=== PATIENT | male | born 1945 | race Caucasian/White ===

== ENCOUNTER 2017-08-06 13:17 | Inpatient (IN) | payer MEDICARE, OTHER ==
[~2017-08-06 13:17] MED LIST: DIFL100T PO; HYDR-3516 PO; LACT PO; LISI2.5T3 PO; METR-1 PO; REDPOW2
[2017-08-06 13:35] VITALS: BP 147/88; PULSE 102; RESP 18; TEMP 100.3; O2SAT 99
[2017-08-06] MEDS ORDERED: ACETAMINOPHEN 325 MG TAB PO ONE (13:45)
[2017-08-06 14:15] LABS: AUTOMATED NEUTROPHIL # 11.1 TH/MM3 (1.8-7.7); BASOPHIL # 0.1 TH/MM3 (0-0.2); BASOPHIL % 0.6 % (0.0-2.0); EOSINOPHIL # 0.1 TH/MM3 (0-0.4); EOSINOPHIL % 0.5 % (0.0-4.0); HEMATOCRIT 34.1 % (39.0-51.0); HEMOGLOBIN 12.2 GM/DL (13.0-17.0); LYMPH % 5.9 % (9.0-44.0); LYMPHOCYTE # 0.8 TH/MM3 (1.0-4.8); MEAN CELL VOLUME 87.2 FL (80.0-100.0); MEAN CORPUSCULAR HEMOGLOBIN 31.3 PG (27.0-34.0); MEAN CORPUSCULAR HGB CONC 35.9 % (32.0-36.0); MEAN PLATELET VOLUME 7.5 FL (7.0-11.0); MONO % 13.3 % (0.0-8.0); MONOCYTE # 1.9 TH/MM3 (0-0.9); NEUT % 79.7 % (16.0-70.0); PLATELET COUNT 327 TH/MM3 (150-450); RED BLOOD COUNT 3.92 MIL/MM3 (4.50-5.90); RED CELL DISTRIBUTION WIDTH 12.9 % (11.6-17.2); WHITE BLOOD COUNT 13.9 TH/MM3 (4.0-11.0)
[2017-08-06 14:24] LABS: INTERNATIONAL NORMALIZED RATIO 1.1 RATIO; PROTHROMBIN TIME - PATIENT 11.1 SEC (9.8-11.6)
[2017-08-06 14:30] LABS: ALBUMIN 2.8 GM/DL (3.4-5.0); AST (GOT) 12 U/L (15-37); BICARBONATE 20.3 MEQ/L (21.0-32.0); BLOOD UREA NITROGEN 50 MG/DL (7-18); CALCIUM 9.3 MG/DL (8.5-10.1); CHLORIDE 104 MEQ/L (98-107); GLOMERULAR FILTRATION RATE 26 ML/MIN (>89); GLUCOSE,RANDOM 104 MG/DL (74-106); SODIUM (NA) 136 MEQ/L (136-145)
--- NOTE | 2017-08-06 14:30 | RADRPT ---
EXAM DATE/TIME: 08/06/2017 13:50 [facility] COMPARISON: No previous studies available for comparison. INDICATIONS : Chest discomfort; fall. MEDICAL HISTORY : None. SURGICAL HISTORY : None. ENCOUNTER: Initial ACUITY: 1 day PAIN SCORE: 2/10 LOCATION: Bilateral chest FINDINGS: A single view of the chest demonstrates minimal bibasilar linear densities without evidence of mass, infiltrate or effusion. Calcified granuloma right mid to lower lung. The cardiomediastinal contours are unremarkable. Osseous structures are intact. CONCLUSION: Minimal bibasilar subsegmental atelectasis. Manuel David MD on August 06, 2017 at 14:29 Board Certified Radiologist. This report was verified electronically.
--- NOTE | 2017-08-06 14:30 | RADRPT ---
EXAM DATE/TIME: 08/06/2017 14:06 [facility] COMPARISON: No previous studies available for comparison. INDICATIONS : Left knee contraction. MEDICAL HISTORY : None. SURGICAL HISTORY : None. ENCOUNTER: Initial ACUITY: 1 week PAIN SCORE: 9/10 LOCATION: Left knee. FINDINGS: Two view examination of the left knee is obtained. Patient unable to extend knee, limiting evaluation . No obvious fracture. Prominent degenerative changes. Bony mineralization is normal. The suprapate llar soft tissues have a normal configuration. CONCLUSION: Limited study with prominent degenerative changes. No gross fracture. Manuel David MD on August 06, 2017 at 14:25 Board Certified Radiologist. This report was verified electronically.
[2017-08-06 14:34] LABS: ALKALINE PHOSPHATASE 94 U/L (45-117); ALT (GPT) 9 U/L (12-78); TOTAL BILIRUBIN ADULT 0.3 MG/DL (0.2-1.0); TOTAL PROTEIN 8.5 GM/DL (6.4-8.2)
[2017-08-06] MEDS ORDERED: MORPHINE SULFATE 2 MG/ML INJ IV PUSH ONE (14:45)
[2017-08-06] MEDS ORDERED: SODIUM CHLOR 0.9% 1000 ML INJ 1,000 ML IV ONE (14:45)
[2017-08-06 14:50] VITALS: BP 113/55; PULSE 89; RESP 20; TEMP 99.8; O2SAT 100
[2017-08-06] MEDS ORDERED: FERR325T18 PO (14:54)
[2017-08-06 14:57] LABS: BACTERIA, URINE MANY /hpf; BILIRUBIN, URINE NEG (NEG); BLOOD, URINE SMALL (NEG); GLUCOSE,URINE NEG (NEG); KETONE, URINE NEG (NEG); MUCUS URINE FEW /lpf (OCC); NITRITE,URINE NEG (NEG); PH, URINE 7.5 (5.0-8.5); URINE COLOR LIGHT-YELLOW (YELLW/STRAW); URINE LEUKOCYTE ESTERASE LARGE (NEG); WHITE BLOOD CELL CLUMPS OCC
--- NOTE | 2017-08-06 15:39 | PD ---
Data Data Last Documented VS Vital Signs Date Time Temp Pulse Resp B/P (MAP) Pulse Ox O2 Delivery O2 Flow Rate FiO2 08/06/17 14:50 99.8 89 20 113/55 (74) 100 Room Air Orders Orders Sepsis Workup Initiated (08/06/17 ) Complete Blood Count With Diff (08/06/17 13:37) Comprehensive Metabolic Panel (08/06/17 13:37) Prothrombin Time / Inr (Pt) (08/06/17 13:37) Act Partial Throm Time (Ptt) (08/06/17 13:37) Lactic Acid Sepsis Protocol (08/06/17 13:37) Urinalysis - C+S If Indicated (08/06/17 13:37) Blood Culture (08/06/17 13:37) Chest, Single Ap (08/06/17 13:37) Blood Glucose (08/06/17 13:37) Ecg Monitoring (08/06/17 13:37) Iv Access Insert/Monitor (08/06/17 13:37) Oximetry (08/06/17 13:37) Ice/Cold Pack (08/06/17 13:37) Acetaminophen (Tylenol) (08/06/17 13:45) Knee, Ltd (1 Or 2vws) (08/06/17 13:37) Urinary Catheter Insert/Apply (08/06/17 14:25) Sodium Chlor 0.9% 1000 Ml Inj (Ns 1000 M (08/06/17 14:45) Morphine Inj (Morphine Inj) (08/06/17 14:45) Urine Culture (08/06/17 14:29) Admit Order (Ed Use Only) (08/06/17 15:47) Labs Laboratory Tests Test 08/06/17 13:50 08/06/17 14:29 White Blood Count 13.9 TH/MM3 Red Blood Count 3.92 MIL/MM3 Hemoglobin 12.2 GM/DL Hematocrit 34.1 % Mean Corpuscular Volume 87.2 FL Mean Corpuscular Hemoglobin 31.3 PG Mean Corpuscular Hemoglobin Concent 35.9 % Red Cell Distribution Width 12.9 % Platelet Count 327 TH/MM3 Mean Platelet Volume 7.5 FL Neutrophils (%) (Auto) 79.7 % Lymphocytes (%) (Auto) 5.9 % Monocytes (%) (Auto) 13.3 % Eosinophils (%) (Auto) 0.5 % Basophils (%) (Auto) 0.6 % Neutrophils # (Auto) 11.1 TH/MM3 Lymphocytes # (Auto) 0.8 TH/MM3 Monocytes # (Auto) 1.9 TH/MM3 Eosinophils # (Auto) 0.1 TH/MM3 Basophils # (Auto) 0.1 TH/MM3 CBC Comment DIFF FINAL Differential Comment Prothrombin Time 11.1 SEC Prothromb Time International Ratio 1.1 RATIO Activated Partial Thromboplast Time 27.6 SEC Blood Urea Nitrogen 50 MG/DL Creatinine 2.50 MG/DL Random Glucose 104 MG/DL Total Protein 8.5 GM/DL Albumin 2.8 GM/DL Calcium Level 9.3 MG/DL Alkaline Phosphatase 94 U/L Aspartate Amino Transf (AST/SGOT) 12 U/L Alanine Aminotransferase (ALT/SGPT) 9 U/L Total Bilirubin 0.3 MG/DL Sodium Level 136 MEQ/L Potassium Level 4.4 MEQ/L Chloride Level 104 MEQ/L Carbon Dioxide Level 20.3 MEQ/L Anion Gap 12 MEQ/L Estimat Glomerular Filtration Rate 26 ML/MIN Lactic Acid Level 1.2 mmol/L Urine Color LIGHT-YELLOW Urine Turbidity HAZY Urine pH 7.5 Urine Specific [place] 1.013 Urine Protein 30 mg/dL Urine Glucose (UA) NEG mg/dL Urine Ketones NEG mg/dL Urine Occult Blood SMALL Urine Nitrite NEG Urine Bilirubin NEG Urine Urobilinogen LESS THAN 2.0 MG/DL Urine Leukocyte Esterase LARGE Urine RBC 3 /hpf Urine WBC /hpf Urine WBC Clumps OCC Urine Bacteria MANY /hpf Urine Mucus FEW /lpf Microscopic Urinalysis Comment CATH-CULTURE IND MDM Medical Record Reviewed: Yes Supervised Visit with MINE: Yes Narrative Course Please refer to midlevel documentation I evaluated and examined the patient at the bedside and guided care here Possible L knee septic arthritis v occult fracture, exam somewhat limited at bedside because knee is maximally flexed Pt with UTI and will be admitted for IV abx and further investigation into L knee pain Prateek Higgins MD Aug 06, 2017 15:39
[2017-08-06] MEDS ORDERED: GENTAMICIN INJ 400 MG in SODIUM CHLORIDE 0.9% INJ 100 ML IV STA (15:43)
[2017-08-06] MEDS ORDERED: AZTREONAM INJ 1,000 MG in SODIUM CHLORIDE 0.9% INJ 100 ML IV STA (15:43)
--- NOTE | 2017-08-06 15:43 | PD ---
HPI Chief Complaint: Fall Time Seen by Provider: 13:36 Travel History International Travel<30 days: No Contact w/Intl Traveler<30days: No Traveled to known affect area: No History of Present Illness HPI 72-year-old male presents to the ED for evaluation of left knee pain and urinary urgency and incontinence. The pain started today after the patient fell in the bathroom. Denies hitting his head or loss of consciousness. States that he's had urinary urgency and loss of control of the bladder for approximately 3 days. He denies fevers, chills, nausea, vomiting, chest pain, palpitations, abdominal pain. PFSH Past Medical History Arthritis: Yes Autoimmune Disease: No Cardiovascular Problems: No Chest Pain: Yes Cerebrovascular Accident: No Diminished Hearing: No Endocrine: No Immune Disorder: No Neurologic: No Psychiatric: No Reproductive: No Migraines: No Seizures: No ?: Not Past Surgical History Abdominal Surgery: No Cardiac Surgery: No Ear Surgery: No Endocrine Surgery: No Eye Surgery: Yes Genitourinary Surgery: No Gynecologic Surgery: No Oral Surgery: No Thoracic Surgery: No Other Surgery: Yes (BACK SURGERY SCOLIOSIS CORRECTION) Social History Alcohol Use: No Tobacco Use: Yes (SMOKES A PIPE 3-4 X PER DAY) Substance Use: No Allergies-Medications (Allergen,Severity, Reaction): Coded Allergies: cefepime (Unverified Allergy, Severe, RASH TO CEFEPIME, 08/06/17) ceftaroline fosamil (Unverified Allergy, Severe, RASH TO CEFEPIME, 08/06/17) diphenhydramine (Unverified Allergy, Severe, ALTERED MENTAL STATUS, 08/06/17 ) tigecycline (Unverified Allergy, Severe, Rash, 08/06/17) Reported Meds & Prescriptions Reported Meds & Active Scripts Active Reported Ferrous Sulfate 325 Mg (65 Mg Iron) Tablet 325 Mg PO DAILY Red Yeast Rice (Red Yeast Rice Extract (Bulk)) 1 Pow Pow Review of Systems Except as stated in HPI: all other systems reviewed are Neg Physical Exam Narrative GENERAL: Well-nourished, well-developed white male smelling strongly of urine. SKIN: Focused skin assessment warm/dry. Abrasion on the lateral aspect of the left thigh. HEAD: Normocephalic. Atraumatic. EYES: No scleral icterus. No injection or drainage. NECK: Supple, trachea midline. No JVD or lymphadenopathy. CARDIOVASCULAR: Regular rate and rhythm without murmurs, gallops, or rubs. RESPIRATORY: Breath sounds clear and equal bilaterally. No accessory muscle use. GASTROINTESTINAL: Abdomen soft, nondistended. Tender to palpation in the suprapubic region. Active bowel sounds. MUSCULOSKELETAL: No cyanosis. Left knee tender, edematous, held in flexion, resistant to extension. 2+DP pulse BACK: Nontender without obvious deformity. No CVA tenderness. Data Data Last Documented VS Vital Signs Date Time Temp Pulse Resp B/P (MAP) Pulse Ox O2 Delivery O2 Flow Rate FiO2 08/06/17 14:50 99.8 89 20 113/55 (74) 100 Room Air Orders Orders Sepsis Workup Initiated (08/06/17 ) Complete Blood Count With Diff (08/06/17 13:37) Comprehensive Metabolic Panel (08/06/17 13:37) Prothrombin Time / Inr (Pt) (08/06/17 13:37) Act Partial Throm Time (Ptt) (08/06/17 13:37) Lactic Acid Sepsis Protocol (08/06/17 13:37) Urinalysis - C+S If Indicated (08/06/17 13:37) Blood Culture (08/06/17 13:37) Chest, Single Ap (08/06/17 13:37) Blood Glucose (08/06/17 13:37) Ecg Monitoring (08/06/17 13:37) Iv Access Insert/Monitor (08/06/17 13:37) Oximetry (08/06/17 13:37) Ice/Cold Pack (08/06/17 13:37) Acetaminophen (Tylenol) (08/06/17 13:45) Knee, Ltd (1 Or 2vws) (08/06/17 13:37) Urinary Catheter Insert/Apply (08/06/17 14:25) Sodium Chlor 0.9% 1000 Ml Inj (Ns 1000 M (08/06/17 14:45) Morphine Inj (Morphine Inj) (08/06/17 14:45) Urine Culture (08/06/17 14:29) Admit Order (Ed Use Only) (08/06/17 15:47) Labs Laboratory Tests Test 08/06/17 13:50 08/06/17 14:29 White Blood Count 13.9 TH/MM3 Red Blood Count 3.92 MIL/MM3 Hemoglobin 12.2 GM/DL Hematocrit 34.1 % Mean Corpuscular Volume 87.2 FL Mean Corpuscular Hemoglobin 31.3 PG Mean Corpuscular Hemoglobin Concent 35.9 % Red Cell Distribution Width 12.9 % Platelet Count 327 TH/MM3 Mean Platelet Volume 7.5 FL Neutrophils (%) (Auto) 79.7 % Lymphocytes (%) (Auto) 5.9 % Monocytes (%) (Auto) 13.3 % Eosinophils (%) (Auto) 0.5 % Basophils (%) (Auto) 0.6 % Neutrophils # (Auto) 11.1 TH/MM3 Lymphocytes # (Auto) 0.8 TH/MM3 Monocytes # (Auto) 1.9 TH/MM3 Eosinophils # (Auto) 0.1 TH/MM3 Basophils # (Auto) 0.1 TH/MM3 CBC Comment DIFF FINAL Differential Comment Prothrombin Time 11.1 SEC Prothromb Time International Ratio 1.1 RATIO Activated Partial Thromboplast Time 27.6 SEC Blood Urea Nitrogen 50 MG/DL Creatinine 2.50 MG/DL Random Glucose 104 MG/DL Total Protein 8.5 GM/DL Albumin 2.8 GM/DL Calcium Level 9.3 MG/DL Alkaline Phosphatase 94 U/L Aspartate Amino Transf (AST/SGOT) 12 U/L Alanine Aminotransferase (ALT/SGPT) 9 U/L Total Bilirubin 0.3 MG/DL Sodium Level 136 MEQ/L Potassium Level 4.4 MEQ/L Chloride Level 104 MEQ/L Carbon Dioxide Level 20.3 MEQ/L Anion Gap 12 MEQ/L Estimat Glomerular Filtration Rate 26 ML/MIN Lactic Acid Level 1.2 mmol/L Urine Color LIGHT-YELLOW Urine Turbidity HAZY Urine pH 7.5 Urine Specific [place] 1.013 Urine Protein 30 mg/dL Urine Glucose (UA) NEG mg/dL Urine Ketones NEG mg/dL Urine Occult Blood SMALL Urine Nitrite NEG Urine Bilirubin NEG Urine Urobilinogen LESS THAN 2.0 MG/DL Urine Leukocyte Esterase LARGE Urine RBC 3 /hpf Urine WBC /hpf Urine WBC Clumps OCC Urine Bacteria MANY /hpf Urine Mucus FEW /lpf Microscopic Urinalysis Comment CATH-CULTURE IND MDM Medical Decision Making Medical Screen Exam Complete: Yes Emergency Medical Condition: Yes Differential Diagnosis UTI versus LEAH versus sepsis versus contusion versus fracture versus septic arthritis versus other Narrative Course 72-year-old male presents to the ED for evaluation of left knee pain and urinary urgency and incontinence. The pain started today after the patient fell in the bathroom. Denies hitting his head or loss of consciousness. States that he's had urinary urgency and loss of control of the bladder for approximately 3 days. He denies fevers, chills, nausea, vomiting, chest pain, palpitations, abdominal pain. Temp 100.3. Pulse 102, BP 147/88 on presentation. On physical exam this is a white male, smelling strongly of urine in no acute distress. There is some suprapubic tenderness to palpation of the abdomen. The left knee is tender, edematous, held in extreme flexion. Patient is resistant to extension. Patient was administered 650 mg Tylenol by mouth. He was administered 4 mg of morphine IV. Sepsis workup and fluid resuscitation initiated. CBC & BMP Diagram 08/06/17 13:50 Total Protein 8.5 H, Albumin 2.8 L, Calcium Level 9.3, Alkaline Phosphatase 94, Aspartate Amino Transf (AST/SGOT) 12 L, Alanine Aminotransferase (ALT/SGPT) 9 L , Total Bilirubin 0.3 Coags: INR 1.1 UA: Hazy, small occult blood, large leukocyte Estrace, innumerable WBCs, occasional WBC clumps, many bacteria. Culture indicated. CXR: Minimal bibasilar subsegmental atelectasis Left knee x-ray: Limited study with prominent degenerative changes. No gross fracture per radiology read. I discussed the results of the workup with the patient and recommended admission. He is agreeable to this plan. I spoke with Dr. Alexander who came to bedside and attempted an arthrocentesis. He agrees to accept the patient to the medicine service. Patient was administered IV aztreonam and gentamicin. MRI of the knee pending. Please see medicine notes for disposition. Sepsis Criteria SIRS Criteria (2 or more): Temp > 100.9 or < 96.8, WBC > 94537, < 4000 or > 10 % bands Sepsis Criteria (SIRS+source): Infect source susp/known Severe Sepsis (+one): Acute Oliguria/Renal Failure Criteria Outcome: Meets severe sepsis criteria Nemo Sethi Aug 06, 2017 15:43
[2017-08-06] MEDS ORDERED: NALOXONE HCL 0.4 MG/ML AMP IV PUSH PRN ×2 (16:15→17:45)
[2017-08-06] MEDS ORDERED: MAGNESIUM HYDROXIDE SUSP 30 ML CUP PO PRN (16:15)
[2017-08-06] MEDS ORDERED: BISACODYL 10 MG SUPP RECTAL PRN (16:15)
[2017-08-06] MEDS ORDERED: LACTULOSE SYRUP 20 GM/30 ML CUP PO PRN (16:15)
[2017-08-06] MEDS ORDERED: Vancomycin Consult Pharmacy 1 EA OTHER SCH (16:15)
[2017-08-06] MEDS ORDERED: VANCOMYCIN INJ 1,000 MG in SODIUM CHLOR 0.9% 250 ML INJ 250 ML IV SCH (16:15)
[2017-08-06] MEDS ORDERED: SODIUM CHLORIDE 0.9% FLUSH 10 ML FLUSH IV FLUSH PRN (16:15)
[2017-08-06] MEDS ORDERED: SENNOSIDES 8.6 MG TAB PO PRN (16:15)
[2017-08-06] MEDS ORDERED: CIPROFLOXACIN 400 MG PREMIX 200 ML IV ONE (17:00)
[2017-08-06] MEDS ORDERED: AZTREONAM INJ 1,000 MG in SODIUM CHLORIDE 0.9% INJ 100 ML IV ONE ×2 (17:30→17:45)
[2017-08-06] MEDS ORDERED: GENTAMICIN INJ 400 MG in SODIUM CHLORIDE 0.9% INJ 100 ML IV ONE (17:30)
--- NOTE | 2017-08-06 17:44 | HHI.HP ---
[facility] Service [facility] Primary Care Physician Wale Healy MD Admission Diagnosis urosepsis, LEAH Diagnoses: Travel History International Travel<30 Days: No Contact w/Intl Traveler <30 Da: No Traveled to Known Affected Are: No History of Present Illness 72-year-old male with a history of BPH with UTIs in the past, who presents with a 3 day history of urinary urgency and incontinence, as well as a one-week history of severe constant worsening left knee pain worse with movement. He denies any fevers or chills. Denies any nausea or vomiting. Denies chest pain or shortness of breath. He does report a fall in the bathroom about 2 weeks ago , however says that there is no injury to the left knee. Review of Systems Except as stated in HPI: all other systems reviewed are Neg Past Family Social History Past Medical History Reported history of UTIs in the past. Chronic arthritis Scoliosis status post surgery Past Surgical History History of eye surgery Scoliosis surgery Right first toe resection. Reported Medications Reported Meds & Active Scripts Active Reported Ferrous Sulfate 325 Mg (65 Mg Iron) Tablet 325 Mg PO DAILY Red Yeast Rice (Red Yeast Rice Extract (Bulk)) 1 Pow Pow Allergies: Coded Allergies: cefepime (Unverified Allergy, Severe, RASH TO CEFEPIME, 08/06/17) ceftaroline fosamil (Unverified Allergy, Severe, RASH TO CEFEPIME, 08/06/17) diphenhydramine (Unverified Allergy, Severe, ALTERED MENTAL STATUS, 08/06/17 ) tigecycline (Unverified Allergy, Severe, Rash, 08/06/17) Family History Mother at age 80 from suspected [place]. Father at age 65 from suspected [place]. Social History Patient initially denies smoking, however upon reviewing history it appears patient smokes a pipe.. Nondrinker. Denies illicit drugs. Physical Exam Vital Signs Vital Signs Date Time Temp Pulse Resp B/P (MAP) Pulse Ox O2 Delivery O2 Flow Rate FiO2 08/06/17 14:50 99.8 89 20 113/55 (74) 100 Room Air 08/06/17 13:35 100.3 102 18 147/88 (187) 99 Physical Exam GENERAL: This is a well-nourished, well-developed patient, appears in pain. Alert and oriented 3. SKIN: No rashes, ecchymoses or lesions. Cool and dry. HEAD: Atraumatic. Normocephalic. No temporal or scalp tenderness. EYES: Pupils equal round and reactive. Extraocular motions intact. No scleral icterus. No injection or drainage. ENT: Nose without bleeding, purulent drainage or septal hematoma. Throat without erythema, tonsillar hypertrophy or exudate. Uvula midline. Airway patent. NECK: Trachea midline. No JVD or lymphadenopathy. Supple, nontender, no meningeal signs. CARDIOVASCULAR: Regular rate and rhythm without murmurs, gallops, or rubs. RESPIRATORY: Clear to auscultation. Breath sounds equal bilaterally. No wheezes , rales, or rhonchi. GASTROINTESTINAL: Abdomen soft, non-tender, nondistended. No hepato-splenomegaly , or palpable masses. No guarding. MUSCULOSKELETAL: Extremities without clubbing, cyanosis, or edema. No joint tenderness, effusion, or edema noted. No calf tenderness. Negative Homans sign bilaterally. Left knee tenderness to palpation, with faint overlying erythema. No broken skin. NEUROLOGICAL: Awake and alert. Cranial nerves II through XII intact. Motor and sensory grossly within normal limits. Five out of 5 muscle strength in all muscle groups. Normal speech. Laboratory Laboratory Tests Test 08/06/17 13:50 08/06/17 14:29 White Blood Count 13.9 Red Blood Count 3.92 Hemoglobin 12.2 Hematocrit 34.1 Mean Corpuscular Volume 87.2 Mean Corpuscular Hemoglobin 31.3 Mean Corpuscular Hemoglobin Concent 35.9 Red Cell Distribution Width 12.9 Platelet Count 327 Mean Platelet Volume 7.5 Neutrophils (%) (Auto) 79.7 Lymphocytes (%) (Auto) 5.9 Monocytes (%) (Auto) 13.3 Eosinophils (%) (Auto) 0.5 Basophils (%) (Auto) 0.6 Neutrophils # (Auto) 11.1 Lymphocytes # (Auto) 0.8 Monocytes # (Auto) 1.9 Eosinophils # (Auto) 0.1 Basophils # (Auto) 0.1 CBC Comment DIFF FINAL Differential Comment Prothrombin Time 11.1 Prothromb Time International Ratio 1.1 Activated Partial Thromboplast Time 27.6 Blood Urea Nitrogen 50 Creatinine 2.50 Random Glucose 104 Total Protein 8.5 Albumin 2.8 Calcium Level 9.3 Alkaline Phosphatase 94 Aspartate Amino Transf (AST/SGOT) 12 Alanine Aminotransferase (ALT/SGPT) 9 Total Bilirubin 0.3 Sodium Level 136 Potassium Level 4.4 Chloride Level 104 Carbon Dioxide Level 20.3 Anion Gap 12 Estimat Glomerular Filtration Rate 26 Lactic Acid Level 1.2 Urine Color LIGHT-YELLOW Urine Turbidity HAZY Urine pH 7.5 Urine Specific [place] 1.013 Urine Protein 30 Urine Glucose (UA) NEG Urine Ketones NEG Urine Occult Blood SMALL Urine Nitrite NEG Urine Bilirubin NEG Urine Urobilinogen LESS THAN 2.0 Urine Leukocyte Esterase LARGE Urine RBC 3 Urine WBC Urine WBC Clumps OCC Urine Bacteria MANY Urine Mucus FEW Microscopic Urinalysis Comment CATH-CULTURE IND Date/Time Source Procedure Growth Status 08/06/17 13:50 Blood Peripheral Aerobic Blood Culture Pending Received 08/06/17 13:50 Blood Peripheral Anaerobic Blood Culture Pending Received 08/06/17 14:29 Urine Catheterized Urine Urine Culture Pending Received Result Diagram: 08/06/17 1350 08/06/17 1350 Imaging Last Impressions Knee X-Ray [id number] Signed Impressions: Service Date/Time: August 14:06 - CONCLUSION: Limited study with prominent degenerative changes. No gross fracture. Manuel David MD Chest X-Ray [id number] Signed Impressions: Service Date/Time: August 13:50 - CONCLUSION: Minimal bibasilar subsegmental atelectasis. Manuel David MD Caprini VTE Risk Assessment Caprini VTE Risk Assessment: Mod/High Risk (score >= 2) Caprini Risk Assessment Model Point Value = 1 Point Value = 2 Point Value = 3 Point Value = 5 Age 41-60 Minor surgery BMI > 25 kg/m2 Swollen legs Varicose veins or History of unexplained or recurrent spontaneous Oral contraceptives or hormone replacement Sepsis (< 1 month) Serious lung disease, including pneumonia (< 1 month) Abnormal pulmonary function Acute myocardial infarction Congestive heart failure (< 1 month) History of inflammatory bowel disease Medical patient at bed rest Age 61-74 Arthroscopic surgery Major open surgery (> 45 min) Laparoscopic surgery (> 45 min) Malignancy Confined to bed (> 72 hours) Immobilizing plaster cast Central venous access Age >= 75 History of VTE Family history of VTE Factor V Leiden Prothrombin [id number] Lupus anticoagulant Anticardiolipin antibodies Elevated serum homocysteine Heparin-induced thrombocytopenia Other congenital or acquired thrombophilia Stroke (< 1 month) Elective arthroplasty Hip, pelvis, or leg fracture Acute spinal cord injury (< 1 month) Prophylaxis Regimen Total Risk Factor Score Risk Level Prophylaxis Regimen 0-1 Low Early ambulation 2 Moderate Order ONE of the following: *Sequential Compression Device (SCD) *Heparin 5000 units SQ BID 3-4 Higher Order ONE of the following medications: *Heparin 5000 units SQ TID *Enoxaparin/Lovenox 40 mg SQ daily (WT < 150 kg, CrCl > 30 mL/min) *Enoxaparin/Lovenox 30 mg SQ daily (WT < 150 kg, CrCl > 10-29 mL/min) *Enoxaparin/Lovenox 30 mg SQ BID (WT < 150 kg, CrCl > 30 mL/min) AND/OR *Sequential Compression Device (SCD) 5 or more Highest Order ONE of the following medications: *Heparin 5000 units SQ TID (Preferred with Epidurals) *Enoxaparin/Lovenox 40 mg SQ daily (WT < 150 kg, CrCl > 30 mL/min) *Enoxaparin/Lovenox 30 mg SQ daily (WT < 150 kg, CrCl > 10-29 mL/min) *Enoxaparin/Lovenox 30 mg SQ BID (WT < 150 kg, CrCl > 30 mL/min) AND *Sequential Compression Device (SCD) Assessment and Plan Assessment and Plan //Severe sepsis //Left knee septic arthritis. -Tachycardia 102, temperature 100.3. Leukocytosis 13.9. Acute kidney injury 2.5 from normal baseline = Attempted aspiration at bedside. Unsuccessful. Start broad-spectrum antibiotics. MRI pending. Orthopedics and ID consulted. Appreciate assistance. //Acute kidney injury. Creatinine in 2.5 from normal baseline. //History of urinary retention. = Patient does have a history of elevated creatinine in the past, however appears to be secondary to obstruction. -Vargas placed. Will order ultrasound kidneys -Suspect secondary to urinary retention, UTI. //Tobacco abuse. Need to discuss cessation counseling tomorrow. Discussed Condition With Patient, nurse, ED physician. Physician Certification 2 Midnight Certification Type: Admission for Inpatient Services Order for Inpatient Services The services are ordered in accordance with Medicare regulations or non- Medicare payer requirements, as applicable. In the case of services not specified as inpatient-only, they are appropriately provided as inpatient services in accordance with the 2-midnight benchmark. Estimated LOS (days): 3 days is the estimated time the patient will need to remain in the hospital, assuming treatment plan goals are met and no additional complications. Post-Hospital Plan: Not yet determined Donovan Alexander MD Aug 06, 2017 17:44
[2017-08-06] MEDS ORDERED: ACETAMINOPHEN/HYDROcodone 325 MG/5 MG TAB PO PRN (17:45)
[2017-08-06] MEDS: SODIUM CHLOR 0.45% 1000 ML INJ 1,000 ML IV SCH (17:50)
[2017-08-06 17:53] VITALS: BP 145/68; PULSE 96; RESP 20; TEMP 99.2; O2SAT 93
[2017-08-06] MEDS ORDERED: VANCOMYCIN INJ 1,250 MG in SODIUM CHLOR 0.9% 250 ML INJ 250 ML IV ONE (18:00)
--- NOTE | 2017-08-06 19:45 | MB ---
cc: Donovan Maharaj MD DATE OF CONSULT: 08/06/2017 REASON FOR CONSULTATION: Left knee pain. HISTORY OF PRESENT ILLNESS: A 72-year-old male who presents to [facility] with increasing severe pain in regards to his left knee. Patient is somewhat of a poor historian, but he gives a history in that he is a wheelchair ambulator and a very limited ambulator with the assistance of a walker. The patient states he had a fall many years ago and ever since then his ability to ambulate has been very limited and he has been using a wheelchair for the most part. He describes chronic flexion contractures of his lower extremities. The patient states he tried to get up and use the bathroom yesterday and his left knee gave-way and he fell. He is complaining of severe pain in regards to his left knee and further history is somewhat unobtainable. Patient, again, is a very poor historian. He states the pain is moderate to severe, constant, throbbing, aching. It is worse when he tries to move that left knee. He has severe flexion contractures of his bilateral knees. PAST MEDICAL HISTORY: Positive for chronic urinary tract infections, arthritis, history of scoliosis surgery, eye surgery. He has history of a right great toe amputation for infection. He is a very limited ambulator and uses a wheelchair for the most part. ALLERGIES: CEFEPIME, BENADRYL, TYGACIL. MEDICATIONS: Iron. FAMILY HISTORY: Positive for heart disease, mother and father's side. SOCIAL HISTORY: He has a history of smoking a pipe, non-drinker, does not use drugs. REVIEW OF SYSTEMS: He states he has had some feelings of urinary urgency and incontinence. He has had left knee pain. He currently denies fevers or chills. No nausea, vomiting. No shortness of breath. No chest pain. All other review of systems negative for 10 systems other than HPI. PHYSICAL EXAMINATION: VITAL SIGNS: Temperature currently is 99.8, temperature at admission was 100.3; pulse 89, respirations 20, blood pressure 113/55. He is saturating 100% on room air. GENERAL: Patient is awake, lying in bed, in no acute distress. He is alert. He is a poor historian. HEENT: Normocephalic, atraumatic. Pupils round. Extraocular muscles intact. NECK: Supple. LUNGS: Clear. HEART: Regular rate and rhythm. ABDOMEN: Soft, nontender. EXTREMITIES: He has bilateral severe chronic fixed flexion contractures of both of his knees, which are flexed to approximately 150 degrees. These contractures appear somewhat fixed and has pain with trying to straighten both of his knees. He has very slight swelling of the left knee joint, but no erythema, no cellulitis. Sensation appears intact distally. LABORATORY DATA: White blood cell count is 13.9, hemoglobin 12, hematocrit 34. Glucose 104, BUN of 50, creatinine 2.5. X-ray of left knee reveals degenerative arthritic change. No fracture. IMPRESSION: A 72-year-old male who is a very limited ambulator and for the most part uses a wheelchair. He has chronic flexion contractures of his bilateral lower extremities. He reports a recent fall. He reports left knee pain. He has an elevated white blood cell count of 13.9. His urinalysis shows many bacteria and the culture from the urine is pending. He has elevated BUN and creatinine. Blood culture no growth to date. Septic arthritis of the left knee is in the differential diagnosis versus trauma or potentially a fracture not visualized on the x-ray. PLAN: I discussed diagnosis with the patient. I spoke about the option of an arthrocentesis of his left knee joint. Risks and benefits were discussed in detail and patient did give consent. After appropriate written consent was obtained from the patient for the arthrocentesis of the left knee and verbal consent, a timeout was performed and I performed a prep of the skin using Betadine. Subsequently an arthrocentesis of the left knee joint from the superolateral approach was performed with an 18-gauge inch and a half needle. I was only able to express less than 1 mL of blood. There was no evidence of purulence. The patient tolerated the procedure well with no complications. At this point, I think my differential diagnosis of septic arthritis is certainly decreased and I would like to obtain a CT scan of his left knee to see if any other specific pathology is identified to account for patient's symptoms of increasing pain, particularly after this most recent fall. On further consideration, perhaps the urinary tract infection is the reason for the elevated white blood cell count and the knee pain is more likely related to the trauma. MD VANNA Pabon , 06:55 PM , 07:44 PM
[2017-08-06 20:00] VITALS: BP 130/73; PULSE 98; RESP 18; TEMP 100.4; O2SAT 96
[2017-08-06] MEDS: DOCUSATE SODIUM 50 MG/SENNA 8.6 MG TAB PO SCH (21:00)
[2017-08-06] MEDS: SODIUM CHLORIDE 0.9% FLUSH 10 ML FLUSH IV FLUSH SCH (21:26)
[2017-08-06] MEDS: MORPHINE SULFATE 2 MG/ML INJ IV PUSH PRN (21:29)
[2017-08-06] MEDS: AZTREONAM INJ 1,000 MG in SODIUM CHLORIDE 0.9% INJ 100 ML IV SCH (23:47)
[2017-08-07] VITALS (12 sets, daily range): BP systolic 102–140; BP diastolic 53–75; PULSE 88–113; RESP 18–20; TEMP 98–100.8; O2SAT 93–97
[2017-08-07] MEDS: ACETAMINOPHEN/HYDROcodone 325 MG/7.5 MG TAB PO PRN ×2 (03:51→15:11)
[2017-08-07] MEDS: SODIUM CHLOR 0.45% 1000 ML INJ 1,000 ML IV SCH ×2 (06:17→21:07)
[2017-08-07] MEDS: AZTREONAM INJ 1,000 MG in SODIUM CHLORIDE 0.9% INJ 100 ML IV SCH ×3 (08:17→23:39)
[2017-08-07 08:29] LABS: ALBUMIN 2.3 GM/DL (3.4-5.0); AST (GOT) 21 U/L (15-37); BICARBONATE 18.2 MEQ/L (21.0-32.0); BLOOD UREA NITROGEN 52 MG/DL (7-18); CALCIUM 8.9 MG/DL (8.5-10.1); CHLORIDE 106 MEQ/L (98-107); CREATININE 3.27 MG/DL (0.60-1.30); GLOMERULAR FILTRATION RATE 19 ML/MIN (>89); GLUCOSE,RANDOM 77 MG/DL (74-106); SODIUM (NA) 139 MEQ/L (136-145)
[2017-08-07] MEDS: SODIUM CHLORIDE 0.9% FLUSH 10 ML FLUSH IV FLUSH SCH ×2 (08:32→21:07)
[2017-08-07 08:33] LABS: ALKALINE PHOSPHATASE 86 U/L (45-117); ALT (GPT) 9 U/L (12-78); RANDOM VANCOMYCIN LESS THAN 0.8 COMMENT; TOTAL BILIRUBIN ADULT 0.3 MG/DL (0.2-1.0); TOTAL PROTEIN 7.7 GM/DL (6.4-8.2)
[2017-08-07] MEDS: DOCUSATE SODIUM 50 MG/SENNA 8.6 MG TAB PO SCH ×2 (08:33→21:00)
[2017-08-07] MEDS ORDERED: INFLUENZA VIRUS VACCINE (QUADRIVALENT) 0.5 ML SYR IM ONE (09:00)
[2017-08-07] MEDS ORDERED: PNEUMOCOCCAL POLYVALENT INJ 25 MCG/0.5 ML SYR IM ONE (09:00)
--- NOTE | 2017-08-07 09:22 | RADRPT ---
EXAM DATE/TIME: 08/07/2017 08:22 [facility] COMPARISON: US KIDNEY/RENAL/BLADDER, April 23, 2013, 16:36. EXTERNAL COMPARISON : [facility], US BILATERAL RENAL & BLADDER, March 30, 2017 INDICATIONS : Abnormal labs. MEDICAL HISTORY : Arthritis. Measles. Scoliosis. Chronic UTIs. SURGICAL HISTORY : Right toe amputation. Back surgery. Eye surgery. ENCOUNTER: Subsequent ACUITY: 1 day PAIN SCORE: 1/10 LOCATION: Bilateral flank MEASUREMENTS: RIGHT KIDNEY: 11.5 x 5.5 x 7.2 cm LEFT KIDNEY: 13.0 x 6.6 x 7.9 cm FINDINGS: There is moderate right-sided hydronephrosis and left-sided hydronephrosis identified. The bladder is decompressed by Vargas catheter. No concerning masses. CONCLUSION: Moderate bilateral hydronephrosis. Giancarlo Newton MD on August 07, 2017 at 9:20 Board Certified Radiologist. This report was verified electronically.
[2017-08-07] MEDS: MORPHINE SULFATE 2 MG/ML INJ IV PUSH PRN ×3 (09:53→23:39)
--- NOTE | 2017-08-07 09:56 | HHI.PR ---
Subjective Remarks Un bed patient with pain in his knees and says cant straighten his left knee. Left knee swellig no eruthema. no fevers overnight. no n/v/d/c. Cant tolerate CT of knee as cant bend knee. noted with hematuria Objective Vitals Vital Signs Date Time Temp Pulse Resp B/P (MAP) Pulse Ox O2 Delivery O2 Flow Rate FiO2 08/07/17 08:00 100.8 97 18 107/54 (71) 97 08/07/17 07:52 93 08/07/17 05:30 99.0 08/07/17 04:51 16 08/07/17 04:13 100.8 105 18 103/53 (70) 95 08/07/17 04:00 102 08/07/17 00:00 99.9 113 18 140/75 (96) 94 08/07/17 00:00 105 08/06/17 21:34 18 08/06/17 20:00 100.4 98 18 130/73 (92) 96 08/06/17 20:00 98 08/06/17 17:53 99.2 96 20 145/68 (93) 93 08/06/17 17:52 08/06/17 14:50 99.8 89 20 113/55 (74) 100 Room Air 08/06/17 13:35 100.3 102 18 147/88 (107) 99 I/O 08/06/17 08/06/17 08/06/17 08/07/17 08/07/17 08/07/17 07:00 15:00 23:00 07:00 15:00 23:00 Intake Total 1000 ml Output Total 700 ml 1100 ml Balance 300 ml -1100 ml Intake IV Total 1000 ml Output Urine Total 700 ml 1100 ml Result Diagram: 08/06/17 1350 08/07/17 0740 Imaging Last Impressions Renal Ultrasound 08/07/17 0000 Signed Impressions: Service Date/Time: Monday, August 07, 2017 08:22 - CONCLUSION: Moderate bilateral hydronephrosis. Giancarlo Newton MD Knee X-Ray 08/06/17 2563 Signed Impressions: Service Date/Time: August 14:06 - CONCLUSION: Limited study with prominent degenerative changes. No gross fracture. Manuel David MD Chest X-Ray 08/06/17 1133 Signed Impressions: Service Date/Time: August 13:50 - CONCLUSION: Minimal bibasilar subsegmental atelectasis. Manuel David MD Objective Remarks GENERAL: This is a well-nourished, well-developed patient, appears in pain. Alert and oriented 3. CARDIOVASCULAR: Regular rate and rhythm without murmurs, gallops, or rubs. RESPIRATORY: Clear to auscultation. Breath sounds equal bilaterally. No wheezes , rales, or rhonchi. GASTROINTESTINAL: Abdomen soft, non-tender, nondistended. No hepato-splenomegaly , or palpable masses. No guarding. MUSCULOSKELETAL: Extremities without clubbing, cyanosis, or edema. No joint tenderness, effusion, or edema noted. No calf tenderness. Negative Homans sign bilaterally. Left knee tenderness to palpation, with faint overlying erythema. No broken skin. NEUROLOGICAL: Awake and alert. Cranial nerves II through XII intact. Motor and sensory grossly within normal limits. Five out of 5 muscle strength in all muscle groups. Normal speech. A/P Assessment and Plan Severe sepsis Left knee septic arthritis Tachycardia 102, temperature 100.3. Leukocytosis 13.9. Acute kidney injury 2.5 from normal baseline on admission Attempted aspiration at bedside and unsuccessfulm ni fluid . Continue broad- spectrum antibiotics per ID recommendations. GNR UTI likely pyelonephritis. Bilateral moderate hydronephrosis with hematuria. H/o BPH and obstruction placed dennis, noted with hematuria. Consult urology, started flomax. H/o recurrent UTIs Discussed with Dr Call ID specialist. Less likely to be septic arthritis. Appears to be inflammatory arthritis with a component of trauma related pain. Allery to PCN and Cephalosporin: severe rash entire body Continue Azactam IV ( GNR UTI, PCN allergic) DC Vanco IV (no septic arthritis or cellulitis) Follow GNR ID Check RA factor Uric acid, AMAm CRP. CT left knee not tolerated by patient as with severe pain and pt can't straighten his knee Orthopedics and ID consulted. Appreciate assistance. no fluid retreaved on arthocentesis doesnt thinks is septic arthritis Acute kidney injury. Creatinine in 2.5 on admission from normal baseline. History of urinary retention. Patient does have a history of elevated creatinine in the past, however appears to be secondary to obstruction. -Dennis placed. With hematuria. Consult urology. Start flomax -Suspect secondary to urinary retention, UTI. Tobacco abuse. Need to discuss cessation counseling tomorrow. Discussed Condition With Patient, nurse DC plan pending improvement and clearance from ID, ortho, urology Not ready for DC during weekend Kimberly Fletcher MD Aug 07, 2017 09:56
--- NOTE | 2017-08-07 15:32 | PD.ID.CON ---
History of Present Illness Service ID Consult Requested By Reason for Consult Evaluation and Mment of left knee septic arthritis and GNR UTI Primary Care Physician Wale Healy MD Diagnoses: History of Present Illness is a 72 y/o CM with history of BPH with UTIs in the past, who presents with a 3 day history of urinary urgency and incontinence, as well as a one-week history of severe constant worsening left knee pain worse with movement. He denies any fevers or chills. Denies any nausea or vomiting. Denies chest pain or shortness of breath. He does report a fall in the bathroom about 2 weeks ago, however says that there is no injury to the left knee. ID consulted for eval and Mment of septic arthritis left knee and GNR UTI. Review of Systems ROS Limitations: Poor Historian Constitutional: COMPLAINS OF: Fever, DENIES: Diaphoretic episodes, Fatigue, Weight gain, Weight loss, Chills, Dizziness, Change in appetite, Night Sweats Endocrine: DENIES: Heat/cold intolerance, Polydipsia, Polyuria, Polyphagia Eyes: DENIES: Blurred vision, Diplopia, Eye inflammation, Eye pain, Vision loss , Photosensitivity, Double Vision Ears, nose, mouth, throat: DENIES: Tinnitus, Hearing loss, Vertigo, Nasal discharge, Oral lesions, Throat pain, Hoarseness, Ear Pain, Running Nose, Epistaxis, Sinus Pain, Toothache, Odynophagia Respiratory: DENIES: Apneas, Cough, Snoring, Wheezing, Hemoptysis, Sputum production, Shortness of breath Cardiovascular: DENIES: Chest pain, Palpitations, Syncope, Dyspnea on Exertion , PND, Lower Extremity Edema, Orthopnea, Claudication Gastrointestinal: DENIES: Abdominal pain, Black stools, Bloody stools, Constipation, Diarrhea, Nausea, Vomiting, Difficulty Swallowing, Anorexia Genitourinary: DENIES: Sexual dysfunction, Urinary frequency, Urinary incontinence, Urgency, Hematuria, Dysuria, Nocturia, Penile Discharge, Testicular Pain, Testicular Swelling Musculoskeletal: COMPLAINS OF: Joint pain, DENIES: Muscle aches, Stiffness, Joint Swelling, Back pain, Neck pain Integumentary: DENIES: Abnormal pigmentation, Nail changes, Pruritus, Rash Hematologic/lymphatic: DENIES: Bruising, Lymphadenopathy Immunologic/allergic: DENIES: Eczema, Urticaria Neurologic: COMPLAINS OF: Abnormal gait, Poor Balance Psychiatric: DENIES: Anxiety, Confusion, Mood changes, Depression, Hallucinations, Agitation, Suicidal Ideation, Homicidal Ideation, Delusions Except as stated in HPI: all other systems reviewed are Neg Past Family Social History Allergies: Coded Allergies: cefepime (Unverified Allergy, Severe, RASH TO CEFEPIME, 08/06/17) ceftaroline fosamil (Unverified Allergy, Severe, RASH TO CEFEPIME, 08/06/17) diphenhydramine (Unverified Allergy, Severe, ALTERED MENTAL STATUS, 08/06/17 ) tigecycline (Unverified Allergy, Severe, Rash, 08/06/17) Past Medical History Reported history of UTIs in the past. Chronic arthritis Scoliosis status post surgery Past Surgical History History of eye surgery Scoliosis surgery Right first toe resection. Reported Medications Reported Meds & Active Scripts Active Reported Ferrous Sulfate 325 Mg (65 Mg Iron) Tablet 325 Mg PO DAILY Red Yeast Rice (Red Yeast Rice Extract (Bulk)) 1 Pow Pow Active Ordered Medications Current Medications Medications (Trade) Dose Ordered Sig/Flavia Route Start Time Stop Time Status Last Admin Aztreonam 1000 mg/ Sodium Chloride 100 ml @ 200 mls/hr Q8H IV 08/07/17 00:00 08/07/17 08:17 Sodium Chloride 1,000 ml @ 75 mls/hr [id number] IV 08/06/17 17:00 08/07/17 06:17 (NS Flush) 2 ml UNSCH PRN IV FLUSH 08/06/17 16:15 (NS Flush) 2 ml BID IV FLUSH 08/06/17 21:00 08/07/17 08:32 (Zofran Inj) 4 mg Q6H PRN IVP 08/06/17 16:15 (Camelia-Colace) 1 tab BID PO 08/06/17 21:00 08/07/17 08:33 (Milk Of Magnesia Liq) 30 ml Q12H PRN PO 08/06/17 16:15 (Senokot) 17.2 mg Q12H PRN PO 08/06/17 16:15 (Dulcolax Supp) 10 mg DAILY PRN RECTAL 08/06/17 16:15 (Lactulose Liq) 30 ml DAILY PRN PO 08/06/17 16:15 ([place] 5-325 Mg) 1 tab Q4H PRN PO 08/06/17 17:45 ([place] 7.5-325 Mg) 1 tab Q4H PRN PO 08/06/17 17:45 08/07/17 15:11 (Morphine Inj) 4 mg Q3H PRN IV PUSH 08/06/17 17:45 08/07/17 09:53 (Narcan Inj) 0.4 mg UNSCH PRN IV PUSH 08/06/17 17:45 Family History Mother at age 80 from suspected [place]. Father at age 65 from suspected [place]. Social History Patient smokes a pipe. Nondrinker. Denies illicit drugs. Uses a walker and wheel chair. Physical Exam Vital Signs Vital Signs Date Time Temp Pulse Resp B/P (MAP) Pulse Ox O2 Delivery O2 Flow Rate FiO2 08/07/17 11:55 97 08/07/17 11:53 99.5 99 18 119/56 (77) 94 08/07/17 08:00 100.8 97 18 107/54 (71) 97 08/07/17 07:52 93 08/07/17 05:30 99.0 08/07/17 04:51 16 08/07/17 04:13 100.8 105 18 103/53 (70) 95 08/07/17 04:00 102 08/07/17 00:00 99.9 113 18 140/75 (96) 94 08/07/17 00:00 105 08/06/17 21:34 18 08/06/17 20:00 100.4 98 18 130/73 (92) 96 08/06/17 20:00 98 08/06/17 17:53 99.2 96 20 145/68 (93) 93 08/06/17 17:52 Physical Exam GENERAL: This is a well-nourished, well-developed patient, in no apparent distress. SKIN: No rashes, ecchymoses or lesions. Cool and dry. HEAD: Atraumatic. Normocephalic. No temporal or scalp tenderness. EYES: Pupils equal round and reactive. Extraocular motions intact. No scleral icterus. No injection or drainage. ENT: Nose without bleeding, purulent drainage or septal hematoma. Throat without erythema, tonsillar hypertrophy or exudate. Uvula midline. Airway patent. NECK: Trachea midline. Supple, nontender, no meningeal signs. CARDIOVASCULAR: HS audible. RESPIRATORY: Clear to auscultation. Breath sounds equal bilaterally. No wheezes , rales, or rhonchi. GASTROINTESTINAL: Abdomen soft, non-tender, nondistended. MUSCULOSKELETAL: Left knee swollen, but no erythema, mild warmth, locked and decreased ROM. Refused to straighten it due to extreme pain. Right knee with ecchymosis on knee again locked due to pain. Excruciating pain is limiting factor for exam. He did not let me open his socks. He was extremely uncomfortable. I asked him if he needed pain meds initially he said no but when I told him to reconsider given his discomfort he agreed. : Vargas in place with sanguinous color urine. no clots. NEUROLOGICAL: Awake and alert. Non focal exam Psych cooperative IV line sites with no e.o infection. Laboratory Laboratory Tests Test 08/07/17 07:40 Blood Urea Nitrogen 52 Creatinine 3.27 Random Glucose 77 Total Protein 7.7 Albumin 2.3 Calcium Level 8.9 Alkaline Phosphatase 86 Aspartate Amino Transf (AST/SGOT) 21 Alanine Aminotransferase (ALT/SGPT) 9 Total Bilirubin 0.3 Sodium Level 139 Potassium Level 4.5 Chloride Level 106 Carbon Dioxide Level 18.2 Anion Gap 15 Estimat Glomerular Filtration Rate 19 Random Vancomycin Level LESS THAN 0.8 Date/Time Source Procedure Growth Status 08/06/17 13:50 Blood Peripheral Aerobic Blood Culture - Preliminary NO GROWTH IN 1 DAY Resulted 08/06/17 13:50 Blood Peripheral Anaerobic Blood Culture - Preliminary NO GROWTH IN 1 DAY Resulted 08/06/17 14:29 Urine Catheterized Urine Urine Culture - Preliminary Gram Negative Baudilio Resulted Result Diagram: 08/06/17 1350 08/07/17 0740 Imaging Last Impressions Renal Ultrasound 08/07/17 0000 Signed Impressions: Service Date/Time: Monday, August 07, 2017 08:22 - CONCLUSION: Moderate bilateral hydronephrosis. Giancarlo Newton MD Knee X-Ray 08/06/173 Signed Impressions: Service Date/Time: August 14:06 - CONCLUSION: Limited study with prominent degenerative changes. No gross fracture. Manuel David MD Chest X-Ray 08/06/17 [id number] Signed Impressions: Service Date/Time: August 13:50 - CONCLUSION: Minimal bibasilar subsegmental atelectasis. Manuel David MD Assessment and Plan Assessment and Plan GNR UTI likely pyelonephritis. Bilateral moderate hydronephrosis with hematuria. ? obstruction at bladder or prostate level. h/o recurrent UTIs Less likely to be septic arthritis. Appears to be inflammatory arthritis with a component of trauma related pain. PCN and Cephalosporin: severe rash entire body last ID eval notes. Recs: Continue Azactam IV (Re: GNR UTI, PCN allergic) DC Vanco IV (no septic arthritis or cellulitis) Follow GNR ID Consider consult may benefit from Tamsulosin. RA factor given father had RA arthritis. Uric acid check. Check Lupus. Check CRP. Still has temps, need eval for hydronephrosis and hematuria, GNR ID pending, excruciating pain (etiology workup ordered). Needs PT OT and home eval to see safety of home given falls and mobility issues and locked knee. Not ready for discharge this weekend. Bre Call MD Aug 07, 2017 15:32
--- NOTE | 2017-08-07 15:59 | PD.ORT.PN ---
Subjective Subjective Remarks bilateral chronic flexion contractures of knees wheel chair ambulator poor historian recent fall UTI c/o left knee pain / swelling Objective Vitals Vital Signs Date Time Temp Pulse Resp B/P (MAP) Pulse Ox O2 Delivery O2 Flow Rate FiO2 08/07/17 15:49 99.0 98 18 102/56 (71) 97 08/07/17 11:55 97 08/07/17 11:53 99.5 99 18 119/56 (77) 94 08/07/17 08:00 100.8 97 18 107/54 (71) 97 08/07/17 07:52 93 08/07/17 05:30 99.0 08/07/17 04:51 16 08/07/17 04:13 100.8 105 18 103/53 (70) 95 08/07/17 04:00 102 08/07/17 00:00 99.9 113 18 140/75 (96) 94 08/07/17 00:00 105 08/06/17 21:34 18 08/06/17 20:00 100.4 98 18 130/73 (92) 96 08/06/17 20:00 98 08/06/17 17:53 99.2 96 20 145/68 (93) 93 08/06/17 17:52 I/O 08/06/17 08/06/17 08/06/17 08/07/17 08/07/17 08/07/17 07:00 15:00 23:00 07:00 15:00 23:00 Intake Total 1000 ml 100 ml Output Total 700 ml 1100 ml Balance 300 ml -1100 ml 100 ml Intake IV Total 1000 ml 100 ml Output Urine Total 700 ml 1100 ml Result Diagram: 08/06/17 1350 08/07/17 0740 Imaging Last 24 hours Impressions Renal Ultrasound 08/07/17 0000 Signed Impressions: Service Date/Time: Monday, August 07, 2017 08:22 - CONCLUSION: Moderate bilateral hydronephrosis. Giancarlo Newton MD Objective Remarks chronic bilateral flexion contractures of knees slight swelling of left knee no erythema Assessment & Plan Assessment and Plan ortho eval for possible left septic knee wheel chair ambulator chronic bilateral flexion contractures of knees recent fall aspiration at bedside - no fluid from joint xray no fracture, only degenerative oa positive UTI at this time I don not believe this patient has a septic knee recommend conservative care, treatment of UTI, medical mgmt Donovan Maharaj MD Aug 07, 2017 15:59
[2017-08-07] MEDS: TAMSULOSIN HCL 0.4 MG CAP PO SCH (18:09)
--- NOTE | 2017-08-07 21:03 | MB ---
cc: Fabio Quinones DO DATE OF CONSULT: 08/07/2017 HISTORY OF PRESENT ILLNESS: Mr. Joseph is a pleasant 72-year-old male who presented to [facility] with worsening left knee pain. The patient is known to have a history of BPH and urinary tract infections. He states that he has urinary nighttime incontinence, which has been going on for over a year. He denies any history of stones, but does note incomplete bladder emptying. His stream is moderate, but he denies any gross hematuria. On admission, his creatinine was elevated and found to be 2.50 and has gone up to 3.27. Renal bladder ultrasound today showed bilateral hydronephrosis. His urine culture was noted to grow out gram-negative rods. PAST MEDICAL HISTORY: His medical history is noted for BPH with obstruction, scoliosis, knee pain with chronic arthritis, urinary tract infections with nighttime incontinence. SURGICAL HISTORY: Noted for eye surgery, scoliosis surgery, total resection. MEDICATIONS: Refer to the chart. ALLERGIES REFER TO THE CHART. FAMILY HISTORY: Noted for heart disease. SOCIAL HISTORY: He smokes a pipe. He does not drink. He does not use drugs. He uses a walker to ambulate. REVIEW OF SYSTEMS: He denies chest pain. He does note fever. He denies heat or cold intolerance. Denies blurred vision. Denies tinnitus, hearing loss or vertigo. Denies shortness of breath, hemoptysis, wheezing. GI: He denies abdominal pain or black tarry stools. : He notes erectile dysfunction, urinary frequency with urinary nighttime incontinence, urgency. Complains of bilateral joint pain of his lower extremities, both knees. Denies any skin lesions. The remainder of review of systems were reviewed and are negative. PHYSICAL EXAMINATION: VITAL SIGNS: Temperature 99.0, heart rate 98, respiratory rate 18, 102/56, 97% on room air. GENERAL: He is a well-developed, well-nourished 72-year-old man in no acute distress. HEENT: Normocephalic, atraumatic. Pupils equal, round, reactive to light. Extraocular movements intact. NECK: Supple. HEART: Regular rate and rhythm. LUNGS: Clear. ABDOMEN: Soft, nontender, nondistended. GENITOURINARY: Uncircumcised phallus. Vargas catheter in place. Testes descended, nontender. RECTAL: Prostate is approximately 70-80 grams on exam, smooth. There is no nodularity. EXTREMITIES: Show no cyanosis, clubbing or edema. NEUROLOGIC: Cranial nerves 2-12 are intact. SKIN: There is no identified lesions. LABORATORY DATA: White count is noted to be 13.9, hemoglobin 12.2, hematocrit 34.1, platelet count of 327. Sodium 139, potassium 4.5, chloride 106, CO2 18.2, BUN of 52, creatinine 3.27, glucose of 77. Urinalysis shows large leukocyte esterase with 3 red cells and numerous white cells. Urine culture shows gram-negative rods pending and blood culture shows no growth to date. IMAGING: Renal bladder ultrasound shows moderate bilateral hydronephrosis. ASSESSMENT: A 72-year-old male with a history of benign prostatic hyperplasia with bladder outlet obstruction, nighttime incontinence with recurrent urinary tract infections, admitted with acute kidney injury with bilateral hydronephrosis. RECOMMEND: Maintain Vargas catheter. We will start Flomax 0.4 mg p.o. daily at bedtime. Continue IV antibiotics per sepsis and observe for postobstructive diuresis. We will follow with you. Thank you for the consult in allowing me to participate in the care of this patient. DO TAYLER Sepulveda/carmela , 04:55 PM , 09:02 PM
[2017-08-07] MEDS: ONDANSETRON HCL 4 MG/2 ML VIAL IVP PRN (21:06)
[2017-08-08] VITALS (10 sets, daily range): BP systolic 91–139; BP diastolic 53–86; PULSE 62–103; RESP 16–22; TEMP 98–99.5; O2SAT 93–97
[2017-08-08 07:26] LABS: AUTOMATED NEUTROPHIL # 12.5 TH/MM3 (1.8-7.7); BASOPHIL % 0.3 % (0.0-2.0); EOSINOPHIL # 0.1 TH/MM3 (0-0.4); EOSINOPHIL % 0.8 % (0.0-4.0); HEMATOCRIT 33.1 % (39.0-51.0); HEMOGLOBIN 10.9 GM/DL (13.0-17.0); LYMPH % 8.1 % (9.0-44.0); LYMPHOCYTE # 1.3 TH/MM3 (1.0-4.8); MEAN CORPUSCULAR HEMOGLOBIN 29.1 PG (27.0-34.0); MEAN CORPUSCULAR HGB CONC 33.1 % (32.0-36.0); MEAN PLATELET VOLUME 7.3 FL (7.0-11.0); MONO % 12.8 % (0.0-8.0); MONOCYTE # 2.1 TH/MM3 (0-0.9); PLATELET COUNT 217 TH/MM3 (150-450); RED BLOOD COUNT 3.76 MIL/MM3 (4.50-5.90); RED CELL DISTRIBUTION WIDTH 12.8 % (11.6-17.2)
[2017-08-08 07:49] LABS: RHEUMATOID FACTOR SCREEN NEGATIVE (NEGATIVE)
[2017-08-08 08:07] LABS: BICARBONATE 17.9 MEQ/L (21.0-32.0); CALCIUM 8.2 MG/DL (8.5-10.1); CREATININE 3.6 MG/DL (0.60-1.30)
[2017-08-08] MEDS: SODIUM CHLORIDE 0.9% FLUSH 10 ML FLUSH IV FLUSH SCH ×2 (09:00→21:00)
[2017-08-08] MEDS: DOCUSATE SODIUM 50 MG/SENNA 8.6 MG TAB PO SCH ×2 (09:00→21:00)
[2017-08-08] MEDS: SODIUM CHLOR 0.45% 1000 ML INJ 1,000 ML IV SCH (09:46)
[2017-08-08] MEDS: AZTREONAM INJ 1,000 MG in SODIUM CHLORIDE 0.9% INJ 100 ML IV SCH ×3 (09:46→23:27)
[2017-08-08] MEDS: TAMSULOSIN HCL 0.4 MG CAP PO SCH (09:46)
[2017-08-08] MEDS: ACETAMINOPHEN/HYDROcodone 325 MG/7.5 MG TAB PO PRN ×2 (09:47→23:26)
[2017-08-08] MEDS: ONDANSETRON HCL 4 MG/2 ML VIAL IVP PRN (09:48)
[2017-08-08] MEDS: predniSONE 20 MG TAB PO SCH ×2 (11:00→21:34)
--- NOTE | 2017-08-08 11:37 | HHI.PR ---
Subjective Patient symptoms today Pt seen and examined. Some knee pain noted. Creatinine trending upward to 3.6. Dennis catheter is draining. Objective Vital Signs Vital Signs Date Time Temp Pulse Resp B/P (MAP) Pulse Ox O2 Delivery O2 Flow Rate FiO2 08/08/17 08:00 99.5 98 20 125/61 (82) 95 08/08/17 05:34 98.9 103 22 104/53 (70) 97 08/08/17 03:56 74 08/08/17 02:17 98.2 82 18 139/86 (103) 93 08/08/17 00:00 94 08/07/17 23:44 16 08/07/17 22:16 98.0 93 20 110/53 (72) 93 08/07/17 20:00 88 08/07/17 16:05 94 08/07/17 15:49 99.0 98 18 102/56 (71) 97 08/07/17 11:55 97 08/07/17 11:53 99.5 99 18 119/56 (77) 94 Intake & Output 08/08/17 08/08/17 07:00 19:00 Output Total 200 ml Balance -200 ml Output Urine Total 200 ml Result Diagram: 08/08/17 0707 08/08/17 07 Objective Remarks Abd:soft,nt,nd Dennis: cloudy urine with some debris Medications and IVs Current Medications Medications (Trade) Dose Ordered Sig/Flavia Route Start Time Stop Time Status Last Admin Aztreonam 1000 mg/ Sodium Chloride 100 ml @ 200 mls/hr Q8H IV 08/07/17 00:00 08/08/17 09:46 Sodium Chloride 1,000 ml @ 75 mls/hr [id number] IV 08/06/17 17:00 08/08/17 09:46 (NS Flush) 2 ml UNSCH PRN IV FLUSH 08/06/17 16:15 (NS Flush) 2 ml BID IV FLUSH 08/06/17 21:00 08/07/17 21:07 (Zofran Inj) 4 mg Q6H PRN IVP 08/06/17 16:15 08/08/17 09:48 (Camelia-Colace) 1 tab BID PO 08/06/17 21:00 08/07/17 08:33 (Milk Of Magnesia Liq) 30 ml Q12H PRN PO 08/06/17 16:15 (Senokot) 17.2 mg Q12H PRN PO 08/06/17 16:15 (Dulcolax Supp) 10 mg DAILY PRN RECTAL 08/06/17 16:15 (Lactulose Liq) 30 ml DAILY PRN PO 08/06/17 16:15 ([place] 5-325 Mg) 1 tab Q4H PRN PO 08/06/17 17:45 ([place] 7.5-325 Mg) 1 tab Q4H PRN PO 08/06/17 17:45 08/08/17 09:47 (Morphine Inj) 4 mg Q3H PRN IV PUSH 08/06/17 17:45 08/07/17 23:39 (Narcan Inj) 0.4 mg UNSCH PRN IV PUSH 08/06/17 17:45 (Flomax) 0.4 mg DAILY PO 08/07/17 17:00 08/08/17 09:46 (Deltasone) 20 mg BID PO 08/08/17 10:00 08/08/17 11:00 Assessment and Plan Assessment and Plan 72 y.o male with LEAH with moderate bilateral hydronephrosis Maintain dennis catheter for now Follow creatinine Recommend nephrology consult in view of worsening renal function Continue IV hydration Fabio Quinones DO Aug 08, 2017 11:37
--- NOTE | 2017-08-08 15:56 | HHI.PR ---
Subjective Remarks Still with significant pain in his left knee not able to move it much because of pain and swelling. Some nausea no v/d/c. No fever or chills. Decresed appetite. With hematuria per urology do flush dennis Objective Vitals Vital Signs Date Time Temp Pulse Resp B/P (MAP) Pulse Ox O2 Delivery O2 Flow Rate FiO2 08/08/17 13:23 Room Air 08/08/17 12:00 86 08/08/17 12:00 98.8 88 20 91/53 (66) 96 08/08/17 08:00 99.5 98 20 125/61 (82) 95 08/08/17 05:34 98.9 103 22 104/53 (70) 97 08/08/17 03:56 74 08/08/17 02:17 98.2 82 18 139/86 (103) 93 08/08/17 00:00 94 08/07/17 23:44 16 08/07/17 22:16 98.0 93 20 110/53 (72) 93 08/07/17 20:00 88 08/07/17 16:05 94 I/O 08/07/17 08/07/17 08/07/17 08/08/17 08/08/17 08/08/17 07:00 15:00 23:00 07:00 15:00 23:00 Intake Total 100 ml 100 ml 240 ml Output Total 1100 ml 200 ml 450 ml Balance -1100 ml 100 ml -100 ml -210 ml Intake Oral 240 ml IV Total 100 ml 100 ml Output Urine Total 1100 ml 200 ml 450 ml Result Diagram: 08/08/17 0707 08/08/17 0707 Imaging Last Impressions Renal Ultrasound 08/07/17 0000 Signed Impressions: Service Date/Time: Monday, August 07, 2017 08:22 - CONCLUSION: Moderate bilateral hydronephrosis. Giancarlo Newton MD Knee X-Ray 08/06/17 [id number] Signed Impressions: Service Date/Time: August 14:06 - CONCLUSION: Limited study with prominent degenerative changes. No gross fracture. Manuel David MD Chest X-Ray 08/06/17 [id number] Signed Impressions: Service Date/Time: August 13:50 - CONCLUSION: Minimal bibasilar subsegmental atelectasis. Manuel David MD Objective Remarks GENERAL: This is a well-nourished, well-developed patient, appears in pain. Alert and oriented 3. CARDIOVASCULAR: Regular rate and rhythm without murmurs, gallops, or rubs. RESPIRATORY: Clear to auscultation. Breath sounds equal bilaterally. No wheezes , rales, or rhonchi. GASTROINTESTINAL: Abdomen soft, non-tender, nondistended. No hepato-splenomegaly , or palpable masses. No guarding. MUSCULOSKELETAL: Extremities without clubbing, cyanosis, or edema. No joint tenderness, effusion, or edema noted. No calf tenderness. Negative Homans sign bilaterally. Left knee tenderness to palpation, with faint overlying erythema. No broken skin. NEUROLOGICAL: Awake and alert. Cranial nerves II through XII intact. Motor and sensory grossly within normal limits. Five out of 5 muscle strength in all muscle groups. Normal speech. A/P Assessment and Plan Severe sepsis Left knee septic arthritis Tachycardia 102, temperature 100.3. Leukocytosis 13.9. Acute kidney injury 2.5 from normal baseline on admission Attempted aspiration at bedside and unsuccessfulm ni fluid . Continue broad- spectrum antibiotics per ID recommendations. GNR UTI likely pyelonephritis. Bilateral moderate hydronephrosis with hematuria. H/o BPH and obstruction placed dennis, noted with hematuria. Consult urology, started flomax. H/o recurrent UTIs Discussed with Dr Call ID specialist. Less likely to be septic arthritis. Appears to be inflammatory arthritis with a component of trauma related pain. Allery to PCN and Cephalosporin: severe rash entire body Continue Azactam IV ( GNR UTI, PCN allergic) DC Vanco IV (no septic arthritis or cellulitis) Follow GNR ID Check RA factor Uric acid elevated, likely gout. Start prednisone 20 mg po bid. Monitor. AMA, CRP. CT left knee not tolerated by patient as with severe pain and pt can't straighten his knee Orthopedics and ID consulted. Appreciate assistance. no fluid retreaved on arthocentesis doesnt thinks is septic arthritis Acute kidney injury. Creatinine in 2.5 on admission worsening. consult nephrology. Urology ff. History of urinary retention. Hematuria Patient does have a history of elevated creatinine in the past, however appears to be secondary to obstruction. -Dennis placed. With hematuria. Consult urology, ff. Start flomax. Flush dennis per urology . -Suspect secondary to urinary retention, UTI. Tobacco abuse. Need to discuss cessation counseling tomorrow. Discussed Condition With Patient, nurse DC plan pending improvement and clearance from ID, ortho, urology, nephro Not ready for DC during weekend Kimberly Fletcher MD Aug 08, 2017 15:56
[2017-08-08] MEDS ORDERED: SODIUM CHLOR 0.9% 1000 ML INJ 1,000 ML IV ONE (16:00)
--- NOTE | 2017-08-08 17:10 | PD.CONS ---
HPI Service Nephrology Consult Requested By Reason for Consult LEAH Primary Care Physician Wale Healy MD History of Present Illness This is a 72 year old male with history of BPH and recurrent UTI. He was admitted to the hospital with history of fall, UTI. Also has left knee pain. His creatinine on admission was 2.5, it increased to 3.27 on 08/07/17, and today it is 3.6. Renal US revealed bilateral hydronephrosis. He had a Vargas placed and seen by Urology. ID is on the case. Orthopedic service also was consulted to evaluate left knee pain and swelling. Urine culture is positive for Proteus. He is on Aztreonam. BP is low to low normal. IN May of 2016, his creatinine was 1.44. Review of Systems Constitutional: COMPLAINS OF: Fatigue Cardiovascular: DENIES: Chest pain Gastrointestinal: DENIES: Abdominal pain Genitourinary: COMPLAINS OF: Urinary frequency, Urinary incontinence, Dysuria Musculoskeletal: COMPLAINS OF: Joint pain Past Family Social History Allergies: Coded Allergies: cefepime (Unverified Allergy, Severe, RASH TO CEFEPIME, 08/06/17) ceftaroline fosamil (Unverified Allergy, Severe, RASH TO CEFEPIME, 08/06/17) diphenhydramine (Unverified Allergy, Severe, ALTERED MENTAL STATUS, 08/06/17 ) tigecycline (Unverified Allergy, Severe, Rash, 08/06/17) Past Medical History BPH Recurrent UTI Chronic arthritis Scoliosis status post surgery Past Surgical History History of eye surgery Scoliosis surgery Right first toe resection. Reported Medications Ferrous Sulfate 325 Mg (65 Mg Iron) Tablet 325 Mg PO DAILY Red Yeast Rice (Red Yeast Rice Extract (Bulk)) 1 Pow Pow Active Ordered Medications Current Medications Medications (Trade) Dose Ordered Sig/Flavia Route Start Time Stop Time Status Last Admin Aztreonam 1000 mg/ Sodium Chloride 100 ml @ 200 mls/hr Q8H IV 08/07/17 00:00 08/08/17 16:08 Sodium Chloride 1,000 ml @ 75 mls/hr [id number] IV 08/06/17 17:00 08/08/17 09:46 (NS Flush) 2 ml UNSCH PRN IV FLUSH 08/06/17 16:15 (NS Flush) 2 ml BID IV FLUSH 3/1/18 21:00 08/07/17 21:07 (Zofran Inj) 4 mg Q6H PRN IVP 08/06/17 16:15 08/08/17 09:48 (Camelia-Colace) 1 tab BID PO 08/06/17 21:00 08/07/17 08:33 (Milk Of Magnesia Liq) 30 ml Q12H PRN PO 08/06/17 16:15 (Senokot) 17.2 mg Q12H PRN PO 08/06/17 16:15 (Dulcolax Supp) 10 mg DAILY PRN RECTAL 08/06/17 16:15 (Lactulose Liq) 30 ml DAILY PRN PO 08/06/17 16:15 ([place] 5-325 Mg) 1 tab Q4H PRN PO 08/06/17 17:45 ([place] 7.5-325 Mg) 1 tab Q4H PRN PO 08/06/17 17:45 08/08/17 09:47 (Morphine Inj) 4 mg Q3H PRN IV PUSH 08/06/17 17:45 08/07/17 23:39 (Narcan Inj) 0.4 mg UNSCH PRN IV PUSH 08/06/17 17:45 (Flomax) 0.4 mg DAILY PO 08/07/17 17:00 08/08/17 09:46 (Deltasone) 20 mg BID PO 08/08/17 10:00 08/08/17 11:00 Sodium Chloride 1,000 ml @ 999 mls/hr BOLUS ONCE IV 08/08/17 16:00 08/08/17 17:00 08/08/17 16:43 Family History Father had IN at the age of 65 Social History Smokes pipes apparently. No ETOH Physical Exam Vital Signs Vital Signs Date Time Temp Pulse Resp B/P (MAP) Pulse Ox O2 Delivery O2 Flow Rate FiO2 08/08/17 16:45 Room Air 08/08/17 16:04 98.7 73 20 92/55 (67) 93 08/08/17 16:00 76 08/08/17 13:23 Room Air 08/08/17 12:00 86 08/08/17 12:00 98.8 88 20 91/53 (66) 96 08/08/17 08:00 99.5 98 20 125/61 (82) 95 08/08/17 05:34 98.9 103 22 104/53 (70) 97 08/08/17 03:56 74 08/08/17 02:17 98.2 82 18 139/86 (103) 93 08/08/17 00:00 94 08/07/17 23:44 16 08/07/17 22:16 98.0 93 20 110/53 (72) 93 08/07/17 20:00 88 Physical Exam GENERAL: patient is awake, alert, oriented. SKIN: Warm and dry. HEAD: Normocephalic. EYES: No scleral icterus. No injection or drainage. NECK: Supple, trachea midline. No JVD or lymphadenopathy. CARDIOVASCULAR: Regular rate and rhythm without murmurs, gallops, or rubs. RESPIRATORY: Breath sounds equal bilaterally. No accessory muscle use. GASTROINTESTINAL: Abdomen soft, non-tender, nondistended. MUSCULOSKELETAL: swelling of the left knee. BACK: Nontender without obvious deformity. No CVA tenderness. Laboratory Laboratory Tests Test 08/08/17 07:07 White Blood Count 16.0 Red Blood Count 3.76 Hemoglobin 10.9 Hematocrit 33.1 Mean Corpuscular Volume 88.0 Mean Corpuscular Hemoglobin 29.1 Mean Corpuscular Hemoglobin Concent 33.1 Red Cell Distribution Width 12.8 Platelet Count 217 Mean Platelet Volume 7.3 Neutrophils (%) (Auto) 78.0 Lymphocytes (%) (Auto) 8.1 Monocytes (%) (Auto) 12.8 Eosinophils (%) (Auto) 0.8 Basophils (%) (Auto) 0.3 Neutrophils # (Auto) 12.5 Lymphocytes # (Auto) 1.3 Monocytes # (Auto) 2.1 Eosinophils # (Auto) 0.1 Basophils # (Auto) 0.0 CBC Comment DIFF FINAL Differential Comment Blood Urea Nitrogen 64 Creatinine 3.60 Random Glucose 94 Calcium Level 8.2 Sodium Level 137 Potassium Level 4.5 Chloride Level 107 Carbon Dioxide Level 17.9 Anion Gap 12 Estimat Glomerular Filtration Rate 17 Rheumatoid Factor Screen NEGATIVE Rheumatoid Factor Titer Date/Time Source Procedure Growth Status 08/06/17 13:50 Blood Peripheral Aerobic Blood Culture - Preliminary NO GROWTH IN 2 DAYS Resulted 08/06/17 13:50 Blood Peripheral Anaerobic Blood Culture - Preliminary NO GROWTH IN 2 DAYS Resulted 08/06/17 14:29 Urine Catheterized Urine Urine Culture - Final Proteus Mirabilis Complete Result Diagram: 08/08/17 0707 08/08/17 0707 Assessment and Plan Problem List: (1) LEAH (acute kidney injury) ICD Codes: N17.9 - Acute kidney failure, unspecified Status: Resolved Plan: Renal US revealed bilateral hydronephrosis. Continue with Vargas. Continue IVF. Avoid nephrotoxic agents. Renal function has not improved, and so LEAH could be multifactorial. ATN due to sepsis could be contributing. Monitor urine output and renal function. No immediate need for dialysis. (2) UTI (urinary tract infection) ICD Codes: N39.0 - Urinary tract infection, site not specified Plan: ID on the case. Urine culture grew Proteus. He is on Aztreonam. (3) Obstructive uropathy ICD Codes: N13.9 - Obstructive and reflux uropathy, unspecified Plan: Likely due to BPH. Flomax started. Vargas placed. (4) Sepsis ICD Codes: A41.9 - Sepsis, unspecified organism Status: Acute Plan: Source is UTI, but left knee source is also being considered. Assessment and Plan Thanks for the consult. Antonio Mancia MD Aug 08, 2017 17:10
[2017-08-09] VITALS (9 sets, daily range): BP systolic 90–100; BP diastolic 51–58; PULSE 53–73; RESP 16–20; TEMP 96.9–98.1; O2SAT 94–97
[2017-08-09] MEDS: SODIUM CHLOR 0.45% 1000 ML INJ 1,000 ML IV SCH ×3 (02:13→23:46)
[2017-08-09] MEDS: DOCUSATE SODIUM 50 MG/SENNA 8.6 MG TAB PO SCH ×2 (09:43→20:37)
[2017-08-09] MEDS: predniSONE 20 MG TAB PO SCH ×2 (09:43→20:37)
[2017-08-09] MEDS: AZTREONAM INJ 1,000 MG in SODIUM CHLORIDE 0.9% INJ 100 ML IV SCH ×3 (09:43→23:44)
[2017-08-09] MEDS: SODIUM CHLORIDE 0.9% FLUSH 10 ML FLUSH IV FLUSH SCH ×2 (09:43→20:37)
[2017-08-09] MEDS: TAMSULOSIN HCL 0.4 MG CAP PO SCH (09:43)
--- NOTE | 2017-08-09 09:50 | HHI.NPPN ---
Subjective Interval History Non oliguric. Low BP. Labs are pending. Review of Systems General Constitutional: Fatigue Objective Data Data Vital Signs Date Time Temp Pulse Resp B/P (MAP) Pulse Ox O2 Delivery O2 Flow Rate FiO2 08/09/17 04:08 53 08/09/17 04:00 97.9 66 18 95/53 (67) 96 08/09/17 04:00 Room Air 08/09/17 00:45 18 08/09/17 00:16 64 08/09/17 00:00 Room Air 08/09/17 00:00 98.1 63 16 100/58 (72) 97 08/08/17 21:30 Room Air 08/08/17 20:12 67 08/08/17 20:00 98.0 64 16 99/58 (72) 97 08/08/17 16:45 Room Air 08/08/17 16:04 98.7 73 20 92/55 (67) 93 08/08/17 16:00 76 08/08/17 13:23 Room Air 08/08/17 12:00 86 08/08/17 12:00 98.8 88 20 91/53 (66) 96 -: 08/08/17 0707 08/08/17 0707 Physical Exam General Appearance: Well Developed, No Acute Distress Eyes Eye Exam: Pupils Equal Neck Neck Exam: Neck Supple Pulmonary Resp Exam: Crackles, Rhonchi Cardiology CV Exam: Regular Gastrointestinal/Abdomen GI Exam: Soft, Non-Tender Genitourinary Exam: Clear Urine Neurologic Neuro Exam: Moving All Extremities Assessment/Plan Problem List: (1) LEAH (acute kidney injury) ICD Codes: N17.9 - Acute kidney failure, unspecified Status: Resolved Plan: Renal US revealed bilateral hydronephrosis. Continue with Vargas. Taper off fluids. Avoid nephrotoxic agents. LEAH could be multifactorial. ATN due to sepsis could be contributing. Monitor urine output and renal function. (2) UTI (urinary tract infection) ICD Codes: N39.0 - Urinary tract infection, site not specified Plan: ID on the case. Urine culture grew Proteus. He is on Aztreonam. (3) Obstructive uropathy ICD Codes: N13.9 - Obstructive and reflux uropathy, unspecified Plan: Likely due to BPH. Flomax started. Vargas placed. (4) Sepsis ICD Codes: A41.9 - Sepsis, unspecified organism Status: Acute Plan: Source is UTI, but left knee source is also being considered. Antonio Mancia MD Aug 09, 2017 09:50
--- NOTE | 2017-08-09 10:09 | HHI.PR ---
Subjective Patient symptoms today Pt seen and examined. Feels well. Still with knee pain. Urine is clear. Objective Vital Signs Vital Signs Date Time Temp Pulse Resp B/P (MAP) Pulse Ox O2 Delivery O2 Flow Rate FiO2 08/09/17 04:08 53 08/09/17 04:00 97.9 66 18 95/53 (67) 96 08/09/17 04:00 Room Air 08/09/17 00:45 18 08/09/17 00:16 64 08/09/17 00:00 Room Air 08/09/17 00:00 98.1 63 16 100/58 (72) 97 08/08/17 21:30 Room Air 08/08/17 20:12 67 08/08/17 20:00 98.0 64 16 99/58 (72) 97 08/08/17 16:45 Room Air 08/08/17 16:04 98.7 73 20 92/55 (67) 93 08/08/17 16:00 76 08/08/17 13:23 Room Air 08/08/17 12:00 86 08/08/17 12:00 98.8 88 20 91/53 (66) 96 Intake & Output 08/09/17 08/09/17 07:00 19:00 Intake Total 1240 ml Output Total 550 ml Balance 690 ml IV Total 1240 ml Output Urine Total 550 ml Result Diagram: 08/08/17 0707 08/08/17 0707 Objective Remarks Abd:soft,nt,nd Dennis: cloudy urine with some debris 08/09 Abd:soft,nt,nd Dennis: urine now clear. Medications and IVs Current Medications Medications (Trade) Dose Ordered Sig/Flavia Route Start Time Stop Time Status Last Admin Aztreonam 1000 mg/ Sodium Chloride 100 ml @ 200 mls/hr Q8H IV 08/07/17 00:00 08/09/17 09:43 Sodium Chloride 1,000 ml @ 75 mls/hr [id number] IV 08/06/17 17:00 08/09/17 02:13 (NS Flush) 2 ml UNSCH PRN IV FLUSH 08/06/17 16:15 (NS Flush) 2 ml BID IV FLUSH 08/06/17 21:00 08/09/17 09:43 (Zofran Inj) 4 mg Q6H PRN IVP 08/06/17 16:15 08/08/17 09:48 (Camelia-Colace) 1 tab BID PO 08/06/17 21:00 08/09/17 09:43 (Milk Of Magnesia Liq) 30 ml Q12H PRN PO 08/06/17 16:15 (Senokot) 17.2 mg Q12H PRN PO 08/06/17 16:15 (Dulcolax Supp) 10 mg DAILY PRN RECTAL 08/06/17 16:15 (Lactulose Liq) 30 ml DAILY PRN PO 08/06/17 16:15 ([place] 5-325 Mg) 1 tab Q4H PRN PO 08/06/17 17:45 ([place] 7.5-325 Mg) 1 tab Q4H PRN PO 08/06/17 17:45 08/08/17 23:26 (Morphine Inj) 4 mg Q3H PRN IV PUSH 08/06/17 17:45 08/07/17 23:39 (Narcan Inj) 0.4 mg UNSCH PRN IV PUSH 08/06/17 17:45 (Flomax) 0.4 mg DAILY PO 08/07/17 17:00 08/09/17 09:43 (Deltasone) 20 mg BID PO 08/08/17 10:00 08/09/17 09:43 Assessment and Plan Assessment and Plan 72 y.o male with LEAH with moderate bilateral hydronephrosis Maintain dennis catheter for now Follow creatinine Recommend nephrology consult in view of worsening renal function Continue IV hydration 08/09 72 y.o male with LEAH with moderate bilateral hydronephrosis Maintain dennis Check creatinine; BMP pending. Fabio Quinones DO Aug 09, 2017 10:09
[2017-08-09 12:52] LABS: BICARBONATE 19.7 MEQ/L (21.0-32.0); CREATININE 3.03 MG/DL (0.60-1.30)
--- NOTE | 2017-08-09 15:35 | HHI.PR ---
Subjective Remarks Patient in bed, says prednisone helpd a little bit for pain in his left knee and is able to move it a little. no fever or chills. No n/v/d/c. no bloody urine today dennis in continue per uro Objective Vitals Vital Signs Date Time Temp Pulse Resp B/P (MAP) Pulse Ox O2 Delivery O2 Flow Rate FiO2 08/09/17 12:00 97.5 62 16 90/54 (66) 94 08/09/17 08:00 97.7 66 20 95/55 (68) 97 08/09/17 08:00 59 08/09/17 04:08 53 08/09/17 04:00 97.9 66 18 95/53 (67) 96 08/09/17 04:00 Room Air 08/09/17 00:45 18 08/09/17 00:16 64 08/09/17 00:00 Room Air 08/09/17 00:00 98.1 63 16 100/58 (72) 97 08/08/17 21:30 Room Air 08/08/17 20:12 67 08/08/17 20:00 98.0 64 16 99/58 (72) 97 08/08/17 16:45 Room Air 08/08/17 16:04 98.7 73 20 92/55 (67) 93 08/08/17 16:00 76 I/O 08/08/17 08/08/17 08/08/17 08/09/17 08/09/17 08/09/17 07:00 15:00 23:00 07:00 15:00 23:00 Intake Total 240 ml 1240 ml Output Total 450 ml 800 ml 550 ml Balance -210 ml -800 ml 690 ml Intake Oral 240 ml IV Total 1240 ml Output Urine Total 450 ml 800 ml 550 ml Result Diagram: 08/08/17 0707 08/09/17 1215 Imaging Last Impressions Renal Ultrasound 08/07/17 0000 Signed Impressions: Service Date/Time: Monday, August 07, 2017 08:22 - CONCLUSION: Moderate bilateral hydronephrosis. Giancarlo Newton MD Knee X-Ray 08/06/17 1337 Signed Impressions: Service Date/Time: August 14:06 - CONCLUSION: Limited study with prominent degenerative changes. No gross fracture. Manuel David MD Chest X-Ray 08/06/17 [id number] Signed Impressions: Service Date/Time: August 13:50 - CONCLUSION: Minimal bibasilar subsegmental atelectasis. Manuel David MD Objective Remarks GENERAL: This is a well-nourished, well-developed patient, appears in pain. Alert and oriented 3. CARDIOVASCULAR: Regular rate and rhythm without murmurs, gallops, or rubs. RESPIRATORY: Clear to auscultation. Breath sounds equal bilaterally. No wheezes , rales, or rhonchi. GASTROINTESTINAL: Abdomen soft, non-tender, nondistended. No hepato-splenomegaly , or palpable masses. No guarding. MUSCULOSKELETAL: Extremities without clubbing, cyanosis, or edema. No joint tenderness, effusion, or edema noted. No calf tenderness. Negative Homans sign bilaterally. Left knee tenderness to palpation, with faint overlying erythema. No broken skin. NEUROLOGICAL: Awake and alert. Cranial nerves II through XII intact. Motor and sensory grossly within normal limits. Five out of 5 muscle strength in all muscle groups. Normal speech. A/P Assessment and Plan Severe sepsis Left knee septic arthritis Tachycardia 102, temperature 100.3. Leukocytosis 13.9. Acute kidney injury 2.5 from normal baseline on admission Attempted aspiration at bedside and unsuccessfulm ni fluid . Continue broad- spectrum antibiotics per ID recommendations. Proteus mirabilis pansensitive UTI likely pyelonephritis. Bilateral moderate hydronephrosis with hematuria. H/o BPH and obstruction placed dennis, noted with hematuria. Consult urology, started flomax. H/o recurrent UTIs Discussed with Dr Call ID specialist. Less likely to be septic arthritis. Appears to be inflammatory arthritis with a component of trauma related pain. Allery to PCN and Cephalosporin: severe rash entire body Continue Azactam IV ( Prot UTI, PCN allergic) DC Vanco IV (no septic arthritis or cellulitis) Check RA factor Uric acid elevated, likely gout. Start prednisone 20 mg po bid. Monitor. AMA, CRP. CT left knee not tolerated by patient as with severe pain and pt can't straighten his knee Orthopedics and ID consulted. Appreciate assistance. no fluid retreaved on arthrocentesis doesn't thinks is septic arthritis Acute kidney injury. Creatinine in 2.5 on admission worsening. consult nephrology. Urology ff. History of urinary retention. Hematuria Patient does have a history of elevated creatinine in the past, however appears to be secondary to obstruction. -Dennis placed. With hematuria. Consult urology, ff. Start flomax. Flush dennis per urology . -Suspect secondary to urinary retention, UTI. Tobacco abuse. Need to discuss cessation counseling tomorrow. Discussed Condition With Patient, nurse DC plan pending improvement and clearance from ID, ortho, urology, nephro Not ready for DC during weekend Kimberly Fletcher MD Aug 09, 2017 15:35
[2017-08-10] VITALS (8 sets, daily range): BP systolic 105–132; BP diastolic 55–74; PULSE 65–89; RESP 18; TEMP 97–98.5; O2SAT 95–96
[2017-08-10] MEDS: SODIUM CHLOR 0.45% 1000 ML INJ 1,000 ML IV SCH (06:35)
--- NOTE | 2017-08-10 08:00 | HHI.NPPN ---
Subjective Interval History Renal function had improved as of yesterday. He is non oliguric. Review of Systems General Constitutional: Fatigue Objective Data Data Vital Signs Date Time Temp Pulse Resp B/P (MAP) Pulse Ox O2 Delivery O2 Flow Rate FiO2 08/10/17 05:59 68 08/10/17 04:05 97.9 66 18 105/57 (73) 95 08/10/17 04:05 Room Air 08/10/17 00:16 89 08/10/17 00:00 Room Air 08/10/17 00:00 98.1 70 18 106/55 (72) 96 08/09/17 20:50 Room Air 08/09/17 20:00 96.9 66 18 90/51 (64) 97 08/09/17 19:53 73 08/09/17 18:00 Room Air 08/09/17 16:00 97.5 61 17 96/55 (69) 94 08/09/17 13:00 Room Air 08/09/17 12:00 97.5 62 16 90/54 (66) 94 08/09/17 12:00 55 08/09/17 10:00 Room Air 08/09/17 08:00 97.7 66 20 95/55 (68) 97 08/09/17 08:00 59 -: 08/08/17 0707 08/09/17 1215 Physical Exam General Appearance: Well Developed, No Acute Distress Eyes Eye Exam: Pupils Equal Neck Neck Exam: Neck Supple Pulmonary Resp Exam: Crackles, Rhonchi Cardiology CV Exam: Regular Gastrointestinal/Abdomen GI Exam: Soft, Non-Tender Genitourinary Exam: Clear Urine Neurologic Neuro Exam: Moving All Extremities Assessment/Plan Problem List: (1) LEAH (acute kidney injury) ICD Codes: N17.9 - Acute kidney failure, unspecified Status: Resolved Plan: Renal US revealed bilateral hydronephrosis. Renal function had improved as of yesterday. Continue with Vargas. Taper off fluids. Avoid nephrotoxic agents. LEAH could be multifactorial. ATN due to sepsis could be contributing. Monitor urine output and renal function. (2) UTI (urinary tract infection) ICD Codes: N39.0 - Urinary tract infection, site not specified Plan: ID on the case. Urine culture grew Proteus. He is on Aztreonam. (3) Obstructive uropathy ICD Codes: N13.9 - Obstructive and reflux uropathy, unspecified Plan: Likely due to BPH. Flomax started. Vargas placed. (4) Sepsis ICD Codes: A41.9 - Sepsis, unspecified organism Status: Acute Plan: Source is UTI, but left knee source is also being considered. Antonio Mancia MD Aug 10, 2017 08:00
--- NOTE | 2017-08-10 08:46 | HHI.PR ---
Addendum to Inpatient Note Addendum Reason: Additional Documentation Additional Information dw : Levaquin 500 mg po every 48 hrs for 8 more days (total of 4 more doses every 48 hrs) Will sign off please call back if any change in clinical condition or questions. Bre Call MD Aug 10, 2017 08:46
[2017-08-10] MEDS ORDERED: LEVA500T33 PO (08:48)
[2017-08-10] MEDS ORDERED: PERI PO (08:48)
[2017-08-10] MEDS ORDERED: TAMS5CAP PO (08:48)
[2017-08-10] MEDS ORDERED: PRED20 PO (08:48)
[2017-08-10] MEDS ORDERED: NORC5TAB PO (08:48)
--- NOTE | 2017-08-10 08:48 | HHI.DS ---
Discharge Summary Admission Date Aug 06, 2017 at 15:49 Discharge Date: Aug 10, 2017 Admitting Diagnosis urosepsis, LEAH (1) Gout attack ICD Code: M10.9 - Gout, unspecified (2) Right knee pain ICD Code: M25.561 - Pain in right knee (3) LEAH (acute kidney injury) ICD Code: N17.9 - Acute kidney failure, unspecified Status: Resolved (4) Debility ICD Code: R53.81 - Other malaise Status: Acute (5) UTI (urinary tract infection) ICD Code: N39.0 - Urinary tract infection, site not specified (6) Obstructive uropathy ICD Code: N13.9 - Obstructive and reflux uropathy, unspecified (7) Sepsis ICD Code: A41.9 - Sepsis, unspecified organism Status: Acute Procedures attempted arthrocentesis no fluid retrieved Brief History - From Admission 72-year-old male with a history of BPH with UTIs in the past, who presents with a 3 day history of urinary urgency and incontinence, as well as a one-week history of severe constant worsening left knee pain worse with movement. He denies any fevers or chills. Denies any nausea or vomiting. Denies chest pain or shortness of breath. He does report a fall in the bathroom about 2 weeks ago , however says that there is no injury to the left knee. CBC/BMP: 08/08/17 0707 08/09/17 1215 Significant Findings Laboratory Tests Test 08/08/17 07:07 08/09/17 12:15 White Blood Count 16.0 TH/MM3 (4.0-11.0) Red Blood Count 3.76 MIL/MM3 (4.50-5.90) Hemoglobin 10.9 GM/DL (13.0-17.0) Hematocrit 33.1 % (39.0-51.0) Neutrophils (%) (Auto) 78.0 % (16.0-70.0) Lymphocytes (%) (Auto) 8.1 % (9.0-44.0) Monocytes (%) (Auto) 12.8 % (0.0-8.0) Neutrophils # (Auto) 12.5 TH/MM3 (1.8-7.7) Monocytes # (Auto) 2.1 TH/MM3 (0-0.9) Blood Urea Nitrogen 64 MG/DL (7-18) 68 MG/DL (7-18) Creatinine 3.60 MG/DL (0.60-1.30) 3.03 MG/DL (0.60-1.30) Calcium Level 8.2 MG/DL (8.5-10.1) 8.0 MG/DL (8.5-10.1) Carbon Dioxide Level 17.9 MEQ/L (21.0-32.0) 19.7 MEQ/L (21.0-32.0) Estimat Glomerular Filtration Rate 17 ML/MIN (>89) 21 ML/MIN (>89) Random Glucose 175 MG/DL (74-106) Chloride Level 111 MEQ/L (98-107) Imaging Last Impressions Renal Ultrasound 08/07/17 0000 Signed Impressions: Service Date/Time: Monday, August 07, 2017 08:22 - CONCLUSION: Moderate bilateral hydronephrosis. Giancarlo Newton MD Knee X-Ray 08/06/17 832 Signed Impressions: Service Date/Time: August 14:06 - CONCLUSION: Limited study with prominent degenerative changes. No gross fracture. Manuel David MD Chest X-Ray 08/06/17 2647 Signed Impressions: Service Date/Time: August 13:50 - CONCLUSION: Minimal bibasilar subsegmental atelectasis. Manuel David MD PE at Discharge GENERAL: This is a well-nourished, well-developed patient, appears in pain. Alert and oriented 3. CARDIOVASCULAR: Regular rate and rhythm without murmurs, gallops, or rubs. RESPIRATORY: Clear to auscultation. Breath sounds equal bilaterally. No wheezes , rales, or rhonchi. GASTROINTESTINAL: Abdomen soft, non-tender, nondistended. No hepato-splenomegaly , or palpable masses. No guarding. MUSCULOSKELETAL: Extremities without clubbing, cyanosis, or edema. No joint tenderness, effusion, or edema noted. No calf tenderness. Negative Homans sign bilaterally. Left knee tenderness to palpation, some edema improved, no erythema. No broken skin. NEUROLOGICAL: Awake and alert. Cranial nerves II through XII intact. Motor and sensory grossly within normal limits. Five out of 5 muscle strength in all muscle groups. Normal speech. Hospital Course Severe sepsis Left knee septic arthritis Tachycardia 102, temperature 100.3. Leukocytosis 13.9. Acute kidney injury 2.5 from normal baseline on admission Attempted aspiration at bedside and unsuccessfulm ni fluid . Continue broad- spectrum antibiotics per ID recommendations. Proteus mirabilis pansensitive UTI likely pyelonephritis. Bilateral moderate hydronephrosis with hematuria. H/o BPH and obstruction placed dennis, noted with hematuria. Consult urology, started flomax. H/o recurrent UTIs Discussed with Dr Call ID specialist. Less likely to be septic arthritis. Appears to be inflammatory arthritis with a component of trauma related pain. Allery to PCN and Cephalosporin: severe rash entire body Continue Azactam IV ( Prot UTI, PCN allergic) DC Vanco IV (no septic arthritis or cellulitis) Check RA factor Uric acid elevated, likely gout. Start prednisone 20 mg po bid. Monitor. AMA, CRP. CT left knee not tolerated by patient as with severe pain and pt can't straighten his knee Orthopedics and ID consulted. Appreciate assistance. no fluid retreaved on arthrocentesis doesn't thinks is septic arthritis Acute kidney injury. Creatinine in 2.5 on admission worsening. consult nephrology. Urology ff. History of urinary retention. Hematuria Patient does have a history of elevated creatinine in the past, however appears to be secondary to obstruction. -Dennis placed. With hematuria. Consult urology, ff. Start flomax. Flush dennis per urology . -Suspect secondary to urinary retention, UTI. Tobacco abuse. Need to discuss cessation counseling tomorrow. Discussed Condition With Patient, nurse Improving. DC to SNF in stable condition to follow up as OP with PCP and consultants. Kidney function improving. Pt Condition on Discharge: Stable Discharge Disposition: Discharge to SNF Discharge Time: > 30 minutes Discharge Instructions DIET: Follow Instructions for: Heart Healthy Diet, Diabetic Diet, Low Protein Diet Activities you can perform: Regular-No Restrictions Follow up Referrals: Appointment for Follow Up - 3-5 Days with Rheumatology Nephrology - 1 Week Orthopedics - 2 Weeks PCP Follow-up - 2-3 Days SNF/[facility]/ with [facility] New Medications: Hydrocodone-Acetaminophen ([place]) 5 Mg-325 Mg Tab 1 TAB PO Q6H PRN for PAIN, #30 TAB 0 Refills Levofloxacin (Levaquin) 500 Mg Tablet 500 MG PO Q48H for uti, #4 TAB Prednisone (Prednisone) 20 Mg Tab 20 MG PO BID for gout exacarbation, #10 TAB Sennosides-Docusate Sodium (Gnp Senna Plus 8.6-50 mg) 8.6 Mg-50 Mg Tab 1 TAB PO BID for Constipation, #60 TAB Tamsulosin (Flomax) 0.4 Mg Cap 0.4 MG PO DAILY for bph, #30 CAP Continued Medications: Ferrous Sulfate (Ferrous Sulfate) 325 Mg (65 Mg Iron) Tablet 325 MG PO DAILY for Nutritional Supplement, #30 TAB 0 Refills Red Yeast Rice Extract (Bulk) (Red Yeast Rice) 1 Pow Pow Kimberly Fletcher MD Aug 10, 2017 08:48
[2017-08-10] MEDS: TAMSULOSIN HCL 0.4 MG CAP PO SCH (08:49)
[2017-08-10] MEDS: SODIUM CHLORIDE 0.9% FLUSH 10 ML FLUSH IV FLUSH SCH (08:49)
[2017-08-10] MEDS: DOCUSATE SODIUM 50 MG/SENNA 8.6 MG TAB PO SCH (08:50)
[2017-08-10] MEDS: predniSONE 20 MG TAB PO SCH (08:50)
[2017-08-10] MEDS ORDERED: LEVOFLOXACIN 500 MG TAB PO SCH (09:00)
[2017-08-10 14:20] LABS: BASOPHIL % 0.1 % (0.0-2.0); HEMATOCRIT 33.6 % (39.0-51.0); LYMPH % 3.5 % (9.0-44.0); LYMPHOCYTE # 0.5 TH/MM3 (1.0-4.8); MEAN CELL VOLUME 88.3 FL (80.0-100.0); MEAN CORPUSCULAR HEMOGLOBIN 28.8 PG (27.0-34.0); MEAN CORPUSCULAR HGB CONC 32.6 % (32.0-36.0); MEAN PLATELET VOLUME 7.8 FL (7.0-11.0); MONO % 4.7 % (0.0-8.0); MONOCYTE # 0.7 TH/MM3 (0-0.9); NEUT % 91.7 % (16.0-70.0); PLATELET COUNT 277 TH/MM3 (150-450); RED BLOOD COUNT 3.81 MIL/MM3 (4.50-5.90); RED CELL DISTRIBUTION WIDTH 13.6 % (11.6-17.2); WHITE BLOOD COUNT 15.3 TH/MM3 (4.0-11.0)
[2017-08-10 14:44] LABS: BICARBONATE 21.3 MEQ/L (21.0-32.0); CALCIUM 8.2 MG/DL (8.5-10.1); CREATININE 2.6 MG/DL (0.60-1.30)
--- NOTE | 2017-08-10 16:06 | HHI.PR ---
Subjective Remarks in bed appears n nad. Denies any fevers or chils. No n/v/d/c. Pain is better controlled. urine is clear. Objective Vitals Vital Signs Date Time Temp Pulse Resp B/P (MAP) Pulse Ox O2 Delivery O2 Flow Rate FiO2 08/10/17 12:00 98.4 80 18 126/72 (90) 95 08/10/17 12:00 80 08/10/17 08:53 Room Air 08/10/17 08:00 67 08/10/17 08:00 98.5 65 18 127/74 (91) 96 08/10/17 05:59 68 08/10/17 04:05 97.9 66 18 105/57 (73) 95 08/10/17 04:05 Room Air 08/10/17 00:16 89 08/10/17 00:00 Room Air 08/10/17 00:00 98.1 70 18 106/55 (72) 96 08/09/17 20:50 Room Air 08/09/17 20:00 96.9 66 18 90/51 (64) 97 08/09/17 19:53 73 08/09/17 18:00 Room Air I/O 08/09/17 08/09/17 08/09/17 08/10/17 08/10/17 08/10/17 07:00 15:00 23:00 07:00 15:00 23:00 Intake Total 1240 ml 800 ml 1340 ml Output Total 550 ml 750 ml 1500 ml Balance 690 ml 50 ml -160 ml Intake Oral 800 ml 240 ml IV Total 1240 ml 1100 ml Output Urine Total 550 ml 750 ml 1500 ml # Bowel Movements 0 0 Result Diagram: 08/10/17 1349 08/10/17 1349 Imaging Last Impressions Renal Ultrasound 08/07/17 0000 Signed Impressions: Service Date/Time: Monday, August 07, 2017 08:22 - CONCLUSION: Moderate bilateral hydronephrosis. Giancarlo Newton MD Knee X-Ray [id number]/[id number] Signed Impressions: Service Date/Time: August 14:06 - CONCLUSION: Limited study with prominent degenerative changes. No gross fracture. Manuel David MD Chest X-Ray 08/06/17 242 Signed Impressions: Service Date/Time: August 13:50 - CONCLUSION: Minimal bibasilar subsegmental atelectasis. Manuel David MD Objective Remarks GENERAL: This is a well-nourished, well-developed patient, appears in pain. Alert and oriented 3. CARDIOVASCULAR: Regular rate and rhythm without murmurs, gallops, or rubs. RESPIRATORY: Clear to auscultation. Breath sounds equal bilaterally. No wheezes , rales, or rhonchi. GASTROINTESTINAL: Abdomen soft, non-tender, nondistended. No hepato-splenomegaly , or palpable masses. No guarding. MUSCULOSKELETAL: Extremities without clubbing, cyanosis, or edema. No joint tenderness, effusion, or edema noted. No calf tenderness. Negative Homans sign bilaterally. Left knee tenderness to palpation, with faint overlying erythema. No broken skin. NEUROLOGICAL: Awake and alert. Cranial nerves II through XII intact. Motor and sensory grossly within normal limits. Five out of 5 muscle strength in all muscle groups. Normal speech. A/P Assessment and Plan Severe sepsis Left knee septic arthritis Tachycardia 102, temperature 100.3. Leukocytosis 13.9. Acute kidney injury 2.5 from normal baseline on admission Attempted aspiration at bedside and unsuccessfulm ni fluid . Continue broad- spectrum antibiotics per ID recommendations. Proteus mirabilis pansensitive UTI likely pyelonephritis. Bilateral moderate hydronephrosis with hematuria. H/o BPH and obstruction placed dennis, noted with hematuria. Consult urology, started flomax. H/o recurrent UTIs Discussed with Dr Call ID specialist. Less likely to be septic arthritis. Appears to be inflammatory arthritis with a component of trauma related pain. Allery to PCN and Cephalosporin: severe rash entire body Continue Azactam IV ( Prot UTI, PCN allergic) DC Vanco IV (no septic arthritis or cellulitis) Check RA factor Uric acid elevated, likely gout. Start prednisone 20 mg po bid. Monitor. AMA, CRP. CT left knee not tolerated by patient as with severe pain and pt can't straighten his knee Orthopedics and ID consulted. Appreciate assistance. no fluid retreaved on arthrocentesis doesn't thinks is septic arthritis Acute kidney injury. Creatinine in 2.5 on admission worsening. consult nephrology. Urology ff. History of urinary retention. Hematuria Patient does have a history of elevated creatinine in the past, however appears to be secondary to obstruction. -Dennis placed. With hematuria. Consult urology, ff. Start flomax. Flush dennis per urology . -Suspect secondary to urinary retention, UTI. Tobacco abuse. Need to discuss cessation counseling tomorrow. Discussed Condition With Patient, nurse DC plan DC to SNF when arrangements done Kimberly Fletcher MD Aug 10, 2017 16:06
[2017-08-13 07:53] LABS: DRVVT 1:1 MIX ND (CORRECTED); DRVVT CONFIRM NEGATIVE (NEGATIVE); HEXAGONAL PHASE CONFIRM POSITIVE (NEGATIVE)
== END 2017-08-10 18:35 | DRG 871 ==
LOC: NEDAMB 13:17 → NEDA 15:49 → N04B 17:53
PROVIDERS: ADMIT Hospitalist; ATTEND Hospitalist
PROC: 0S9D3ZZ Drainage of Left Knee Joint, Percutaneous Approach (ICD-10-PCS; principal; 2017-08-06)
PROC: 0T9B70Z Drainage of Bladder with Drainage Device, Via Natural or Artificial Opening (ICD-10-PCS; 2017-08-06)
DX: A41.9 Sepsis, unspecified organism (principal); N17.0 Acute kidney failure with tubular necrosis; N39.0 Urinary tract infection, site not specified; N12 Tubulo-interstitial nephritis, not specified as acute or chronic; N13.6 Pyonephrosis; N13.9 Obstructive and reflux uropathy, unspecified; R31.9 Hematuria, unspecified; N40.1 Benign prostatic hyperplasia with lower urinary tract symptoms; R65.20 Severe sepsis without septic shock; M24.562 Contracture, left knee; M24.561 Contracture, right knee; R39.15 Urgency of urination; N39.44 Nocturnal enuresis; M10.9 Gout, unspecified; R00.0 Tachycardia, unspecified; R53.81 Other malaise; M25.562 Pain in left knee; M41.9 Scoliosis, unspecified; M19.90 Unspecified osteoarthritis, unspecified site; W19.XXXA Unspecified fall, initial encounter; F17.290 Nicotine dependence, other tobacco product, uncomplicated; Z87.440 Personal history of urinary (tract) infections; Z89.411 Acquired absence of right great toe; Z23 Encounter for immunization
CPT/HCPCS: 10061; 51702; 71045; 73560; 76775; 80048; 80053; 80202; 81001; 83605; 84550; 85025; 85597; 85598; 85610; 85613; 85670; 85730; 86140; 86430; 87040; 87077; 87086; 87186; 90686; 90732; 96361; 96374; J1580; J2270; J2405; J3370; J7030; J7050; J7512; Q2038

== ENCOUNTER 2017-10-07 16:48 | Inpatient (IN) | payer MEDICARE ==
[2017-10-07] VITALS (8 sets, daily range): BP systolic 64–82; BP diastolic 34–51; PULSE 52–58; RESP 18–28; TEMP 88.5–88.8; O2SAT 97–100
[~2017-10-07] VITALS: Ht 182.9 cm; Wt 115.0 kg
[~2017-10-07 16:48] MED LIST changes: -DIFL100T PO; +FERR325T18 PO; -HYDR-3516 PO; -LACT PO; +LEVA500T33 PO; -LISI2.5T3 PO; -METR-1 PO; +NORC5TAB PO; +PERI PO; +PRED20 PO; +TAMS5CAP PO
[2017-10-07] MEDS ORDERED: SODIUM CHLOR 0.9% 1000 ML INJ 1,000 ML IV ONE ×4 (17:08→19:39)
[2017-10-07] MEDS ORDERED: CLINDAMYCIN INJ 900 MG in SODIUM CHLORIDE 0.9% INJ 100 ML IV STA (17:13)
[2017-10-07] MEDS ORDERED: PIPERACIL-TAZO 4.5 GM PREMIX 100 ML IV STA (17:13)
[2017-10-07] MEDS ORDERED: VANCOMYCIN INJ 1,000 MG in SODIUM CHLOR 0.9% 250 ML INJ 250 ML IV ONE (17:15)
[2017-10-07] MEDS ORDERED: AZTREONAM INJ 1,000 MG in SODIUM CHLORIDE 0.9% INJ 100 ML IV ONE (17:45)
[2017-10-07] MEDS ORDERED: NOREPINEPHRINE 4 MG/4 ML AMP ONE (17:54)
[2017-10-07 18:02] LABS: AUTOMATED NEUTROPHIL # 26.7 TH/MM3 (1.8-7.7); BASOPHIL # 0.1 TH/MM3 (0-0.2); BASOPHIL % 0.2 % (0.0-2.0); HEMATOCRIT 29.4 % (39.0-51.0); HEMOGLOBIN 9.4 GM/DL (13.0-17.0); LYMPH % 2.2 % (9.0-44.0); LYMPHOCYTE # 0.6 TH/MM3 (1.0-4.8); MEAN CELL VOLUME 90.9 FL (80.0-100.0); MEAN CORPUSCULAR HGB CONC 31.9 % (32.0-36.0); MEAN PLATELET VOLUME 7.7 FL (7.0-11.0); MONO % 3.5 % (0.0-8.0); NEUT % 94.1 % (16.0-70.0); PLATELET COUNT 429 TH/MM3 (150-450); RED BLOOD COUNT 3.24 MIL/MM3 (4.50-5.90); RED CELL DISTRIBUTION WIDTH 17.4 % (11.6-17.2); WHITE BLOOD COUNT 28.4 TH/MM3 (4.0-11.0)
[2017-10-07 18:09] LABS: LACTIC ACID SEPSIS PROTOCOL 2.2 mmol/L (0.4-2.0)
[2017-10-07 18:14] LABS: INTERNATIONAL NORMALIZED RATIO 1.2 RATIO; PROTHROMBIN TIME - PATIENT 11.8 SEC (9.8-11.6)
[2017-10-07 18:21] LABS: ALBUMIN 1.6 GM/DL (3.4-5.0); ALT (GPT) 22 U/L (12-78); AST (GOT) 37 U/L (15-37); BICARBONATE 5.9 MEQ/L (21.0-32.0); BLOOD UREA NITROGEN 95 MG/DL (7-18); CALCIUM 7.8 MG/DL (8.5-10.1); CHLORIDE 109 MEQ/L (98-107); CREATININE 5.19 MG/DL (0.60-1.30); GLOMERULAR FILTRATION RATE 11 ML/MIN (>89); GLUCOSE,RANDOM 129 MG/DL (74-106); MAGNESIUM 1.7 MG/DL (1.5-2.5); SODIUM (NA) 132 MEQ/L (136-145)
[2017-10-07 18:30] LABS: ALKALINE PHOSPHATASE 138 U/L (45-117); TOTAL BILIRUBIN ADULT 0.2 MG/DL (0.2-1.0); TOTAL PROTEIN 7.2 GM/DL (6.4-8.2)
--- NOTE | 2017-10-07 18:45 | RADRPT ---
EXAM DATE/TIME: 10/07/2017 18:21 [place] COMPARISON: CHEST SINGLE AP, August 06, 2017, 13:50. INDICATIONS : Fever. MEDICAL HISTORY : Arthritis. Measles. Scoliosis. Chronic UTIs. SURGICAL HISTORY : Right toe amputation. Back surgery. Eye surgery. ENCOUNTER: Initial ACUITY: 1 day PAIN SCORE: Non-responsive. LOCATION: Bilateral chest FINDINGS: A single view of the chest demonstrates the lungs to be symmetrically aerated without evidence of mas s, infiltrate or effusion. The cardiomediastinal contours are unremarkable. Osseous structures are intact. CONCLUSION: No acute disease. Manuel David MD on October 07, 2017 at 18:42 Board Certified Radiologist. This report was verified electronically.
--- NOTE | 2017-10-07 19:07 | PD ---
Data Data Last Documented VS Vital Signs Date Time Temp Pulse Resp B/P (MAP) Pulse Ox O2 Delivery O2 Flow Rate FiO2 10/07/17 19:00 88.5 57 24 82/44 (57) 99 Room Air Orders Orders Sepsis Workup Initiated (10/07/17 ) Electrocardiogram (10/07/17 17:01) Complete Blood Count With Diff (10/07/17 17:01) Comprehensive Metabolic Panel (10/07/17 17:) Prothrombin Time / Inr (Pt) (10/07/17 17:) Act Partial Throm Time (Ptt) (10/07/17 17:01) Lactic Acid Sepsis Protocol (10/07/17 17:01) Magnesium (Mg) (10/07/17 17:01) Ckmb (Isoenzyme) Profile (10/07/17 17:) Urinalysis - C+S If Indicated (10/07/17 17:01) Blood Culture (10/07/17 17:01) Wound Culture And Gram Stain (10/07/17 17:01) Chest, Single Ap (10/07/17 17:01) Blood Glucose (10/07/17 17:01) Ecg Monitoring (10/07/17 17:01) Iv Access Insert/Monitor (10/07/17 17:) Oximetry (10/07/17 17:01) Oxygen Administration (10/07/17 17:01) Sodium Chlor 0.9% 1000 Ml Inj (Ns 1000 M (10/07/17 17:15) Us Leg Venous Doppler Bilat (10/07/17 ) B-Type Natriuretic Peptide (10/07/17 17:04) Vancomycin Inj (Vancomycin Inj) (10/07/17 17:15) Sodium Chlor 0.9% 1000 Ml Inj (Ns 1000 M (10/07/17 17:08) Sodium Chlor 0.9% 1000 Ml Inj (Ns 1000 M (10/07/17 17:08) Urinary Catheter Management OMAR.Q8H (10/07/17 17:11) Ct Abd/Pel W/O Iv Contrast (10/07/17 ) Piperacil-Tazo 4.5 Gm Premix (Zosyn 4.5 (10/07/17 17:13) Clindamycin Inj (Cleocin Inj) (10/07/17 17:13) Warming [place] / Warming Syst PRN (10/07/17 17:14) Aztreonam Inj (Azactam Inj) (10/07/17 17:45) Norepinephrine Inj (Levophed Inj) (10/07/17 17:54) CKMB (10/07/17 17:23) CKMB% (10/07/17 17:23) Westergren Sedimentation Rate (10/07/17 18:43) C-Reactive Protein (Crp) (10/07/17 18:43) Type And Screen (10/07/17 18:43) Admit Order (Ed Use Only) (10/07/17 18:58) Troponin I (10/07/17 18:59) Labs Laboratory Tests Test 10/07/17 17:23 10/07/17 18:54 White Blood Count 28.4 TH/MM3 Red Blood Count 3.24 MIL/MM3 Hemoglobin 9.4 GM/DL Hematocrit 29.4 % Mean Corpuscular Volume 90.9 FL Mean Corpuscular Hemoglobin 29.0 PG Mean Corpuscular Hemoglobin Concent 31.9 % Red Cell Distribution Width 17.4 % Platelet Count 429 TH/MM3 Mean Platelet Volume 7.7 FL Neutrophils (%) (Auto) 94.1 % Lymphocytes (%) (Auto) 2.2 % Monocytes (%) (Auto) 3.5 % Eosinophils (%) (Auto) 0.0 % Basophils (%) (Auto) 0.2 % Neutrophils # (Auto) 26.7 TH/MM3 Lymphocytes # (Auto) 0.6 TH/MM3 Monocytes # (Auto) 1.0 TH/MM3 Eosinophils # (Auto) 0.0 TH/MM3 Basophils # (Auto) 0.1 TH/MM3 CBC Comment AUTO DIFF Differential Total Cells Counted 100 Neutrophils % (Manual) 81 % Band Neutrophils % 13 % Lymphocytes % 2 % Monocytes % 4 % Neutrophils # (Manual) 26.7 TH/MM3 Differential Comment FINAL DIFF MANUAL Toxic Granulation 1+ Toxic Vacuolation PRESENT Platelet Estimate NORMAL Platelet Morphology Comment NORMAL Prothrombin Time 11.8 SEC Prothromb Time International Ratio 1.2 RATIO Activated Partial Thromboplast Time 41.5 SEC Blood Urea Nitrogen 95 MG/DL Creatinine 5.19 MG/DL Random Glucose 129 MG/DL Total Protein 7.2 GM/DL Albumin 1.6 GM/DL Calcium Level 7.8 MG/DL Magnesium Level 1.7 MG/DL Alkaline Phosphatase 138 U/L Aspartate Amino Transf (AST/SGOT) 37 U/L Alanine Aminotransferase (ALT/SGPT) 22 U/L Total Bilirubin 0.2 MG/DL Sodium Level 132 MEQ/L Potassium Level 4.2 MEQ/L Chloride Level 109 MEQ/L Carbon Dioxide Level 5.9 MEQ/L Anion Gap 17 MEQ/L Estimat Glomerular Filtration Rate 11 ML/MIN Lactic Acid Level 2.2 mmol/L Total Creatine Kinase 425 U/L Creatine Kinase MB 24.9 NG/ML Creatine Kinase MB % 5.9 % Troponin I LESS THAN 0.02 NG/ML B-Type Natriuretic Peptide 89 PG/ML C-Reactive Protein 24.00 MG/DL [facility] Supervised Visit with [facility]INE: Yes Narrative Course I, Dr. Tracey, have reviewed the advance practice practitioner's documentation and am in agreement, met with the patient face to face, made the diagnosis, and the medical decision making was done by me. *My assessment and Findings: This is a 72-year-old male presented from home for inability to ambulate and get out of his wheelchair. On arrival was found that he had a Vargas catheter in place apparently since September 11. Patient is able to answer orientation questions but is very slow to answer and appears to be somewhat confused. He was incredibly hypo-thermic with a 88.5 temperature rectally. Hypotensive with maps of 50s and the lowest was 44 by noninvasive measurement. After 3 L warm normal saline bolus the patient remains hypotensive. His lactic acid is only 2.2, however white count significantly elevated. The patient meets criteria for septic shock. He has significant rash on the buttocks which appears to be significant pressure ulcers as well as cellulitis as well as a pressure ulcer at the base of the right side of the penis associated with what appears to be either purulent material or granulation tissue at the urethral meatus and the glans and the urethra are split open. 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 He has been examined by both Dr. Diaz and Dr. Dale of the general surgery and urology services respectively and are index of suspicion after CAT scan reviewing his labs is low. He appears to be in acute kidney failure with a BUN of 95 and a creatinine in excess of 5. CK-MB is also elevated indicating endorgan failure. Appears to be that he has having encephalopathy as well. Brandon crouch was applied, started on vancomycin and clindamycin and Azactam given his cephalosporin allergies. Patient has significant IV access including 3x 18-gauge IVs, Levophed being started for a goal map greater than 65, attempts were made at radial art lines with out success initially. Discussed with Dr. Milligan for admission is the patient is critically ill peer. After the patient was disposition to Dr. Milligan he got called away for another emergency, he is asked me to place central line access and start on vasopressin the patient is maxed out on Levophed. At approximately 2100 I placed a right IJ central line under emergent consent as the patient is becoming more confused. He continues to protect his airway. Additional blood was drawn for repeat blood cultures as well as a repeat lactic acid. He is also starting on a bicarb drip per Dr. Milligan Patient is critically ill and prognosis is guarded. Critical Care Narrative Aggregate critical care time was 65 minutes. Time to perform other separately billable procedures was not included in the critical care time. My time did not include minutes spent treating any other patients simultaneously or on activities that did not directly contribute to the patient's treatment. The services I provided to this patient were to treat and/or prevent clinically significant deterioration that could result in: , disability, organ failure I provided critical care services requiring my management, as noted below: Chart data review, documentation time, medication orders and management, vital sign assessments/reviewing monitor data, ordering and reviewing lab tests, ordering and interpreting/reviewing x-rays and diagnostic studies, care of the patient and discussion of the patient with the admitting physicians. I did discuss the patient with 3 other providers, time spent at the bedside managing fluids, reassessing after antibiotics, reassessing after starting pressors. Procedures Procedure Narrative CENTRAL VENOUS LINE: The site was prepped with chlorhexidine and sterilely draped. It was infiltrated with 1% lidocaine plain. The deep vein was cannulated using normal Seldinger technique. A 7 Maori triple lumen central line was placed in the right IJ site and secured with simple interrupted suture. The site was sterilely dressed. The patient tolerated the procedure well. This was an ultrasound-guided procedure. Maximum sterile technique was used. Confirm a chest x-ray and no pneumothorax. Diagnosis Primary Impression: Septic shock Additional Impressions: Hypothermia Sacral decubitus ulcer, stage III Acute kidney failure Metabolic acidosis Admitting Information Admitting Physician Requests: Admit Condition: Critical Pancho Tracey MD October 07, 2017 19:07
--- NOTE | 2017-10-07 19:09 | PD.CONS ---
HPI Service General surgery Consult Requested By Nicko LEE Reason for Consult Sepsis, possible gangrene, decubitus ulcer Primary Care Physician Wale Healy MD History of Present Illness The patient is a 72-year-old male with severe sepsis and decubitus ulcers. He is a poor historian and history is obtained from him, from ED physicians, and from EMR. The patient reports that he lives at home with his . He has recently been discharged from a rehab facility after a hospitalization in early August. I was called regarding extensive soft tissue infection of the buttocks and upper thighs and perineum and concern for possible necrotizing fasciitis. The patient has been hypotensive since admission even after fluid boluses. White blood count is 28,000. CT scan of the abdomen and pelvis has been performed which did not show any air within the soft tissues. The patient's primary complaint initially was actually bilateral lower extremity swelling and pain. He is wheelchair-bound and has bilateral chronic contractures of his knees. Vargas catheter which was initially in place was reportedly draining pus and some dark fluid, and there is some erosion of the urethral meatus. Review of Systems Constitutional: DENIES: Fever Eyes: DENIES: Eye inflammation, Eye pain Respiratory: DENIES: Cough, Shortness of breath Cardiovascular: DENIES: Chest pain, Palpitations Gastrointestinal: DENIES: Abdominal pain, Nausea Genitourinary: COMPLAINS OF: Penile Discharge Musculoskeletal: COMPLAINS OF: Joint pain Neurologic: COMPLAINS OF: Localized weakness, DENIES: Paresthesias, Seizures Past Family Social History Past Medical History BPH Chronic flexion contractures of the knees He denies any heart or lung disease Past Surgical History Back surgery Reported Medications Reported Meds & Active Scripts Active [place] (Hydrocodone-Acetaminophen) 5 Mg-325 Mg Tab 1 Tab PO Q6H PRN Prednisone 20 Mg Tab 20 Mg PO BID Gnp Senna Plus 8.6-50 mg (Sennosides-Docusate Sodium) 8.6 Mg-50 Mg Tab 1 Tab PO BID Flomax (Tamsulosin HCl) 0.4 Mg Cap 0.4 Mg PO DAILY Levaquin (Levofloxacin) 500 Mg Tablet 500 Mg PO Q48H Reported Ferrous Sulfate 325 Mg (65 Mg Iron) Tablet 325 Mg PO DAILY Red Yeast Rice (Red Yeast Rice Extract (Bulk)) 1 Pow Pow Allergies: Coded Allergies: cefepime (Unverified Allergy, Severe, RASH TO CEFEPIME, 10/07/17) ceftaroline fosamil (Unverified Allergy, Severe, RASH TO CEFEPIME, 10/07/17) diphenhydramine (Unverified Allergy, Severe, ALTERED MENTAL STATUS, 10/07/17 ) tigecycline (Unverified Allergy, Severe, Rash, 10/07/17) Family History Noncontributory Social History He lives at home with his . He has been wheelchair-bound. Recently discharged from [facility]. He smokes a pipe. No alcohol or drug use. Physical Exam Vital Signs Vital Signs Date Time Temp Pulse Resp B/P (MAP) Pulse Ox O2 Delivery O2 Flow Rate FiO2 10/07/17 19:00 88.5 57 24 82/44 (57) 99 Room Air 10/07/17 18:30 57 22 81/51 (61) 98 Room Air 10/07/17 18:22 56 22 64/34 (44) 98 Room Air 10/07/17 17:52 56 22 82/45 (57) 100 Room Air 10/07/17 17:47 100 Room Air 10/07/17 17:47 100 Room Air 10/07/17 17:20 88.8 10/07/17 17:06 88.8 52 18 82/39 (53) 97 Room Air 10/07/17 17:03 18 Physical Exam GENERAL: Awake and alert. Appears in pain. Cooperative. HEAD: Normocephalic. Atraumatic. Glasses. EYES: Pupils equal round and reactive to light bilaterally. No scleral icterus. CHEST: No accessory muscle use. No respiratory distress. CARDIOVASCULAR: Regular rate and rhythm. ABDOMEN: Soft, nontender. EXTREMITIES: Severe pitting edema bilateral lower extremities with some weeping. Right heel with fairly large chronic eschar. SKIN: Overall cool and pale. Bilateral buttocks and upper posterior thighs with erythema, extensive stage 1 and stage 2 pressures ulcers. Small areas approximately 3 x 4 cm at the inferior gluteal fold bilaterally with superficial necrotic tissue. No crepitus. No purulent drainage. Laboratory Laboratory Tests Test 10/07/17 17:23 5/2/18 18:54 White Blood Count 28.4 Red Blood Count 3.24 Hemoglobin 9.4 Hematocrit 29.4 Mean Corpuscular Volume 90.9 Mean Corpuscular Hemoglobin 29.0 Mean Corpuscular Hemoglobin Concent 31.9 Red Cell Distribution Width 17.4 Platelet Count 429 Mean Platelet Volume 7.7 Neutrophils (%) (Auto) 94.1 Lymphocytes (%) (Auto) 2.2 Monocytes (%) (Auto) 3.5 Eosinophils (%) (Auto) 0.0 Basophils (%) (Auto) 0.2 Neutrophils # (Auto) 26.7 Lymphocytes # (Auto) 0.6 Monocytes # (Auto) 1.0 Eosinophils # (Auto) 0.0 Basophils # (Auto) 0.1 CBC Comment AUTO DIFF Prothrombin Time 11.8 Prothromb Time International Ratio 1.2 Activated Partial Thromboplast Time 41.5 Blood Urea Nitrogen 95 Creatinine 5.19 Random Glucose 129 Total Protein 7.2 Albumin 1.6 Calcium Level 7.8 Magnesium Level 1.7 Alkaline Phosphatase 138 Aspartate Amino Transf (AST/SGOT) 37 Alanine Aminotransferase (ALT/SGPT) 22 Total Bilirubin 0.2 Sodium Level 132 Potassium Level 4.2 Chloride Level 109 Carbon Dioxide Level 5.9 Anion Gap 17 Estimat Glomerular Filtration Rate 11 Lactic Acid Level 2.2 Total Creatine Kinase 425 Creatine Kinase MB 24.9 Creatine Kinase MB % 5.9 B-Type Natriuretic Peptide 89 Date/Time Source Procedure Growth Status 10/07/17 17:25 Blood Peripheral Aerobic Blood Culture Pending Received 10/07/17 17:25 Blood Peripheral Anaerobic Blood Culture Pending Received 10/07/17 17:25 Wound Buttock Gram Stain Pending Received 10/07/17 17:25 Wound Buttock Wound Culture Pending Received Result Diagram: 10/07/17 1723 10/07/17 1723 Imaging Last Impressions Chest X-Ray 10/07/17 1701 Signed Impressions: Service Date/Time: Saturday, October 07, 2017 18:21 - CONCLUSION: No acute disease. Manuel David MD Abdomen/Pelvis CT 10/07/17 0000 Signed Impressions: Service Date/Time: Saturday, October 07, 2017 18:37 - CONCLUSION: 1. 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 2. Right renal low density likely cyst. 3. Several nonobstructing punctate left sided renal calculi. 4. Constipation. 5. Left-sided abdominal wall hernia containing large bowel loops without signs of obstruction. Manuel David MD Assessment and Plan Assessment and Plan 72-year-old male presents with acute severe sepsis and what appear to be new pressure ulcers bilateral buttocks and upper thighs as well as partial erosion of Vargas catheter through the penile urethra and possible urinary tract infection. There is not any evidence of necrotizing fasciitis. There is not extensive necrotic tissue requiring operative debridement. Recommend resuscitation, IV antibiotics, wound care, appropriate positioning for relief of pressure on the affected areas. The case was discussed in detail with Dr. Kyung Daugherty Dr. Voda. Jovani Diaz MD October 07, 2017 19:09
--- NOTE | 2017-10-07 19:11 | RADRPT ---
EXAM DATE/TIME: 10/07/2017 18:37 [facility] COMPARISON: No previous studies available for comparison. INDICATIONS : Abdomen pain; evaluate for paris gangrene. ORAL CONTRAST: No oral contrast ingested. RADIATION DOSE: 11.36 CTDIvol (mGy) MEDICAL HISTORY : Scoliosis SURGICAL HISTORY : None. ENCOUNTER: Initial ACUITY: 1 day PAIN SCALE: 3/10 LOCATION: Abdomen TECHNIQUE: Volumetric scanning of the abdomen and pelvis was performed. Using automated exposure control and ad justment of the mA and/or kV according to patient size, radiation dose was kept as low as reasonably achievable to obtain optimal diagnostic quality images. DICOM format image data is available electro nically for review and comparison. FINDINGS: LOWER LUNGS: The visualized lower lungs are clear. LIVER: Homogeneous density without lesion. There is no dilation of the biliary tree. No calcified gallston es. SPLEEN: Normal size without lesion. PANCREAS: Within normal limits. KIDNEYS: Normal in size and shape. There is no mass, stone, or hydronephrosis on the right. Several punctate nonobstructing left-sided renal calculi measuring 2-3 mm. Right renal low density likely cyst. ADRENAL GLANDS: Within normal limits. VASCULAR: There is no aortic aneurysm. BOWEL/MESENTERY: The stomach, small bowel, and colon demonstrate no acute abnormality. There is no free intraperitone al air or fluid. Copious amount of stool throughout the large bowel ABDOMINAL WALL: Left-sided ventral wall hernia containing large bowel loop. No signs of strangulation or obstruction. There is also bulging laterally on the right of the abdominal wall without hernia. RETROPERITONEUM: There is no lymphadenopathy. BLADDER: No wall thickening or mass. REPRODUCTIVE: Within normal limits. No air within the soft tissues of the genitals. INGUINAL: There is no lymphadenopathy or hernia. MUSCULOSKELETAL: There is some edema within the proximal upper legs. 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 No air within the soft tissues the genitals to suggest Paris's gangrene. 2. Right renal low density likely cyst. 3. Several nonobstructing punctate left sided renal calculi. 4. Constipation. 5. Left-sided abdominal wall hernia containing large bowel loops without signs of obstruction. Manuel David MD on October 07, 2017 at 19:01 Board Certified Radiologist. This report was verified electronically.
[2017-10-07] MEDS ORDERED: TERBUTALINE INJ 1 MG/ML AMP SQ PRN (19:15)
[2017-10-07] MEDS ORDERED: NOREPINEPHRINE-DEXTROSE DRIP 250 ML IV PRN (19:15)
--- NOTE | 2017-10-07 19:17 | PD ---
HPI Chief Complaint: Pain: Acute or Chronic Time Seen by Provider: 16:52 Travel History International Travel<30 days: No Contact w/Intl Traveler<30days: No Traveled to known affect area: No History of Present Illness HPI 72-year-old male that presents to the ED for evaluation of leg swelling by ambulance. Per ambulance report of the recall secondary to leg swelling. When they were in the house of the patient and noticed that he had a infection to his buttocks when the put him on the stretcher. Per ambulance and per patient he has been for the most part sleeping and sitting on a wheelchair since been discharged from a alf. Per patient his have been on September 11. It is unclear as to why they discharged him. Per patient he is has been taking care of him. Per patient he has not moved from the wheelchair since. He has a Dennis catheter in place. Patient is not really good historian although he answers some questions appropriately. He cannot really tell me if he has had an infection of his buttocks in the past. 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 Patient denies any urinary or bowel movement issues but he also has a Dennis that per patient has not been changed since been discharged from the alf. Dennis appears to be not draining any fluid alert and what appears to be pus and black liquid. Patient states that the pain is on his legs and is the main reason he called the ambulance. Pain on his legs is 10 out of 10. Apparently he took one Lortab before coming. He denies any fevers chills or sweats. No chest pain or shortness of breath. He has multiple allergies to different medications. He denies any other medical issues at this time. Again he is somewhat of a poor historian but does appear to be oriented and alert. PFSH Past Medical History Medical History: Unable to Obtain Arthritis: Yes Asthma: No Autoimmune Disease: No Heart Rhythm Problems: No Cancer: No Cardiovascular Problems: No High Cholesterol: No Chest Pain: No Congestive Heart Failure: No COPD: No Cerebrovascular Accident: No Diminished Hearing: No Endocrine: No Genitourinary: No Immune Disorder: No Neurologic: No Psychiatric: No Reproductive: No Respiratory: No Migraines: No Seizures: No Sleep Apnea: No Past Surgical History Surgical History: Unable to Obtain Abdominal Surgery: No AICD: No Arteriovenous Shunt: No Cardiac Surgery: No Ear Surgery: No Endocrine Surgery: No Eye Surgery: Yes Genitourinary Surgery: No Gynecologic Surgery: No Insulin Pump: No Joint Replacement: No Oral Surgery: No Pacemaker: No Thoracic Surgery: No Other Surgery: Yes (BACK SURGERY SCOLIOSIS CORRECTION) Social History Alcohol Use: No Tobacco Use: Yes (SMOKES A PIPE 3-4 X PER DAY) Substance Use: No Allergies-Medications (Allergen,Severity, Reaction): Coded Allergies: cefepime (Unverified Allergy, Severe, RASH TO CEFEPIME, 10/07/17) ceftaroline fosamil (Unverified Allergy, Severe, RASH TO CEFEPIME, 10/07/17) diphenhydramine (Unverified Allergy, Severe, ALTERED MENTAL STATUS, 10/07/17 ) tigecycline (Unverified Allergy, Severe, Rash, 10/07/17) Reported Meds & Prescriptions Reported Meds & Active Scripts Active [place] (Hydrocodone-Acetaminophen) 5 Mg-325 Mg Tab 1 Tab PO Q6H PRN Prednisone 20 Mg Tab 20 Mg PO BID Gnp Senna Plus 8.6-50 mg (Sennosides-Docusate Sodium) 8.6 Mg-50 Mg Tab 1 Tab PO BID Flomax (Tamsulosin HCl) 0.4 Mg Cap 0.4 Mg PO DAILY Levaquin (Levofloxacin) 500 Mg Tablet 500 Mg PO Q48H Reported Ferrous Sulfate 325 Mg (65 Mg Iron) Tablet 325 Mg PO DAILY Red Yeast Rice (Red Yeast Rice Extract (Bulk)) 1 Pow Pow Review of Systems ROS Limitations: Poor Historian Except as stated in HPI: all other systems reviewed are Neg Physical Exam Exam Limitations: Poor Historian Narrative GENERAL: SKIN: Warm and dry. HEAD: Atraumatic. Normocephalic. EYES: Pupils equal and round. No scleral icterus. No injection or drainage. ENT: No nasal bleeding or discharge. Mucous membranes pink and moist. Tongue is midline. No uvula deviation. NECK: Trachea midline. No JVD. CARDIOVASCULAR: Regular rate and rhythm. No murmurs, s3. s4. RESPIRATORY: No accessory muscle use. Clear to auscultation. Breath sounds equal bilaterally. GASTROINTESTINAL: Abdomen soft, non-tender, nondistended. Hepatic and splenic margins not palpable. MUSCULOSKELETAL: Extremities without clubbing, cyanosis, or edema. No obvious deformities. Full ROM of the upper arms with no obvious deformity. Patient does have significant swelling of the lower legs with 2+ pitting edema and what appears to be a decubitus ulcer of the right heel appears to be stage II and III with what appears to be a stage I, II and III decubitus ulcer that encompasses multiple areas of the buttocks going into the testicles and the groin itself. Very erythematous and purulent material or gas cannot be seen but very putrid smelling. No darkening of the skin. Patient appears to have 2 + pulses bilaterally. Sensation intact bilaterally. Patient cannot move the lower legs on his own. NEUROLOGICAL: Awake and alert. No obvious cranial nerve deficits. Motor grossly within normal limits. Five out of 5 muscle strength in the arms and legs. Normal speech. PSYCHIATRIC: Appropriate mood and affect; insight and judgment normal. Data Data Last Documented VS Vital Signs Date Time Temp Pulse Resp B/P (MAP) Pulse Ox O2 Delivery O2 Flow Rate FiO2 10/07/17 19:00 88.5 57 24 82/44 (57) 99 Room Air Orders Orders Sepsis Workup Initiated (10/07/17 ) Electrocardiogram (10/07/17 17:) Complete Blood Count With Diff (10/07/17 17:) Comprehensive Metabolic Panel (10/07/17 17:) Prothrombin Time / Inr (Pt) (10/07/17 17:) Act Partial Throm Time (Ptt) (10/07/17 17:) Lactic Acid Sepsis Protocol (10/07/17 17:) Magnesium (Mg) (10/07/17 17:) Ckmb (Isoenzyme) Profile (10/07/17 17:) Urinalysis - C+S If Indicated (10/07/17 17:) Blood Culture (10/07/17 17:) Wound Culture And Gram Stain (10/07/17 17:) Chest, Single Ap (10/07/17 17:) Blood Glucose (10/07/17 17:) Ecg Monitoring (10/07/17 17:) Iv Access Insert/Monitor (10/07/17 17:) Oximetry (10/07/17 17:) Oxygen Administration (10/07/17 17:) Sodium Chlor 0.9% 1000 Ml Inj (Ns 1000 M (10/07/17 17:15) Us Leg Venous Doppler Bilat (10/07/17 ) B-Type Natriuretic Peptide (10/07/17 17:04) Vancomycin Inj (Vancomycin Inj) (10/07/17 17:15) Sodium Chlor 0.9% 1000 Ml Inj (Ns 1000 M (10/07/17 17:08) Sodium Chlor 0.9% 1000 Ml Inj (Ns 1000 M (10/07/17 17:08) Urinary Catheter Management OMAR.Q8H (10/07/17 17:11) Ct Abd/Pel W/O Iv Contrast (10/07/17 ) Piperacil-Tazo 4.5 Gm Premix (Zosyn 4.5 (10/07/17 17:13) Clindamycin Inj (Cleocin Inj) (10/07/17 17:13) Warming [place] / Warming Syst PRN (10/07/17 17:14) Aztreonam Inj (Azactam Inj) (10/07/17 17:45) Norepinephrine Inj (Levophed Inj) (10/07/17 17:54) CKMB (10/07/17 17:23) CKMB% (10/07/17 17:23) Westergren Sedimentation Rate (10/07/17 18:43) C-Reactive Protein (Crp) (10/07/17 18:43) Type And Screen (10/07/17 18:43) Admit Order (Ed Use Only) (10/07/17 18:58) Troponin I (10/07/17 18:59) Labs Laboratory Tests Test 10/07/17 17:23 10/07/17 18:54 White Blood Count 28.4 TH/MM3 Red Blood Count 3.24 MIL/MM3 Hemoglobin 9.4 GM/DL Hematocrit 29.4 % Mean Corpuscular Volume 90.9 FL Mean Corpuscular Hemoglobin 29.0 PG Mean Corpuscular Hemoglobin Concent 31.9 % Red Cell Distribution Width 17.4 % Platelet Count 429 TH/MM3 Mean Platelet Volume 7.7 FL Neutrophils (%) (Auto) 94.1 % Lymphocytes (%) (Auto) 2.2 % Monocytes (%) (Auto) 3.5 % Eosinophils (%) (Auto) 0.0 % Basophils (%) (Auto) 0.2 % Neutrophils # (Auto) 26.7 TH/MM3 Lymphocytes # (Auto) 0.6 TH/MM3 Monocytes # (Auto) 1.0 TH/MM3 Eosinophils # (Auto) 0.0 TH/MM3 Basophils # (Auto) 0.1 TH/MM3 CBC Comment AUTO DIFF Differential Total Cells Counted 100 Neutrophils % (Manual) 81 % Band Neutrophils % 13 % Lymphocytes % 2 % Monocytes % 4 % Neutrophils # (Manual) 26.7 TH/MM3 Differential Comment FINAL DIFF MANUAL Toxic Granulation 1+ Toxic Vacuolation PRESENT Platelet Estimate NORMAL Platelet Morphology Comment NORMAL Prothrombin Time 11.8 SEC Prothromb Time International Ratio 1.2 RATIO Activated Partial Thromboplast Time 41.5 SEC Blood Urea Nitrogen 95 MG/DL Creatinine 5.19 MG/DL Random Glucose 129 MG/DL Total Protein 7.2 GM/DL Albumin 1.6 GM/DL Calcium Level 7.8 MG/DL Magnesium Level 1.7 MG/DL Alkaline Phosphatase 138 U/L Aspartate Amino Transf (AST/SGOT) 37 U/L Alanine Aminotransferase (ALT/SGPT) 22 U/L Total Bilirubin 0.2 MG/DL Sodium Level 132 MEQ/L Potassium Level 4.2 MEQ/L Chloride Level 109 MEQ/L Carbon Dioxide Level 5.9 MEQ/L Anion Gap 17 MEQ/L Estimat Glomerular Filtration Rate 11 ML/MIN Lactic Acid Level 2.2 mmol/L Total Creatine Kinase 425 U/L Creatine Kinase MB 24.9 NG/ML Creatine Kinase MB % 5.9 % Troponin I LESS THAN 0.02 NG/ML B-Type Natriuretic Peptide 89 PG/ML C-Reactive Protein 24.00 MG/DL MDM Medical Decision Making Medical Screen Exam Complete: Yes Emergency Medical Condition: Yes Medical Record Reviewed: Yes Interpretation(s) CBC & BMP Diagram 10/07/17 17:23 Total Protein 7.2, Albumin 1.6 L, Calcium Level 7.8 L, Magnesium Level 1.7, Alkaline Phosphatase 138 H, Aspartate Amino Transf (AST/SGOT) 37, Alanine Aminotransferase (ALT/SGPT) 22, Total Bilirubin 0.2 Last Impressions Chest X-Ray 10/07/17 1701 Signed Impressions: Service Date/Time: Saturday, October 07, 2017 18:21 - CONCLUSION: No acute disease. Manuel David MD Abdomen/Pelvis CT 10/07/17 0000 Signed Impressions: Service Date/Time: Saturday, October 07, 2017 18:37 - CONCLUSION: 1. 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 2. Right renal low density likely cyst. 3. Several nonobstructing punctate left sided renal calculi. 4. Constipation. 5. Left-sided abdominal wall hernia containing large bowel loops without signs of obstruction. Manuel David MD lactic acid of 2.2 Differential Diagnosis Septic shock versus sepsis versus gangrene versus cellulitis versus decubitus ulcer versus wound versus cellulitis versus urosepsis Narrative Course 72-year-old male that presents to the ED for evaluation of leg pain. Patient was properly examined and was found to have signs and symptoms more consistent with septic shock. Patient came here for leg pain and swelling but he does appear to have a significant decubitus ulcer versus gangrene of the rectum, sacrum and what appears to be the groin itself. Patient has what appears to be opening of the urethra and dennis had to be removed as it is not even in place. My attending Dr. Tracey was made aware of findings and immediately evaluated the patient. I spoke with Dr. iDaz for general surgery as we were concerned for gangrene and he came and evaluated the patient and agrees to this at this time does not appear to be gangrene and no immediate surgery require. I spoke with Dr. Dale who was made aware of patient's significant infection and possible need for a new Dennis secondary to involvement of the penis and sacrum. He will come here and evaluated. Dr. Tracey spoke with Dr. Milligan who admitted the patient. Please refer to my attendings note. Patient require multiple doses of fluids as well as doses of medications to improve the BP. Patient's BP is still low. Patient was started on IV antibiotics by me. Sepsis Criteria SIRS Criteria (2 or more): Temp > 100.9 or < 96.8, WBC > 61949, < 4000 or > 10 % bands Sepsis Criteria (SIRS+source): Infect source susp/known Severe Sepsis (+one): Lactate >2 Septic Shock Criteria: Unresponsive to 30ml/kg fluid bolus Multiple Organ Dysfunction Syn: Evidence -2 organs failing Criteria Outcome: Meets septic shock criteria, Meets multiple organ dys. criteria Diagnosis Primary Impression: Septic shock Additional Impressions: Decubitus skin ulcer Qualified Codes: L89.93 - Pressure ulcer of unspecified site, stage 3 LEAH (acute kidney injury) Admitting Information Admitting Physician Requests: Admit Dieter Maharaj October 07, 2017 19:17
--- NOTE | 2017-10-07 19:27 | PD.CONS ---
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 Patient was recently at a nursing facility however was discharged a few days ago. It appears the patient has remained in his wheelchair for an extended period of time, resulting in a significant sacral ulcer and potential infection. He also manages his bladder with an indwelling urethral catheter. 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 He is currently admitted and found to be septic with Temp of 88, BP in 60s/40s, WBC 28 and renal failure with Cr of 5. Patient is awake and responsive, however limited history. Review of Systems ROS Limitations: Clinical Condition, Poor Historian Endocrine: DENIES: Polyuria Eyes: DENIES: Blurred vision Ears, nose, mouth, throat: DENIES: Hearing loss Respiratory: DENIES: Cough Cardiovascular: DENIES: Chest pain Gastrointestinal: COMPLAINS OF: Diarrhea, DENIES: Abdominal pain Genitourinary: COMPLAINS OF: Penile Discharge, Testicular Swelling Musculoskeletal: COMPLAINS OF: Stiffness, Joint Swelling Integumentary: COMPLAINS OF: Abnormal pigmentation, Rash Hematologic/lymphatic: COMPLAINS OF: Bruising Neurologic: DENIES: Headache Psychiatric: COMPLAINS OF: Confusion Except as stated in HPI: all other systems reviewed are Neg Past Family Social History Past Medical History Cellulitis Urinary retention Past Surgical History Patient poor historian, no surgeries noted Reported Medications Reported Meds & Active Scripts Active [place] (Hydrocodone-Acetaminophen) 5 Mg-325 Mg Tab 1 Tab PO Q6H PRN Prednisone 20 Mg Tab 20 Mg PO BID Gnp Senna Plus 8.6-50 mg (Sennosides-Docusate Sodium) 8.6 Mg-50 Mg Tab 1 Tab PO BID Flomax (Tamsulosin HCl) 0.4 Mg Cap 0.4 Mg PO DAILY Levaquin (Levofloxacin) 500 Mg Tablet 500 Mg PO Q48H Reported Ferrous Sulfate 325 Mg (65 Mg Iron) Tablet 325 Mg PO DAILY Red Yeast Rice (Red Yeast Rice Extract (Bulk)) 1 Pow Pow Allergies: Coded Allergies: cefepime (Unverified Allergy, Severe, RASH TO CEFEPIME, 10/07/17) ceftaroline fosamil (Unverified Allergy, Severe, RASH TO CEFEPIME, 10/07/17) diphenhydramine (Unverified Allergy, Severe, ALTERED MENTAL STATUS, 10/07/17 ) tigecycline (Unverified Allergy, Severe, Rash, 10/07/17) Active Ordered Medications Current Medications Medications (Trade) Dose Ordered Sig/Flavia Route Start Time Stop Time Status Last Admin (Brethine Inj) 1 mg UNSCH PRN SQ 10/07/17 19:15 (Ferrous Sulfate) 325 mg DAILY PO 10/08/17 09:00 UNV ([place] 5-325 Mg) 1 tab Q6H PRN PO 10/07/17 19:45 UNV (Deltasone) 20 mg BID PO 10/07/17 21:00 (Flomax) 0.4 mg DAILY PO 10/08/17 09:00 Sodium Chloride 1,000 ml @ 124 mls/hr Q8H4M IV 10/07/17 19:33 (NS Flush) 2 ml UNSCH PRN IV FLUSH 10/07/17 19:45 UNV (NS Flush) 2 ml BID IV FLUSH 10/07/17 21:00 UNV (Tylenol) 650 mg Q6H PRN PO 10/07/17 19:45 UNV (Morphine Inj) 2 mg Q2H PRN IV PUSH 10/07/17 19:45 UNV (Pepcid) 20 mg DAILY PO 10/07/17 21:00 (Zofran Inj) 4 mg Q6H PRN IV PUSH 10/07/17 19:45 UNV (Restoril) 15 mg HS PRN PO 10/07/17 19:45 UNV (Duoneb Neb) 1 ampule Q2HR NEB PRN INH 10/07/17 19:45 UNV (Heparin Inj) 5,000 units Q8H SQ 10/07/17 19:45 UNV ([facility] Information) 1 Q361D XX 10/07/17 19:45 UNV (Chlorhexidine 2% Cloth) 3 pack Taper DAILY@04 TOP 10/08/17 04:00 10/04/18 03:59 UNV (Chlorhexidine 2% Cloth) 3 pack UNSCH PRN TOP 10/07/17 19:45 UNV (Camelia-Colace) 1 tab BID PO 10/07/17 21:00 UNV (Milk Of Magnesia Liq) 30 ml Q12H PRN PO 10/07/17 19:45 UNV (Senokot) 17.2 mg Q12H PRN PO 10/07/17 19:45 UNV (Dulcolax Supp) 10 mg DAILY PRN RECTAL 10/07/17 19:45 UNV (Lactulose Liq) 30 ml DAILY PRN PO 10/07/17 19:45 UNV Pharmacy Profile Note 0 ml @ 0 mls/hr UNSCH XX 10/07/17 19:45 UNV Aztreonam 2000 mg/ Sodium Chloride 100 ml @ 200 mls/hr Q8H IV 10/07/17 19:45 UNV Metronidazole 100 ml @ 100 mls/hr Q8H IV 10/07/17 19:45 UNV Sodium Chloride 1,000 ml @ 1,000 mls/hr Q1H ONCE IV 10/07/17 19:39 10/07/17 20:38 UNV Sodium Bicarbonate 150 meq/Dextrose 1,150 ml @ 75 mls/hr [id number] IV 10/07/17 19:45 UNV Norepinephrine Bitartrate 250 ml @ 7.5 mls/hr TITRATE PRN IV 10/07/17 20:00 Family History Family history reviewed and noncontributory to present illness Social History Tobacco use Physical Exam Vital Signs Date Time Temp Pulse Resp B/P (MAP) Pulse Ox O2 Delivery O2 Flow Rate FiO2 10/07/17 19:00 88.5 57 24 82/44 (57) 99 Room Air 10/07/17 18:30 57 22 81/51 (61) 98 Room Air 10/07/17 18:22 56 22 64/34 (44) 98 Room Air 10/07/17 17:52 56 22 82/45 (57) 100 Room Air 10/07/17 17:47 100 Room Air 10/07/17 17:47 100 Room Air 10/07/17 17:20 88.8 10/07/17 17:06 88.8 52 18 82/39 (53) 97 Room Air 10/07/17 17:03 18 Physical Exam GENERAL: This is a well-nourished, well-developed patient, in no apparent distress. SKIN: Large sacral skin breakdown extending perianal to the perineum, does not involve the scrotum HEAD: Atraumatic. Normocephalic. No temporal or scalp tenderness. EYES:Extraocular motions intact. No scleral icterus. No injection or drainage. ENT: Nose without bleeding, purulent drainage. Airway patent. NECK: Trachea midline. No JVD or lymphadenopathy. CARDIOVASCULAR: Tachycardic. RESPIRATORY: nonlabored GASTROINTESTINAL: Abdomen soft, non-tender, nondistended. No hepato-splenomegaly , or palpable masses. No guarding. GENITOURINARY: Hypospadias noted with erosion of the urethral meatus to the right and skin breakdown as well noted from prolonged catheter placement. Bilateral testis, no masses. Scrotum supple, without any skin breakdown, no evidence of infection, no Paris's Gangrene, nontender. MUSCULOSKELETAL: RLE with significant edema, cellulitis NEUROLOGICAL: Awake and alert. Motor and sensory grossly within normal limits. Normal speech. Lab results reviewed: Yes Laboratory Tests Test 10/07/17 17:23 10/07/17 18:54 White Blood Count 28.4 Red Blood Count 3.24 Hemoglobin 9.4 Hematocrit 29.4 Mean Corpuscular Volume 90.9 Mean Corpuscular Hemoglobin 29.0 Mean Corpuscular Hemoglobin Concent 31.9 Red Cell Distribution Width 17.4 Platelet Count 429 Mean Platelet Volume 7.7 Neutrophils (%) (Auto) 94.1 Lymphocytes (%) (Auto) 2.2 Monocytes (%) (Auto) 3.5 Eosinophils (%) (Auto) 0.0 Basophils (%) (Auto) 0.2 Neutrophils # (Auto) 26.7 Lymphocytes # (Auto) 0.6 Monocytes # (Auto) 1.0 Eosinophils # (Auto) 0.0 Basophils # (Auto) 0.1 CBC Comment AUTO DIFF Prothrombin Time 11.8 Prothromb Time International Ratio 1.2 Activated Partial Thromboplast Time 41.5 Blood Urea Nitrogen 95 Creatinine 5.19 Random Glucose 129 Total Protein 7.2 Albumin 1.6 Calcium Level 7.8 Magnesium Level 1.7 Alkaline Phosphatase 138 Aspartate Amino Transf (AST/SGOT) 37 Alanine Aminotransferase (ALT/SGPT) 22 Total Bilirubin 0.2 Sodium Level 132 Potassium Level 4.2 Chloride Level 109 Carbon Dioxide Level 5.9 Anion Gap 17 Estimat Glomerular Filtration Rate 11 Lactic Acid Level 2.2 Total Creatine Kinase 425 Creatine Kinase MB 24.9 Creatine Kinase MB % 5.9 B-Type Natriuretic Peptide 89 Date/Time Source Procedure Growth Status 10/07/17 17:25 Blood Peripheral Aerobic Blood Culture Pending Received 10/07/17 17:25 Blood Peripheral Anaerobic Blood Culture Pending Received 10/07/17 17:25 Wound Buttock Gram Stain Pending Received 10/07/17 17:25 Wound Buttock Wound Culture Pending Received Result Diagram: 10/07/17 1723 10/07/17 1723 Personally reviewed images: Yes Imaging Last Impressions Chest X-Ray 10/07/17 1701 Signed Impressions: Service Date/Time: Saturday, October 07, 2017 18:21 - CONCLUSION: No acute disease. Manuel David MD Abdomen/Pelvis CT 10/07/17 0000 Signed Impressions: Service Date/Time: Saturday, October 07, 2017 18:37 - CONCLUSION: 1. No air within the soft tissues the genitals to suggest Paris's gangrene. 2. Right renal low density likely cyst. 3. Several nonobstructing punctate left sided renal calculi. 4. Constipation. 5. Left-sided abdominal wall hernia containing large bowel loops without signs of obstruction. Manuel David MD Assessment and Plan Problem List: (1) Septic shock ICD Code: A41.9 - Sepsis, unspecified organism; R65.21 - Severe sepsis with septic shock Status: Acute (2) LEAH (acute kidney injury) ICD Code: N17.9 - Acute kidney failure, unspecified Status: Resolved Assessment and Plan -No evidence of Paris's Gangrene, no scrotal infection -Patient with iatrogenic hypospadias with some granulation tissue noted at meatus, no obvious scrotal or penile infection -As patient is in Renal failure and status of his voiding ability is unclear, a 16Fr temperature catheter was successfully placed at bedside and flushed to ensure proper position. 10cc in balloon -Maintain dennis catheter in place. Take care to avoid catheter position to avoid further urethral erosion -Patient would likely benefit from suprapubic tube -At this time, patient to be stabilized medically with treatment of his sacral decubitus ulcer -He may follow-up as an outpatient with Urology for further evaluation regarding his voiding function and potential treatment options Zack Dale MD October 07, 2017 19:27
--- NOTE | 2017-10-07 19:41 | HHI.HP ---
[facility] Service Critical Care Medicine Primary Care Physician Wale Healy MD Admission Diagnosis acute septic shock, new infected decubitous ulcer on buttox Diagnosis: Travel History International Travel<30 Days: No Contact w/Intl Traveler <30 Da: No Traveled to Known Affected Are: No History of Present Illness 72-year-old male presents for evaluation of leg swelling. When EMS arrived they noticed that he had a infection to his buttocks when the put him on the stretcher. Per ambulance and per patient he has been for the most part sleeping and sitting on a wheelchair since been discharged from a [facility]. He was discharged on September 11. It is unclear as to why they discharged him. He has not moved from the wheelchair since. He has a Vargas catheter in place. 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 Patient denies any urinary or bowel movement issues but he also has a Vargas that per patient has not been changed since been discharged from the [facility]. Patient states that the pain is on his legs and is the main reason he called the ambulance. He denies any fevers chills or sweats. No chest pain or shortness of breath. He has multiple allergies to different medications. He denies any other medical issues at this time. Review of Systems Constitutional: DENIES: Diaphoretic episodes, Fatigue, Fever, Weight gain, Weight loss, Chills, Dizziness, Change in appetite, Night Sweats Endocrine: DENIES: Heat/cold intolerance, Polydipsia, Polyuria, Polyphagia Eyes: DENIES: Blurred vision, Diplopia, Eye inflammation, Eye pain, Vision loss , Photosensitivity, Double Vision Ears, nose, mouth, throat: DENIES: Tinnitus, Hearing loss, Vertigo, Nasal discharge, Oral lesions, Throat pain, Hoarseness, Ear Pain, Running Nose, Epistaxis, Sinus Pain, Toothache, Odynophagia Respiratory: DENIES: Apneas, Cough, Snoring, Wheezing, Hemoptysis, Sputum production, Shortness of breath Cardiovascular: COMPLAINS OF: Lower Extremity Edema, Claudication, DENIES: Chest pain, Palpitations, Syncope, Dyspnea on Exertion, PND, Orthopnea Gastrointestinal: DENIES: Abdominal pain, Black stools, Bloody stools, Constipation, Diarrhea, Nausea, Vomiting, Difficulty Swallowing, Anorexia Genitourinary: DENIES: Sexual dysfunction, Urinary frequency, Urinary incontinence, Urgency, Hematuria, Dysuria, Nocturia, Penile Discharge, Testicular Pain, Testicular Swelling Musculoskeletal: COMPLAINS OF: Joint pain, Muscle aches, DENIES: Stiffness, Joint Swelling, Back pain, Neck pain Integumentary: DENIES: Abnormal pigmentation, Nail changes, Pruritus, Rash Hematologic/lymphatic: DENIES: Bruising, Lymphadenopathy Immunologic/allergic: DENIES: Eczema, Urticaria Neurologic: COMPLAINS OF: Abnormal gait, DENIES: Headache, Localized weakness, Paresthesias, Seizures, Speech Problems, Tremor, Poor Balance Psychiatric: DENIES: Anxiety, Confusion, Mood changes, Depression, Hallucinations, Agitation, Suicidal Ideation, Homicidal Ideation, Delusions Past Family Social History Allergies: Coded Allergies: cefepime (Unverified Allergy, Severe, RASH TO CEFEPIME, 10/07/17) ceftaroline fosamil (Unverified Allergy, Severe, RASH TO CEFEPIME, 10/07/17) diphenhydramine (Unverified Allergy, Severe, ALTERED MENTAL STATUS, 10/07/17 ) tigecycline (Unverified Allergy, Severe, Rash, 10/07/17) Past Medical History UTIs in the past. Chronic arthritis Scoliosis status post surgery Past Surgical History History of eye surgery Scoliosis surgery Right first toe resection. Reported Medications Reported Meds & Active Scripts Active [place] (Hydrocodone-Acetaminophen) 5 Mg-325 Mg Tab 1 Tab PO Q6H PRN Prednisone 20 Mg Tab 20 Mg PO BID Gnp Senna Plus 8.6-50 mg (Sennosides-Docusate Sodium) 8.6 Mg-50 Mg Tab 1 Tab PO BID Flomax (Tamsulosin HCl) 0.4 Mg Cap 0.4 Mg PO DAILY Levaquin (Levofloxacin) 500 Mg Tablet 500 Mg PO Q48H Reported Ferrous Sulfate 325 Mg (65 Mg Iron) Tablet 325 Mg PO DAILY Red Yeast Rice (Red Yeast Rice Extract (Bulk)) 1 Pow Pow Active Ordered Medications Current Medications Medications (Trade) Dose Ordered Sig/Flavia Route PRN Reason Start Time Stop Time Status Last Admin Dose Admin Terbutaline Sulfate (Brethine Inj) 1 mg UNSCH PRN SQ For Extravasation 10/07/17 19:15 Ferrous Sulfate (Ferrous Sulfate) 325 mg DAILY PO 10/08/17 09:00 Acetaminophen/ Hydrocodone Bitart ([place] 5-325 Mg) 1 tab Q6H PRN PO PAIN SCALE 6-10 10/07/17 19:45 Prednisone (Deltasone) 20 mg BID PO 10/07/17 21:00 10/07/17 23:02 Tamsulosin HCl (Flomax) 0.4 mg DAILY PO 10/08/17 09:00 Sodium Chloride 1,000 ml @ 124 mls/hr Q8H4M IV 10/07/17 19:33 10/07/17 21:41 Sodium Chloride (NS Flush) 2 ml UNSCH PRN IV FLUSH FLUSH AFTER USING IV ACCESS 10/07/17 19:45 Sodium Chloride (NS Flush) 2 ml BID IV FLUSH 10/07/17 21:00 Acetaminophen (Tylenol) 650 mg Q6H PRN PO PAIN 1-5 AND/OR FEVER >101F 10/07/17 19:45 Morphine Sulfate (Morphine Inj) 2 mg Q2H PRN IV PUSH PAIN SCALE 6 TO 10 10/07/17 19:45 Famotidine (Pepcid) 20 mg DAILY PO 10/07/17 21:00 10/07/17 23:02 Ondansetron HCl (Zofran Inj) 4 mg Q6H PRN IV PUSH NAUSEA OR VOMITING 10/07/17 19:45 Temazepam (Restoril) 15 mg HS PRN PO INSOMNIA 10/07/17 19:45 Albuterol/ Ipratropium (Duoneb Neb) 1 ampule Q2HR NEB PRN INH WHEEZING 10/07/17 19:45 Heparin Sodium (Porcine) (Heparin Inj) 5,000 units Q8HR SQ 10/07/17 19:45 10/07/17 20:07 Miscellaneous Information ([facility]) 1 Q361D XX 10/07/17 19:45 Chlorhexidine Gluconate (Chlorhexidine 2% Cloth) 3 pack Taper DAILY@04 TOP 10/08/17 04:00 10/04/18 03:59 Chlorhexidine Gluconate (Chlorhexidine 2% Cloth) 3 pack UNSCH PRN TOP HYGIENIC CARE 10/07/17 19:45 Senna/Docusate Sodium (Camelia-Colace) 1 tab BID PO 10/07/17 21:00 Magnesium Hydroxide (Milk Of Magnesia Liq) 30 ml Q12H PRN PO Mild constipation 10/07/17 19:45 Sennosides (Senokot) 17.2 mg Q12H PRN PO Moderate constipation 10/07/17 19:45 Bisacodyl (Dulcolax Supp) 10 mg DAILY PRN RECTAL SEVERE CONSITIPATION 10/07/17 19:45 Lactulose (Lactulose Liq) 30 ml DAILY PRN PO SEVERE CONSITIPATION 10/07/17 19:45 Pharmacy Profile Note 0 ml @ 0 mls/hr UNSCH OTHER 10/07/17 19:45 Aztreonam 1000 mg/ Sodium Chloride 100 ml @ 200 mls/hr Q8H IV 10/08/17 04:00 Metronidazole 100 ml @ 100 mls/hr Q8H IV 10/07/17 20:00 10/07/17 20:48 Sodium Bicarbonate 150 meq/Dextrose 1,150 ml @ 75 mls/hr [id number] IV 10/07/17 19:45 10/07/17 21:20 Norepinephrine Bitartrate 250 ml @ 7.5 mls/hr TITRATE PRN IV Blood pressure management 10/07/17 20:00 10/08/17 03:11 Miscellaneous Information ([facility] Ordered Lab Info) SPECIFIC LAB TO BE ... ONCE ONCE .XX 10/08/17 05:00 10/08/17 05:01 Vasopressin 40 units/Dextrose 100 ml @ 6 mls/hr [id number] IV 10/07/17 21:12 10/07/17 21:29 Albumin Human 500 ml @ 250 mls/hr Q6H IV 10/08/17 00:30 10/08/17 20:29 10/08/17 00:32 Albumin Human 500 ml @ 100 mls/hr ONCE ONCE IV 10/08/17 01:00 10/08/17 05:59 10/08/17 02:22 Dopamine HCl/ Dextrose 500 ml @ 12.263 mls/ hr TITRATE PRN IV Blood Pressure Management 10/08/17 01:00 Terbutaline Sulfate (Brethine Inj) 1 mg UNSCH PRN SQ For Extravasation 10/08/17 01:00 Family History Reported Medications Reported Meds & Active Scripts Mother at age 80 from suspected NV. Father at age 65 from suspected NV. Social History Patient initially denies smoking, however upon reviewing history it appears patient smokes a pipe.. Nondrinker. Denies illicit drugs. Physical Exam Vital Signs Vital Signs Date Time Temp Pulse Resp B/P (MAP) Pulse Ox O2 Delivery O2 Flow Rate FiO2 10/07/17 19:00 88.5 57 24 82/44 (57) 99 Room Air 10/07/17 18:30 57 22 81/51 (61) 98 Room Air 10/07/17 18:22 56 22 64/34 (44) 98 Room Air 10/07/17 17:52 56 22 82/45 (57) 100 Room Air 10/07/17 17:47 100 Room Air 10/07/17 17:47 100 Room Air 10/07/17 17:20 88.8 10/07/17 17:06 88.8 52 18 82/39 (53) 97 Room Air 10/07/17 17:03 18 Physical Exam GENERAL: Awake and alert. Appears in pain. Cooperative. HEAD: Normocephalic. Atraumatic. Glasses. EYES: Pupils equal round and reactive to light bilaterally. No scleral icterus. CHEST: No accessory muscle use. No respiratory distress. CARDIOVASCULAR: Regular rate and rhythm. ABDOMEN: Soft, nontender. EXTREMITIES: Severe pitting edema bilateral lower extremities with some weeping. Right heel with fairly large chronic eschar. SKIN: Overall cool and pale. Bilateral buttocks and upper posterior thighs with erythema, extensive stage 1 and stage 2 pressures ulcers. Small areas approximately 3 x 4 cm at the inferior gluteal fold bilaterally with superficial necrotic tissue. No crepitus. No purulent drainage. NEUROLOGICAL: Awake and alert. No obvious cranial nerve deficits. Motor grossly within normal limits. Five out of 5 muscle strength in the arms and legs. Normal speech. Laboratory Laboratory Tests Test 10/07/17 17:23 10/07/17 18:54 White Blood Count 28.4 Red Blood Count 3.24 Hemoglobin 9.4 Hematocrit 29.4 Mean Corpuscular Volume 90.9 Mean Corpuscular Hemoglobin 29.0 Mean Corpuscular Hemoglobin Concent 31.9 Red Cell Distribution Width 17.4 Platelet Count 429 Mean Platelet Volume 7.7 Neutrophils (%) (Auto) 94.1 Lymphocytes (%) (Auto) 2.2 Monocytes (%) (Auto) 3.5 Eosinophils (%) (Auto) 0.0 Basophils (%) (Auto) 0.2 Neutrophils # (Auto) 26.7 Lymphocytes # (Auto) 0.6 Monocytes # (Auto) 1.0 Eosinophils # (Auto) 0.0 Basophils # (Auto) 0.1 CBC Comment AUTO DIFF Prothrombin Time 11.8 Prothromb Time International Ratio 1.2 Activated Partial Thromboplast Time 41.5 Blood Urea Nitrogen 95 Creatinine 5.19 Random Glucose 129 Total Protein 7.2 Albumin 1.6 Calcium Level 7.8 Magnesium Level 1.7 Alkaline Phosphatase 138 Aspartate Amino Transf (AST/SGOT) 37 Alanine Aminotransferase (ALT/SGPT) 22 Total Bilirubin 0.2 Sodium Level 132 Potassium Level 4.2 Chloride Level 109 Carbon Dioxide Level 5.9 Anion Gap 17 Estimat Glomerular Filtration Rate 11 Lactic Acid Level 2.2 Total Creatine Kinase 425 Creatine Kinase MB 24.9 Creatine Kinase MB % 5.9 Troponin I LESS THAN 0.02 B-Type Natriuretic Peptide 89 Date/Time Source Procedure Growth Status 10/07/17 17:25 Blood Peripheral Aerobic Blood Culture Pending Received 10/07/17 17:25 Blood Peripheral Anaerobic Blood Culture Pending Received 10/07/17 17:25 Wound Buttock Gram Stain Pending Received 10/07/17 17:25 Wound Buttock Wound Culture Pending Received Result Diagram: 10/07/17 1723 10/07/17 1723 Imaging Last 24 hours Impressions Chest X-Ray 10/07/17 1701 Signed Impressions: Service Date/Time: Saturday, October 07, 2017 18:21 - CONCLUSION: No acute disease. Manuel David MD Septic Shock Reassessment Septic shock perfusion: reassessment completed Caprini VTE Risk Assessment Caprini VTE Risk Assessment: Mod/High Risk (score >= 2) Caprini Risk Assessment Model Point Value = 1 Point Value = 2 Point Value = 3 Point Value = 5 Age 41-60 Minor surgery BMI > 25 kg/m2 Swollen legs Varicose veins or History of unexplained or recurrent spontaneous Oral contraceptives or hormone replacement Sepsis (< 1 month) Serious lung disease, including pneumonia (< 1 month) Abnormal pulmonary function Acute myocardial infarction Congestive heart failure (< 1 month) History of inflammatory bowel disease Medical patient at bed rest Age 61-74 Arthroscopic surgery Major open surgery (> 45 min) Laparoscopic surgery (> 45 min) Malignancy Confined to bed (> 72 hours) Immobilizing plaster cast Central venous access Age >= 75 History of VTE Family history of VTE Factor V Leiden Prothrombin [id number] Lupus anticoagulant Anticardiolipin antibodies Elevated serum homocysteine Heparin-induced thrombocytopenia Other congenital or acquired thrombophilia Stroke (< 1 month) Elective arthroplasty Hip, pelvis, or leg fracture Acute spinal cord injury (< 1 month) Prophylaxis Regimen Total Risk Factor Score Risk Level Prophylaxis Regimen 0-1 Low Early ambulation 2 Moderate Order ONE of the following: *Sequential Compression Device (SCD) *Heparin 5000 units SQ BID 3-4 Higher Order ONE of the following medications: *Heparin 5000 units SQ TID *Enoxaparin/Lovenox 40 mg SQ daily (WT < 150 kg, CrCl > 30 mL/min) *Enoxaparin/Lovenox 30 mg SQ daily (WT < 150 kg, CrCl > 10-29 mL/min) *Enoxaparin/Lovenox 30 mg SQ BID (WT < 150 kg, CrCl > 30 mL/min) AND/OR *Sequential Compression Device (SCD) 5 or more Highest Order ONE of the following medications: *Heparin 5000 units SQ TID (Preferred with Epidurals) *Enoxaparin/Lovenox 40 mg SQ daily (WT < 150 kg, CrCl > 30 mL/min) *Enoxaparin/Lovenox 30 mg SQ daily (WT < 150 kg, CrCl > 10-29 mL/min) *Enoxaparin/Lovenox 30 mg SQ BID (WT < 150 kg, CrCl > 30 mL/min) AND *Sequential Compression Device (SCD) Assessment and Plan Assessment and Plan Sepsis -Aggressive IV fluid hydration -Levophed and vasopressin and dopamine to keep MAP above 65 -Infectious disease consultation -Panculture and follow-up resolved Metabolic acidosis -Due to sepsis -Sodium bicarbonate -Treat underlying conditions Pressure ulcers on the buttock -Followed by general surgery -So far conservative management recommended Anemia -Monitor H&H -Transfuse for hemoglobin less than 7 Acute on chronic kidney injury -Aggressive IV fluid hydration -Strict I's and O -Monitor creatinine and electrolytes levels Lower extremity edema -No DVT is documented on ultrasound DVT GI prophylaxis -Juventino's and SCDs -Subcu heparin -Pepcid Critical Care: The total critical care time was 35 minutes. Time to perform other separately billable procedures was not included in the critical care time. Baljeet Milligan MD October 07, 2017 7:41 pm
[2017-10-07] MEDS ORDERED: BISACODYL 10 MG SUPP RECTAL PRN (19:45)
[2017-10-07] MEDS ORDERED: RESP: ALBUTEROL 2.5 MG/IPRATROPIUM 0.5 MG NEB (PRN) INH (19:45)
[2017-10-07] MEDS ORDERED: ONDANSETRON HCL 4 MG/2 ML VIAL IV PUSH PRN (19:45)
[2017-10-07] MEDS ORDERED: MAGNESIUM HYDROXIDE SUSP 30 ML CUP PO PRN (19:45)
[2017-10-07] MEDS ORDERED: CHLORHEXIDINE GLUCONATE 2 % 1 PACK (2 CLOTHS) TOP PRN (19:45)
[2017-10-07] MEDS ORDERED: LACTULOSE SYRUP 20 GM/30 ML CUP PO PRN (19:45)
[2017-10-07] MEDS ORDERED: SODIUM BICARBONATE 8.4% INJ 150 MEQ in DEXTROSE 5% IN WATE 1000ML INJ 1,000 ML IV SCH ×2 (19:45)
[2017-10-07] MEDS ORDERED: Vancomycin Consult Pharmacy 1 EA OTHER SCH (19:45)
[2017-10-07] MEDS ORDERED: NURSING INFORMATION XX SCH (19:45)
[2017-10-07] MEDS ORDERED: ACETAMINOPHEN 325 MG TAB PO PRN (19:45)
[2017-10-07] MEDS ORDERED: TEMAZEPAM 15 MG CAP PO PRN (19:45)
[2017-10-07] MEDS ORDERED: MORPHINE SULFATE 4 MG/ML INJ IV PUSH PRN (19:45)
[2017-10-07] MEDS ORDERED: SENNOSIDES 8.6 MG TAB PO PRN (19:45)
[2017-10-07] MEDS ORDERED: ACETAMINOPHEN/HYDROcodone 325 MG/5 MG TAB PO PRN (19:45)
[2017-10-07 19:49] LABS: BANDS 13 % (0-6); LYMPHOCYTES 2 % (9-44); MONOCYTES 4 % (0-8); NEUTROPHIL # MANUAL DIFF 26.7 TH/MM3 (1.8-7.7); POLYS (SEG NEUTROPHILS) 81 % (16-70); TOXIC GRANULATION 1+ (NORMAL); TOXIC VACUOLATION PRESENT (NONE SEEN)
[2017-10-07] MEDS: NOREPINEPHRINE-DEXTROSE DRIP 250 ML IV PRN (19:49)
[2017-10-07] MEDS: SODIUM CHLORIDE 0.9% FLUSH 10 ML FLUSH IV FLUSH SCH (19:54)
[2017-10-07] MEDS: HEPARIN SODIUM - SQ 10,000 UNITS/ML VIAL SQ SCH (20:07)
[2017-10-07] MEDS: metroNIDAZOLE 500 MG INJ 100 ML IV SCH (20:48)
[2017-10-07] MEDS ORDERED: VANCOMYCIN 1,000 MG/NS 250 ML IV ONE ×2 (21:00)
[2017-10-07] MEDS: DOCUSATE SODIUM 50 MG/SENNA 8.6 MG TAB PO SCH (21:00)
[2017-10-07] MEDS ORDERED: FAMOTIDINE 20 MG TAB PO SCH (21:00)
[2017-10-07] MEDS ORDERED: predniSONE 20 MG TAB PO SCH (21:00)
--- NOTE | 2017-10-07 21:08 | RADRPT ---
EXAM DATE/TIME: 10/07/2017 19:52 [facility] COMPARISON: No previous studies available for comparison. INDICATIONS : Bilateral leg swelling. MEDICAL HISTORY : Arthritis. Scoliosis. Tobacco use. SURGICAL HISTORY : Back surgery for scoliosis correction. Eye surgery. ENCOUNTER: Initial ACUITY: 1 day PAIN SCORE: 10/10 LOCATION: Bilateral leg. TECHNIQUE: Venous ultrasound of the left and right leg was performed from the inguinal ligament to the proximal calf. Real-time, color Doppler and spectral tracing, compression and augmentation techniques were us ed. FINDINGS: RIGHT LEG: There is normal compressibility of the deep venous system from the inguinal region to the proximal ca lf. No echogenic clot is seen in the lumen of the common femoral, femoral, popliteal, and posterior tibial veins. There is a normal response of the venous system to proximal and distal augmentation an d respiration. LEFT LEG: There is normal compressibility of the deep venous system from the inguinal region to the proximal ca lf. No echogenic clot is seen in the lumen of the common femoral, femoral, popliteal, and posterior tibial veins. There is a normal response of the venous system to proximal and distal augmentation an d respiration. CONCLUSION: No DVT in either lower extremity. Manuel David MD on October 07, 2017 at 21:05 Board Certified Radiologist. This report was verified electronically.
[2017-10-07] MEDS: VASOPRESSIN INJ 40 UNITS in DEXTROSE 5% IN WATER 100ML INJ 98 ML IV SCH ×2 (21:29)
--- NOTE | 2017-10-07 21:39 | RADRPT ---
EXAM DATE/TIME: 10/07/2017 21:24 [facility] COMPARISON: CHEST SINGLE AP, October 07, 2017, 18:21. INDICATIONS : Status post central line placement. MEDICAL HISTORY : Arthritis. Measles. Scoliosis. Chronic UTIs. SURGICAL HISTORY : Right toe amputation. Back surgery. Eye surgery. ENCOUNTER: Subsequent ACUITY: 1 day PAIN SCORE: Non-responsive. LOCATION: chest FINDINGS: A single view of the chest demonstrates the lungs to be symmetrically aerated without evidence of mas s, infiltrate or effusion. The cardiomediastinal contours are unremarkable. Right jugular central li ne with tip in the SVC. No pneumothorax Osseous structures are intact. Calcification right proximal humerus again seen. CONCLUSION: No acute disease. Manuel David MD on October 07, 2017 at 21:37 Board Certified Radiologist. This report was verified electronically.
[2017-10-07] MEDS: SODIUM CHLOR 0.9% 1000 ML INJ 1,000 ML IV SCH (21:41)
[2017-10-08] VITALS (15 sets, daily range): BP systolic 82–100; BP diastolic 47–54; PULSE 58–71; RESP 15–29; TEMP 90–97.8; O2SAT 95–99
[2017-10-08] MEDS: ALBUMIN 5% INJ 500 ML IV SCH ×4 (00:32→18:03)
[2017-10-08] MEDS ORDERED: ALBUMIN 5% INJ 500 ML IV ONE (01:00)
[2017-10-08] MEDS ORDERED: DOPamine 800 MG/500 ML INJ 500 ML IV PRN (01:00)
[2017-10-08] MEDS ORDERED: TERBUTALINE INJ 1 MG/ML AMP SQ PRN ×2 (01:00→08:15)
[2017-10-08] MEDS: NOREPINEPHRINE-DEXTROSE DRIP 250 ML IV PRN ×5 (03:11→22:01)
[2017-10-08] MEDS: CHLORHEXIDINE GLUCONATE 2 % 1 PACK (2 CLOTHS) TOP SCH (04:00)
[2017-10-08 04:11] LABS: AUTOMATED NEUTROPHIL # 24.5 TH/MM3 (1.8-7.7); BASOPHIL # 0.1 TH/MM3 (0-0.2); BASOPHIL % 0.3 % (0.0-2.0); EOSINOPHIL % 0.1 % (0.0-4.0); HEMATOCRIT 25.3 % (39.0-51.0); HEMOGLOBIN 8.1 GM/DL (13.0-17.0); LYMPH % 3.1 % (9.0-44.0); LYMPHOCYTE # 0.8 TH/MM3 (1.0-4.8); MEAN CORPUSCULAR HEMOGLOBIN 28.9 PG (27.0-34.0); MEAN CORPUSCULAR HGB CONC 32.1 % (32.0-36.0); MEAN PLATELET VOLUME 7.3 FL (7.0-11.0); MONOCYTE # 0.5 TH/MM3 (0-0.9); NEUT % 94.5 % (16.0-70.0); PLATELET COUNT 354 TH/MM3 (150-450); RED BLOOD COUNT 2.81 MIL/MM3 (4.50-5.90); RED CELL DISTRIBUTION WIDTH 17.6 % (11.6-17.2)
[2017-10-08 04:19] LABS: INTERNATIONAL NORMALIZED RATIO 1.3 RATIO; PROTHROMBIN TIME - PATIENT 13.1 SEC (9.8-11.6)
[2017-10-08] MEDS: metroNIDAZOLE 500 MG INJ 100 ML IV SCH ×3 (04:44→21:24)
[2017-10-08] MEDS: AZTREONAM INJ 1,000 MG in SODIUM CHLORIDE 0.9% INJ 100 ML IV SCH ×2 (04:45→12:20)
[2017-10-08] MEDS ORDERED: PHARMACY ORDERED LAB ONE (05:00)
[2017-10-08 05:07] LABS: ALBUMIN 1.6 GM/DL (3.4-5.0); BICARBONATE 6.6 MEQ/L (21.0-32.0); CALCIUM 6.1 MG/DL (8.5-10.1); CREATININE 4.36 MG/DL (0.60-1.30); MAGNESIUM 1.6 MG/DL (1.5-2.5); PHOSPHORUS 6.4 MG/DL (2.5-4.9); TOTAL BILIRUBIN ADULT 0.3 MG/DL (0.2-1.0); TOTAL PROTEIN 5.6 GM/DL (6.4-8.2); VANCOMYCIN TROUGH 18.9 MCG/ML (5.0-10.0)
[2017-10-08 05:11] LABS: CALCIUM-PROTEIN CORRECTED 6.8 MG/DL (8.5-10.1)
[2017-10-08] MEDS ORDERED: CALCIUM GLUCONATE INJ 2 GM in SODIUM CHLORIDE 0.9% INJ 100 ML IV ONE (05:45)
[2017-10-08 05:57] LABS: BANDS 27 % (0-6); LYMPHOCYTES 1 % (9-44); METAMYELOCYTES 5 % (0-1); MONOCYTES 1 % (0-8); NEUTROPHIL # MANUAL DIFF 25.5 TH/MM3 (1.8-7.7); POLYS (SEG NEUTROPHILS) 66 % (16-70)
[2017-10-08] MEDS: HEPARIN SODIUM - SQ 10,000 UNITS/ML VIAL SQ SCH ×3 (05:57→21:32)
[2017-10-08 05:59] LABS: BURR CELLS 1+ (NORMAL); TOXIC VACUOLATION PRESENT (NONE SEEN)
[2017-10-08] MEDS: SODIUM CHLOR 0.9% 1000 ML INJ 1,000 ML IV SCH (06:36)
[2017-10-08] MEDS ORDERED: DEXTROSE 50% IN WATER 50 ML VIAL(D50) IV PUSH PRN (08:15)
[2017-10-08] MEDS ORDERED: GLUCAGON 1 MG/ML VIAL OTHER PRN (08:15)
[2017-10-08] MEDS ORDERED: SODIUM CHLOR 0.9% 1000 ML INJ 1,000 ML IV ONE (08:15)
--- NOTE | 2017-10-08 08:29 | RADRPT ---
EXAM DATE/TIME: 10/08/2017 08:04 [facility] COMPARISON: CHEST SINGLE AP, May 02, 2016, 15:53. CHEST SINGLE AP, October 07, 2017, 21:24. INDICATIONS : Central line placement evaluation MEDICAL HISTORY : Arthritis. Measles. Scoliosis. Chronic UTIs. SURGICAL HISTORY : Right toe amputation. Back surgery. Eye surgery ENCOUNTER: Subsequent ACUITY: 2 days PAIN SCORE: Non-responsive. LOCATION: Bilateral chest FINDINGS: Portable AP view of the chest demonstrates a normal-sized cardiac silhouette. EKG lines overlie the p atient. Right IJ line remains present with distal tip in the SVC. There is mild airspace opacity in t he right lower lung zone. No definite other air space opacity is present. No pleural effusion or pneu mothorax is seen. Bones demonstrate no acute finding. The sclerotic lesion in the right proximal deisy apollo is partially visualized. This has been present since 2016 and the appearance favors an enchondrom a. CONCLUSION: 1. Right IJ line distal tip appears to be within the superior aspect of the superior vena cava. 2. Mild airspace opacity in the right lower lung zone representing either atelectasis or consolidatio n. Lazarus Saha MD on October 08, 2017 at 8:24 Board Certified Radiologist. This report was verified electronically.
[2017-10-08] MEDS ORDERED: SODIUM BICARBONATE 8.4% INJ 50 MEQ/50 ML SYR IV PUSH ONE (08:30)
[2017-10-08] MEDS ORDERED: SODIUM BICARBONATE 8.4% INJ 100 ML ONE ×2 (08:37→08:57)
[2017-10-08] MEDS ORDERED: ETOMIDATE 20 MG/10 ML VIAL IV PUSH ONE (08:45)
[2017-10-08] MEDS ORDERED: ETOMIDATE 40 MG/20 ML VIAL ONE (08:51)
--- NOTE | 2017-10-08 08:51 | HHI.CCPN ---
Subjective Remarks/Hospital Course 72-year-old male presents for evaluation of leg swelling. When EMS arrived they noticed that he had a infection to his buttocks when the put him on the stretcher. Per ambulance and per patient he has been for the most part sleeping and sitting on a wheelchair since been discharged from a [facility]. He was discharged on September 11. It is unclear as to why they discharged him. He has not moved from the wheelchair since. He has a Vargas catheter in place. 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 Patient denies any urinary or bowel movement issues but he also has a Vargas that per patient has not been changed since been discharged from the [facility]. Patient states that the pain is on his legs and is the main reason he called the ambulance. He denies any fevers chills or sweats. No chest pain or shortness of breath. He has multiple allergies to different medications. He denies any other medical issues at this time. /3 Patient is on Levophed 26 mics, Vasopressin 0.04, lactic acid 1.5 s/p 4L crystalloids on arrival. Cr: 4.36 from 5.19. Objective Vital Signs Date Time Temp Pulse Resp B/P (MAP) Pulse Ox O2 Delivery O2 Flow Rate FiO2 10/08/17 06:00 71 10/08/17 04:00 90.0 18 89/50 (63) 95 10/07/17 19:00 Room Air Intake and Output 10/08/17 10/08/17 10/08/17 07:59 15:59 23:59 Intake Total 260 ml Output Total 25 ml Balance 235 ml Result Diagram: 10/08/17 0355 10/08/17 0355 Other Results Laboratory Tests Test 10/07/17 17:23 10/07/17 18:54 10/07/17 21:00 10/07/17 22:20 White Blood Count 28.4 TH/MM3 Red Blood Count 3.24 MIL/MM3 Hemoglobin 9.4 GM/DL Hematocrit 29.4 % Mean Corpuscular Volume 90.9 FL Mean Corpuscular Hemoglobin 29.0 PG Mean Corpuscular Hemoglobin Concent 31.9 % Red Cell Distribution Width 17.4 % Platelet Count 429 TH/MM3 Mean Platelet Volume 7.7 FL Neutrophils (%) (Auto) 94.1 % Lymphocytes (%) (Auto) 2.2 % Monocytes (%) (Auto) 3.5 % Eosinophils (%) (Auto) 0.0 % Basophils (%) (Auto) 0.2 % Neutrophils # (Auto) 26.7 TH/MM3 Lymphocytes # (Auto) 0.6 TH/MM3 Monocytes # (Auto) 1.0 TH/MM3 Eosinophils # (Auto) 0.0 TH/MM3 Basophils # (Auto) 0.1 TH/MM3 CBC Comment AUTO DIFF Differential Total Cells Counted 100 Neutrophils % (Manual) 81 % Band Neutrophils % 13 % Lymphocytes % 2 % Monocytes % 4 % Neutrophils # (Manual) 26.7 TH/MM3 Differential Comment FINAL DIFF MANUAL Toxic Granulation 1+ Toxic Vacuolation PRESENT Platelet Estimate NORMAL Platelet Morphology Comment NORMAL Prothrombin Time 11.8 SEC Prothromb Time International Ratio 1.2 RATIO Activated Partial Thromboplast Time 41.5 SEC Blood Urea Nitrogen 95 MG/DL Creatinine 5.19 MG/DL Random Glucose 129 MG/DL Total Protein 7.2 GM/DL Albumin 1.6 GM/DL Calcium Level 7.8 MG/DL Magnesium Level 1.7 MG/DL Alkaline Phosphatase 138 U/L Aspartate Amino Transf (AST/SGOT) 37 U/L Alanine Aminotransferase (ALT/SGPT) 22 U/L Total Bilirubin 0.2 MG/DL Sodium Level 132 MEQ/L Potassium Level 4.2 MEQ/L Chloride Level 109 MEQ/L Carbon Dioxide Level 5.9 MEQ/L Anion Gap 17 MEQ/L Estimat Glomerular Filtration Rate 11 ML/MIN Lactic Acid Level 2.2 mmol/L 2.1 mmol/L Total Creatine Kinase 425 U/L Creatine Kinase MB 24.9 NG/ML Creatine Kinase MB % 5.9 % Troponin I LESS THAN 0.02 NG/ML B-Type Natriuretic Peptide 89 PG/ML C-Reactive Protein 24.00 MG/DL Thyroid Stimulating Hormone 3rd Gen 0.788 uIU/ML Nasal Screen MRSA (PCR) MRSA DETECTED Test 10/08/17 03:55 White Blood Count 26.0 TH/MM3 Red Blood Count 2.81 MIL/MM3 Hemoglobin 8.1 GM/DL Hematocrit 25.3 % Mean Corpuscular Volume 90.0 FL Mean Corpuscular Hemoglobin 28.9 PG Mean Corpuscular Hemoglobin Concent 32.1 % Red Cell Distribution Width 17.6 % Platelet Count 354 TH/MM3 Mean Platelet Volume 7.3 FL Neutrophils (%) (Auto) 94.5 % Lymphocytes (%) (Auto) 3.1 % Monocytes (%) (Auto) 2.0 % Eosinophils (%) (Auto) 0.1 % Basophils (%) (Auto) 0.3 % Neutrophils # (Auto) 24.5 TH/MM3 Lymphocytes # (Auto) 0.8 TH/MM3 Monocytes # (Auto) 0.5 TH/MM3 Eosinophils # (Auto) 0.0 TH/MM3 Basophils # (Auto) 0.1 TH/MM3 CBC Comment AUTO DIFF Differential Total Cells Counted 100 Neutrophils % (Manual) 66 % Band Neutrophils % 27 % Lymphocytes % 1 % Monocytes % 1 % Neutrophils # (Manual) 25.5 TH/MM3 Metamyelocytes 5 % Differential Comment FINAL DIFF MANUAL Toxic Vacuolation PRESENT Platelet Estimate NORMAL Platelet Morphology Comment NORMAL Dev Cells 1+ Erythrocyte Sedimentation Rate 80 mm/hr Prothrombin Time 13.1 SEC Prothromb Time International Ratio 1.3 RATIO Activated Partial Thromboplast Time 43.5 SEC Blood Urea Nitrogen 86 MG/DL Creatinine 4.36 MG/DL Random Glucose 181 MG/DL Total Protein 5.6 GM/DL Albumin 1.6 GM/DL Calcium Level 6.1 MG/DL Phosphorus Level 6.4 MG/DL Magnesium Level 1.6 MG/DL Alkaline Phosphatase 105 U/L Aspartate Amino Transf (AST/SGOT) 29 U/L Alanine Aminotransferase (ALT/SGPT) 20 U/L Total Bilirubin 0.3 MG/DL Sodium Level 139 MEQ/L Potassium Level 3.7 MEQ/L Chloride Level 115 MEQ/L Carbon Dioxide Level 6.6 MEQ/L Anion Gap 17 MEQ/L Estimat Glomerular Filtration Rate 14 ML/MIN Lactic Acid Level 1.5 mmol/L Protein Corrected Calcium 6.8 MG/DL Vancomycin Level Trough 18.9 MCG/ML Imaging Last Impressions Chest X-Ray 10/07/17 1701 Signed Impressions: Service Date/Time: Saturday, October 07, 2017 18:21 - CONCLUSION: No acute disease. Manuel David MD Lower Extremity Ultrasound 10/07/17 0000 Signed Impressions: Service Date/Time: Saturday, October 07, 2017 19:52 - CONCLUSION: No DVT in either lower extremity. Manuel David MD Abdomen/Pelvis CT 10/07/17 0000 Signed Impressions: Service Date/Time: Saturday, October 07, 2017 18:37 - CONCLUSION: 1. 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 2. Right renal low density likely cyst. 3. Several nonobstructing punctate left sided renal calculi. 4. Constipation. 5. Left-sided abdominal wall hernia containing large bowel loops without signs of obstruction. Manuel David MD Objective Remarks GENERAL: Awake and alert. Appears in pain. Cooperative. HEAD: Normocephalic. Atraumatic. Glasses. EYES: Pupils equal round and reactive to light bilaterally. No scleral icterus. CHEST: No accessory muscle use. No respiratory distress. CARDIOVASCULAR: Regular rate and rhythm. ABDOMEN: Soft, nontender. EXTREMITIES: Severe pitting edema bilateral lower extremities with some weeping. Right heel with fairly large chronic eschar. SKIN: Overall cool and pale. Bilateral buttocks and upper posterior thighs with erythema, extensive stage 1 and stage 2 pressures ulcers. Small areas approximately 3 x 4 cm at the inferior gluteal fold bilaterally with superficial necrotic tissue. No crepitus. No purulent drainage. NEUROLOGICAL: Awake and alert. No obvious cranial nerve deficits. Motor grossly within normal limits. Five out of 5 muscle strength in the arms and legs. Normal speech. A/P Assessment and Plan Septic shock AG Metabolic acidosis ARF Leukocytosis Anemia Pressure ulcers on the buttock Lower extremity edema Hx UTI Plan Neuro: Monitor neuro status, avoid esedatives Pulm: Oxygen keep sats >92% Bronchodilators. Check ABG CV: Continue with pressors ( On Vaso, Levophed, add Neosyn if needed) monitor HR and BP keep MAP>65mmHg Place on stress dose steroids- HC 50mg IV Q6 Check echo, Lactic acid 1.5. CVP monitoring : Monitor renal function, I/O's, avoid nephrotoxins Cr: 4.36 from 5.16. Given 4L crystalloids on arrival will agive additional 1L NS bolus Will change IVF SW+3amps bicarb @150ml/hr give 2 amps IVP bicarb Consult Nephrology GI: Keep NPO, Pepcid 10mg IV Q12 for GI prophylaxis ID: Continue with abx ( Vanco, Aztreonam changed to Merrem , Flagyl) ID consulted. Monitor for signs of infections ( Fever, WBC) Follow up on blood and wound cxs. Check UA with cx if indicated Surgery and Urology following Consult wound care CT abd/pelvis: No air within the soft tissues the genitals to suggest Michael's gangrene. Right renal low density likely cyst. 3. Several nonobstructing punctate left sided renal calculi . Left-sided abdominal wall hernia containing large bowel loops without signs of obstruction Heme: Monitor CBC, coags Endo: SSI for glycemic control GI prophylaxis- On Pepcid DVT prophylaxis- Heparin SQ Doppler US LE : No DVT Lines: Right IJ CVP placed 10/07 Patient is critically ill with septic shock, ARF, leukocytosis, severe metabolic acidosis CCT 40 mins DVT GI prophylaxis -Juventino's and SCDs -Subcu heparin -Pepcid Critical Care: The total critical care time was 35 minutes. Time to perform other separately billable procedures was not included in the critical care time. Rema Walker MD October 08, 2017 08:51
[2017-10-08] MEDS ORDERED: RESP: ALBUTEROL 2.5 MG/IPRATROPIUM 0.5 MG NEB (PRN) NEB (09:00)
[2017-10-08] MEDS: DOCUSATE SODIUM 50 MG/SENNA 8.6 MG TAB PO SCH ×2 (09:00→21:00)
[2017-10-08] MEDS: PHENYLEPHRINE INJ 40 MG in DEXTROSE 5% IN WATE 500 ML INJ 496 ML IV PRN ×6 (09:30→22:04)
[2017-10-08] MEDS: fentaNYL DRIP 250 ML IV PRN ×2 (09:30→18:48)
--- NOTE | 2017-10-08 09:51 | PD.CONS ---
[facility] Service Nephrology Consult Requested By Reason for Consult Acute Renal Failure Primary Care Physician Wale Healy MD History of Present Illness This is a 72 y/o male who has been hospitalized multiple times in the past 6 months. He recently was discharged home / from SNF. Apparently he has been sitting in wheelchair most of the time. He is non ambulatory, has chronic knee flexion and EMS was called for lower extremity pain and swelling due to extensive pressure ulcer wounds. On arrival he is severely septic. Rectal temp 88 degrees, WBC 28, hypotensive. He was intubated and started on multiple pressors, is seen in [facility]. Multiple specialist have been consulted including ID, Renal , CCM, urology, surgery, and wound care. ABG shows severe metabolic acidosis, pH of 7, HCo3 7, Base Excess -21. HE is on a bicarb gtt. His creatinine was around 1 in 2016. On admission it was 5.19, improved to 4. 36. He is oliguric at this time with a dennis. His urethral meatus is ulcerated with pus coming from wound bed. We were consulted to assist with management. (Trisha Junior) Review of Systems ROS Limitations: Intubated, Unresponsive (Trisha Junior) Past Family Social History Allergies: Coded Allergies: cefepime (Unverified Allergy, Severe, RASH TO CEFEPIME, 10/07/17) ceftaroline fosamil (Unverified Allergy, Severe, RASH TO CEFEPIME, 10/07/17) diphenhydramine (Unverified Allergy, Severe, ALTERED MENTAL STATUS, 10/07/17 ) tigecycline (Unverified Allergy, Severe, Rash, 10/07/17) Past Medical History BPH Hx UTIs in the past. Chronic arthritis Scoliosis status post surgery Chronic bedbound, wounds on buttocks and legs Past Surgical History History of eye surgery Scoliosis surgery Right first toe resection. Reported Medications Watkins (Hydrocodone-Acetaminophen) 5 Mg-325 Mg Tab 1 Tab PO Q6H PRN Prednisone 20 Mg Tab 20 Mg PO BID Gnp Senna Plus 8.6-50 mg (Sennosides-Docusate Sodium) 8.6 Mg-50 Mg Tab 1 Tab PO BID Flomax (Tamsulosin HCl) 0.4 Mg Cap 0.4 Mg PO DAILY Levaquin (Levofloxacin) 500 Mg Tablet 500 Mg PO Q48H Ferrous Sulfate 325 Mg (65 Mg Iron) Tablet 325 Mg PO DAILY Red Yeast Rice (Red Yeast Rice Extract (Bulk)) 1 Pow Pow Active Ordered Medications Current Medications Medications (Trade) Dose Ordered Sig/Flavia Route Start Time Stop Time Status Last Admin (Brethine Inj) 1 mg UNSCH PRN SQ 10/07/17 19:15 (Ferrous Sulfate) 325 mg DAILY PO 10/08/17 09:00 (Watkins 5-325 Mg) 1 tab Q6H PRN PO 10/07/17 19:45 (Flomax) 0.4 mg DAILY PO 10/08/17 09:00 (NS Flush) 2 ml UNSCH PRN IV FLUSH 10/07/17 19:45 (NS Flush) 2 ml BID IV FLUSH 10/07/17 21:00 (Tylenol) 650 mg Q6H PRN PO 10/07/17 19:45 (Morphine Inj) 2 mg Q2H PRN IV PUSH 10/07/17 19:45 (Zofran Inj) 4 mg Q6H PRN IV PUSH 10/07/17 19:45 (Restoril) 15 mg HS PRN PO 10/07/17 19:45 (Heparin Inj) 5,000 units Q8HR SQ 10/07/17 19:45 10/08/17 05:57 ([facility] [employer] Nursing Information) 1 Q361D XX 10/07/17 19:45 (Chlorhexidine 2% Cloth) 3 pack Taper DAILY@04 TOP 10/08/17 04:00 10/04/18 03:59 10/08/17 04:00 (Chlorhexidine 2% Cloth) 3 pack UNSCH PRN TOP 10/07/17 19:45 (Camelia-Colace) 1 tab BID PO 10/07/17 21:00 (Milk Of Magnesia Liq) 30 ml Q12H PRN PO 10/07/17 19:45 (Senokot) 17.2 mg Q12H PRN PO 10/07/17 19:45 (Dulcolax Supp) 10 mg DAILY PRN RECTAL 10/07/17 19:45 (Lactulose Liq) 30 ml DAILY PRN PO 10/07/17 19:45 Pharmacy Profile Note 0 ml @ 0 mls/hr UNSCH OTHER 10/07/17 19:45 Aztreonam 1000 mg/ Sodium Chloride 100 ml @ 200 mls/hr Q8H IV 10/08/17 04:00 10/08/17 04:45 Metronidazole 100 ml @ 100 mls/hr Q8H IV 10/07/17 20:00 10/08/17 04:44 Norepinephrine Bitartrate 250 ml @ 7.5 mls/hr TITRATE PRN IV 10/07/17 20:00 10/08/17 03:11 Vasopressin 40 units/Dextrose 100 ml @ 6 mls/hr [id number] IV 10/07/17 21:12 10/07/17 21:29 Albumin Human 500 ml @ 250 mls/hr Q6H IV 10/08/17 00:30 10/08/17 20:29 10/08/17 05:57 Dopamine HCl/ Dextrose 500 ml @ 12.263 mls/ hr TITRATE PRN IV 10/08/17 01:00 (Brethine Inj) 1 mg UNSCH PRN SQ 10/08/17 01:00 Phenylephrine HCl 40 mg/Dextrose 500 ml @ 30 mls/hr TITRATE PRN IV 10/08/17 10:00 (Pepcid Inj) 10 mg Q12HR IV PUSH 10/08/17 09:00 (SoluCORTEF INJ) 50 mg Q6H IV PUSH 10/08/17 09:00 (D50w (Vial) Inj) 50 ml UNSCH PRN IV PUSH 10/08/17 08:15 (Glucagon Inj) 1 mg UNSCH PRN OTHER 10/08/17 08:15 (NovoLIN R SUPPLEMENTAL SCALE) 1 Q4H SQ 10/08/17 08:15 Sodium Bicarbonate 150 meq/Sterile Water 1,000 ml @ 150 mls/hr Q6H40M IV 10/08/17 10:00 Fentanyl Citrate 250 ml @ 5 mls/hr TITRATE PRN IV 10/08/17 08:45 (Duoneb Neb) 1 ampule Q6HR NEB NEB 10/08/17 10:00 (Duoneb Neb) 1 ampule Q2HR NEB PRN NEB 10/08/17 09:00 (Peridex 0.12% Liq) 15 ml BID@08,20 MT 10/08/17 20:00 Calcium Gluconate 1 gm/Sodium Chloride 110 ml @ 110 mls/hr ONCE ONCE IV 10/08/17 11:00 10/08/17 11:59 Vancomycin HCl 1500 mg/Sodium Chloride 515 ml @ 250 mls/hr ONCE ONCE IV 10/08/17 18:00 10/08/17 20:03 Family History Unable to obtain Social History From chart: He is Recently discharged home from SNF (Trisha Junior) Physical Exam Vital Signs Vital Signs Date Time Temp Pulse Resp B/P (MAP) Pulse Ox O2 Delivery O2 Flow Rate FiO2 10/08/17 06:00 71 10/08/17 04:00 69 10/08/17 04:00 90.0 69 18 89/50 (63) 95 10/08/17 03:11 66 92/54 10/08/17 02:00 62 10/08/17 00:00 90.0 58 20 82/47 (59) 96 10/08/17 00:00 58 10/07/17 22:07 58 28 77/41 (53) 100 10/07/17 21:29 62 68/38 10/07/17 19:49 56 75/44 10/07/17 19:00 88.5 57 24 82/44 (57) 99 Room Air 10/07/17 18:30 57 22 81/51 (61) 98 Room Air 10/07/17 18:22 56 22 64/34 (44) 98 Room Air 10/07/17 17:52 56 22 82/45 (57) 100 Room Air 10/07/17 17:47 100 Room Air 10/07/17 17:47 100 Room Air 10/07/17 17:20 88.8 10/07/17 17:06 88.8 52 18 82/39 (53) 97 Room Air 10/07/17 17:03 18 Physical Exam Young appearing male Intubated, sedated on vent Lungs wit scattered rales, some mucous in ETT ABd soft, non tender Ext: legs contracted Skin: unable to visualize posterior; : dennis in place, clear yellow urine; Tip of urethral meatus with erosion on right side, pus/drainage foul smelling Laboratory Laboratory Tests Test 10/07/17 17:23 10/07/17 18:54 10/07/17 21:00 10/07/17 22:20 White Blood Count 28.4 Red Blood Count 3.24 Hemoglobin 9.4 Hematocrit 29.4 Mean Corpuscular Volume 90.9 Mean Corpuscular Hemoglobin 29.0 Mean Corpuscular Hemoglobin Concent 31.9 Red Cell Distribution Width 17.4 Platelet Count 429 Mean Platelet Volume 7.7 Neutrophils (%) (Auto) 94.1 Lymphocytes (%) (Auto) 2.2 Monocytes (%) (Auto) 3.5 Eosinophils (%) (Auto) 0.0 Basophils (%) (Auto) 0.2 Neutrophils # (Auto) 26.7 Lymphocytes # (Auto) 0.6 Monocytes # (Auto) 1.0 Eosinophils # (Auto) 0.0 Basophils # (Auto) 0.1 CBC Comment AUTO DIFF Differential Total Cells Counted 100 Neutrophils % (Manual) 81 Band Neutrophils % 13 Lymphocytes % 2 Monocytes % 4 Neutrophils # (Manual) 26.7 Differential Comment FINAL DIFF MANUAL Toxic Granulation 1+ Toxic Vacuolation PRESENT Platelet Estimate NORMAL Platelet Morphology Comment NORMAL Prothrombin Time 11.8 Prothromb Time International Ratio 1.2 Activated Partial Thromboplast Time 41.5 Blood Urea Nitrogen 95 Creatinine 5.19 Random Glucose 129 Total Protein 7.2 Albumin 1.6 Calcium Level 7.8 Magnesium Level 1.7 Alkaline Phosphatase 138 Aspartate Amino Transf (AST/SGOT) 37 Alanine Aminotransferase (ALT/SGPT) 22 Total Bilirubin 0.2 Sodium Level 132 Potassium Level 4.2 Chloride Level 109 Carbon Dioxide Level 5.9 Anion Gap 17 Estimat Glomerular Filtration Rate 11 Lactic Acid Level 2.2 2.1 Total Creatine Kinase 425 Creatine Kinase MB 24.9 Creatine Kinase MB % 5.9 Troponin I LESS THAN 0.02 B-Type Natriuretic Peptide 89 C-Reactive Protein 24.00 Thyroid Stimulating Hormone 3rd Gen 0.788 Nasal Screen MRSA (PCR) MRSA DETECTED Test 10/08/17 03:55 10/08/17 08:40 White Blood Count 26.0 Red Blood Count 2.81 Hemoglobin 8.1 Hematocrit 25.3 Mean Corpuscular Volume 90.0 Mean Corpuscular Hemoglobin 28.9 Mean Corpuscular Hemoglobin Concent 32.1 Red Cell Distribution Width 17.6 Platelet Count 354 Mean Platelet Volume 7.3 Neutrophils (%) (Auto) 94.5 Lymphocytes (%) (Auto) 3.1 Monocytes (%) (Auto) 2.0 Eosinophils (%) (Auto) 0.1 Basophils (%) (Auto) 0.3 Neutrophils # (Auto) 24.5 Lymphocytes # (Auto) 0.8 Monocytes # (Auto) 0.5 Eosinophils # (Auto) 0.0 Basophils # (Auto) 0.1 CBC Comment AUTO DIFF Differential Total Cells Counted 100 Neutrophils % (Manual) 66 Band Neutrophils % 27 Lymphocytes % 1 Monocytes % 1 Neutrophils # (Manual) 25.5 Metamyelocytes 5 Differential Comment FINAL DIFF MANUAL Toxic Vacuolation PRESENT Platelet Estimate NORMAL Platelet Morphology Comment NORMAL [place] Cells 1+ Erythrocyte Sedimentation Rate 80 Prothrombin Time 13.1 Prothromb Time International Ratio 1.3 Activated Partial Thromboplast Time 43.5 Blood Urea Nitrogen 86 Creatinine 4.36 Random Glucose 181 Total Protein 5.6 Albumin 1.6 Calcium Level 6.1 Phosphorus Level 6.4 Magnesium Level 1.6 Alkaline Phosphatase 105 Aspartate Amino Transf (AST/SGOT) 29 Alanine Aminotransferase (ALT/SGPT) 20 Total Bilirubin 0.3 Sodium Level 139 Potassium Level 3.7 Chloride Level 115 Carbon Dioxide Level 6.6 Anion Gap 17 Estimat Glomerular Filtration Rate 14 Lactic Acid Level 1.5 Protein Corrected Calcium 6.8 Vancomycin Level Trough 18.9 Blood Gas Puncture Site LT RADIAL Blood Gas Patient Temperature 98.6 Blood Gas HCO3 7 Blood Gas Base Excess -21.8 Blood Gas Oxygen Saturation 91 Arterial Blood pH 7.05 Arterial Blood Partial Pressure CO2 25 Arterial Blood Partial Pressure O2 85 Arterial Blood Oxygen Content 10.5 Arterial Blood Carboxyhemoglobin 0.0 Arterial Blood Methemoglobin 2.3 Blood Gas Hemoglobin 8.2 Blood Gas Inspired Oxygen 21 Date/Time Source Procedure Growth Status 10/07/17 21:05 Blood Peripheral Aerobic Blood Culture Pending Received 10/07/17 21:05 Blood Peripheral Anaerobic Blood Culture Pending Received 10/07/17 17:25 Wound Buttock Gram Stain - Final Resulted 10/07/17 17:25 Wound Buttock Wound Culture Pending Resulted (Trisha Junior) Result Diagram: 10/08/17 0355 10/08/17 0355 Imaging Last 72 hours Impressions Chest X-Ray 10/08/17 0000 Signed Impressions: Service Date/Time: October 08:04 - CONCLUSION: 1. Right IJ line distal tip appears to be within the superior aspect of the superior vena cava. 2. Mild airspace opacity in the right lower lung zone representing either atelectasis or consolidation. Lazarus Saha MD Chest X-Ray 10/07/17 1701 Signed Impressions: Service Date/Time: Saturday, October 07, 2017 18:21 - CONCLUSION: No acute disease. Manuel David MD Lower Extremity Ultrasound 10/07/17 0000 Signed Impressions: Service Date/Time: Saturday, October 07, 2017 19:52 - CONCLUSION: No DVT in either lower extremity. Manuel David MD Chest X-Ray 10/07/17 0000 Signed Impressions: Service Date/Time: Saturday, October 07, 2017 21:24 - CONCLUSION: No acute disease. Manuel David MD Abdomen/Pelvis CT 10/07/17 0000 Signed Impressions: Service Date/Time: Saturday, October 07, 2017 18:37 - CONCLUSION: 1. 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 2. Right renal low density likely cyst. 3. Several nonobstructing punctate left sided renal calculi. 4. Constipation. 5. Left-sided abdominal wall hernia containing large bowel loops without signs of obstruction. Manuel David MD (Trisha Junior [facility]) Assessment and Plan Problem List: (1) LEAH (acute kidney injury) ICD Codes: N17.9 - Acute kidney failure, unspecified Status: Resolved Plan: In 2016 his creatinine was around 1 LEAH most likely due to sepsis, decreased renal perfusion His creatinine is slightly better today although he is oliguric CT abd shows non obstructing renal stones on left, no hydronephrosis Obtain UA, urine electrolytes Severe metabolic acidosis, see below Continue IVF Continue pressors to maintain MAP > 65mmHg He may need suprapubic dennis placed Avoid nephrotoxic against. Renally dose appropriate to renal status -His vancomycin trough was elevated at last check Repeat labs in AM Prognosis is poor. Consider palliative consult. (2) Septic shock ICD Codes: A41.9 - Sepsis, unspecified organism; R65.21 - Severe sepsis with septic shock Status: Acute Plan: Severe hypothermia, hypotension, leukocytosis Antibiotics include vancomycin, Aztreonam, Flagyl, Clindamycin and Zosyn have been stopped He has been pancultured, results pending (3) Decubitus skin ulcer ICD Codes: L89.90 - Pressure ulcer of unspecified site, unspecified stage Status: Acute Plan: Wound care and general surgery have been consulted No plans for I&D at this time. (4) Metabolic acidosis ICD Codes: E87.2 - Acidosis Status: Acute Plan: High anion gap metabolic acidosis, most likely Due to uremia Bicarb gtt ordered: SW with 3 amps at 150 cc/hr Serial ABG ordered (5) Debility ICD Codes: R53.81 - Other malaise Status: Acute Plan: Bedbound, has pressure ulcers Consider palliative evaluation (6) Hypocalcemia ICD Codes: E83.51 - Hypocalcemia Plan: He has severe protein calorie malnutrition Continue replacement Check 25 hydroxy level (Trisha Junior) Assessment and Plan Patient was seen and examined on 10/08/17. Agree with above assessment and plan. Patient with intractable acidosis, hypotensive, septic shock. Discussed several times with Dr. Dimas. Likely needs CRRT. On bicarbonate drip. (Antonio Mancia MD) Problem Qualifiers (1) Decubitus skin ulcer: Qualified Codes: L89.93 - Pressure ulcer of unspecified site, stage 3 Trisha Junior October 08, 2017 09:51 Antonio Mancia MD October 09, 2017 15:24
--- NOTE | 2017-10-08 09:52 | RADRPT ---
EXAM DATE/TIME: 10/08/2017 09:30 [place] COMPARISON: CHEST SINGLE AP, October 08, 2017, 8:04. INDICATIONS : intubation MEDICAL HISTORY : Arthritis. Measles. Scoliosis. Chronic UTIs. SURGICAL HISTORY : Right toe amputation. Back surgery. Eye surgery ENCOUNTER: Subsequent ACUITY: 2 days PAIN SCORE: Non-responsive. LOCATION: Bilateral chest FINDINGS: The right IJ central line and endotracheal tube are in good position. There is blunting of the costop hrenic sulcus at the right lung base suggesting a small right basilar effusion. There are atelectatic changes at the right lung base as well. The osseous structures are grossly intact. CONCLUSION: 1. Endotracheal tube and central venous catheter in satisfactory position. Prateek Bowser MD on October 08, 2017 at 9:50 Board Certified Radiologist. This report was verified electronically.
[2017-10-08] MEDS: HYDROCORTISONE SOD SUCCINATE 100 MG VIAL IV PUSH SCH ×3 (09:54→21:21)
[2017-10-08] MEDS: TAMSULOSIN HCL 0.4 MG CAP PO SCH (09:55)
[2017-10-08] MEDS: FAMOTIDINE 20 MG/2 ML VIAL IV PUSH SCH ×2 (09:55→21:22)
[2017-10-08] MEDS: INSULIN NovoLIN REGULAR SUPPLEMENTAL SCALE SQ SCH ×4 (09:56→20:15)
[2017-10-08] MEDS: FERROUS SULFATE 325 MG (65 MG ELEMENTAL IRON) TAB PO SCH (09:56)
[2017-10-08] MEDS: SODIUM CHLORIDE 0.9% FLUSH 10 ML FLUSH IV FLUSH SCH ×2 (09:57→21:20)
[2017-10-08] MEDS: SODIUM BICARBONATE 8.4% INJ 150 MEQ in WATER STERILE FOR INJ 850 ML IV SCH ×3 (10:14→23:20)
[2017-10-08 10:24] LABS: BACTERIA, URINE MANY /hpf; BILIRUBIN, URINE NEG (NEG); BLOOD, URINE MOD (NEG); GLUCOSE,URINE TRACE mg/dL (NEG); KETONE, URINE NEG (NEG); NITRITE,URINE NEG (NEG); PH, URINE 5.5 (5.0-8.5); URINE LEUKOCYTE ESTERASE LARGE (NEG); WHITE BLOOD CELL CLUMPS MOD
[2017-10-08 10:25] LABS: URINE COLOR YELLOW (YELLW/STRAW)
[2017-10-08] MEDS: RESP: ALBUTEROL 2.5 MG/IPRATROPIUM 0.5 MG NEB (SCH) NEB ×3 (10:46→20:01)
[2017-10-08] MEDS ORDERED: CALCIUM GLUCONATE INJ 1 GM in SODIUM CHLORIDE 0.9% INJ 100 ML IV ONE (11:00)
--- NOTE | 2017-10-08 13:05 | PD.CONS ---
History of Present Illness Service Infectious disease Consult Requested By Dr Milligan Reason for Consult Evaluate patient with sepsis, and wounds Primary Care Physician Wale Healy MD Diagnoses: History of Present Illness Patient seen and examined. Records reviewed. 72-year-old male presents for evaluation of leg swelling. When EMS arrived they noticed that he has multiple wounds in his buttock region. Patient was admitted here last August and treated for UTI. He has had problems with his knees and has had problem ambulating. It was felt to be due to arthritis. He was D/C to a SNF after that hospitalization, and apparently went home first week of September. He lives with his who has been doing his care. Patient reportedly has been mostly in a wheelchair, and has resulted in him getting his wounds. He has been having problem with swelling of his legs and prompted him to go to the hospital. There was no mention of any ever, chills or sweats. Deenies respiratory, or problem. On presentation, he has a very elevated WBC. 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 CT did not show any gas in subcutaneous tissue, and no intraabdominal process. He has renal failure. He ended up getting intubated, and has been on multiple pressors. Also has been acidotic and on bicarb drip. Infectois Disease consultation has been requested to assist in evaluation and treatment of his sepsis and shock. Review of Systems ROS Limitations: Clinical Condition, Intubated Past Family Social History Allergies: Coded Allergies: cefepime (Unverified Allergy, Severe, RASH TO CEFEPIME, 10/07/17) ceftaroline fosamil (Unverified Allergy, Severe, RASH TO CEFEPIME, 10/07/17) diphenhydramine (Unverified Allergy, Severe, ALTERED MENTAL STATUS, 10/07/17 ) tigecycline (Unverified Allergy, Severe, Rash, 10/07/17) Past Medical History Previous history of UTI Chronic arthritis Scoliosis status post surgery Chronic kidney disease Past Surgical History History of eye surgery Scoliosis surgery Surgery on the right first toe Active Ordered Medications Vancomycin Azactam Flagyl Current Medications Medications (Trade) Dose Ordered Sig/Flavia Route Start Time Stop Time Status Last Admin (Brethine Inj) 1 mg UNSCH PRN SQ 10/07/17 19:15 (Ferrous Sulfate) 325 mg DAILY PO 10/08/17 09:00 10/08/17 09:56 (Energy 5-325 Mg) 1 tab Q6H PRN PO 10/07/17 19:45 (Flomax) 0.4 mg DAILY PO 10/08/17 09:00 10/08/17 09:55 (NS Flush) 2 ml UNSCH PRN IV FLUSH 10/07/17 19:45 (NS Flush) 2 ml BID IV FLUSH 10/07/17 21:00 10/08/17 09:57 (Tylenol) 650 mg Q6H PRN PO 10/07/17 19:45 (Morphine Inj) 2 mg Q2H PRN IV PUSH 10/07/17 19:45 (Zofran Inj) 4 mg Q6H PRN IV PUSH 10/07/17 19:45 (Restoril) 15 mg HS PRN PO 10/07/17 19:45 (Heparin Inj) 5,000 units Q8HR SQ 10/07/17 19:45 10/08/17 05:57 ([facility] [place] [facility] [place]) 1 Q361D XX 10/07/17 19:45 10/07/17 19:45 (Chlorhexidine 2% Cloth) 3 pack Taper DAILY@04 TOP 10/08/17 04:00 10/04/18 03:59 10/08/17 04:00 (Chlorhexidine 2% Cloth) 3 pack UNSCH PRN TOP 10/07/17 19:45 (Camelia-Colace) 1 tab BID PO 10/07/17 21:00 (Milk Of Magnesia Liq) 30 ml Q12H PRN PO 10/07/17 19:45 (Senokot) 17.2 mg Q12H PRN PO 10/07/17 19:45 (Dulcolax Supp) 10 mg DAILY PRN RECTAL 10/07/17 19:45 (Lactulose Liq) 30 ml DAILY PRN PO 10/07/17 19:45 Pharmacy Profile Note 0 ml @ 0 mls/hr UNSCH OTHER 10/07/17 19:45 Aztreonam 1000 mg/ Sodium Chloride 100 ml @ 200 mls/hr Q8H IV 10/08/17 04:00 10/08/17 12:20 Metronidazole 100 ml @ 100 mls/hr Q8H IV 10/07/17 20:00 10/08/17 12:20 Norepinephrine Bitartrate 250 ml @ 7.5 mls/hr TITRATE PRN IV 10/07/17 20:00 10/08/17 11:46 Vasopressin 40 units/Dextrose 100 ml @ 6 mls/hr [id number] IV 10/07/17 21:12 10/07/17 21:29 Albumin Human 500 ml @ 250 mls/hr Q6H IV 10/08/17 00:30 10/08/17 20:29 10/08/17 12:17 Dopamine HCl/ Dextrose 500 ml @ 12.263 mls/ hr TITRATE PRN IV 10/08/17 01:00 (Brethine Inj) 1 mg UNSCH PRN SQ 10/08/17 01:00 Phenylephrine HCl 40 mg/Dextrose 500 ml @ 30 mls/hr TITRATE PRN IV 10/08/17 10:00 (Pepcid Inj) 10 mg Q12HR IV PUSH 10/08/17 09:00 10/08/17 09:55 (SoluCORTEF INJ) 50 mg Q6H IV PUSH 10/08/17 09:00 10/08/17 09:54 (D50w (Vial) Inj) 50 ml UNSCH PRN IV PUSH 10/08/17 08:15 (Glucagon Inj) 1 mg UNSCH PRN OTHER 10/08/17 08:15 (NovoLIN R SUPPLEMENTAL SCALE) 1 Q4H SQ 10/08/17 08:15 10/08/17 12:15 Sodium Bicarbonate 150 meq/Sterile Water 1,000 ml @ 150 mls/hr Q6H40M IV 10/08/17 10:00 10/08/17 10:14 Fentanyl Citrate 250 ml @ 5 mls/hr TITRATE PRN IV 10/08/17 08:45 (Duoneb Neb) 1 ampule Q6HR NEB NEB 10/08/17 10:00 10/08/17 10:46 (Duoneb Neb) 1 ampule Q2HR NEB PRN NEB 10/08/17 09:00 (Peridex 0.12% Liq) 15 ml BID@08,20 MT 10/08/17 20:00 Vancomycin HCl 1500 mg/Sodium Chloride 515 ml @ 250 mls/hr ONCE ONCE IV 10/08/17 18:00 10/08/17 20:03 Family History Noncontributory Social History Came from home Patient smokes a pipe. Nondrinker. Denies illicit drugs. Physical Exam Vital Signs Vital Signs Date Time Temp Pulse Resp B/P (MAP) Pulse Ox O2 Delivery O2 Flow Rate FiO2 10/08/17 11:46 63 109/56 10/08/17 09:51 99 50 10/08/17 06:00 71 10/08/17 04:00 69 10/08/17 04:00 90.0 69 18 89/50 (63) 95 10/08/17 03:11 66 92/54 10/08/17 02:00 62 10/08/17 00:00 90.0 58 20 82/47 (59) 96 10/08/17 00:00 58 10/07/17 22:07 58 28 77/41 (53) 100 10/07/17 21:29 62 68/38 10/07/17 19:49 56 75/44 10/07/17 19:00 88.5 57 24 82/44 (57) 99 Room Air 10/07/17 18:30 57 22 81/51 (61) 98 Room Air 10/07/17 18:22 56 22 64/34 (44) 98 Room Air 10/07/17 17:52 56 22 82/45 (57) 100 Room Air 10/07/17 17:47 100 Room Air 10/07/17 17:47 100 Room Air 10/07/17 17:20 88.8 10/07/17 17:06 88.8 52 18 82/39 (53) 97 Room Air 10/07/17 17:03 18 Physical Exam GENERAL: Patient is a well-nourished, well-developed male, sedated on the vent, not in respiratory distress. He is on warming blanket. On 3 pressors, levophed, vasopressin and neosynephrine SKIN: Warm and dry. No generalized rash, no ecchymoses and no evidence of embolic lesions. HEAD: Atraumatic. Normocephalic. No temporal wasting, or tenderness. EYES: [place] conjunctiva. No petechia or hemorrhage. Pupils equal, round and reactive to light. No scleral icterus. No injection or drainage. EARS, NOSE AND THROAT: Nose without bleeding or purulent nasal discharge. He is orally intubated NECK: Trachea midline. Supple and not tender, no meningeal signs CARDIOVASCULAR: Regular rate and rhythm. No murmurs, rubs or gallops heard RESPIRATORY: Clear to auscultation. Breath sounds equal bilaterally. No rales , wheezing or rhonchi. Decreased breath sounds at the bases EXTREMITIES: No clubbing, cyanosis. Has mild pedal edema. Both LE has flexure contracture. : Dennis in place, urine looks clear. Has extensive superficial wounds in buttocks NEUROLOGICAL: Sedated. PSYCHIATRIC: Unable to assess. LINE: No evidence of infection Laboratory Laboratory Tests Test 10/07/17 17:23 10/07/17 18:54 10/07/17 21:00 10/07/17 22:20 White Blood Count 28.4 Red Blood Count 3.24 Hemoglobin 9.4 Hematocrit 29.4 Mean Corpuscular Volume 90.9 Mean Corpuscular Hemoglobin 29.0 Mean Corpuscular Hemoglobin Concent 31.9 Red Cell Distribution Width 17.4 Platelet Count 429 Mean Platelet Volume 7.7 Neutrophils (%) (Auto) 94.1 Lymphocytes (%) (Auto) 2.2 Monocytes (%) (Auto) 3.5 Eosinophils (%) (Auto) 0.0 Basophils (%) (Auto) 0.2 Neutrophils # (Auto) 26.7 Lymphocytes # (Auto) 0.6 Monocytes # (Auto) 1.0 Eosinophils # (Auto) 0.0 Basophils # (Auto) 0.1 CBC Comment AUTO DIFF Differential Total Cells Counted 100 Neutrophils % (Manual) 81 Band Neutrophils % 13 Lymphocytes % 2 Monocytes % 4 Neutrophils # (Manual) 26.7 Differential Comment FINAL DIFF MANUAL Toxic Granulation 1+ Toxic Vacuolation PRESENT Platelet Estimate NORMAL Platelet Morphology Comment NORMAL Prothrombin Time 11.8 Prothromb Time International Ratio 1.2 Activated Partial Thromboplast Time 41.5 Blood Urea Nitrogen 95 Creatinine 5.19 Random Glucose 129 Total Protein 7.2 Albumin 1.6 Calcium Level 7.8 Magnesium Level 1.7 Alkaline Phosphatase 138 Aspartate Amino Transf (AST/SGOT) 37 Alanine Aminotransferase (ALT/SGPT) 22 Total Bilirubin 0.2 Sodium Level 132 Potassium Level 4.2 Chloride Level 109 Carbon Dioxide Level 5.9 Anion Gap 17 Estimat Glomerular Filtration Rate 11 Lactic Acid Level 2.2 2.1 Total Creatine Kinase 425 Creatine Kinase MB 24.9 Creatine Kinase MB % 5.9 Troponin I LESS THAN 0.02 B-Type Natriuretic Peptide 89 C-Reactive Protein 24.00 Thyroid Stimulating Hormone 3rd Gen 0.788 Nasal Screen MRSA (PCR) MRSA DETECTED Test 10/08/17 03:55 10/08/17 08:35 10/08/17 08:40 10/08/17 10:25 White Blood Count 26.0 Red Blood Count 2.81 Hemoglobin 8.1 Hematocrit 25.3 Mean Corpuscular Volume 90.0 Mean Corpuscular Hemoglobin 28.9 Mean Corpuscular Hemoglobin Concent 32.1 Red Cell Distribution Width 17.6 Platelet Count 354 Mean Platelet Volume 7.3 Neutrophils (%) (Auto) 94.5 Lymphocytes (%) (Auto) 3.1 Monocytes (%) (Auto) 2.0 Eosinophils (%) (Auto) 0.1 Basophils (%) (Auto) 0.3 Neutrophils # (Auto) 24.5 Lymphocytes # (Auto) 0.8 Monocytes # (Auto) 0.5 Eosinophils # (Auto) 0.0 Basophils # (Auto) 0.1 CBC Comment AUTO DIFF Differential Total Cells Counted 100 Neutrophils % (Manual) 66 Band Neutrophils % 27 Lymphocytes % 1 Monocytes % 1 Neutrophils # (Manual) 25.5 Metamyelocytes 5 Differential Comment FINAL DIFF MANUAL Toxic Vacuolation PRESENT Platelet Estimate NORMAL Platelet Morphology Comment NORMAL [place] Cells 1+ Erythrocyte Sedimentation Rate 80 Prothrombin Time 13.1 Prothromb Time International Ratio 1.3 Activated Partial Thromboplast Time 43.5 Blood Urea Nitrogen 86 Creatinine 4.36 Random Glucose 181 Total Protein 5.6 Albumin 1.6 Calcium Level 6.1 Phosphorus Level 6.4 Magnesium Level 1.6 Alkaline Phosphatase 105 Aspartate Amino Transf (AST/SGOT) 29 Alanine Aminotransferase (ALT/SGPT) 20 Total Bilirubin 0.3 Sodium Level 139 Potassium Level 3.7 Chloride Level 115 Carbon Dioxide Level 6.6 Anion Gap 17 Estimat Glomerular Filtration Rate 14 Lactic Acid Level 1.5 Protein Corrected Calcium 6.8 25-Hydroxy Vitamin D Total 5.5 Vancomycin Level Trough 18.9 Urine Color YELLOW Urine Turbidity CLOUDY Urine pH 5.5 Urine Specific [place] 1.018 Urine Protein 300 Urine Glucose (UA) TRACE Urine Ketones NEG Urine Occult Blood MOD Urine Nitrite NEG Urine Bilirubin NEG Urine Urobilinogen LESS THAN 2.0 Urine Leukocyte Esterase LARGE Urine RBC 59 Urine WBC Urine WBC Clumps MOD Urine Bacteria MANY Microscopic Urinalysis Comment CATH-CULTURE IND Urine Random Creatinine 110.0 Urine Random Sodium 61 Blood Gas Puncture Site LT RADIAL Blood Gas Patient Temperature 98.6 Blood Gas HCO3 7 Blood Gas Base Excess -21.8 Blood Gas Oxygen Saturation 91 Arterial Blood pH 7.05 Arterial Blood Partial Pressure CO2 25 Arterial Blood Partial Pressure O2 85 Arterial Blood Oxygen Content 10.5 Arterial Blood Carboxyhemoglobin 0.0 Arterial Blood Methemoglobin 2.3 Blood Gas Hemoglobin 8.2 Blood Gas Inspired Oxygen 21 Test 10/08/17 10:35 Blood Gas Puncture Site LT RADIAL Blood Gas Patient Temperature 98.6 Venous Blood pH 7.10 Venous Blood Partial Pressure CO2 28 Venous Blood Partial Pressure O2 65 Venous Blood HCO3 8 Venous Blood Oxygen Saturation 84 Venous Blood Oxygen Content 10.3 Venous Blood Base Excess -19.4 Oxygen Delivery Device VENTILATOR Blood Gas Ventilator Setting A/C 600/18/5PEEP Blood Gas Inspired Oxygen 40 Date/Time Source Procedure Growth Status 10/07/17 21:05 Blood Peripheral Aerobic Blood Culture - Preliminary NO GROWTH IN 1 DAY Resulted 10/07/17 21:05 Blood Peripheral Anaerobic Blood Culture - Preliminary NO GROWTH IN 1 DAY Resulted 10/08/17 10:20 Sputum Endotracheal Gram Stain Pending Received 10/08/17 10:20 Sputum Endotracheal Sputum Culture Pending Received 10/08/17 08:35 Urine Catheterized Urine Urine Culture Pending Received 10/07/17 17:25 Wound Buttock Gram Stain - Final Resulted 10/07/17 17:25 Wound Buttock Wound Culture - Preliminary IMMATURE GROWTH - REINCUBATE Resulted Result Diagram: 10/08/17 0355 10/08/17 0355 Imaging RADIOLOGY STUDIES/FILMS REVIEWED Chest X-Ray 10/08/17 0000 Signed Impressions: Service Date/Time: October 09:30 - CONCLUSION: 1. Endotracheal tube and central venous catheter in satisfactory position. Prateek Bowser MD Lower Extremity Ultrasound 10/07/17 0000 Signed Impressions: Service Date/Time: Saturday, October 07, 2017 19:52 - CONCLUSION: No DVT in either lower extremity. Manuel David MD Abdomen/Pelvis CT 10/07/17 0000 Signed Impressions: Service Date/Time: Saturday, October 07, 2017 18:37 - CONCLUSION: 1. 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 2. Right renal low density likely cyst. 3. Several nonobstructing punctate left sided renal calculi. 4. Constipation. 5. Left-sided abdominal wall hernia containing large bowel loops without signs of obstruction. Manuel David MD Assessment and Plan Assessment and Plan IMPRESSION Sepsis with shock present on admission, on pressors - has leukocytosis, elevated creatinine, acidosis - UA (+) - CT ok - has extensive wound in low back; no evidence of Michael's or nec fasciitis UTI, has dennis in place Respiratory failure Renal failure Metabolic acidosis RECOMMENDATION Follow C/S Stabilize hemodynamics Adjust Abx once C/S available Continue empiric Abx - Vanco for GPC - Flagyl for anaerobic Will use Meropenem for GNR coverage since he is critically ill and would like to have broader GNR coverage - he had rash with Cephalosporins, and will monitor for any reaction Monitor progress I will follow along with you Thank you for this consultation Discussed Condition With D/W Oma Ellison MD October 08, 2017 13:05
[2017-10-08] MEDS ORDERED: PHARMACY INFORMATION XX PRN (13:15)
[2017-10-08] MEDS ORDERED: ASP: Other exception documentation: ( ) PRN (13:15)
[2017-10-08 13:45] LABS: BICARBONATE 9.5 MEQ/L (21.0-32.0); CALCIUM 5.9 MG/DL (8.5-10.1); CREATININE 4.01 MG/DL (0.60-1.30)
[2017-10-08 14:01] LABS: TOTAL PROTEIN 5.5 GM/DL (6.4-8.2)
[2017-10-08 14:04] LABS: CALCIUM-PROTEIN CORRECTED 6.6 MG/DL (8.5-10.1)
[2017-10-08] MEDS: VASOPRESSIN INJ 40 UNITS in DEXTROSE 5% IN WATER 100ML INJ 98 ML IV SCH ×2 (14:06)
--- NOTE | 2017-10-08 14:19 | EKG ---
Date Performed: 10/07/2017 Time Performed: 17:55:02 PTAGE: 72 years EKG: SINUS BRADYCARDIA WITH FIRST DEGREE AV BLOCK INTRAVENTRICULAR CONDUCTION DELAY ABNORMAL ECG WARNING: DATA QUALITY MAY AFFECT INTERPRETATION Since the PREVIOUS TRACING , no significant change noted PREVIOUS TRACING DOCTOR: Emily Rivers Interpretating Date/Time 10/08/2017 14:16:11
--- NOTE | 2017-10-08 14:28 | HHI.PR ---
Subjective Patient symptoms today 10/07/17:72y o male admitted with large decubitus ulcer and concern for scrotal infection vs Michael's gangrene. Patient was recently at a nursing facility however was discharged a few days ago. It appears the patient has remained in his wheelchair for an extended period of time, resulting in a significant sacral ulcer and potential infection. He also manages his bladder with an indwelling urethral catheter. 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 He is currently admitted and found to be septic with Temp of 88, BP in 60s/40s, WBC 28 and renal failure with Cr of 5. Patient is awake and responsive, however limited history. 10/08/17: Pt was seen at the bedside. Intubated. Still in poor condition. ID and wound care saw pt as well. Still has leukocytosis, slightly better today. Cr is stable. Objective Vital Signs Vital Signs Date Time Temp Pulse Resp B/P (MAP) Pulse Ox O2 Delivery O2 Flow Rate FiO2 10/08/17 14:06 63 94/53 10/08/17 11:46 63 109/56 10/08/17 10:00 66 10/08/17 09:51 99 50 10/08/17 08:00 92.1 60 29 84/54 (64) 97 10/08/17 08:00 60 10/08/17 06:00 71 10/08/17 04:00 69 10/08/17 04:00 90.0 69 18 89/50 (63) 95 10/08/17 03:11 66 92/54 10/08/17 02:00 62 10/08/17 00:00 90.0 58 20 82/47 (59) 96 10/08/17 00:00 58 10/07/17 22:07 58 28 77/41 (53) 100 10/07/17 21:29 62 68/38 10/07/17 19:49 56 75/44 10/07/17 19:00 88.5 57 24 82/44 (57) 99 Room Air 10/07/17 18:30 57 22 81/51 (61) 98 Room Air 10/07/17 18:22 56 22 64/34 (44) 98 Room Air 10/07/17 17:52 56 22 82/45 (57) 100 Room Air 10/07/17 17:47 100 Room Air 10/07/17 17:47 100 Room Air 10/07/17 17:20 88.8 10/07/17 17:06 88.8 52 18 82/39 (53) 97 Room Air 10/07/17 17:03 18 Intake & Output 10/08/17 10/08/17 07:00 19:00 Intake Total 1816 ml 5032 ml Output Total 25 ml Balance 1791 ml 5032 ml Intake Oral 60 ml IV Total 1756 ml 5032 ml Output Urine Total 25 ml # Bowel Movements 0 Result Diagram: 10/08/17 0355 10/08/17 1300 Imaging Last 24 hours Impressions Chest X-Ray 10/08/17 0000 Signed Impressions: Service Date/Time: October 09:30 - CONCLUSION: 1. Endotracheal tube and central venous catheter in satisfactory position. Prateek Bowser MD Chest X-Ray 10/08/17 0000 Signed Impressions: Service Date/Time: October 08:04 - CONCLUSION: 1. Right IJ line distal tip appears to be within the superior aspect of the superior vena cava. 2. Mild airspace opacity in the right lower lung zone representing either atelectasis or consolidation. Lazarus Saha MD Chest X-Ray 10/07/17 1701 Signed Impressions: Service Date/Time: Saturday, October 07, 2017 18:21 - CONCLUSION: No acute disease. Manuel David MD Objective Remarks Intubated Dennis in place, small urine output, no hematuria Severe scrotal cellulitis Medications and IVs Current Medications Medications (Trade) Dose Ordered Sig/Flavia Route Start Time Stop Time Status Last Admin (Brethine Inj) 1 mg UNSCH PRN SQ 10/07/17 19:15 (Ferrous Sulfate) 325 mg DAILY PO 10/08/17 09:00 10/08/17 09:56 (Ashley 5-325 Mg) 1 tab Q6H PRN PO 10/07/17 19:45 (Flomax) 0.4 mg DAILY PO 10/08/17 09:00 10/08/17 09:55 (NS Flush) 2 ml UNSCH PRN IV FLUSH 10/07/17 19:45 (NS Flush) 2 ml BID IV FLUSH 10/07/17 21:00 5/3/18 09:57 (Tylenol) 650 mg Q6H PRN PO 10/07/17 19:45 (Morphine Inj) 2 mg Q2H PRN IV PUSH 10/07/17 19:45 (Zofran Inj) 4 mg Q6H PRN IV PUSH 10/07/17 19:45 (Restoril) 15 mg HS PRN PO 10/07/17 19:45 (Heparin Inj) 5,000 units Q8HR SQ 10/07/17 19:45 10/08/17 05:57 ([facility] [place] Nursing Information) 1 Q361D XX 10/07/17 19:45 10/07/17 19:45 (Chlorhexidine 2% Cloth) 3 pack Taper DAILY@04 TOP 10/08/17 04:00 10/04/18 03:59 10/08/17 04:00 (Chlorhexidine 2% Cloth) 3 pack UNSCH PRN TOP 10/07/17 19:45 (Camelia-Colace) 1 tab BID PO 10/07/17 21:00 (Milk Of Magnesia Liq) 30 ml Q12H PRN PO 10/07/17 19:45 (Senokot) 17.2 mg Q12H PRN PO 10/07/17 19:45 (Dulcolax Supp) 10 mg DAILY PRN RECTAL 10/07/17 19:45 (Lactulose Liq) 30 ml DAILY PRN PO 10/07/17 19:45 Pharmacy Profile Note 0 ml @ 0 mls/hr UNSCH OTHER 10/07/17 19:45 Metronidazole 100 ml @ 100 mls/hr Q8H IV 10/07/17 20:00 10/08/17 12:20 Norepinephrine Bitartrate 250 ml @ 7.5 mls/hr TITRATE PRN IV 10/07/17 20:00 10/08/17 11:46 Vasopressin 40 units/Dextrose 100 ml @ 6 mls/hr [id number] IV 10/07/17 21:12 10/08/17 14:06 Albumin Human 500 ml @ 250 mls/hr Q6H IV 10/08/17 00:30 10/08/17 20:29 10/08/17 12:17 Dopamine HCl/ Dextrose 500 ml @ 12.263 mls/ hr TITRATE PRN IV 10/08/17 01:00 (Brethine Inj) 1 mg UNSCH PRN SQ 10/08/17 01:00 Phenylephrine HCl 40 mg/Dextrose 500 ml @ 30 mls/hr TITRATE PRN IV 10/08/17 10:00 (Pepcid Inj) 10 mg Q12HR IV PUSH 10/08/17 09:00 10/08/17 09:55 (SoluCORTEF INJ) 50 mg Q6H IV PUSH 10/08/17 09:00 10/08/17 09:54 (D50w (Vial) Inj) 50 ml UNSCH PRN IV PUSH 10/08/17 08:15 (Glucagon Inj) 1 mg UNSCH PRN OTHER 10/08/17 08:15 (NovoLIN R SUPPLEMENTAL SCALE) 1 Q4H SQ 10/08/17 08:15 10/08/17 12:15 Sodium Bicarbonate 150 meq/Sterile Water 1,000 ml @ 150 mls/hr Q6H40M IV 10/08/17 10:00 10/08/17 10:14 Fentanyl Citrate 250 ml @ 5 mls/hr TITRATE PRN IV 10/08/17 08:45 (Duoneb Neb) 1 ampule Q6HR NEB NEB 10/08/17 10:00 10/08/17 10:46 (Duoneb Neb) 1 ampule Q2HR NEB PRN NEB 10/08/17 09:00 (Peridex 0.12% Liq) 15 ml BID@08,20 MT 10/08/17 20:00 Vancomycin HCl 1500 mg/Sodium Chloride 515 ml @ 250 mls/hr ONCE ONCE IV 10/08/17 18:00 10/08/17 20:03 (ASP Crit: Other exception documentation) 1 UNSCH X1 PRN .XX 10/08/17 13:15 10/09/17 13:14 ([facility] [place] [facility] Information) 1 UNSCH X1 PRN XX 10/08/17 13:15 10/09/17 13:14 Meropenem 250 mg/ Sodium Chloride 100 ml @ 200 mls/hr Q8H IV 10/08/17 15:00 Assessment and Plan Problem List: (1) Septic shock ICD Code: A41.9 - Sepsis, unspecified organism; R65.21 - Severe sepsis with septic shock Status: Acute (2) LEAH (acute kidney injury) ICD Code: N17.9 - Acute kidney failure, unspecified Status: Resolved Assessment and Plan -No evidence of Michael's Gangrene, no scrotal infection -Patient with iatrogenic hypospadias with some granulation tissue noted at meatus, no obvious scrotal or penile infection -As patient is in Renal failure and status of his voiding ability is unclear, a 16Fr temperature catheter was successfully placed at bedside and flushed to ensure proper position. 10cc in balloon -Maintain dennis catheter in place. Take care to avoid catheter position to avoid further urethral erosion -Patient would likely benefit from suprapubic tube -At this time, patient to be stabilized medically with treatment of his sacral decubitus ulcer -He may follow-up as an outpatient with Urology for further evaluation regarding his voiding function and potential treatment options No additional recommendations today Wound care management Follow ID recommendations Urology remains available as needed. Jed Hameed October 08, 2017 14:28
--- NOTE | 2017-10-08 14:50 | PD.WCN.NOT ---
Wound Consult Description: Received wound management consult from Doctor Dimas for sacral, and R dorsal foot wound management Communicated with: NOELLE Degroot 5th floor [facility], NOELLE Kumar [facility] and Doctor Dimas Recommendation: Buttock, posterior thighs and scrotal areas 1.Cleanse with Remedy barrier wipes or soap and water gently and pat dry. 2. Apply thick layer of Calazime skin protectant paste and leave open to air BID or PRN 3. Keep patient turned and repositioned every 2 hours and PRN for comfort and offloading of pressure from audie prominences 4. Do not use cloth pads on low airloss Mady bed. 5. Use ultrasorb pad for moisture and incontinence management. L wise and L dorsal foot 1. Cleanse open weeping wounds with normal saline and pat dry 2. Apply Optilock dressing, secured with rolled gauze and tape 3. Change dressing every 3 days or PRN if saturated or dislodged R plantar heel 1.Cleanse wound with normal saline and pat dry. 2.Apply Cavilon skin barrier film spray to intact black eschar. 3. Cover with dry 4x4 gauze pad, secured with rolled gauze and tape. 4. Change daily R dorsal foot 1. Cleanse wound with angelique saline ONLY and pat dry 2. Apply nestor thick coverage of santyl ointment to wound bed. 3. Cover with dry 4x4 gauze or ABD pad and secure with rolled gauze and tape. 4. Change dressing daily R posterior heel DTI 1.Apply Cavilon skin barrier film spray BID and leave open to air. R Anterior Lower R wise 1. Cleanse wound with normal saline and pat dry 2. Apply Maxorb II over wound bed, cut to fit and cover with dry 4x4 gauze pads, 3. Secure with rolled gauze and tape. 4. Change dressing daily. Additional Information: Patient seen on 5th [facility] for evaluation of wounds to sacral and R dorsal foot. Patient seen and assessed with the assistance of Kyung Degroot RN [facility], Jane DRAKE [facility] and conventional mortgage underwriter. Patient is intubated and sedated and requires total assistance. Patient was turned to L side for wound assessment. Patient is noted with large area extending from the posterior thighs to bilateral buttock with Denuded, macerated skin, defuse full and partial thickness skin loss. Minimal sanguinous drainage is noted from open areas without odor. Entire area measures ~40cm x ~35cm. Sacral and coccyx areas are noted with intact skin with blanchable erythema. Wound etilogy is moisture and friction. Large amount green / brown paste like stool is present Covering buttock and posterior thighs. Patient is laying on Mady low air loss mattress, with cloth pad and ultra sorb pads underneath him. Patient was cleansed with soap and water to remove stool and cleanse open areas. Partial thickness wounds present vascular with 100% pink tissue. Full thickness wounds present with ~70% adipose tissue and ~30% pink tissue. Applied thick layer of Calazime skin protectant paste after gently patting skin and open areas dry. Small wound to anterior scrotum presents shallow full thickness with ~20% yellow tissue and ~80% pink tissue. Wound measures ~3cm x ~2cm x ~0.2cm. Wound drainage is scant and sero-sanguinous without odor. Calazime skin protectant paste was also applied to this area and left open to air. After replacing soiled linens, patient was repositioned for assessment of BLE. Patients BLE present with deformity and feet are noted to be externally rotated. BLE present with non pitting edema, hairless and discolored skin. Skin feels cool to the touch. R plantar surface of heel presents with unstageable pressure injury. Unstageable pressure injury presents with ~70% black intact dry eschar, and ~30% pink tissue. Wound has scant sanguinous drainage that is noted without odor when cleansed with normal saline and gauze pad. Wound measures 4.2cm x 5 cm x eschar . R posterior heel presents with light purple non blanchable discoloration to intact skin, indicating deep tissue injury. DTI measures 4cm x 3cm R lower anterior wise presents with with shallow, weeping partial thickness wound measuring 1.2cm x 5cm x ~<0.1cm. Moderate amount of serous drainage is noted without odor. Wound was cleansed with normal saline and patted dry. Maxorb II was placed just over open wound, cut to fit and covered with dry 4x4 gauze pads, secured with rolled gauze and tape. R dorsal foot presents with ~100% coverage of dry yellow adherent slough. Wound drainage is scant and serous without odor. Wound was cleansed with normal saline and patted dry. Apply dry gauze over wound secured with rolled gauze and tape. L wise presents with partial thickness wound with moderate serous drainage that is without odor. Wound measures 2.2cm x 7cm x ~<0.1cm Wound was cleansed with normal saline and patted dry. Maxorb II was applied over wound bed and secured with ABD pad, rolled gauze and tape. Recommended optilock, No optilock was on hand. RN to apply once obtained. L dorsal foot wound presents with shallow full thickness wound that presents with ~50% yellow dry tissue and ~40% white tissue and ~10% pink tissue. Wound drainage is moderate and serous without odor. Entire wound measures 8 cm x 11cm with macerated skin noted to periwound. Wound was cleansed with normal saline and patted dry. Optilock was applied and secured with rolled gauze and tape. Annika Valdez [facility] October 08, 2017 14:50
--- NOTE | 2017-10-08 14:56 | PD.PROCEDR ---
Central Line Procedure REASON FOR PROCEDURE Central venous access PROCEDURE PERFORMED Central line placement: Left IJ vascath for CVVHD CONSENT Patient was performed emergently as patient is intubated with acute renal failure, severe metabolic acidosis, oliguric and in septic shock on multiple pressors. ANESTHESIA Local injection of 1% Lidocaine DESCRIPTION OF THE PROCEDURE The patient was placed in supine, mild Trendelenburg position. The area was exposed and cleansed with ChloraPrep, times two. Large sterile drape was used to cover the patient, with the site exposed, under sterile conditions including cap, face mask, sterile gown, and sterile gloves. On single attempt, the introducer needle was inserted with negative pressure in syringe and venous flash was obtained. The guide wire was then advanced without any restriction and the needle was removed. The dilator was used without any complications. Using Seldinger technique the catheter was advanced over the guide wire to a depth of 20 centimeters. The guide wire was removed. All ports were aspirated with dark venous blood return and flushed easily with sterile saline. All ports were capped. Antibiotic disc was placed around central line at puncture site. The central line was secured to the skin with two interrupted 2.0 silk sutures. The area was bandaged with sterile see-through central line bandage. RADIOLOGICAL DATA Ultrasound guidance was used to locate left IJ vein. CXR ordered to verify line placement COMPLICATIONS: No apparent complications ESTIMATED BLOOD LOSS: Less than 1 cc. Rema Walker MD October 08, 2017 14:56
[2017-10-08] MEDS: COLLAGENASE OINT 30 GM TUBE EXTERNAL SCH (15:00)
[2017-10-08] MEDS: MEROPENEM IV SCH ×2 (15:11→23:20)
[2017-10-08] MEDS: SODIUM CHLORIDE 0.9% IV SCH ×2 (15:11→23:20)
[2017-10-08 15:13] LABS: AUTOMATED NEUTROPHIL # 23.4 TH/MM3 (1.8-7.7); BASOPHIL % 0.1 % (0.0-2.0); HEMATOCRIT 24.4 % (39.0-51.0); HEMOGLOBIN 7.9 GM/DL (13.0-17.0); LYMPH % 2.7 % (9.0-44.0); LYMPHOCYTE # 0.7 TH/MM3 (1.0-4.8); MEAN CELL VOLUME 88.8 FL (80.0-100.0); MEAN CORPUSCULAR HEMOGLOBIN 28.9 PG (27.0-34.0); MEAN CORPUSCULAR HGB CONC 32.5 % (32.0-36.0); MEAN PLATELET VOLUME 7.4 FL (7.0-11.0); MONO % 3.4 % (0.0-8.0); MONOCYTE # 0.9 TH/MM3 (0-0.9); NEUT % 93.8 % (16.0-70.0); PLATELET COUNT 358 TH/MM3 (150-450); RED BLOOD COUNT 2.74 MIL/MM3 (4.50-5.90); RED CELL DISTRIBUTION WIDTH 17.1 % (11.6-17.2)
--- NOTE | 2017-10-08 15:33 | RADRPT ---
EXAM DATE/TIME: 10/08/2017 14:57 [place] COMPARISON: CHEST SINGLE AP, October 08, 2017, 9:30. INDICATIONS : Vascath placement left side. MEDICAL HISTORY : Scoliosis SURGICAL HISTORY : None. ENCOUNTER: Subsequent ACUITY: 4 - 6 days PAIN SCORE: Non-responsive. LOCATION: Bilateral chest FINDINGS: Interval placement of left internal jugular catheter with tip projected over the origin of the superi or vena cava. Right internal jugular catheter tip is also projected over the tip of the superior demetria a cava. No evidence of pneumothorax. ET tube tip well above the anibal. Gastric tube traverses the [id number]. Persisting consolidation in the left lower lung with loss of delineation of the left hemidiaphragm. Fullness in the right hilar region similar to prior. Cartilaginous calcification in the proximal right humerus. CONCLUSION: 1. Bilateral internal jugular catheter tips project at the origin of superior vena cava. No evidence of pneumothorax. 2. Persistent left lower lung consolidation. Joni Moss MD on October 08, 2017 at 15:27 Board Certified Radiologist. This report was verified electronically.
[2017-10-08 16:13] LABS: BANDS 15 % (0-6); CORRECTED NUCLEATED RBC 1 /100 WBC (0-0); LYMPHOCYTES 3 % (9-44); METAMYELOCYTES 1 % (0-1); MONOCYTES 3 % (0-8); NEUTROPHIL # MANUAL DIFF 23.5 TH/MM3 (1.8-7.7); NUCLEATED RED BLOOD CELL 1 (0-0); POLYS (SEG NEUTROPHILS) 78 % (16-70)
[2017-10-08 16:14] LABS: DOHLE BODIES PRESENT (NONE SEEN); OVALOCYTES 1+ (NORMAL)
--- NOTE | 2017-10-08 17:32 | PD.CONS ---
Consult Service Palliative Care Consult Requested By Dr. Dimas . Primary Care Physician Wale Healy MD Reason for Consultation a. To assist with evaluation and management of symptoms including: Edema, pain b. To assist medical decision maker(s) with: better understanding of current medical conditions; weighing benefits/burdens of medical treatment options; making medical treatment decisions. HPI History of Present Illness This is a 72-year-old male that presented to the emergency room 10/07 with a complaint of bilateral leg swelling and pain. When initially assessed by [facility] personnel he was found sitting in a wheelchair with a Vargas catheter in place. They noted when putting him on the stretcher that he did have an infection of his buttocks extending into his rectum,. Legs and scrotum. He has a history of prior gangrene and has been hospitalized prior for significant infections Vargas did not appear to be draining any fluid except some pus and black liquid. He described the pain in his legs as 10 out of 10. Upon evaluation he appeared to be oriented, but a poor historian. ED evaluation revealed the likelihood of septic shock in the emergency room Dr. Diaz for general surgery was consulted due to the concern for gangrene in his significant decubitus as well as the meatus of his penis secondary to Vargas erosion. Dr. Dale was consulted for urology and placed a second Vargas catheter. Critical care was consulted and fluids and antibiotics were given. ED course: * Laboratory: WBC 28.4, hemoglobin 9.4, hematocrit 29.4, platelets 429, sodium 132, potassium 4.2, BUN 95, creatinine 5.19, random glucose 129, magnesium 1.7, AST 37, ALT 22, lactic acid 2.2, total creatinine kinase 425, CK-MB 5.9, troponin less than 0.02, B natruretic peptide 89, C reactive protein 24. Follow-up evaluation included bilateral venous Dopplers showing no DVT in either lower extremity. Chest x-ray showed no acute disease. CT of the abdomen and pelvis shows no air within the soft tissues of the genitals to suggest Fornier's gangrene. Right renal low density likely cyst, several nonobstructing punctate left sided renal calculi, constipation, left-sided abdominal wall hernia containing large bowel loops without signs of obstructions. On evaluation, this is an elderly male lying in bed, intubated sedated on multiple vasopressors mildly hypotensive. White blood cell count remains elevated at 25 and he is anemic with a hemoglobin of 7.9. Creatinine remains elevated at 4.01 with a BUN at 79. Protein corrected calcium is low at 6.6. ABG today showed metabolic acidosis. He is being followed by infectious disease and nephrology at this time. Vas-Cath has been placed to initiate CVVH as patient's blood pressure will not tolerate hemodialysis. . Function/Cognitive Trajectory Patient has recently been discharged from [facility] after undergoing rehab. He has been home for 2 weeks and has been essentially wheelchair-bound. At this time he has extensive decubitus to buttocks, rectum, scrotum, groin and the meatus of his penis secondary to indwelling Vargas catheter. This is his second hospitalization this year having been hospitalized in August due to a fall and sepsis. He Has a very poor performance status. He has been living at home with his for the past 2 weeks and it appears that she is not able to care for him in this debilitated condition. He has been receiving home health services through [facility]. . Review of Systems ROS Limitations: Intubated, Unresponsive (Patient is nonverbal and unable to provide their own ROS. 10 part ROS taken as best as possible from medical record and available family.) Constitutional: COMPLAINS OF: Pain, Generalized weakness Endocrine: DENIES: Heat/cold intolerance, Polydipsia, Polyuria, Polyphagia Eyes: DENIES: Blurred vision, Diplopia, Eye inflammation, Eye pain, Vision loss , Photosensitivity, Double Vision, Blind spots Ears, nose, mouth, throat: DENIES: Tinnitus, Hearing loss, Vertigo, Nasal discharge, Oral lesions, Throat pain, Hoarseness, Ear Pain, Running Nose, Epistaxis, Sinus Pain, Toothache, Odynophagia Respiratory: DENIES: Apneas, Cough, Snoring, Wheezing, Hemoptysis, Sputum production, Shortness of breath Cardiovascular: COMPLAINS OF: Lower Extremity Edema, DENIES: Chest pain, Palpitations, Syncope, Dyspnea on Exertion, PND, Orthopnea, Claudication Gastrointestinal: DENIES: Abdominal pain, Black stools, Bloody stools, Constipation, Diarrhea, Nausea, Vomiting, Difficulty Swallowing, Anorexia, Dyspepsia or heartburn, Excessive gas, Bloating, Vomiting blood Genitourinary: COMPLAINS OF: Dysuria (Indwelling Vargas catheter.), Testicular Pain Musculoskeletal: DENIES: Joint pain, Muscle aches, Stiffness, Joint Swelling, Back pain, Neck pain, Decreased range of motion Integumentary: DENIES: Abnormal pigmentation, Nail changes, Pruritus, Rash, Nodules, Tumors, Excessive dryness, Non-healing sores Hematologic/Lymphatics: DENIES: Bruising, Lymphadenopathy, Prolonged bleed w/ proced, History of transfusions Immunologic/Allergic: DENIES: Eczema, Urticaria Neurologic: DENIES: Abnormal gait, Headache, Localized weakness, Paresthesias, Seizures, Speech Problems, Tremor, Poor Balance, Change in smell or taste Psychiatric: DENIES: Anxiety, Confusion, Mood changes, Depression, Hallucinations, Agitation, Suicidal Ideation, Homicidal Ideation, Delusions, Anhedonia Past Family Social History Coded Allergies: cefepime (Unverified Allergy, Severe, RASH TO CEFEPIME, 10/07/17) ceftaroline fosamil (Unverified Allergy, Severe, RASH TO CEFEPIME, 10/07/17) diphenhydramine (Unverified Allergy, Severe, ALTERED MENTAL STATUS, 10/07/17 ) tigecycline (Unverified Allergy, Severe, Rash, 10/07/17) Past Medical History BPH Recurrent cellulitis Hypertension Gout Osteomyelitis Polyneuropathy Recurrent UTIs Recurrent sepsis Arthritis Scoliosis . Past Surgical History Eye surgery Scoliosis surgery Surgery on the first right toe . Reported Medications Reported Meds & Active Scripts Active Honeydew (Hydrocodone-Acetaminophen) 5 Mg-325 Mg Tab 1 Tab PO Q6H PRN Prednisone 20 Mg Tab 20 Mg PO BID Gnp Senna Plus 8.6-50 mg (Sennosides-Docusate Sodium) 8.6 Mg-50 Mg Tab 1 Tab PO BID Flomax (Tamsulosin HCl) 0.4 Mg Cap 0.4 Mg PO DAILY Levaquin (Levofloxacin) 500 Mg Tablet 500 Mg PO Q48H Reported Ferrous Sulfate 325 Mg (65 Mg Iron) Tablet 325 Mg PO DAILY Red Yeast Rice (Red Yeast Rice Extract (Bulk)) 1 Pow Pow Current Medications Medications (Trade) Dose Ordered Sig/Flavia Route Start Time Stop Time Status Last Admin (Brethine Inj) 1 mg UNSCH PRN SQ 10/07/17 19:15 (Ferrous Sulfate) 325 mg DAILY PO 10/08/17 09:00 10/08/17 09:56 (Honeydew 5-325 Mg) 1 tab Q6H PRN PO 10/07/17 19:45 (Flomax) 0.4 mg DAILY PO 10/08/17 09:00 10/08/17 09:55 (NS Flush) 2 ml UNSCH PRN IV FLUSH 10/07/17 19:45 (NS Flush) 2 ml BID IV FLUSH 10/07/17 21:00 10/08/17 09:57 (Tylenol) 650 mg Q6H PRN PO 10/07/17 19:45 (Morphine Inj) 2 mg Q2H PRN IV PUSH 10/07/17 19:45 (Zofran Inj) 4 mg Q6H PRN IV PUSH 10/07/17 19:45 (Restoril) 15 mg HS PRN PO 10/07/17 19:45 (Heparin Inj) 5,000 units Q8HR SQ 10/07/17 19:45 10/08/17 15:10 ([facility] Nursing Information) 1 [id number] XX 10/07/17 19:45 10/07/17 19:45 (Chlorhexidine 2% Cloth) 3 pack Taper DAILY@04 TOP 10/08/17 04:00 10/04/18 03:59 10/08/17 04:00 (Chlorhexidine 2% Cloth) 3 pack UNSCH PRN TOP 10/07/17 19:45 (Camelia-Colace) 1 tab BID PO 10/07/17 21:00 (Milk Of Magnesia Liq) 30 ml Q12H PRN PO 10/07/17 19:45 (Senokot) 17.2 mg Q12H PRN PO 10/07/17 19:45 (Dulcolax Supp) 10 mg DAILY PRN RECTAL 10/07/17 19:45 (Lactulose Liq) 30 ml DAILY PRN PO 10/07/17 19:45 Pharmacy Profile Note 0 ml @ 0 mls/hr UNSCH OTHER 10/07/17 19:45 Metronidazole 100 ml @ 100 mls/hr Q8H IV 10/07/17 20:00 10/08/17 12:20 Norepinephrine Bitartrate 250 ml @ 7.5 mls/hr TITRATE PRN IV 10/07/17 20:00 10/08/17 14:29 Vasopressin 40 units/Dextrose 100 ml @ 6 mls/hr [id number] IV 10/07/17 21:12 10/08/17 14:06 Albumin Human 500 ml @ 250 mls/hr Q6H IV 10/08/17 00:30 10/08/17 20:29 10/08/17 12:17 Dopamine HCl/ Dextrose 500 ml @ 12.263 mls/ hr TITRATE PRN IV 10/08/17 01:00 (Brethine Inj) 1 mg UNSCH PRN SQ 10/08/17 01:00 Phenylephrine HCl 40 mg/Dextrose 500 ml @ 30 mls/hr TITRATE PRN IV 10/08/17 10:00 (Pepcid Inj) 10 mg Q12HR IV PUSH 10/08/17 09:00 10/08/17 09:55 (SoluCORTEF INJ) 50 mg Q6H IV PUSH 10/08/17 09:00 10/08/17 15:10 (D50w (Vial) Inj) 50 ml UNSCH PRN IV PUSH 10/08/17 08:15 (Glucagon Inj) 1 mg UNSCH PRN OTHER 10/08/17 08:15 (NovoLIN R SUPPLEMENTAL SCALE) 1 Q4H SQ 10/08/17 08:15 10/08/17 12:15 Sodium Bicarbonate 150 meq/Sterile Water 1,000 ml @ 150 mls/hr Q6H40M IV 10/08/17 10:00 10/08/17 10:14 Fentanyl Citrate 250 ml @ 5 mls/hr TITRATE PRN IV 10/08/17 08:45 (Duoneb Neb) 1 ampule Q6HR NEB NEB 10/08/17 10:00 10/08/17 15:32 (Duoneb Neb) 1 ampule Q2HR NEB PRN NEB 10/08/17 09:00 (Peridex 0.12% Liq) 15 ml BID@08,20 MT 10/08/17 20:00 Vancomycin HCl 1500 mg/Sodium Chloride 515 ml @ 250 mls/hr ONCE ONCE IV 10/08/17 18:00 10/08/17 20:03 (ASP Crit: Other exception documentation) 1 UNSCH X1 PRN .XX 10/08/17 13:15 10/09/17 13:14 ([facility] Pharmacy Information) 1 UNSCH X1 PRN XX 10/08/17 13:15 10/09/17 13:14 Meropenem 250 mg/ Sodium Chloride 100 ml @ 200 mls/hr Q8H IV 10/08/17 15:00 10/08/17 15:11 (Santyl Oint) 1 applic DAILY EXTERNAL 10/08/17 15:00 Family History He has a family history of Alzheimer's on his mother's side diabetes in his uncles. Father of an accident. Various family members with coronary artery disease. . Substance Use Tobacco: Smoked over 2 packs per day from his preteen years until 2012. Alcohol: Remote history, none recently. Prescription med abuse: No history. Illicits: No history. . 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 He and his of 49 years moved to [place] 20 years ago. They have 2 daughters one who lives in [place] and one in [place]. He enjoys watching sports particularly basketball and baseball. . Spiritual/Cultural Factors Pentecostal chinedu. . Living Will: Never completed Health Care Surrogate: Never completed Durable Power of Front Office Manager: Never completed Date completed: Never completed. Health Care Surrogate(s): Never completed. Documented care wishes: No documented care wishes available. Today's verbally stated goals: Patient intubated and unable to state goals. Family/friends goals: Goals remain aggressive per the family at this time. Ethical and Legal Issues None noted. Physical Exam Vital Signs Date Time Temp Pulse Resp B/P (MAP) Pulse Ox O2 Delivery O2 Flow Rate FiO2 10/08/17 16:00 94.5 60 17 100/53 (69) 97 10/08/17 16:00 60 10/08/17 16:00 40 10/08/17 15:54 96 50 10/08/17 14:29 63 98/55 10/08/17 14:06 63 94/53 10/08/17 14:00 63 10/08/17 12:00 92.1 61 16 88/52 (64) 98 10/08/17 12:00 40 10/08/17 12:00 61 10/08/17 11:46 63 109/56 10/08/17 10:00 66 10/08/17 09:51 99 50 10/08/17 08:00 92.1 60 29 84/54 (64) 97 10/08/17 08:00 60 10/08/17 06:00 71 10/08/17 04:00 69 10/08/17 04:00 90.0 69 18 89/50 (63) 95 10/08/17 03:11 66 92/54 10/08/17 02:00 62 10/08/17 00:00 90.0 58 20 82/47 (59) 96 10/08/17 00:00 58 10/07/17 22:07 58 28 77/41 (53) 100 10/07/17 21:29 62 68/38 10/07/17 19:49 56 75/44 10/07/17 19:00 88.5 57 24 82/44 (57) 99 Room Air 10/07/17 18:30 57 22 81/51 (61) 98 Room Air 10/07/17 18:22 56 22 64/34 (44) 98 Room Air 10/07/17 17:52 56 22 82/45 (57) 100 Room Air 10/07/17 17:47 100 Room Air 10/07/17 17:47 100 Room Air 10/07/17 17:20 88.8 10/07/17 17:06 88.8 52 18 82/39 (53) 97 Room Air 10/07/17 17:03 18 10/08/17 10/09/17 19:00 07:00 Intake Total 5278 ml Balance 5278 ml IV Total 5278 ml Exam CONSTITUTIONAL/GENERAL: This is an elderly male obese, intubated, sedated no acute distress. TUBES/LINES/DRAINS: Left IJ central line, ETT, Vargas catheter, OGT. SKIN: No jaundice, rashes, or lesions. Ecchymoses on upper extremities. Skin temperature cool, large decubitus on buttocks extending up to rectum and scrotum. HEAD: Atraumatic. Normocephalic. EYES: Pupils equal and round and reactive. Extraocular motions intact. No scleral icterus. No injection or drainage. Fundi not examined. ENT:Nose without bleeding or purulent drainage. NECK: Trachea midline. Supple, nontender. No palpable thyroid enlargement or nodularity. CARDIOVASCULAR: Regular rate and rhythm without murmurs, gallops, or rubs. No JVD. Peripheral pulses symmetric. RESPIRATORY/CHEST: Mechanically ventilated. Scattered wheezes across the anterior lung domínguez. Bibasilar crackles. GASTROINTESTINAL: Abdomen soft, nondistended. No hepato-splenomegaly, or palpable masses. No guarding. Bowel sounds present. GENITOURINARY: Without palpable bladder distension. Vargas catheter in place with wound at the meatus. MUSCULOSKELETAL: 2+ pitting edema on bilateral lower extremities with scattered wounds on both lower legs. LYMPHATICS: No palpable cervical or supraclavicular adenopathy. NEUROLOGICAL: Intubated, sedated. PSYCHIATRIC: Sedated. Diagnostic Tests Laboratory Laboratory Tests Test 10/07/17 17:23 10/07/17 18:54 10/07/17 21:00 10/07/17 22:20 White Blood Count 28.4 TH/MM3 (4.0-11.0) Red Blood Count 3.24 MIL/MM3 (4.50-5.90) Hemoglobin 9.4 GM/DL (13.0-17.0) Hematocrit 29.4 % (39.0-51.0) Mean Corpuscular Volume 90.9 FL (80.0-100.0) Mean Corpuscular Hemoglobin 29.0 PG (27.0-34.0) Mean Corpuscular Hemoglobin Concent 31.9 % (32.0-36.0) Red Cell Distribution Width 17.4 % (11.6-17.2) Platelet Count 429 TH/MM3 (150-450) Mean Platelet Volume 7.7 FL (7.0-11.0) Neutrophils (%) (Auto) 94.1 % (16.0-70.0) Lymphocytes (%) (Auto) 2.2 % (9.0-44.0) Monocytes (%) (Auto) 3.5 % (0.0-8.0) Eosinophils (%) (Auto) 0.0 % (0.0-4.0) Basophils (%) (Auto) 0.2 % (0.0-2.0) Neutrophils # (Auto) 26.7 TH/MM3 (1.8-7.7) Lymphocytes # (Auto) 0.6 TH/MM3 (1.0-4.8) Monocytes # (Auto) 1.0 TH/MM3 (0-0.9) Eosinophils # (Auto) 0.0 TH/MM3 (0-0.4) Basophils # (Auto) 0.1 TH/MM3 (0-0.2) CBC Comment AUTO DIFF Differential Total Cells Counted 100 Neutrophils % (Manual) 81 % (16-70) Band Neutrophils % 13 % (0-6) Lymphocytes % 2 % (9-44) Monocytes % 4 % (0-8) Neutrophils # (Manual) 26.7 TH/MM3 (1.8-7.7) Differential Comment FINAL DIFF MANUAL Toxic Granulation 1+ (NORMAL) Toxic Vacuolation PRESENT (NONE SEEN) Platelet Estimate NORMAL (NORMAL) Platelet Morphology Comment NORMAL (NORMAL) Prothrombin Time 11.8 SEC (9.8-11.6) Prothromb Time International Ratio 1.2 RATIO Activated Partial Thromboplast Time 41.5 SEC (24.3-30.1) Blood Urea Nitrogen 95 MG/DL (7-18) Creatinine 5.19 MG/DL (0.60-1.30) Random Glucose 129 MG/DL (74-106) Total Protein 7.2 GM/DL (6.4-8.2) Albumin 1.6 GM/DL (3.4-5.0) Calcium Level 7.8 MG/DL (8.5-10.1) Magnesium Level 1.7 MG/DL (1.5-2.5) Alkaline Phosphatase 138 U/L (45-117) Aspartate Amino Transf (AST/SGOT) 37 U/L (15-37) Alanine Aminotransferase (ALT/SGPT) 22 U/L (12-78) Total Bilirubin 0.2 MG/DL (0.2-1.0) Sodium Level 132 MEQ/L (136-145) Potassium Level 4.2 MEQ/L (3.5-5.1) Chloride Level 109 MEQ/L (98-107) Carbon Dioxide Level 5.9 MEQ/L (21.0-32.0) Anion Gap 17 MEQ/L (5-15) Estimat Glomerular Filtration Rate 11 ML/MIN (>89) Lactic Acid Level 2.2 mmol/L (0.4-2.0) 2.1 mmol/L (0.4-2.0) Total Creatine Kinase 425 U/L (39-308) Creatine Kinase MB 24.9 NG/ML (0.5-3.6) Creatine Kinase MB % 5.9 % (0.0-4.0) Troponin I LESS THAN 0.02 NG/ML B-Type Natriuretic Peptide 89 PG/ML (0-100) C-Reactive Protein 24.00 MG/DL (0.00-0.30) Thyroid Stimulating Hormone 3rd Gen 0.788 uIU/ML (0.358-3.740) Nasal Screen MRSA (PCR) MRSA DETECTED (NOT DETECT) Test 10/08/17 03:55 10/08/17 08:35 10/08/17 08:40 10/08/17 10:25 White Blood Count 26.0 TH/MM3 (4.0-11.0) Red Blood Count 2.81 MIL/MM3 (4.50-5.90) Hemoglobin 8.1 GM/DL (13.0-17.0) Hematocrit 25.3 % (39.0-51.0) Mean Corpuscular Volume 90.0 FL (80.0-100.0) Mean Corpuscular Hemoglobin 28.9 PG (27.0-34.0) Mean Corpuscular Hemoglobin Concent 32.1 % (32.0-36.0) Red Cell Distribution Width 17.6 % (11.6-17.2) Platelet Count 354 TH/MM3 (150-450) Mean Platelet Volume 7.3 FL (7.0-11.0) Neutrophils (%) (Auto) 94.5 % (16.0-70.0) Lymphocytes (%) (Auto) 3.1 % (9.0-44.0) Monocytes (%) (Auto) 2.0 % (0.0-8.0) Eosinophils (%) (Auto) 0.1 % (0.0-4.0) Basophils (%) (Auto) 0.3 % (0.0-2.0) Neutrophils # (Auto) 24.5 TH/MM3 (1.8-7.7) Lymphocytes # (Auto) 0.8 TH/MM3 (1.0-4.8) Monocytes # (Auto) 0.5 TH/MM3 (0-0.9) Eosinophils # (Auto) 0.0 TH/MM3 (0-0.4) Basophils # (Auto) 0.1 TH/MM3 (0-0.2) CBC Comment AUTO DIFF Differential Total Cells Counted 100 Neutrophils % (Manual) 66 % (16-70) Band Neutrophils % 27 % (0-6) Lymphocytes % 1 % (9-44) Monocytes % 1 % (0-8) Neutrophils # (Manual) 25.5 TH/MM3 (1.8-7.7) Metamyelocytes 5 % (0-1) Differential Comment FINAL DIFF MANUAL Toxic Vacuolation PRESENT (NONE SEEN) Platelet Estimate NORMAL (NORMAL) Platelet Morphology Comment NORMAL (NORMAL) Dev Cells 1+ (NORMAL) Erythrocyte Sedimentation Rate 80 mm/hr (0-20) Prothrombin Time 13.1 SEC (9.8-11.6) Prothromb Time International Ratio 1.3 RATIO Activated Partial Thromboplast Time 43.5 SEC (24.3-30.1) Blood Urea Nitrogen 86 MG/DL (7-18) Creatinine 4.36 MG/DL (0.60-1.30) Random Glucose 181 MG/DL (74-106) Total Protein 5.6 GM/DL (6.4-8.2) Albumin 1.6 GM/DL (3.4-5.0) Calcium Level 6.1 MG/DL (8.5-10.1) Phosphorus Level 6.4 MG/DL (2.5-4.9) Magnesium Level 1.6 MG/DL (1.5-2.5) Alkaline Phosphatase 105 U/L (45-117) Aspartate Amino Transf (AST/SGOT) 29 U/L (15-37) Alanine Aminotransferase (ALT/SGPT) 20 U/L (12-78) Total Bilirubin 0.3 MG/DL (0.2-1.0) Sodium Level 139 MEQ/L (136-145) Potassium Level 3.7 MEQ/L (3.5-5.1) Chloride Level 115 MEQ/L (98-107) Carbon Dioxide Level 6.6 MEQ/L (21.0-32.0) Anion Gap 17 MEQ/L (5-15) Estimat Glomerular Filtration Rate 14 ML/MIN (>89) Lactic Acid Level 1.5 mmol/L (0.4-2.0) Protein Corrected Calcium 6.8 MG/DL (8.5-10.1) 25-Hydroxy Vitamin D Total 5.5 ng/ML (30-100) Vancomycin Level Trough 18.9 MCG/ML (5.0-10.0) Urine Color YELLOW (YELLW/STRAW) Urine Turbidity CLOUDY (CLEAR) Urine pH 5.5 (5.0-8.5) Urine Specific [place] 1.018 (1.002-1.035) Urine Protein 300 mg/dL (NEG-TRACE) Urine Glucose (UA) TRACE mg/dL (NEG) Urine Ketones NEG mg/dL (NEG) Urine Occult Blood MOD (NEG) Urine Nitrite NEG (NEG) Urine Bilirubin NEG (NEG) Urine Urobilinogen LESS THAN 2.0 MG/DL (LESS Urine Leukocyte Esterase LARGE (NEG) Urine RBC 59 /hpf (0-3) Urine WBC /hpf (0-5) Urine WBC Clumps MOD (NONE) Urine Bacteria MANY /hpf (NONE) Microscopic Urinalysis Comment CATH-CULTURE IND Urine Random Creatinine 110.0 MG/DL Urine Random Sodium 61 MEQ/L Blood Gas Puncture Site LT RADIAL Blood Gas Patient Temperature 98.6 Blood Gas HCO3 7 mmol/L (22-26) Blood Gas Base Excess -21.8 mmol/L (-2-2) Blood Gas Oxygen Saturation 91 % (90-100) Arterial Blood pH 7.05 (7.380-7.420) Arterial Blood Partial Pressure CO2 25 mmHg (38-42) Arterial Blood Partial Pressure O2 85 mmHg (61-120) Arterial Blood Oxygen Content 10.5 Vol % (12.0-20.0) Arterial Blood Carboxyhemoglobin 0.0 % (0-4) Arterial Blood Methemoglobin 2.3 % (0-2) Blood Gas Hemoglobin 8.2 G/DL (12.0-16.0) Blood Gas Inspired Oxygen 21 % Test 10/08/17 10:35 10/08/17 13:00 10/08/17 14:22 Blood Gas Puncture Site LT RADIAL Blood Gas Patient Temperature 98.6 Venous Blood pH 7.10 (7.360-7.400) Venous Blood Partial Pressure CO2 28 mmHg (44-48) Venous Blood Partial Pressure O2 65 mmHg (35-40) Venous Blood HCO3 8 mmol/L (22-26) Venous Blood Oxygen Saturation 84 % (70-76) Venous Blood Oxygen Content 10.3 Vol % (9.0-17.0) Venous Blood Base Excess -19.4 mmol/L (-2-2) Oxygen Delivery Device VENTILATOR Blood Gas Ventilator Setting A/C 600/18/5PEEP Blood Gas Inspired Oxygen 40 % Blood Urea Nitrogen 79 MG/DL (7-18) Creatinine 4.01 MG/DL (0.60-1.30) Random Glucose 175 MG/DL (74-106) Total Protein 5.5 GM/DL (6.4-8.2) Calcium Level 5.9 MG/DL (8.5-10.1) Sodium Level 137 MEQ/L (136-145) Potassium Level 3.5 MEQ/L (3.5-5.1) Chloride Level 112 MEQ/L (98-107) Carbon Dioxide Level 9.5 MEQ/L (21.0-32.0) Anion Gap 16 MEQ/L (5-15) Estimat Glomerular Filtration Rate 15 ML/MIN (>89) Lactic Acid Level 2.3 mmol/L (0.4-2.0) Protein Corrected Calcium 6.6 MG/DL (8.5-10.1) White Blood Count 25.0 TH/MM3 (4.0-11.0) Red Blood Count 2.74 MIL/MM3 (4.50-5.90) Hemoglobin 7.9 GM/DL (13.0-17.0) Hematocrit 24.4 % (39.0-51.0) Mean Corpuscular Volume 88.8 FL (80.0-100.0) Mean Corpuscular Hemoglobin 28.9 PG (27.0-34.0) Mean Corpuscular Hemoglobin Concent 32.5 % (32.0-36.0) Red Cell Distribution Width 17.1 % (11.6-17.2) Platelet Count 358 TH/MM3 (150-450) Mean Platelet Volume 7.4 FL (7.0-11.0) Neutrophils (%) (Auto) 93.8 % (16.0-70.0) Lymphocytes (%) (Auto) 2.7 % (9.0-44.0) Monocytes (%) (Auto) 3.4 % (0.0-8.0) Eosinophils (%) (Auto) 0.0 % (0.0-4.0) Basophils (%) (Auto) 0.1 % (0.0-2.0) Neutrophils # (Auto) 23.4 TH/MM3 (1.8-7.7) Lymphocytes # (Auto) 0.7 TH/MM3 (1.0-4.8) Monocytes # (Auto) 0.9 TH/MM3 (0-0.9) Eosinophils # (Auto) 0.0 TH/MM3 (0-0.4) Basophils # (Auto) 0.0 TH/MM3 (0-0.2) CBC Comment AUTO DIFF Differential Total Cells Counted 100 Neutrophils % (Manual) 78 % (16-70) Band Neutrophils % 15 % (0-6) Lymphocytes % 3 % (9-44) Monocytes % 3 % (0-8) Neutrophils # (Manual) 23.5 TH/MM3 (1.8-7.7) Metamyelocytes 1 % (0-1) Nucleated Red Blood Cells 1 /100 WBC (0-0) Differential Comment FINAL DIFF MANUAL Dohle Bodies PRESENT (NONE SEEN) Platelet Estimate NORMAL (NORMAL) Platelet Morphology Comment NORMAL (NORMAL) Ovalocytes 1+ (NORMAL) Result Diagram: 10/08/17 1422 10/08/17 1300 Microbiology Microbiology Date/Time Source Procedure Growth Status 10/07/17 21:05 Blood Peripheral Aerobic Blood Culture - Preliminary NO GROWTH IN 1 DAY Resulted 10/07/17 21:05 Blood Peripheral Anaerobic Blood Culture - Preliminary NO GROWTH IN 1 DAY Resulted 10/07/17 17:25 Blood Peripheral Aerobic Blood Culture - Preliminary NO GROWTH IN 1 DAY Resulted 10/07/17 17:25 Blood Peripheral Anaerobic Blood Culture - Preliminary NO GROWTH IN 1 DAY Resulted 10/07/17 17:20 Blood Peripheral Aerobic Blood Culture - Preliminary NO GROWTH IN 1 DAY Resulted 10/07/17 17:20 Blood Peripheral Anaerobic Blood Culture - Preliminary NO GROWTH IN 1 DAY Resulted 10/08/17 10:20 Sputum Endotracheal Gram Stain - Final Resulted 10/08/17 10:20 Sputum Endotracheal Sputum Culture Pending Resulted 10/08/17 08:35 Urine Catheterized Urine Urine Culture Pending Received 10/07/17 17:25 Wound Buttock Gram Stain - Final Resulted 10/07/17 17:25 Wound Buttock Wound Culture - Preliminary IMMATURE GROWTH - REINCUBATE Resulted Imaging Last Impressions Chest X-Ray 10/08/17 0000 Signed Impressions: Service Date/Time: October 14:57 - CONCLUSION: 1. Bilateral internal jugular catheter tips project at the origin of superior vena cava. No evidence of pneumothorax. 2. Persistent left lower lung consolidation. Joni Moss MD Lower Extremity Ultrasound 10/07/17 0000 Signed Impressions: Service Date/Time: Saturday, October 07, 2017 19:52 - CONCLUSION: No DVT in either lower extremity. Manuel David MD Abdomen/Pelvis CT 10/07/17 0000 Signed Impressions: Service Date/Time: Saturday, October 07, 2017 18:37 - CONCLUSION: 1. 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 2. Right renal low density likely cyst. 3. Several nonobstructing punctate left sided renal calculi. 4. Constipation. 5. Left-sided abdominal wall hernia containing large bowel loops without signs of obstruction. Manuel David MD Procedures 10/08: Orotracheal intubation 10/08: Left IJ central line placement . Patient/Family Conference Present at Family Conference: Spoke with via telephone. Explained patient's Critical condition and that he is now on life support. She requested a visit at bedside which was approved by the nurse. 17: 25 minutes with , 's sister and at bedside and went to conference room for further discussion. Reviewed palliative care purpose and focus, below listed items, patient's clinical course, complications, hypothermia , acidosis, sepsis, current interventions specialist opinions and the benefits and burdens of each. We reviewed CODE STATUS with in-depth explanation of CPR, shock and ACLS drugs. Patient's requested that we contact her daughter in [place], Melissa, who is a physical therapist technician and has multiple medical questions that the mother cannot answer. Patient's appears overwhelmed with the decision-making process and is having difficulty grasping the full implications of his decline. No code changes were made at this time, pending discussion with the daughter. 18: 30 spoke with patient's daughter, Melissa, via telephone and updated her as to clinical status, disease course and reviewed pending decisions. She was grateful for the update and wished to contact her other sister, Sadie, who lives in [place] make plans to travel south to support their mother in this difficult decision-making process. She has requested a follow-up update tomorrow afternoon. Contact information was provided for any further questions or concerns. . Family Conference Location: Telephone Issues Discussed: * Palliative care role, purpose, approach * Additional medical, psychosocial, and spiritual history * Patients general health, functional status, and cognitive changes in the months leading up to the current hospitalization * Patient/family understanding of the current medical problems * Patient/family understanding of prognosis * Patients goals of care as best understood from advance directives and/or conversations and/or values * Current medical treatment options and benefits/burdens of those options * Likely scenarios comparing ongoing aggressive care with a transition to comfort measures only * Questions answered to the best of my ability * Palliative care contact information provided Assessment and Plan Disease Oriented Problem List: (1) Acute kidney failure (2) Metabolic acidosis (3) Sacral decubitus ulcer, stage III (4) Septic shock (5) Debility Symptom Scale: (1) Pain, generalized 0-10 Scale: Unable to quantify (Intubated, sedated) (2) Edema 0-10 Scale: 5 (2+ bilateral lower extremities.) Pertinent Non-Medical Issues Psychosocial: Her brain cells he was born in [place] and completed high school there 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 He and his of 49 years moved to [place] 20 years ago. They have 2 daughters one who lives in [place] and one in [place]. He enjoys watching sports particularly basketball and baseball. Spiritual: [employer]ec[employer]al chinedu Legal: At this time, his would be his legal healthcare proxy. Ethical issues impacting care: manager strategy & account reports that DCF is involved in their home care as there is some question whether the patient and are able to care for himself any longer. . Important Contacts : Omayra Joseph Daughter: Melissa Etienne cell , home Daughter: Sadie danielle . Prognosis His prognosis is poor. He is in septic shock on 3 vasopressors to maintain even minimal blood pressure. He is now in acute renal failure and hemodynamically compromised so unable to undergo hemodialysis. Vas-Cath has been placed in CVVH will be initiated today, however given his degree of sepsis , large buttocks decubitus, poor protein stores, anemia and poor performance status, he is at high risk for continued complications and decline. Code Status: Full Code Plan PLAN: Legal decision maker: At this time the patient is not capacitated to make his own decisions as he is intubated and sedated. Per [place] statutes his would be the legal healthcare proxy. Goals: Remain aggressive at this time. CODE STATUS: Full code SYMPTOMS: * Edema: He has 2-3+ edema on bilateral lower extremities. Labs show low protein stores and low albumin. At this time he is hemodynamically compromised , on vasopressors and now needing to undergo CVVH. He will be difficult to diurese due to the low protein stores and the hemodynamic compromise. * Pain: He complained of 10 out of 10 pain in his legs on admission and is likely at risk from other sources of pain to include invasive lines, bedbound status, extensive decubitus across the rectum and buttocks extending up into the scrotum. He is currently receiving IV fentanyl for both sedation and pain. SUMMARY This is a 72-year-old male recently released from a custodial who his wheelchair bound and has developed severe decubitus across the buttocks rectum and scrotum. He has now developed septic shock, is on vasopressors and required intubation due to metabolic acidosis with an ABG pH of 7.05. He is on broad-spectrum anti-infective therapies and infectious disease is following. He is at elevated risk for continued complications and decline. Palliative care will continue to follow the patient during hospital course as condition evolves, to assist patient/decision-maker with understanding of their medical conditions, weighing benefits/burdens of treatment options, for clarification of goals of treatment. Additionally will assist with any symptoms of palliative concern. . Thank you for the opportunity to participate in the care of Mr. Joseph. Attestation To help prompt me to consider important information that might be impacting today's encounter and assessment, information from prior notes written by myself or my colleagues may have been "brought forward" into today's note. My signature on this note, however, is an attestation that I personally performed the exam, history, and/or decision-making noted today, and, unless otherwise indicated, the interactions with patient, family, and staff as well as the review of records all occurred today. I also attest that the listed assessment and stated plan reflect my best clinical judgment today based on the combination of historical information, prior notes, and today's exam/ interactions. When time spent is documented, it refers only to time spent today by the signer, or if indicated, combined time spent today by collaborating physician/nurse practitioner. . Magalis Llanes October 08, 2017 17:32
[2017-10-08] MEDS ORDERED: VANCOMYCIN INJ 1,500 MG in SODIUM CHLORID 0.9% 500 ML INJ 500 ML IV ONE (18:00)
[2017-10-08] MEDS ORDERED: ALTEPLASE RECOMBINANT 2 MG VIAL INTRACATH ONE (21:00)
[2017-10-08] MEDS: CHLORHEXIDINE 0.12% (ORAL KIT) 15 ML CUP MT SCH (21:24)
[2017-10-08 22:32] LABS: BICARBONATE 12.4 MEQ/L (21.0-32.0); CALCIUM 5.5 MG/DL (8.5-10.1); CREATININE 3.93 MG/DL (0.60-1.30)
[2017-10-08 22:53] LABS: TOTAL PROTEIN 5.4 GM/DL (6.4-8.2)
[2017-10-08 23:04] LABS: CALCIUM-PROTEIN CORRECTED 6.2 MG/DL (8.5-10.1)
[2017-10-09] VITALS (19 sets, daily range): BP systolic 94–121; BP diastolic 50–71; PULSE 54–64; RESP 16–21; TEMP 98.7; O2SAT 96–100
[2017-10-09] MEDS: INSULIN NovoLIN REGULAR SUPPLEMENTAL SCALE SQ SCH ×6 (00:10→20:15)
[2017-10-09] MEDS: NOREPINEPHRINE-DEXTROSE DRIP 250 ML IV PRN ×4 (01:31→21:01)
[2017-10-09] MEDS: VASOPRESSIN INJ 40 UNITS in DEXTROSE 5% IN WATER 100ML INJ 98 ML IV SCH ×4 (02:21→22:51)
[2017-10-09] MEDS: fentaNYL DRIP 250 ML IV PRN ×2 (02:22→14:49)
[2017-10-09] MEDS ORDERED: CALCIUM GLUCONATE INJ 1 GM in SODIUM CHLORIDE 0.9% INJ 100 ML IV ONE ×2 (03:45→10:00)
[2017-10-09] MEDS: HYDROCORTISONE SOD SUCCINATE 100 MG VIAL IV PUSH SCH ×4 (03:52→20:15)
[2017-10-09] MEDS: metroNIDAZOLE 500 MG INJ 100 ML IV SCH ×3 (03:52→20:21)
[2017-10-09] MEDS: CHLORHEXIDINE GLUCONATE 2 % 1 PACK (2 CLOTHS) TOP SCH (04:00)
[2017-10-09] MEDS: RESP: ALBUTEROL 2.5 MG/IPRATROPIUM 0.5 MG NEB (SCH) NEB ×4 (04:03→21:00)
[2017-10-09] MEDS: PHENYLEPHRINE INJ 40 MG in DEXTROSE 5% IN WATE 500 ML INJ 496 ML IV PRN ×2 (06:00)
[2017-10-09] MEDS: SODIUM BICARBONATE 8.4% INJ 150 MEQ in WATER STERILE FOR INJ 850 ML IV SCH ×3 (06:03→20:10)
[2017-10-09] MEDS: HEPARIN SODIUM - SQ 10,000 UNITS/ML VIAL SQ SCH ×3 (06:14→20:17)
[2017-10-09 06:53] LABS: AUTOMATED NEUTROPHIL # 23.8 TH/MM3 (1.8-7.7); BASOPHIL % 0.1 % (0.0-2.0); HEMATOCRIT 23.6 % (39.0-51.0); HEMOGLOBIN 7.9 GM/DL (13.0-17.0); LYMPHOCYTE # 0.8 TH/MM3 (1.0-4.8); MEAN CELL VOLUME 87.9 FL (80.0-100.0); MEAN CORPUSCULAR HEMOGLOBIN 29.5 PG (27.0-34.0); MEAN CORPUSCULAR HGB CONC 33.5 % (32.0-36.0); MEAN PLATELET VOLUME 7.3 FL (7.0-11.0); MONO % 4.8 % (0.0-8.0); MONOCYTE # 1.3 TH/MM3 (0-0.9); NEUT % 92.1 % (16.0-70.0); PLATELET COUNT 276 TH/MM3 (150-450); RED BLOOD COUNT 2.68 MIL/MM3 (4.50-5.90); RED CELL DISTRIBUTION WIDTH 17.3 % (11.6-17.2); WHITE BLOOD COUNT 25.9 TH/MM3 (4.0-11.0)
[2017-10-09 07:31] LABS: BICARBONATE 13.3 MEQ/L (21.0-32.0); CALCIUM 5.4 MG/DL (8.5-10.1); CREATININE 4.03 MG/DL (0.60-1.30); PHOSPHORUS 7.3 MG/DL (2.5-4.9)
[2017-10-09] MEDS: MEROPENEM IV SCH ×3 (07:43→22:50)
[2017-10-09] MEDS: FAMOTIDINE 20 MG/2 ML VIAL IV PUSH SCH (07:43)
[2017-10-09] MEDS: SODIUM CHLORIDE 0.9% IV SCH ×3 (07:43→22:50)
[2017-10-09] MEDS: COLLAGENASE OINT 30 GM TUBE EXTERNAL SCH (07:44)
[2017-10-09] MEDS: TAMSULOSIN HCL 0.4 MG CAP PO SCH (07:44)
[2017-10-09] MEDS: SODIUM CHLORIDE 0.9% FLUSH 10 ML FLUSH IV FLUSH SCH ×2 (07:44→20:20)
[2017-10-09] MEDS: FERROUS SULFATE 325 MG (65 MG ELEMENTAL IRON) TAB PO SCH (07:44)
[2017-10-09] MEDS: CHLORHEXIDINE 0.12% (ORAL KIT) 15 ML CUP MT SCH ×2 (07:45→20:20)
[2017-10-09] MEDS: DOCUSATE SODIUM 50 MG/SENNA 8.6 MG TAB PO SCH ×2 (07:45→20:16)
[2017-10-09 07:47] LABS: TOTAL PROTEIN 5.5 GM/DL (6.4-8.2)
--- NOTE | 2017-10-09 08:12 | HHI.CCPN ---
Subjective Remarks/Hospital Course 72-year-old male presents for evaluation of leg swelling. When EMS arrived they noticed that he had a infection to his buttocks when the put him on the stretcher. Per ambulance and per patient he has been for the most part sleeping and sitting on a wheelchair since been discharged from a long term. He was discharged on September 11. It is unclear as to why they discharged him. He has not moved from the wheelchair since. He has a Vargas catheter in place. 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 Patient denies any urinary or bowel movement issues but he also has a Vargas that per patient has not been changed since been discharged from the long term. Patient states that the pain is on his legs and is the main reason he called the ambulance. He denies any fevers chills or sweats. No chest pain or shortness of breath. He has multiple allergies to different medications. He denies any other medical issues at this time. 10/08 Patient is on Levophed 26 mics, Vasopressin 0.04, lactic acid 1.5 s/p 4L crystalloids on arrival. Cr: 4.36 from 5.19. 10/09 Patient was intubated yesterday and sedated with Fentnayl infusion. On Multiple pressors ( Levo 12 mics, Neosyn 90 mics and Vasopressin 0.04). 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 Afebrile. Objective Vital Signs Date Time Temp Pulse Resp B/P (MAP) Pulse Ox O2 Delivery O2 Flow Rate FiO2 10/09/17 07:43 55 125/73 10/09/17 04:04 98 40 10/09/17 04:00 98.8 18 10/07/17 19:00 Room Air Intake and Output 10/09/17 10/09/17 10/10/17 08:00 16:00 00:00 Intake Total 2762.6 ml Output Total 150 ml Balance 2612.6 ml Result Diagram: 10/09/17 0558 10/09/17 0558 Other Results Laboratory Tests Test 10/08/17 08:35 10/08/17 08:40 10/08/17 10:35 10/08/17 13:00 Urine Color YELLOW Urine Turbidity CLOUDY Urine pH 5.5 Urine Specific [place] 1.018 Urine Protein 300 mg/dL Urine Glucose (UA) TRACE mg/dL Urine Ketones NEG mg/dL Urine Occult Blood MOD Urine Nitrite NEG Urine Bilirubin NEG Urine Urobilinogen LESS THAN 2.0 MG/DL Urine Leukocyte Esterase LARGE Urine RBC 59 /hpf Urine WBC /hpf Urine WBC Clumps MOD Urine Bacteria MANY /hpf Microscopic Urinalysis Comment CATH-CULTURE IND Urine Random Creatinine 110.0 MG/DL Urine Random Sodium 61 MEQ/L Blood Gas Puncture Site LT RADIAL LT RADIAL Blood Gas Patient Temperature 98.6 98.6 Blood Gas HCO3 7 mmol/L Blood Gas Base Excess -21.8 mmol/L Blood Gas Oxygen Saturation 91 % Arterial Blood pH 7.05 Arterial Blood Partial Pressure CO2 25 mmHg Arterial Blood Partial Pressure O2 85 mmHg Arterial Blood Oxygen Content 10.5 Vol % Arterial Blood Carboxyhemoglobin 0.0 % Arterial Blood Methemoglobin 2.3 % Blood Gas Hemoglobin 8.2 G/DL Blood Gas Inspired Oxygen 21 % 40 % Venous Blood pH 7.10 Venous Blood Partial Pressure CO2 28 mmHg Venous Blood Partial Pressure O2 65 mmHg Venous Blood HCO3 8 mmol/L Venous Blood Oxygen Saturation 84 % Venous Blood Oxygen Content 10.3 Vol % Venous Blood Base Excess -19.4 mmol/L Oxygen Delivery Device VENTILATOR Blood Gas Ventilator Setting A/C 600/18/5PEEP Blood Urea Nitrogen 79 MG/DL Creatinine 4.01 MG/DL Random Glucose 175 MG/DL Total Protein 5.5 GM/DL Calcium Level 5.9 MG/DL Sodium Level 137 MEQ/L Potassium Level 3.5 MEQ/L Chloride Level 112 MEQ/L Carbon Dioxide Level 9.5 MEQ/L Anion Gap 16 MEQ/L Estimat Glomerular Filtration Rate 15 ML/MIN Lactic Acid Level 2.3 mmol/L Protein Corrected Calcium 6.6 MG/DL Test 10/08/17 14:22 10/08/17 20:42 10/08/17 22:21 10/09/17 05:58 White Blood Count 25.0 TH/MM3 25.9 TH/MM3 Red Blood Count 2.74 MIL/MM3 2.68 MIL/MM3 Hemoglobin 7.9 GM/DL 7.9 GM/DL Hematocrit 24.4 % 23.6 % Mean Corpuscular Volume 88.8 FL 87.9 FL Mean Corpuscular Hemoglobin 28.9 PG 29.5 PG Mean Corpuscular Hemoglobin Concent 32.5 % 33.5 % Red Cell Distribution Width 17.1 % 17.3 % Platelet Count 358 TH/MM3 276 TH/MM3 Mean Platelet Volume 7.4 FL 7.3 FL Neutrophils (%) (Auto) 93.8 % 92.1 % Lymphocytes (%) (Auto) 2.7 % 3.0 % Monocytes (%) (Auto) 3.4 % 4.8 % Eosinophils (%) (Auto) 0.0 % 0.0 % Basophils (%) (Auto) 0.1 % 0.1 % Neutrophils # (Auto) 23.4 TH/MM3 23.8 TH/MM3 Lymphocytes # (Auto) 0.7 TH/MM3 0.8 TH/MM3 Monocytes # (Auto) 0.9 TH/MM3 1.3 TH/MM3 Eosinophils # (Auto) 0.0 TH/MM3 0.0 TH/MM3 Basophils # (Auto) 0.0 TH/MM3 0.0 TH/MM3 CBC Comment AUTO DIFF DIFF FINAL Differential Total Cells Counted 100 Neutrophils % (Manual) 78 % Band Neutrophils % 15 % Lymphocytes % 3 % Monocytes % 3 % Neutrophils # (Manual) 23.5 TH/MM3 Metamyelocytes 1 % Nucleated Red Blood Cells 1 /100 WBC Differential Comment FINAL DIFF MANUAL Dohle Bodies PRESENT Platelet Estimate NORMAL Platelet Morphology Comment NORMAL Ovalocytes 1+ Blood Urea Nitrogen 78 MG/DL 77 MG/DL Creatinine 3.93 MG/DL 4.03 MG/DL Random Glucose 129 MG/DL 141 MG/DL Total Protein 5.4 GM/DL 5.5 GM/DL Calcium Level 5.5 MG/DL 5.4 MG/DL Sodium Level 137 MEQ/L 134 MEQ/L Potassium Level 3.6 MEQ/L 3.7 MEQ/L Chloride Level 105 MEQ/L 103 MEQ/L Carbon Dioxide Level 12.4 MEQ/L 13.3 MEQ/L Anion Gap 20 MEQ/L 18 MEQ/L Estimat Glomerular Filtration Rate 15 ML/MIN 15 ML/MIN Protein Corrected Calcium 6.2 MG/DL 6.0 MG/DL Blood Gas Puncture Site RT RADIAL Blood Gas Patient Temperature 98.6 Blood Gas HCO3 10 mmol/L Blood Gas Base Excess -16.3 mmol/L Blood Gas Oxygen Saturation 91 % Arterial Blood pH 7.23 Arterial Blood Partial Pressure CO2 25 mmHg Arterial Blood Partial Pressure O2 82 mmHg Arterial Blood Oxygen Content 10.0 Vol % Arterial Blood Carboxyhemoglobin 0.2 % Arterial Blood Methemoglobin 2.7 % Blood Gas Hemoglobin 7.7 G/DL Oxygen Delivery Device VENTILATOR Blood Gas Ventilator Setting AC/RR18/VT600/PEEP5 Blood Gas Inspired Oxygen 40 % Phosphorus Level 7.3 MG/DL Imaging Last Impressions Chest X-Ray 10/08/17 0000 Signed Impressions: Service Date/Time: October 14:57 - CONCLUSION: 1. Bilateral internal jugular catheter tips project at the origin of superior vena cava. No evidence of pneumothorax. 2. Persistent left lower lung consolidation. Joni Moss MD Lower Extremity Ultrasound 10/07/17 0000 Signed Impressions: Service Date/Time: Saturday, October 07, 2017 19:52 - CONCLUSION: No DVT in either lower extremity. Manuel David MD Abdomen/Pelvis CT 10/07/17 0000 Signed Impressions: Service Date/Time: Saturday, October 07, 2017 18:37 - CONCLUSION: 1. 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 2. Right renal low density likely cyst. 3. Several nonobstructing punctate left sided renal calculi. 4. Constipation. 5. Left-sided abdominal wall hernia containing large bowel loops without signs of obstruction. Manuel David MD Objective Remarks GENERAL: Patient is 72 yo intubated and sedated HEAD: Normocephalic. Atraumatic. Glasses. EYES: Pupils equal round and reactive to light bilaterally. No scleral icterus. CHEST: No accessory muscle use. No respiratory distress. CARDIOVASCULAR: Regular rate and rhythm. ABDOMEN: Soft, nontender, =BS EXTREMITIES: Severe pitting edema bilateral lower extremities with some weeping. Right heel with fairly large chronic eschar. SKIN: Overall cool and pale. Bilateral buttocks and upper posterior thighs with erythema, extensive stage 1 and stage 2 pressures ulcers. Small areas approximately 3 x 4 cm at the inferior gluteal fold bilaterally with superficial necrotic tissue. No crepitus. No purulent drainage. NEUROLOGICAL: Sedated, intubated. A/P Assessment and Plan VDRF Septic shock AG Metabolic acidosis ARF Leukocytosis Anemia Pressure ulcers on the buttock Lower extremity edema Hx UTI Plan Neuro: On Fentnayl infusion for sedation . Monitor neuro status and sedation vacation. Pulm: Continue with vent support keep sats >92% Bronchodilators, ICU vent bundle CV: Continue with pressors ( On Vaso, Levophed, Neosyn) monitor HR and BP keep MAP>65mmHg on stress dose steroids- HC 50mg IV Q6 Check echo, Lactic acid 1.5. 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 Surgery and Urology following Wound care is following CT abd/pelvis: No air within the soft tissues the genitals to suggest Michael's gangrene. Right renal low density likely cyst. 3. Several nonobstructing punctate left sided renal calculi . Left-sided abdominal wall hernia containing large bowel loops without signs of obstruction Heme: Monitor CBC, coags Endo: SSI for glycemic control GI prophylaxis- On Pepcid DVT prophylaxis- Heparin SQ Doppler US LE : No DVT DVT GI prophylaxis -Juventino's and SCDs -Subcu heparin -Pepcid Lines: Right IJ CVP placed 5 Left IJ vascath placed 10/08 Patient is critically ill with septic shock, ARF, leukocytosis, severe metabolic acidosis CCT 40 mins Rema Walker MD October 09, 2017 08:12
--- NOTE | 2017-10-09 09:52 | HHI.IDPN ---
Subjective Subjective Remarks 72-year-old male presents for evaluation of leg swelling. When EMS arrived they noticed that he has multiple wounds in his buttock region. Patient was admitted here last August and treated for UTI. He has had problems with his knees and has had problem ambulating. It was felt to be due to arthritis. He was D/C to a SNF after that hospitalization, and apparently went home first week of September. He lives with his who has been doing his care. Patient reportedly has been mostly in a wheelchair, and has resulted in him getting his wounds. He has been having problem with swelling of his legs and prompted him to go to the hospital. There was no mention of any ever, chills or sweats. Deenies respiratory, or problem. On presentation, he has a very elevated WBC. 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 CT did not show any gas in subcutaneous tissue, and no intraabdominal process. He has renal failure. He ended up getting intubated, and has been on multiple pressors. Also has been acidotic and on bicarb drip. Infectious Disease consultation has been requested to assist in evaluation and treatment of his sepsis and shock. Notes reviewed Temps better - not hypothermic anymore Remains on 3 pressors - vasopressin, levophed, and neosynephrine On fentanyl On the vent, FiO2 at 0.4 Low UO CReatinine rising On bicarb drip Has vascath and being evaluated for CVVHD UC pending BC negative so far WBC remains elevated Antibiotics Flagyl Meropenem Vanco Current Medications Medications (Trade) Dose Ordered Sig/Flavia Route Start Time Stop Time Status Last Admin (Brethine Inj) 1 mg UNSCH PRN SQ 10/07/17 19:15 (Ferrous Sulfate) 325 mg DAILY PO 10/08/17 09:00 10/09/17 07:44 ([place] 5-325 Mg) 1 tab Q6H PRN PO 10/07/17 19:45 (Flomax) 0.4 mg DAILY PO 10/08/17 09:00 10/09/17 07:44 (NS Flush) 2 ml UNSCH PRN IV FLUSH 10/07/17 19:45 (NS Flush) 2 ml BID IV FLUSH 10/07/17 21:00 10/09/17 07:44 (Tylenol) 650 mg Q6H PRN PO 10/07/17 19:45 (Morphine Inj) 2 mg Q2H PRN IV PUSH 10/07/17 19:45 (Zofran Inj) 4 mg Q6H PRN IV PUSH 10/07/17 19:45 (Restoril) 15 mg HS PRN PO 10/07/17 19:45 (Heparin Inj) 5,000 units Q8HR SQ 10/07/17 19:45 10/09/17 06:14 ([facility]) 1 [id number] XX 10/07/17 19:45 10/07/17 19:45 (Chlorhexidine 2% Cloth) 3 pack Taper DAILY@04 TOP 10/08/17 04:00 10/04/18 03:59 10/09/17 04:00 (Chlorhexidine 2% Cloth) 3 pack UNSCH PRN TOP 10/07/17 19:45 (Camelia-Colace) 1 tab BID PO 10/07/17 21:00 (Milk Of Magnesia Liq) 30 ml Q12H PRN PO 10/07/17 19:45 (Senokot) 17.2 mg Q12H PRN PO 10/07/17 19:45 (Dulcolax Supp) 10 mg DAILY PRN RECTAL 10/07/17 19:45 (Lactulose Liq) 30 ml DAILY PRN PO 10/07/17 19:45 Pharmacy Profile Note 0 ml @ 0 mls/hr UNSCH OTHER 10/07/17 19:45 Metronidazole 100 ml @ 100 mls/hr Q8H IV 10/07/17 20:00 10/09/17 03:52 Norepinephrine Bitartrate 250 ml @ 7.5 mls/hr TITRATE PRN IV 10/07/17 20:00 10/09/17 06:03 Vasopressin 40 units/Dextrose 100 ml @ 6 mls/hr [id number] IV 10/07/17 21:12 10/09/17 02:21 Dopamine HCl/ Dextrose 500 ml @ 12.263 mls/ hr TITRATE PRN IV 10/08/17 01:00 (Brethine Inj) 1 mg UNSCH PRN SQ 10/08/17 01:00 Phenylephrine HCl 40 mg/Dextrose 500 ml @ 30 mls/hr TITRATE PRN IV 10/08/17 10:00 10/09/17 06:00 (Pepcid Inj) 10 mg Q12HR IV PUSH 10/08/17 09:00 10/09/17 07:43 (SoluCORTEF INJ) 50 mg Q6H IV PUSH 10/08/17 09:00 10/09/17 07:44 (D50w (Vial) Inj) 50 ml UNSCH PRN IV PUSH 10/08/17 08:15 (Glucagon Inj) 1 mg UNSCH PRN OTHER 10/08/17 08:15 (NovoLIN R SUPPLEMENTAL SCALE) 1 Q4H SQ 10/08/17 08:15 10/09/17 07:52 Sodium Bicarbonate 150 meq/Sterile Water 1,000 ml @ 150 mls/hr Q6H40M IV 10/08/17 10:00 10/09/17 06:03 Fentanyl Citrate 250 ml @ 5 mls/hr TITRATE PRN IV 10/08/17 08:45 10/09/17 02:22 (Duoneb Neb) 1 ampule Q6HR NEB NEB 10/08/17 10:00 10/09/17 09:12 (Duoneb Neb) 1 ampule Q2HR NEB PRN NEB 10/08/17 09:00 (Peridex 0.12% Liq) 15 ml BID@08,20 MT 10/08/17 20:00 10/09/17 07:45 (ASP Crit: Other exception documentation) 1 UNSCH X1 PRN .XX 10/08/17 13:15 10/09/17 13:14 ([facility] Information) 1 UNSCH X1 PRN XX 10/08/17 13:15 10/09/17 13:14 Meropenem 250 mg/ Sodium Chloride 100 ml @ 200 mls/hr Q8H IV 10/08/17 15:00 10/09/17 07:43 (Santyl Oint) 1 applic DAILY EXTERNAL 10/08/17 15:00 10/09/17 07:44 Calcium Gluconate 1 gm/Sodium Chloride 110 ml @ 110 mls/hr ONCE ONCE IV 10/09/17 10:00 10/09/17 10:59 (Vitamin D Liq) 5,000 units DAILY PO 10/09/17 10:00 (Phoslo) 667 mg TID PO 10/09/17 13:00 Harlan Saxenacath Past Medical History Previous history of UTI Chronic arthritis Scoliosis status post surgery Chronic kidney disease Past Surgical History History of eye surgery Scoliosis surgery Surgery on the right first toe Allergies: Coded Allergies: cefepime (Unverified Allergy, Severe, RASH TO CEFEPIME, 10/07/17) ceftaroline fosamil (Unverified Allergy, Severe, RASH TO CEFEPIME, 10/07/17) diphenhydramine (Unverified Allergy, Severe, ALTERED MENTAL STATUS, 10/07/17 ) tigecycline (Unverified Allergy, Severe, Rash, 10/07/17) Objective . Vital Signs Date Time Temp Pulse Resp B/P (MAP) Pulse Ox O2 Delivery O2 Flow Rate FiO2 10/09/17 09:07 59 101/58 10/09/17 08:27 96 40 10/09/17 08:00 40 10/09/17 08:00 60 10/09/17 08:00 96.4 60 21 120/71 (87) 98 10/09/17 07:43 55 125/73 10/09/17 07:00 59 116/59 10/09/17 07:00 59 116/59 10/09/17 07:00 59 116/59 10/09/17 06:38 57 112/57 10/09/17 06:03 60 120/57 10/09/17 06:00 61 10/09/17 06:00 61 138/87 10/09/17 04:04 98 40 10/09/17 04:00 98.8 59 18 121/58 (79) 98 10/09/17 04:00 59 10/09/17 04:00 40 10/09/17 02:39 65 120/58 10/09/17 02:21 60 114/58 10/09/17 02:00 61 10/09/17 02:00 61 114/59 10/09/17 01:31 66 110/57 10/09/17 01:30 60 110/57 10/09/17 00:25 98 40 10/09/17 00:00 40 10/09/17 00:00 98.7 59 16 107/57 (74) 98 10/09/17 00:00 59 10/09/17 00:00 59 107/57 10/08/17 22:04 59 107/50 10/08/17 22:03 60 107/50 10/08/17 22:01 60 107/50 10/08/17 22:00 60 107/50 10/08/17 22:00 60 10/08/17 20:02 98 40 10/08/17 20:00 63 10/08/17 20:00 40 10/08/17 20:00 97.8 63 15 91/51 (64) 98 10/08/17 20:00 63 91/51 10/08/17 20:00 63 91/51 10/08/17 20:00 63 91/51 10/08/17 18:02 65 102/51 10/08/17 18:00 65 10/08/17 17:56 65 101/50 10/08/17 17:00 63 106/54 10/08/17 16:00 94.5 60 17 100/53 (69) 97 10/08/17 16:00 60 10/08/17 16:00 40 10/08/17 15:54 96 50 10/08/17 14:29 63 98/55 10/08/17 14:06 63 94/53 10/08/17 14:00 63 10/08/17 12:00 92.1 61 16 88/52 (64) 98 10/08/17 12:00 40 10/08/17 12:00 61 10/08/17 11:46 63 109/56 10/08/17 10:00 66 10/08/17 09:51 99 50 10/09/17 10/09/17 10/10/17 15:00 23:00 07:00 Intake Total 110 ml Balance 110 ml IV Total 110 ml . Laboratory Tests Test 10/07/17 17:23 10/08/17 03:55 10/08/17 14:22 10/09/17 05:58 White Blood Count 28.4 TH/MM3 26.0 TH/MM3 25.0 TH/MM3 25.9 TH/MM3 Red Blood Count 3.24 MIL/MM3 2.81 MIL/MM3 2.74 MIL/MM3 2.68 MIL/MM3 Hemoglobin 9.4 GM/DL 8.1 GM/DL 7.9 GM/DL 7.9 GM/DL Hematocrit 29.4 % 25.3 % 24.4 % 23.6 % Mean Corpuscular Volume 90.9 FL 90.0 FL 88.8 FL 87.9 FL Mean Corpuscular Hemoglobin 29.0 PG 28.9 PG 28.9 PG 29.5 PG Mean Corpuscular Hemoglobin Concent 31.9 % 32.1 % 32.5 % 33.5 % Red Cell Distribution Width 17.4 % 17.6 % 17.1 % 17.3 % Platelet Count 429 TH/MM3 354 TH/MM3 358 TH/MM3 276 TH/MM3 Mean Platelet Volume 7.7 FL 7.3 FL 7.4 FL 7.3 FL Neutrophils (%) (Auto) 94.1 % 94.5 % 93.8 % 92.1 % Lymphocytes (%) (Auto) 2.2 % 3.1 % 2.7 % 3.0 % Monocytes (%) (Auto) 3.5 % 2.0 % 3.4 % 4.8 % Eosinophils (%) (Auto) 0.0 % 0.1 % 0.0 % 0.0 % Basophils (%) (Auto) 0.2 % 0.3 % 0.1 % 0.1 % Neutrophils # (Auto) 26.7 TH/MM3 24.5 TH/MM3 23.4 TH/MM3 23.8 TH/MM3 Lymphocytes # (Auto) 0.6 TH/MM3 0.8 TH/MM3 0.7 TH/MM3 0.8 TH/MM3 Monocytes # (Auto) 1.0 TH/MM3 0.5 TH/MM3 0.9 TH/MM3 1.3 TH/MM3 Eosinophils # (Auto) 0.0 TH/MM3 0.0 TH/MM3 0.0 TH/MM3 0.0 TH/MM3 Basophils # (Auto) 0.1 TH/MM3 0.1 TH/MM3 0.0 TH/MM3 0.0 TH/MM3 CBC Comment AUTO DIFF AUTO DIFF AUTO DIFF DIFF FINAL Differential Total Cells Counted 100 100 100 Neutrophils % (Manual) 81 % 66 % 78 % Band Neutrophils % 13 % 27 % 15 % Lymphocytes % 2 % 1 % 3 % Monocytes % 4 % 1 % 3 % Neutrophils # (Manual) 26.7 TH/MM3 25.5 TH/MM3 23.5 TH/MM3 Differential Comment FINAL DIFF MANUAL FINAL DIFF MANUAL FINAL DIFF MANUAL Toxic Granulation 1+ Toxic Vacuolation PRESENT PRESENT Platelet Estimate NORMAL NORMAL NORMAL Platelet Morphology Comment NORMAL NORMAL NORMAL Metamyelocytes 5 % 1 % [place] Cells 1+ Erythrocyte Sedimentation Rate 80 mm/hr Nucleated Red Blood Cells 1 /100 WBC Dohle Bodies PRESENT Ovalocytes 1+ Laboratory Tests Test 10/07/17 17:23 10/07/17 18:54 10/07/17 21:00 10/08/17 03:55 Blood Urea Nitrogen 95 MG/DL 86 MG/DL Creatinine 5.19 MG/DL 4.36 MG/DL Random Glucose 129 MG/DL 181 MG/DL Total Protein 7.2 GM/DL 5.6 GM/DL Albumin 1.6 GM/DL 1.6 GM/DL Calcium Level 7.8 MG/DL 6.1 MG/DL Magnesium Level 1.7 MG/DL 1.6 MG/DL Alkaline Phosphatase 138 U/L 105 U/L Aspartate Amino Transf (AST/SGOT) 37 U/L 29 U/L Alanine Aminotransferase (ALT/SGPT) 22 U/L 20 U/L Total Bilirubin 0.2 MG/DL 0.3 MG/DL Sodium Level 132 MEQ/L 139 MEQ/L Potassium Level 4.2 MEQ/L 3.7 MEQ/L Chloride Level 109 MEQ/L 115 MEQ/L Carbon Dioxide Level 5.9 MEQ/L 6.6 MEQ/L Anion Gap 17 MEQ/L 17 MEQ/L Estimat Glomerular Filtration Rate 11 ML/MIN 14 ML/MIN Lactic Acid Level 2.2 mmol/L 2.1 mmol/L 1.5 mmol/L Total Creatine Kinase 425 U/L Creatine Kinase MB 24.9 NG/ML Creatine Kinase MB % 5.9 % Troponin I LESS THAN 0.02 NG/ML B-Type Natriuretic Peptide 89 PG/ML C-Reactive Protein 24.00 MG/DL Thyroid Stimulating Hormone 3rd Gen 0.788 uIU/ML Phosphorus Level 6.4 MG/DL Protein Corrected Calcium 6.8 MG/DL 25-Hydroxy Vitamin D Total 5.5 ng/ML Test 10/08/17 13:00 10/08/17 20:42 10/09/17 05:58 Blood Urea Nitrogen 79 MG/DL 78 MG/DL 77 MG/DL Creatinine 4.01 MG/DL 3.93 MG/DL 4.03 MG/DL Random Glucose 175 MG/DL 129 MG/DL 141 MG/DL Total Protein 5.5 GM/DL 5.4 GM/DL 5.5 GM/DL Calcium Level 5.9 MG/DL 5.5 MG/DL 5.4 MG/DL Sodium Level 137 MEQ/L 137 MEQ/L 134 MEQ/L Potassium Level 3.5 MEQ/L 3.6 MEQ/L 3.7 MEQ/L Chloride Level 112 MEQ/L 105 MEQ/L 103 MEQ/L Carbon Dioxide Level 9.5 MEQ/L 12.4 MEQ/L 13.3 MEQ/L Anion Gap 16 MEQ/L 20 MEQ/L 18 MEQ/L Estimat Glomerular Filtration Rate 15 ML/MIN 15 ML/MIN 15 ML/MIN Lactic Acid Level 2.3 mmol/L Protein Corrected Calcium 6.6 MG/DL 6.2 MG/DL 6.0 MG/DL Phosphorus Level 7.3 MG/DL Microbiology Date/Time Source Procedure Growth Status 10/07/17 21:05 Blood Peripheral Aerobic Blood Culture - Preliminary NO GROWTH IN 1 DAY Resulted 10/07/17 21:05 Blood Peripheral Anaerobic Blood Culture - Preliminary NO GROWTH IN 1 DAY Resulted 10/07/17 17:25 Blood Peripheral Aerobic Blood Culture - Preliminary NO GROWTH IN 1 DAY Resulted 10/07/17 17:25 Blood Peripheral Anaerobic Blood Culture - Preliminary NO GROWTH IN 1 DAY Resulted 10/07/17 17:20 Blood Peripheral Aerobic Blood Culture - Preliminary NO GROWTH IN 1 DAY Resulted 10/07/17 17:20 Blood Peripheral Anaerobic Blood Culture - Preliminary NO GROWTH IN 1 DAY Resulted 10/08/17 10:20 Sputum Endotracheal Gram Stain - Final Resulted 10/08/17 10:20 Sputum Endotracheal Sputum Culture Pending Resulted 10/08/17 08:35 Urine Catheterized Urine Urine Culture Pending Received 10/07/17 17:25 Wound Buttock Gram Stain - Final Resulted 10/07/17 17:25 Wound Buttock Wound Culture - Preliminary IMMATURE GROWTH - REINCUBATE Resulted Imaging Chest X-Ray 10/08/17 0000 Signed Impressions: Service Date/Time: October 14:57 - CONCLUSION: 1. Bilateral internal jugular catheter tips project at the origin of superior vena cava. No evidence of pneumothorax. 2. Persistent left lower lung consolidation. Joni Moss MD Lower Extremity Ultrasound 10/07/17 0000 Signed Impressions: Service Date/Time: Saturday, October 07, 2017 19:52 - CONCLUSION: No DVT in either lower extremity. Manuel David MD Abdomen/Pelvis CT 10/07/17 0000 Signed Impressions: Service Date/Time: Saturday, October 07, 2017 18:37 - CONCLUSION: 1. 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 2. Right renal low density likely cyst. 3. Several nonobstructing punctate left sided renal calculi. 4. Constipation. 5. Left-sided abdominal wall hernia containing large bowel loops without signs of obstruction. Manuel David MD Physical Exam GENERAL: On sedation, eyes partially open, not responding, on the vent, not in distress SKIN: Cool and dry. No generalized rash, no ecchymoses and no evidence of embolic lesions. HEAD: Atraumatic. Normocephalic. No temporal wasting, or tenderness. EYES: [place] conjunctiva. No petechia or hemorrhage. Pupils equal, round and reactive to light. No scleral icterus. No injection or drainage. EARS, NOSE AND THROAT: Nose without bleeding or purulent nasal discharge. He is orally intubated NECK: Trachea midline. Supple and not tender, no meningeal signs CARDIOVASCULAR: Regular rate and rhythm. No murmurs, rubs or gallops heard RESPIRATORY: Clear to auscultation. Breath sounds equal bilaterally. No rales , wheezing or rhonchi. Decreased breath sounds at the bases EXTREMITIES: No clubbing, cyanosis. Has mild pedal edema. Both LE has flexure contracture. : Dennis in place, urine looks clear. Has ulcer on penis and pubis. Has extensive superficial wounds in buttocks NEUROLOGICAL: Sedated. Eyes open, not responding PSYCHIATRIC: Unable to assess. LINE: No evidence of infection Assessment & Plan Remarks IMPRESSION Sepsis with shock present on admission, on pressors - has leukocytosis, elevated creatinine, acidosis - UA (+) - CT ok - has extensive wound in low back; no evidence of Michael's or nec fasciitis UTI, has dennis in place Respiratory failure Renal failure Metabolic acidosis RECOMMENDATION Follow C/S Stabilize hemodynamics Adjust Abx once C/S available Continue empiric Abx - Vanco for GPC - Flagyl for anaerobic Continue Meropenem for GNR coverage since he is critically ill and would like to have broader GNR coverage - he had rash with Cephalosporins, and will monitor for any reaction Monitor progress Check Vanco level Monitor progress D/W RN Dr Rodriguez covering this weekend Oma Almonte MD October 09, 2017 09:52
[2017-10-09] MEDS: CHOLECALCIFEROL (VIT D3) LIQ 400 UNITS/ML 50 ML BOTTLE PO SCH (10:17)
--- NOTE | 2017-10-09 10:36 | HHI.NPPN ---
Subjective Renal Failure: Acute Interval History He remains intubated. Temperature improve. Still on 3 pressors. He is oliguric. Creatinine slightly higher than yesterday. Acidosis persists, on bicarb gtt. (Trisha Junior) Review of Systems General General Remarks unable to obtain (Trisha Junior) Objective Data Data 10/09/17 10/10/17 19:00 07:00 Intake Total 210 ml Balance 210 ml IV Total 210 ml Vital Signs Date Time Temp Pulse Resp B/P (MAP) Pulse Ox O2 Delivery O2 Flow Rate FiO2 10/09/17 10:22 56 101/56 10/09/17 09:58 53 111/57 10/09/17 09:07 59 101/58 10/09/17 08:27 96 40 10/09/17 08:00 40 10/09/17 08:00 60 10/09/17 08:00 96.4 60 21 120/71 (87) 98 10/09/17 07:43 55 125/73 10/09/17 07:00 59 116/59 10/09/17 07:00 59 116/59 10/09/17 07:00 59 116/59 10/09/17 06:38 57 112/57 10/09/17 06:03 60 120/57 10/09/17 06:00 61 10/09/17 06:00 61 138/87 10/09/17 04:04 98 40 10/09/17 04:00 98.8 59 18 121/58 (79) 98 10/09/17 04:00 59 10/09/17 04:00 40 10/09/17 02:39 65 120/58 10/09/17 02:21 60 114/58 10/09/17 02:00 61 10/09/17 02:00 61 114/59 10/09/17 01:31 66 110/57 10/09/17 01:30 60 110/57 10/09/17 00:25 98 40 10/09/17 00:00 40 10/09/17 00:00 98.7 59 16 107/57 (74) 98 10/09/17 00:00 59 10/09/17 00:00 59 107/57 10/08/17 22:04 59 107/50 10/08/17 22:03 60 107/50 10/08/17 22:01 60 107/50 10/08/17 22:00 60 107/50 10/08/17 22:00 60 10/08/17 20:02 98 40 10/08/17 20:00 63 10/08/17 20:00 40 10/08/17 20:00 97.8 63 15 91/51 (64) 98 10/08/17 20:00 63 91/51 10/08/17 20:00 63 91/51 10/08/17 20:00 63 91/51 10/08/17 18:02 65 102/51 10/08/17 18:00 65 10/08/17 17:56 65 101/50 10/08/17 17:00 63 106/54 10/08/17 16:00 94.5 60 17 100/53 (69) 97 10/08/17 16:00 60 10/08/17 16:00 40 10/08/17 15:54 96 50 10/08/17 14:29 63 98/55 10/08/17 14:06 63 94/53 10/08/17 14:00 63 10/08/17 12:00 92.1 61 16 88/52 (64) 98 10/08/17 12:00 40 10/08/17 12:00 61 10/08/17 11:46 63 109/56 (Trisha Junior) -: 10/09/17 0558 10/09/17 0558 Imaging Last 72 hours Impressions Chest X-Ray 10/08/17 0000 Signed Impressions: Service Date/Time: October 14:57 - CONCLUSION: 1. Bilateral internal jugular catheter tips project at the origin of superior vena cava. No evidence of pneumothorax. 2. Persistent left lower lung consolidation. Joni Moss MD Chest X-Ray 10/08/17 0000 Signed Impressions: Service Date/Time: October 09:30 - CONCLUSION: 1. Endotracheal tube and central venous catheter in satisfactory position. Prateek Bowser MD Chest X-Ray 10/08/17 0000 Signed Impressions: Service Date/Time: October 08:04 - CONCLUSION: 1. Right IJ line distal tip appears to be within the superior aspect of the superior vena cava. 2. Mild airspace opacity in the right lower lung zone representing either atelectasis or consolidation. Lazarus Saha MD Chest X-Ray 10/07/17 1701 Signed Impressions: Service Date/Time: Saturday, October 07, 2017 18:21 - CONCLUSION: No acute disease. Manuel David MD Lower Extremity Ultrasound 10/07/17 0000 Signed Impressions: Service Date/Time: Saturday, October 07, 2017 19:52 - CONCLUSION: No DVT in either lower extremity. Manuel David MD Chest X-Ray 10/07/17 0000 Signed Impressions: Service Date/Time: Saturday, October 07, 2017 21:24 - CONCLUSION: No acute disease. Manuel David MD Abdomen/Pelvis CT 10/07/17 0000 Signed Impressions: Service Date/Time: Saturday, October 07, 2017 18:37 - CONCLUSION: 1. 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 2. Right renal low density likely cyst. 3. Several nonobstructing punctate left sided renal calculi. 4. Constipation. 5. Left-sided abdominal wall hernia containing large bowel loops without signs of obstruction. Manuel Dvaid MD Tubes & Lines: Vas-Cath, Dennis Tubes & Lines Comment TLC Drip Comment vasopressin. neosynephrine, Levophed, fentanyl (Trisha Junior B. CONTENT ANALYST) Physical Exam General Appearance: Well Developed, Well Nourished, Comfortable Appearance Remarks intubated, unresponsive (Trisha Junior B. CONTENT ANALYST) Pulmonary Resp Exam: Breath Sounds Equal, Crackles Resp Remarks vented (Trisha Junior B. CONTENT ANALYST) Cardiology CV Exam: Regular, Normal Sinus Rhythm (Trisha Junior B. CONTENT ANALYST) Gastrointestinal/Abdomen GI Exam: Soft, Non-Tender (Trisha Junior B. CONTENT ANALYST) Musculoskeletal MS Exam: Joints Intact, Atrophy, Unable to Ambulate MS Remarks contractures of knees (Trisha Junior B. CONTENT ANALYST) Integumentary Skin Exam: Warm, Dry Skin Remarks excoriated and sloughing skin on posterior thighs, buttocks. urethral meatus with ulcer on right side, sloughing noted. (Trisha Junior) Extremeties Extremities Exam: Pedal Pulses Palpable, Moderate Edema (Trisha Junior) Neurologic Neuro Exam: Unresponsive, Sedated (Trisha Junior) Assessment/Plan Assessment Summary: LEAH/Acute Renal Failure, Acute Tubular Necrosis, Hypotension Problem List: (1) LEAH (acute kidney injury) ICD Codes: N17.9 - Acute kidney failure, unspecified Status: Resolved Plan: In 2016 his creatinine was around 1 Oliguric renal failure, most likely due to sepsis, decreased renal perfusion; most likely has progressed to ATN FeNa is less than 1% Has persistent metabolic acidosis despite bicarb gtt Needs to start CRRT; orders given ; will use 2 amps sodium bicarb in 1/2 NS as pre dilutional fluid; net fluid removal 100 ml/hr Vascath in left IJ placed 10/08 Continue pressors to maintain MAP > 65mmHg Quantify proteinuria He may need suprapubic dennis placed per urology due to ulceration at urethral meatus Avoid nephrotoxic against. Renally dose appropriate to renal status -His vancomycin trough was elevated at last check Repeat labs in AM Prognosis is poor.palliative care is following. (2) Metabolic acidosis ICD Codes: E87.2 - Acidosis Status: Acute Plan: Start CRRT His High anion gap metabolic acidosis is most likely Due to uremia Serial ABGs (3) Septic shock ICD Codes: A41.9 - Sepsis, unspecified organism; R65.21 - Severe sepsis with septic shock Status: Acute Plan: Continue supportive care Antibiotics include vancomycin, Aztreonam, Flagyl, He has been pancultured, results pending (4) Decubitus skin ulcer ICD Codes: L89.90 - Pressure ulcer of unspecified site, unspecified stage Status: Acute Plan: Wound care and general surgery have been consulted No plans for I&D at this time. (5) Debility ICD Codes: R53.81 - Other malaise Status: Acute Plan: Bedbound, has pressure ulcers palliative has met with the , will follow (6) Hypocalcemia ICD Codes: E83.51 - Hypocalcemia Plan: He has severe protein calorie malnutrition Continue replacement severe vitamin D deficiency, replacement ordered (Trisha Junior) Plan Patient was seen and examined. Agree with above assessment and plan. To start CRRT from today. Net fluid removal of 100 ml/hour. (Antonio Mancia MD) Problem Qualifiers (1) Decubitus skin ulcer: Qualified Codes: L89.93 - Pressure ulcer of unspecified site, stage 3 Trisha Junior [facility] October 09, 2017 10:36 Antonio Mancia MD October 09, 2017 15:46
[2017-10-09] MEDS: CALCIUM ACETATE 667 MG CAP PO SCH ×2 (12:52→16:50)
[2017-10-09] MEDS ORDERED: SODIUM BICARBONATE 8.4% INJ 100 ML ONE ×2 (16:36→18:08)
[2017-10-09] MEDS: SODIUM BICARBONATE 8.4% INJ 100 MEQ in SODIUM CHLOR 0.45% 1000 ML INJ 1,000 ML IV SCH ×4 (16:50→23:45)
[2017-10-09] MEDS ORDERED: KCL/AQUEOUS SOLN Dialysate additive PRN (17:00)
[2017-10-09] MEDS ORDERED: HEPARIN IV 10,000 U/10 ML VIAL PRIMING IV PUSH PRN (17:00)
[2017-10-09] MEDS ORDERED: PROTAMINE SULFATE 250 MG in NS 250 ML IV PRN (19:15)
[2017-10-09] MEDS ORDERED: HEPARIN 25,000 UNITS-D5W 250 ML IV PRN (19:15)
[2017-10-09] MEDS: FAMOTIDINE 20 MG TAB PO SCH (20:15)
[2017-10-10] VITALS (22 sets, daily range): BP systolic 83–114; BP diastolic 49–59; PULSE 57–80; RESP 1–20; TEMP 96.8–98.9; O2SAT 96–98
[2017-10-10] MEDS: INSULIN NovoLIN REGULAR SUPPLEMENTAL SCALE SQ SCH ×6 (00:15→20:15)
[2017-10-10] MEDS: SODIUM BICARBONATE 8.4% INJ 150 MEQ in WATER STERILE FOR INJ 850 ML IV SCH ×4 (02:00→21:16)
[2017-10-10] MEDS: SODIUM BICARBONATE 8.4% INJ 100 MEQ in SODIUM CHLOR 0.45% 1000 ML INJ 1,000 ML IV SCH ×11 (02:23→23:32)
[2017-10-10] MEDS: HYDROCORTISONE SOD SUCCINATE 100 MG VIAL IV PUSH SCH ×4 (02:26→21:16)
[2017-10-10 03:09] LABS: AUTOMATED NEUTROPHIL # 20.4 TH/MM3 (1.8-7.7); BASOPHIL % 0.1 % (0.0-2.0); LYMPHOCYTE # 0.9 TH/MM3 (1.0-4.8); MEAN CELL VOLUME 84.7 FL (80.0-100.0); MEAN CORPUSCULAR HEMOGLOBIN 28.5 PG (27.0-34.0); MEAN CORPUSCULAR HGB CONC 33.6 % (32.0-36.0); MONO % 4.2 % (0.0-8.0); MONOCYTE # 0.9 TH/MM3 (0-0.9); NEUT % 91.7 % (16.0-70.0); PLATELET COUNT 210 TH/MM3 (150-450); RED BLOOD COUNT 2.48 MIL/MM3 (4.50-5.90); RED CELL DISTRIBUTION WIDTH 17.2 % (11.6-17.2); WHITE BLOOD COUNT 22.3 TH/MM3 (4.0-11.0)
[2017-10-10] MEDS: metroNIDAZOLE 500 MG INJ 100 ML IV SCH ×3 (03:25→21:15)
[2017-10-10] MEDS: fentaNYL DRIP 250 ML IV PRN ×2 (03:25→21:17)
[2017-10-10] MEDS: CHLORHEXIDINE GLUCONATE 2 % 1 PACK (2 CLOTHS) TOP SCH (03:26)
[2017-10-10 03:31] LABS: BANDS 26 % (0-6); CORRECTED NUCLEATED RBC 1 /100 WBC (0-0); METAMYELOCYTES 1 % (0-1); MONOCYTES 3 % (0-8); NEUTROPHIL # MANUAL DIFF 21.6 TH/MM3 (1.8-7.7); NUCLEATED RED BLOOD CELL 1 (0-0); POLYS (SEG NEUTROPHILS) 70 % (16-70)
[2017-10-10 03:39] LABS: BICARBONATE 22.7 MEQ/L (21.0-32.0); CALCIUM 5.1 MG/DL (8.5-10.1); CREATININE 3.34 MG/DL (0.60-1.30)
[2017-10-10] MEDS: RESP: ALBUTEROL 2.5 MG/IPRATROPIUM 0.5 MG NEB (SCH) NEB ×4 (03:46→21:19)
[2017-10-10 04:00] LABS: CALCIUM-PROTEIN CORRECTED 5.9 MG/DL (8.5-10.1)
[2017-10-10] MEDS ORDERED: CALCIUM GLUCONATE 10% 1 GM/10 ML VIAL IV ONE (05:15)
[2017-10-10] MEDS: HEPARIN SODIUM - SQ 10,000 UNITS/ML VIAL SQ SCH ×3 (05:59→21:17)
[2017-10-10] MEDS ORDERED: CALCIUM GLUCONATE INJ 1 GM in SODIUM CHLORIDE 0.9% INJ 100 ML IV ONE ×2 (06:00→16:30)
[2017-10-10] MEDS: NOREPINEPHRINE-DEXTROSE DRIP 250 ML IV PRN ×2 (06:04→17:14)
[2017-10-10] MEDS ORDERED: POTASSIUM CHLOR 20 MEQ PREMIX 100 ML IV ONE ×2 (08:15→16:30)
--- NOTE | 2017-10-10 08:19 | HHI.CCPN ---
Subjective Remarks/Hospital Course 72-year-old male presents for evaluation of leg swelling. When EMS arrived they noticed that he had a infection to his buttocks when the put him on the stretcher. Per ambulance and per patient he has been for the most part sleeping and sitting on a wheelchair since been discharged from a correction. He was discharged on September 11. It is unclear as to why they discharged him. He has not moved from the wheelchair since. He has a Vargas catheter in place. 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 Patient denies any urinary or bowel movement issues but he also has a Vargas that per patient has not been changed since been discharged from the correction. Patient states that the pain is on his legs and is the main reason he called the ambulance. He denies any fevers chills or sweats. No chest pain or shortness of breath. He has multiple allergies to different medications. He denies any other medical issues at this time. 10/08 Patient is on Levophed 26 mics, Vasopressin 0.04, lactic acid 1.5 s/p 4L crystalloids on arrival. Cr: 4.36 from 5.19. 10/09 Patient was intubated yesterday and sedated with Fentnayl infusion. On Multiple pressors ( Levo 12 mics, Neosyn 90 mics and Vasopressin 0.04). 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 Afebrile. 10/10 Patient remains intubated and sedated with Fentanyl drip. CVVHD started yesterday however it clotted off overnight. Cr: 3.34 this morning from 4.03 with bicarb 22. off Bicarb drip. Off Neosyn, Levophed down 3 mics and on Vasopressin 0.04. Objective Vital Signs Date Time Temp Pulse Resp B/P (MAP) Pulse Ox O2 Delivery O2 Flow Rate FiO2 10/10/17 06:04 71 101/59 10/10/17 06:00 98.1 6 96 10/10/17 04:00 40 10/07/17 19:00 Room Air Intake and Output 10/10/17 10/10/17 10/11/17 08:00 16:00 00:00 Intake Total 2442.7 ml Output Total 325 ml Balance 2117.7 ml Result Diagram: 10/10/17 0300 10/10/17 0300 Other Results Laboratory Tests Test 10/09/17 11:30 10/09/17 22:00 10/09/17 23:00 10/10/17 00:00 Random Vancomycin Level 24.6 COMMENT Activated Partial Thromboplast Time GREATER THAN 277.5 SEC 226.4 SEC 114.3 SEC Test 10/10/17 01:00 10/10/17 02:00 10/10/17 03:00 10/10/17 04:00 Activated Partial Thromboplast Time 89.5 SEC 68.5 SEC 54.1 SEC 51.3 SEC White Blood Count 22.3 TH/MM3 Red Blood Count 2.48 MIL/MM3 Hemoglobin 7.0 GM/DL Hematocrit 21.0 % Mean Corpuscular Volume 84.7 FL Mean Corpuscular Hemoglobin 28.5 PG Mean Corpuscular Hemoglobin Concent 33.6 % Red Cell Distribution Width 17.2 % Platelet Count 210 TH/MM3 Mean Platelet Volume 7.0 FL Neutrophils (%) (Auto) 91.7 % Lymphocytes (%) (Auto) 4.0 % Monocytes (%) (Auto) 4.2 % Eosinophils (%) (Auto) 0.0 % Basophils (%) (Auto) 0.1 % Neutrophils # (Auto) 20.4 TH/MM3 Lymphocytes # (Auto) 0.9 TH/MM3 Monocytes # (Auto) 0.9 TH/MM3 Eosinophils # (Auto) 0.0 TH/MM3 Basophils # (Auto) 0.0 TH/MM3 CBC Comment AUTO DIFF Differential Total Cells Counted 100 Neutrophils % (Manual) 70 % Band Neutrophils % 26 % Monocytes % 3 % Neutrophils # (Manual) 21.6 TH/MM3 Metamyelocytes 1 % Nucleated Red Blood Cells 1 /100 WBC Differential Comment FINAL DIFF MANUAL Platelet Estimate NORMAL Platelet Morphology Comment NORMAL Blood Urea Nitrogen 68 MG/DL Creatinine 3.34 MG/DL Random Glucose 123 MG/DL Total Protein 5.0 GM/DL Calcium Level 5.1 MG/DL Sodium Level 134 MEQ/L Potassium Level 3.1 MEQ/L Chloride Level 97 MEQ/L Carbon Dioxide Level 22.7 MEQ/L Anion Gap 14 MEQ/L Estimat Glomerular Filtration Rate 18 ML/MIN Protein Corrected Calcium 5.9 MG/DL Test 10/10/17 08:00 Blood Gas Puncture Site LT RADIAL Blood Gas Patient Temperature 98.6 Blood Gas HCO3 20 mmol/L Blood Gas Base Excess -4.0 mmol/L Blood Gas Oxygen Saturation 94 % Arterial Blood pH 7.38 Arterial Blood Partial Pressure CO2 36 mmHg Arterial Blood Partial Pressure O2 132 mmHg Arterial Blood Oxygen Content 9.5 Vol % Arterial Blood Carboxyhemoglobin 0.3 % Arterial Blood Methemoglobin 2.7 % Blood Gas Hemoglobin 6.9 G/DL Oxygen Delivery Device VENTILATOR Blood Gas Ventilator Setting AC,18,600,PEEP5 Blood Gas Inspired Oxygen 40 % Imaging Last Impressions Chest X-Ray 10/08/17 Signed Impressions: Service Date/Time: October 14:57 - CONCLUSION: 1. Bilateral internal jugular catheter tips project at the origin of superior vena cava. No evidence of pneumothorax. 2. Persistent left lower lung consolidation. Joni Moss MD Lower Extremity Ultrasound 10/07/17 0000 Signed Impressions: Service Date/Time: Saturday, October 07, 2017 19:52 - CONCLUSION: No DVT in either lower extremity. Manuel David MD Abdomen/Pelvis CT 10/07/17 Signed Impressions: Service Date/Time: Saturday, October 07, 2017 18:37 - CONCLUSION: 1. 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 2. Right renal low density likely cyst. 3. Several nonobstructing punctate left sided renal calculi. 4. Constipation. 5. Left-sided abdominal wall hernia containing large bowel loops without signs of obstruction. Manuel David MD Objective Remarks GENERAL: Patient is 72 yo intubated and sedated HEAD: Normocephalic. Atraumatic. Glasses. EYES: Pupils equal round and reactive to light bilaterally. No scleral icterus. CHEST: No accessory muscle use. No respiratory distress. CARDIOVASCULAR: Regular rate and rhythm. ABDOMEN: Soft, nontender, =BS EXTREMITIES: Severe pitting edema bilateral lower extremities with some weeping. Right heel with fairly large chronic eschar. SKIN: Overall cool and pale. Bilateral buttocks and upper posterior thighs with erythema, extensive stage 1 and stage 2 pressures ulcers. Small areas approximately 3 x 4 cm at the inferior gluteal fold bilaterally with superficial necrotic tissue. No crepitus. No purulent drainage. NEUROLOGICAL: Sedated, intubated. A/P Assessment and Plan VDRF Septic shock AG Metabolic acidosis ARF Leukocytosis Anemia Pressure ulcers on the buttock Lower extremity edema Hx UTI Plan Neuro: On Fentanyl infusion for sedation . Monitor neuro status and sedation vacation. Pulm: Continue with vent support keep sats >92% Bronchodilators, ICU vent bundle Check ABG CV: Continue with pressors ( On Vaso, Levophed, Neosyn) monitor HR and BP keep MAP>65mmHg on stress dose steroids- HC 50mg IV Q6 Check echo, Lactic acid 1.5. 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 Renal is following- patient might need CRRT given oliguric renal failure and severe metabolic acidosis GI: Pepcid 10mg IV Q12 for GI prophylaxis Continue tube feeds- Nepro with goal rate 40 ml/hr ID: Continue with abx ( Vanco, Merrem , Flagyl) ID is following 10/08 Sputum: Pseudomonas 10/08 Urine cx: GNR, Group D enterococcus Monitor for signs of infections ( Fever, WBC) WBC is trending down Surgery and Urology following Wound care is following CT abd/pelvis: No air within the soft tissues the genitals to suggest Michael's gangrene. Right renal low density likely cyst. 3. Several nonobstructing punctate left sided renal calculi . Left-sided abdominal wall hernia containing large bowel loops without signs of obstruction Heme: Monitor CBC, coags Transfuse 1u PRBC Endo: SSI for glycemic control GI prophylaxis- On Pepcid DVT prophylaxis- Heparin SQ Doppler US LE : No DVT DVT GI prophylaxis -Juventino's and SCDs -Subcu heparin -Pepcid Lines: Right IJ CVP placed 10/07 Left IJ vascath placed 10/08 Patient is critically ill with septic shock, ARF, leukocytosis, resp failure CCT 30 mins Rema Walker MD October 10, 2017 08:19
[2017-10-10] MEDS: CALCIUM ACETATE 667 MG CAP PO SCH ×3 (08:22→17:20)
[2017-10-10] MEDS: TAMSULOSIN HCL 0.4 MG CAP PO SCH (08:22)
[2017-10-10] MEDS: FAMOTIDINE 20 MG TAB PO SCH ×2 (08:22→21:16)
[2017-10-10] MEDS: FERROUS SULFATE 325 MG (65 MG ELEMENTAL IRON) TAB PO SCH (08:22)
[2017-10-10] MEDS: COLLAGENASE OINT 30 GM TUBE EXTERNAL SCH (08:23)
[2017-10-10] MEDS: CHLORHEXIDINE 0.12% (ORAL KIT) 15 ML CUP MT SCH ×2 (08:23→21:15)
[2017-10-10] MEDS: SODIUM CHLORIDE 0.9% FLUSH 10 ML FLUSH IV FLUSH SCH ×2 (08:23→21:16)
[2017-10-10] MEDS: CHOLECALCIFEROL (VIT D3) LIQ 400 UNITS/ML 50 ML BOTTLE PO SCH (08:23)
[2017-10-10] MEDS: DOCUSATE SODIUM 50 MG/SENNA 8.6 MG TAB PO SCH ×2 (08:23→21:00)
[2017-10-10] MEDS: SODIUM CHLORIDE 0.9% IV SCH ×3 (08:40→23:30)
[2017-10-10] MEDS: MEROPENEM IV SCH ×3 (08:40→23:30)
--- NOTE | 2017-10-10 13:36 | HHI.NPPN ---
Subjective Renal Failure: Acute Review of Systems General General Remarks unable to obtain Objective Data Data 10/10/17 10/11/17 19:00 07:00 Intake Total 300 ml Balance 300 ml IV Total 200 ml Blood Product IV Normal Saline Flush 100 ml Vital Signs Date Time Temp Pulse Resp B/P (MAP) Pulse Ox O2 Delivery O2 Flow Rate FiO2 10/10/17 12:00 40 10/10/17 12:00 98.8 62 18 90/52 (65) 98 10/10/17 12:00 63 10/10/17 11:33 98 40 10/10/17 10:00 65 10/10/17 08:40 98 40 10/10/17 08:00 40 10/10/17 08:00 98.9 63 18 83/50 (61) 96 10/10/17 08:00 63 10/10/17 06:04 71 101/59 10/10/17 06:00 98.1 71 6 101/56 (71) 96 10/10/17 06:00 69 10/10/17 06:00 70 101/58 10/10/17 05:00 97.0 66 1 101/59 (73) 97 10/10/17 04:00 67 10/10/17 04:00 40 10/10/17 04:00 96.4 67 16 114/59 (77) 97 10/10/17 04:00 67 114/59 10/10/17 04:00 67 114/59 10/10/17 03:48 97 40 10/10/17 03:25 62 99/55 10/10/17 03:25 61 99/55 10/10/17 03:00 96.1 60 9 94/52 (66) 96 10/10/17 02:00 96.4 62 2 109/58 (75) 97 10/10/17 02:00 59 10/10/17 02:00 59 108/57 10/10/17 02:00 59 108/57 10/10/17 01:00 96.8 60 18 99/57 (71) 97 10/10/17 00:50 60 112/58 10/10/17 00:47 97 40 10/10/17 00:00 96.3 58 19 94/52 (66) 98 10/10/17 00:00 57 10/10/17 00:00 40 10/09/17 23:00 95.5 56 18 95/50 (65) 97 10/09/17 22:51 56 108/58 10/09/17 22:40 54 114/55 10/09/17 22:00 56 10/09/17 22:00 56 114/55 10/09/17 22:00 94.6 61 20 100/63 (75) 97 10/09/17 21:01 100 40 10/09/17 21:01 55 10/09/17 21:00 94.8 55 19 94/51 (65) 99 10/09/17 20:00 94.6 54 18 94/53 (67) 98 10/09/17 20:00 58 10/09/17 20:00 40 10/09/17 19:15 55 103/57 10/09/17 18:00 58 10/09/17 16:00 59 10/09/17 16:00 94.8 59 20 99/53 (68) 96 10/09/17 16:00 40 10/09/17 14:54 97 40 10/09/17 14:15 57 107/52 10/09/17 14:00 64 -: 10/10/17 0300 10/10/17 0300 Tubes & Lines: Vas-Cath, Vargas Tubes & Lines Comment TLC Drip Comment vasopressin. neosynephrine, Levophed, fentanyl Physical Exam General Appearance: Well Developed, Well Nourished, Comfortable Pulmonary Resp Exam: Breath Sounds Equal, Crackles Cardiology CV Exam: Regular, Normal Sinus Rhythm Gastrointestinal/Abdomen GI Exam: Soft, Non-Tender Musculoskeletal MS Exam: Joints Intact, Atrophy, Unable to Ambulate Integumentary Skin Exam: Warm, Dry Extremeties Extremities Exam: Pedal Pulses Palpable, Moderate Edema Neurologic Neuro Exam: Unresponsive, Sedated Assessment/Plan Assessment Summary: LEAH/Acute Renal Failure, Acute Tubular Necrosis, Hypotension Problem List: (1) LEAH (acute kidney injury) ICD Codes: N17.9 - Acute kidney failure, unspecified Status: Resolved Plan: In 2016 his creatinine was around 1 Oliguric renal failure, most likely due to sepsis, decreased renal perfusion; most likely has progressed to ATN FeNa is less than 1% Has persistent metabolic acidosis despite bicarb gtt CRRT Clotted off since am and also last night will try HD in am K low replaced Ca low replaced Continue pressors to maintain MAP > 65mmHg Quantify proteinuria Prognosis is poor.palliative care is following. (2) Metabolic acidosis ICD Codes: E87.2 - Acidosis Status: Acute Plan: Start CRRT His High anion gap metabolic acidosis is most likely Due to uremia Serial ABGs (3) Septic shock ICD Codes: A41.9 - Sepsis, unspecified organism; R65.21 - Severe sepsis with septic shock Status: Acute Plan: Continue supportive care Antibiotics include vancomycin, Aztreonam, Flagyl, He has been pancultured, results pending (4) Decubitus skin ulcer ICD Codes: L89.90 - Pressure ulcer of unspecified site, unspecified stage Status: Acute Plan: Wound care and general surgery have been consulted No plans for I&D at this time. (5) Debility ICD Codes: R53.81 - Other malaise Status: Acute Plan: Bedbound, has pressure ulcers palliative has met with the , will follow (6) Hypocalcemia ICD Codes: E83.51 - Hypocalcemia Plan: He has severe protein calorie malnutrition Continue replacement severe vitamin D deficiency, replacement ordered Problem Qualifiers (1) Decubitus skin ulcer: Qualified Codes: L89.93 - Pressure ulcer of unspecified site, stage 3 Tino Mtz MD October 10, 2017 13:36
--- NOTE | 2017-10-10 15:29 | ECHRPT ---
Indication: LV function CONCLUSIONS The left ventricular systolic function is low normal with an estimated ejection fraction in the rang e of 50- 55%. Wall thickness is normal. Normal left ventricular size. There is mild tricuspid valve regurgitation. The estimated pulmonary arterial pressure is 41.4 mmHg. left pleural effusion. BP: 89 / 50 HR: 69 Rhythm: MEASUREMENTS (Male / Female) Normal Values Technical Quality:Fair 2D ECHO LV Diastolic Diameter PLAX 5.3 cm 4.2 - 5.9 / 3.9 - 5.3 cm LV Systolic Diameter PLAX 4.2 cm IVS Diastolic Thickness 0.9 cm 0.6 - 1.0 / 0.6 - 0.9 cm LVPW Diastolic Thickness 0.8 cm 0.6 - 1.0 / 0.6 - 0.9 cm LV Relative Wall Thickness 0.3 RV Internal Dim ED PLAX 4.2 cm LVOT Diameter 2.5 cm LA Systolic Diameter LX 4.1 cm 3.0 - 4.0 / 2.7 - 3.8 cm M-MODE Aortic Root Diameter MM 4.0 cm LA Systolic Diameter MM 4.5 cm LA Ao Ratio MM 1.1 AV Cusp Separation MM 2.5 cm DOPPLER AV Peak Velocity 178.0 cm/s AV Peak Gradient 12.7 mmHg LVOT Peak Velocity 123.0 cm/s LVOT Peak Gradient 6.1 mmHg AV Area Cont Eq pk 3.4 cm MV Area PHT 3.3 cm Mitral E Point Velocity 112.0 cm/s Mitral A Point Velocity 82.3 cm/s Mitral E to A Ratio 1.4 LV E' Lateral Velocity 8.0 cm/s Mitral E to LV E' Lateral Ratio 14.0 LV E' Septal Velocity 8.7 cm/s Mitral E to LV E' Septal Ratio 12.9 TR Peak Velocity 280.0 cm/s TR Peak Gradient 31.4 mmHg Right Atrial Pressure 10.0 mmHg Pulmonary Artery Systolic Pressu 41.4 mmHg Right Ventricular Systolic Press 41.4 mmHg FINDINGS LEFT VENTRICLE The left ventricular systolic function is low normal with an estimated ejection fraction in the rang e of 50- 55%. Wall thickness is normal. Normal left ventricular size. RIGHT VENTRICLE Normal right ventricular size and systolic function. LEFT ATRIUM The left atrial size is normal. RIGHT ATRIUM The right atrial size is normal. ATRIAL SEPTUM Normal atrial septal thickness without atrial level shunting by limited color doppler interrogation. AORTA The aortic root and proximal ascending aorta are normal in size on limited imaging. MITRAL VALVE Structurally normal mitral valve. No mitral valve stenosis or regurgitation. AORTIC VALVE Trileaflet aortic valve. No aortic valve stenosis or regurgitation. TRICUSPID VALVE Structurally normal tricuspid valve. There is mild tricuspid valve regurgitation. The estimated pulmonary arterial pressure is 41.4 mmHg. PULMONARY VALVE No pulmonary valve regurgitation or stenosis. VESSELS The inferior vena cava is normal in size. PERICARDIUM No pericardial effusion. Herbert Painting MD (Electronically Signed) Final Date:10 Oct 2017 15:28
[2017-10-10 15:36] LABS: HEMATOCRIT 21.9 % (39.0-51.0); HEMOGLOBIN 7.3 GM/DL (13.0-17.0)
[2017-10-10 16:07] LABS: BICARBONATE 20.7 MEQ/L (21.0-32.0); CALCIUM 5.2 MG/DL (8.5-10.1); CREATININE 3.61 MG/DL (0.60-1.30)
[2017-10-10] MEDS: VASOPRESSIN INJ 40 UNITS in DEXTROSE 5% IN WATER 100ML INJ 98 ML IV SCH ×2 (17:12)
[2017-10-11] VITALS (22 sets, daily range): BP systolic 87–118; BP diastolic 51–59; PULSE 49–74; RESP 18–20; TEMP 97.7–99.4; O2SAT 92–99
[2017-10-11] MEDS: INSULIN NovoLIN REGULAR SUPPLEMENTAL SCALE SQ SCH ×6 (00:15→20:09)
[2017-10-11] MEDS: RESP: ALBUTEROL 2.5 MG/IPRATROPIUM 0.5 MG NEB (SCH) NEB ×4 (03:13→20:29)
[2017-10-11 03:57] LABS: AUTOMATED NEUTROPHIL # 16.6 TH/MM3 (1.8-7.7); BASOPHIL # 0.2 TH/MM3 (0-0.2); BASOPHIL % 1.1 % (0.0-2.0); HEMATOCRIT 21.3 % (39.0-51.0); HEMOGLOBIN 7.2 GM/DL (13.0-17.0); LYMPH % 3.9 % (9.0-44.0); LYMPHOCYTE # 0.7 TH/MM3 (1.0-4.8); MEAN CELL VOLUME 85.9 FL (80.0-100.0); MEAN CORPUSCULAR HGB CONC 33.7 % (32.0-36.0); MONO % 5.1 % (0.0-8.0); MONOCYTE # 0.9 TH/MM3 (0-0.9); NEUT % 89.9 % (16.0-70.0); PLATELET COUNT 156 TH/MM3 (150-450); RED BLOOD COUNT 2.48 MIL/MM3 (4.50-5.90); RED CELL DISTRIBUTION WIDTH 17.2 % (11.6-17.2); WHITE BLOOD COUNT 18.5 TH/MM3 (4.0-11.0)
[2017-10-11] MEDS: CHLORHEXIDINE GLUCONATE 2 % 1 PACK (2 CLOTHS) TOP SCH (04:00)
[2017-10-11] MEDS: HYDROCORTISONE SOD SUCCINATE 100 MG VIAL IV PUSH SCH ×4 (04:26→20:51)
[2017-10-11] MEDS: metroNIDAZOLE 500 MG INJ 100 ML IV SCH ×3 (04:26→20:51)
[2017-10-11] MEDS: HEPARIN SODIUM - SQ 10,000 UNITS/ML VIAL SQ SCH ×3 (04:27→20:52)
[2017-10-11 04:35] LABS: BICARBONATE 19.3 MEQ/L (21.0-32.0); CALCIUM 5.2 MG/DL (8.5-10.1); CREATININE 3.88 MG/DL (0.60-1.30)
[2017-10-11 04:46] LABS: TOTAL PROTEIN 4.9 GM/DL (6.4-8.2)
[2017-10-11 04:49] LABS: CALCIUM-PROTEIN CORRECTED 6.1 MG/DL (8.5-10.1)
[2017-10-11] MEDS: DOCUSATE SODIUM 50 MG/SENNA 8.6 MG TAB PO SCH ×2 (08:09→20:51)
--- NOTE | 2017-10-11 08:12 | HHI.CCPN ---
Subjective Remarks/Hospital Course 72-year-old male presents for evaluation of leg swelling. When EMS arrived they noticed that he had a infection to his buttocks when the put him on the stretcher. Per ambulance and per patient he has been for the most part sleeping and sitting on a wheelchair since been discharged from a assisted. He was discharged on September 11. It is unclear as to why they discharged him. He has not moved from the wheelchair since. He has a Vargas catheter in place. 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 Patient denies any urinary or bowel movement issues but he also has a Vargas that per patient has not been changed since been discharged from the assisted. Patient states that the pain is on his legs and is the main reason he called the ambulance. He denies any fevers chills or sweats. No chest pain or shortness of breath. He has multiple allergies to different medications. He denies any other medical issues at this time. 10/08 Patient is on Levophed 26 mics, Vasopressin 0.04, lactic acid 1.5 s/p 4L crystalloids on arrival. Cr: 4.36 from 5.19. 10/09 Patient was intubated yesterday and sedated with Fentnayl infusion. On Multiple pressors ( Levo 12 mics, Neosyn 90 mics and Vasopressin 0.04). 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 Afebrile. 10/10 Patient remains intubated and sedated with Fentanyl drip. CVVHD started yesterday however it clotted off overnight. Cr: 3.34 this morning from 4.03 with bicarb 22. off Bicarb drip. Off Neosyn, Levophed down 3 mics and on Vasopressin 0.04. 10/11 No events overnight. Sedated with Fentanyl drip ( 150 mics) and intubated. afebrile. On Levophed 2 mics and Vasopressin 0.04. For IHD today. s/p transfusion 1u PRBC yesterday. Objective Vital Signs Date Time Temp Pulse Resp B/P (MAP) Pulse Ox O2 Delivery O2 Flow Rate FiO2 10/11/17 07:59 96 40 10/11/17 06:00 66 10/11/17 06:00 89/54 10/11/17 04:00 97.7 10/10/17 22:00 18 10/07/17 19:00 Room Air Intake and Output 10/11/17 10/11/17 10/12/17 08:00 16:00 00:00 Intake Total 1071 ml Output Total 275 ml Balance 796 ml Result Diagram: 10/11/17 0340 10/11/17 0340 Other Results Laboratory Tests Test 10/10/17 14:45 10/11/17 03:40 Hemoglobin 7.3 GM/DL 7.2 GM/DL Hematocrit 21.9 % 21.3 % Blood Urea Nitrogen 69 MG/DL 76 MG/DL Creatinine 3.61 MG/DL 3.88 MG/DL Random Glucose 123 MG/DL 130 MG/DL Total Protein 5.0 GM/DL 4.9 GM/DL Calcium Level 5.2 MG/DL 5.2 MG/DL Sodium Level 132 MEQ/L 134 MEQ/L Potassium Level 3.2 MEQ/L 3.0 MEQ/L Chloride Level 97 MEQ/L 99 MEQ/L Carbon Dioxide Level 20.7 MEQ/L 19.3 MEQ/L Anion Gap 14 MEQ/L 16 MEQ/L Estimat Glomerular Filtration Rate 17 ML/MIN 15 ML/MIN Protein Corrected Calcium 6.0 MG/DL 6.1 MG/DL White Blood Count 18.5 TH/MM3 Red Blood Count 2.48 MIL/MM3 Mean Corpuscular Volume 85.9 FL Mean Corpuscular Hemoglobin 29.0 PG Mean Corpuscular Hemoglobin Concent 33.7 % Red Cell Distribution Width 17.2 % Platelet Count 156 TH/MM3 Mean Platelet Volume 7.0 FL Neutrophils (%) (Auto) 89.9 % Lymphocytes (%) (Auto) 3.9 % Monocytes (%) (Auto) 5.1 % Eosinophils (%) (Auto) 0.0 % Basophils (%) (Auto) 1.1 % Neutrophils # (Auto) 16.6 TH/MM3 Lymphocytes # (Auto) 0.7 TH/MM3 Monocytes # (Auto) 0.9 TH/MM3 Eosinophils # (Auto) 0.0 TH/MM3 Basophils # (Auto) 0.2 TH/MM3 CBC Comment DIFF FINAL Differential Comment Imaging Last Impressions Chest X-Ray 10/08/17 0000 Signed Impressions: Service Date/Time: October 14:57 - CONCLUSION: 1. Bilateral internal jugular catheter tips project at the origin of superior vena cava. No evidence of pneumothorax. 2. Persistent left lower lung consolidation. Joni Moss MD Lower Extremity Ultrasound 10/07/17 Signed Impressions: Service Date/Time: Saturday, October 07, 2017 19:52 - CONCLUSION: No DVT in either lower extremity. Manuel David MD Abdomen/Pelvis CT 10/07/17 Signed Impressions: Service Date/Time: Saturday, October 07, 2017 18:37 - CONCLUSION: 1. 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 2. Right renal low density likely cyst. 3. Several nonobstructing punctate left sided renal calculi. 4. Constipation. 5. Left-sided abdominal wall hernia containing large bowel loops without signs of obstruction. Manuel David MD Objective Remarks GENERAL: Patient is 72 yo intubated and sedated HEAD: Normocephalic. Atraumatic. Glasses. EYES: Pupils equal round and reactive to light bilaterally. No scleral icterus. CHEST: No accessory muscle use. No respiratory distress. CARDIOVASCULAR: Regular rate and rhythm. ABDOMEN: Soft, nontender, =BS EXTREMITIES: Severe pitting edema bilateral lower extremities with some weeping. Right heel with fairly large chronic eschar. SKIN: Overall cool and pale. Bilateral buttocks and upper posterior thighs with erythema, extensive stage 1 and stage 2 pressures ulcers. Small areas approximately 3 x 4 cm at the inferior gluteal fold bilaterally with superficial necrotic tissue. No crepitus. No purulent drainage. NEUROLOGICAL: Sedated, intubated. A/P Assessment and Plan VDRF Septic shock AG Metabolic acidosis ARF Leukocytosis Anemia Pressure ulcers on the buttock Lower extremity edema Hx UTI Plan Neuro: On Fentanyl infusion for sedation . Monitor neuro status and sedation vacation. Pulm: Continue with vent support keep sats >92% Bronchodilators, ICU vent bundle CV: Continue with pressors ( On Vaso, Levophed, Neosyn) monitor HR and BP keep MAP>65mmHg on stress dose steroids- HC 50mg IV Q6 Lactic acid 1.5. 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 Right renal low density likely cyst. 3. Several nonobstructing punctate left sided renal calculi . Left-sided abdominal wall hernia containing large bowel loops without signs of obstruction Heme: Monitor CBC, s/p Transfusion 1u PRBC 10/10 Endo: SSI for glycemic control GI prophylaxis- On Pepcid DVT prophylaxis- Heparin SQ Doppler US LE : No DVT DVT GI prophylaxis -Juventino's and SCDs -Subcu heparin -Pepcid Lines: Right IJ CVP placed 10/07 Left IJ vascath placed 10/08 Patient is critically ill with septic shock, ARF, leukocytosis, resp failure CCT 30 mins Rema Walker MD October 11, 2017 08:12
[2017-10-11] MEDS ORDERED: CALCIUM GLUCONATE INJ 2 GM in SODIUM CHLORIDE 0.9% INJ 100 ML IV ONE (09:00)
[2017-10-11] MEDS: TAMSULOSIN HCL 0.4 MG CAP PO SCH (09:14)
[2017-10-11] MEDS: FAMOTIDINE 20 MG TAB PO SCH ×2 (09:14→20:51)
[2017-10-11] MEDS: CALCIUM ACETATE 667 MG CAP PO SCH ×3 (09:15→17:13)
[2017-10-11] MEDS: FERROUS SULFATE 325 MG (65 MG ELEMENTAL IRON) TAB PO SCH (09:15)
[2017-10-11] MEDS: SODIUM CHLORIDE 0.9% FLUSH 10 ML FLUSH IV FLUSH SCH ×2 (09:17→20:11)
[2017-10-11] MEDS: COLLAGENASE OINT 30 GM TUBE EXTERNAL SCH (09:17)
[2017-10-11] MEDS: CHOLECALCIFEROL (VIT D3) LIQ 400 UNITS/ML 50 ML BOTTLE PO SCH (09:18)
[2017-10-11] MEDS: SODIUM CHLORIDE 0.9% IV SCH ×3 (09:19→23:48)
[2017-10-11] MEDS: MEROPENEM IV SCH ×3 (09:19→23:48)
[2017-10-11] MEDS: VASOPRESSIN INJ 40 UNITS in DEXTROSE 5% IN WATER 100ML INJ 98 ML IV SCH ×2 (09:24)
[2017-10-11] MEDS: CHLORHEXIDINE 0.12% (ORAL KIT) 15 ML CUP MT SCH ×2 (09:25→20:09)
[2017-10-11] MEDS ORDERED: SODIUM CHLOR 0.9% 1000 ML INJ 1,000 ML OTHER PRN ×2 (11:01)
[2017-10-11] MEDS ORDERED: SODIUM CHLOR 0.9% 1000 ML INJ 1,000 ML IV PRN (11:01)
[2017-10-11] MEDS ORDERED: GELATIN 12 MM/7 MM FOAM TOP PRN (11:15)
[2017-10-11] MEDS ORDERED: HEPARIN SODIUM - IV 10,000 UNITS/10 ML VIAL IV FLUSH PRN (11:15)
[2017-10-11] MEDS ORDERED: NITROGLYCERIN 0.4 MG SL 25 TABS/BTL SL PRN (11:15)
[2017-10-11] MEDS ORDERED: EPOETIN ALFA 10,000 UNITS/ML VIAL IV PUSH PRN (11:15)
[2017-10-11] MEDS ORDERED: cloNIDine HCL 0.1 MG TAB PO PRN (11:15)
[2017-10-11] MEDS ORDERED: ALBUMIN 25% INJ 100 ML IV PRN (11:15)
[2017-10-11] MEDS ORDERED: SODIUM CHLORIDE 0.9% FLUSH 10 ML FLUSH IV FLUSH PRN (11:15)
[2017-10-11] MEDS ORDERED: MANNITOL 12.5 GM/50 ML VIAL IV PRN (11:15)
[2017-10-11] MEDS ORDERED: ACETAMINOPHEN 325 MG TAB PO PRN (11:15)
[2017-10-11] MEDS ORDERED: ONDANSETRON HCL 4 MG/2 ML VIAL IV PUSH PRN (11:15)
--- NOTE | 2017-10-11 12:08 | HHI.NPPN ---
Subjective Renal Failure: Acute Review of Systems General General Remarks unable to obtain Objective Data Data Vital Signs Date Time Temp Pulse Resp B/P (MAP) Pulse Ox O2 Delivery O2 Flow Rate FiO2 10/11/17 11:51 97 40 10/11/17 09:24 57 111/63 10/11/17 07:59 96 40 10/11/17 06:00 66 10/11/17 06:00 52 89/54 10/11/17 04:15 99 40 10/11/17 04:00 62 10/11/17 04:00 97.7 74 118/56 (76) 96 10/11/17 04:00 40 10/11/17 03:00 98.1 61 91/55 (67) 97 10/11/17 02:00 97.3 62 87/51 (63) 98 10/11/17 02:00 61 10/11/17 01:05 98 40 10/11/17 01:00 96.6 55 89/51 (64) 97 10/11/17 00:00 58 10/11/17 00:00 95.9 52 87/51 (63) 98 10/11/17 00:00 40 10/11/17 00:00 52 87/51 10/10/17 22:00 96.1 80 18 104/59 (74) 98 10/10/17 22:00 61 10/10/17 21:20 98 40 10/10/17 21:00 96.4 59 9 104/57 (73) 97 10/10/17 20:00 40 10/10/17 20:00 96.8 60 20 102/55 (71) 98 10/10/17 20:00 59 10/10/17 19:15 61 98/55 10/10/17 19:15 61 98/55 10/10/17 18:00 64 10/10/17 17:14 72 112/58 10/10/17 17:12 70 112/58 10/10/17 16:00 40 10/10/17 16:00 98.4 69 18 107/49 (68) 98 10/10/17 16:00 68 10/10/17 15:32 96 40 10/10/17 14:00 66 -: 10/11/17 0340 10/11/17 0340 Tubes & Lines: Vas-Cath, Vargas Tubes & Lines Comment TLC Drip Comment vasopressin. neosynephrine, Levophed, fentanyl Physical Exam General Appearance: Well Developed, Well Nourished, Comfortable Pulmonary Resp Exam: Breath Sounds Equal, Crackles Cardiology CV Exam: Regular, Normal Sinus Rhythm Gastrointestinal/Abdomen GI Exam: Soft, Non-Tender Musculoskeletal MS Exam: Joints Intact, Atrophy, Unable to Ambulate Integumentary Skin Exam: Warm, Dry Extremeties Extremities Exam: Pedal Pulses Palpable, Moderate Edema Neurologic Neuro Exam: Unresponsive, Sedated Assessment/Plan Assessment Summary: LEAH/Acute Renal Failure, Acute Tubular Necrosis, Hypotension Problem List: (1) LEAH (acute kidney injury) ICD Codes: N17.9 - Acute kidney failure, unspecified Status: Resolved Plan: In 2016 his creatinine was around 1 Oliguric renal failure, most likely due to sepsis, decreased renal perfusion; most likely has progressed to ATN FeNa is less than 1% seen during dialysis he has good tolerance to hemodialysis , machine has some issues and has to restring with new dialysis machine UF3 L planned K low replaced Ca low replaced Continue pressors to maintain MAP > 65mmHg Prognosis is poor.palliative care is following. Dr. Mancia to follow (2) Metabolic acidosis ICD Codes: E87.2 - Acidosis Status: Acute Plan: Start CRRT His High anion gap metabolic acidosis is most likely Due to uremia Serial ABGs (3) Septic shock ICD Codes: A41.9 - Sepsis, unspecified organism; R65.21 - Severe sepsis with septic shock Status: Acute Plan: Continue supportive care Antibiotics include vancomycin, Aztreonam, Flagyl, He has been pancultured, results pending (4) Decubitus skin ulcer ICD Codes: L89.90 - Pressure ulcer of unspecified site, unspecified stage Status: Acute Plan: Wound care and general surgery have been consulted No plans for I&D at this time. (5) Debility ICD Codes: R53.81 - Other malaise Status: Acute Plan: Bedbound, has pressure ulcers palliative has met with the , will follow (6) Hypocalcemia ICD Codes: E83.51 - Hypocalcemia Plan: He has severe protein calorie malnutrition Continue replacement severe vitamin D deficiency, replacement ordered Problem Qualifiers (1) Decubitus skin ulcer: Qualified Codes: L89.93 - Pressure ulcer of unspecified site, stage 3 Tino Mtz MD October 11, 2017 12:08
--- NOTE | 2017-10-11 13:11 | RADRPT ---
EXAM DATE/TIME: 10/11/2017 12:36 [facility] COMPARISON: CHEST SINGLE AP, October 08, 2017, 14:57. INDICATIONS : ET tube placement. MEDICAL HISTORY : Scoliosis. SURGICAL HISTORY : None. ENCOUNTER: Initial ACUITY: 1 day PAIN SCORE: Non-responsive. LOCATION: Bilateral chest FINDINGS: 2 supine frontal views of the abdomen demonstrates a normal-sized cardiac silhouette. Endotracheal tu be distal tip measures 3.6 cm from the anibal and NG tube is looped in the stomach. Right IJ line tip is in the SVC. There are bilateral pleural-parenchymal opacities similar to the prior study. No pneu mothorax is identified. There is stable sclerosis is present in the left proximal humerus. CONCLUSION: 1. Endotracheal tube in appropriate position with tip measuring 3.6 cm in the anibal. 2. Stable bilateral pleural effusions with associated atelectasis and/or consolidation. Lazarus Saha MD on October 11, 2017 at 13:07 Board Certified Radiologist. This report was verified electronically.
[2017-10-11] MEDS: fentaNYL DRIP 250 ML IV PRN (13:13)
[2017-10-11] MEDS: GENTAMICIN SULFATE 20 MG/2 ML VIAL OTHER PRN (14:10)
[2017-10-11] MEDS: HEPARIN SODIUM - IV 10,000 UNITS/10 ML VIAL PRN (14:10)
[2017-10-11] MEDS: SODIUM CHLORIDE 0.9% FLUSH 10 ML FLUSH IV FLUSH PRN (20:11)
[2017-10-12] VITALS (22 sets, daily range): BP systolic 101–153; BP diastolic 56–82; PULSE 53–96; RESP 16–24; TEMP 98.4–99.1; O2SAT 92–99
[2017-10-12] MEDS: INSULIN NovoLIN REGULAR SUPPLEMENTAL SCALE SQ SCH ×6 (00:15→20:15)
[2017-10-12] MEDS: fentaNYL DRIP 250 ML IV PRN ×2 (02:52→17:52)
[2017-10-12] MEDS: VASOPRESSIN INJ 40 UNITS in DEXTROSE 5% IN WATER 100ML INJ 98 ML IV SCH ×4 (02:52→17:26)
[2017-10-12] MEDS: HYDROCORTISONE SOD SUCCINATE 100 MG VIAL IV PUSH SCH ×2 (02:52→13:06)
[2017-10-12 03:58] LABS: AUTOMATED NEUTROPHIL # 21.2 TH/MM3 (1.8-7.7); BASOPHIL # 0.1 TH/MM3 (0-0.2); BASOPHIL % 0.3 % (0.0-2.0); HEMATOCRIT 21.6 % (39.0-51.0); HEMOGLOBIN 7.1 GM/DL (13.0-17.0); LYMPH % 2.8 % (9.0-44.0); LYMPHOCYTE # 0.7 TH/MM3 (1.0-4.8); MEAN CELL VOLUME 87.3 FL (80.0-100.0); MEAN CORPUSCULAR HEMOGLOBIN 28.9 PG (27.0-34.0); MEAN CORPUSCULAR HGB CONC 33.1 % (32.0-36.0); MONO % 4.5 % (0.0-8.0); NEUT % 92.4 % (16.0-70.0); PLATELET COUNT 148 TH/MM3 (150-450); RED BLOOD COUNT 2.48 MIL/MM3 (4.50-5.90); RED CELL DISTRIBUTION WIDTH 16.9 % (11.6-17.2); WHITE BLOOD COUNT 22.9 TH/MM3 (4.0-11.0)
[2017-10-12] MEDS: CHLORHEXIDINE GLUCONATE 2 % 1 PACK (2 CLOTHS) TOP SCH (04:00)
[2017-10-12] MEDS: RESP: ALBUTEROL 2.5 MG/IPRATROPIUM 0.5 MG NEB (SCH) NEB ×2 (04:11→08:11)
[2017-10-12 04:22] LABS: BICARBONATE 22.5 MEQ/L (21.0-32.0); CALCIUM 5.5 MG/DL (8.5-10.1); CREATININE 2.97 MG/DL (0.60-1.30)
[2017-10-12] MEDS: HEPARIN SODIUM - SQ 10,000 UNITS/ML VIAL SQ SCH ×3 (04:33→22:02)
[2017-10-12] MEDS: metroNIDAZOLE 500 MG INJ 100 ML IV SCH (04:33)
[2017-10-12] MEDS: SODIUM CHLORIDE 0.9% FLUSH 10 ML FLUSH IV FLUSH PRN (04:35)
[2017-10-12 04:59] LABS: TOTAL PROTEIN 4.9 GM/DL (6.4-8.2)
[2017-10-12 05:10] LABS: CALCIUM-PROTEIN CORRECTED 6.4 MG/DL (8.5-10.1)
[2017-10-12] MEDS ORDERED: POTASSIUM CHLORIDE INJ 30 MEQ in SODIUM CHLORIDE 0.9% INJ 100 ML IV-CENTRAL SCH (06:00)
[2017-10-12 06:51] LABS: BANDS 1 % (0-6); CORRECTED NUCLEATED RBC 2 /100 WBC (0-0); LYMPHOCYTES 2 % (9-44); MYELOCYTES 1 % (0-0); NEUTROPHIL # MANUAL DIFF 22.4 TH/MM3 (1.8-7.7); NUCLEATED RED BLOOD CELL 2 (0-0); POLYS (SEG NEUTROPHILS) 96 % (16-70)
--- NOTE | 2017-10-12 07:16 | HHI.CCPN ---
Subjective Remarks/Hospital Course 72-year-old male presents for evaluation of leg swelling. When EMS arrived they noticed that he had a infection to his buttocks when the put him on the stretcher. Per ambulance and per patient he has been for the most part sleeping and sitting on a wheelchair since been discharged from a [facility]. He was discharged on September 11. It is unclear as to why they discharged him. He has not moved from the wheelchair since. He has a Vargas catheter in place. 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 Patient denies any urinary or bowel movement issues but he also has a Vargas that per patient has not been changed since been discharged from the [facility]. Patient states that the pain is on his legs and is the main reason he called the ambulance. He denies any fevers chills or sweats. No chest pain or shortness of breath. He has multiple allergies to different medications. He denies any other medical issues at this time. 10/08 Patient is on Levophed 26 mics, Vasopressin 0.04, lactic acid 1.5 s/p 4L crystalloids on arrival. Cr: 4.36 from 5.19. 10/09 Patient was intubated yesterday and sedated with Fentnayl infusion. On Multiple pressors ( Levo 12 mics, Neosyn 90 mics and Vasopressin 0.04). 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 Afebrile. 10/10 Patient remains intubated and sedated with Fentanyl drip. CVVHD started yesterday however it clotted off overnight. Cr: 3.34 this morning from 4.03 with bicarb 22. off Bicarb drip. Off Neosyn, Levophed down 3 mics and on Vasopressin 0.04. 10/11 No events overnight. Sedated with Fentanyl drip ( 150 mics) and intubated. afebrile. On Levophed 2 mics and Vasopressin 0.04. For IHD today. s/p transfusion 1u PRBC yesterday. 10/12 Patient remains intubated and sedated off Levophed remains on Vasopressin 0.04 mics. s/p HD yesterday w removal 3.5L Objective Vital Signs Date Time Temp Pulse Resp B/P (MAP) Pulse Ox O2 Delivery O2 Flow Rate FiO2 10/12/17 06:00 57 10/12/17 04:18 93 40 10/12/17 04:00 98.6 114/57 (76) 10/11/17 16:00 18 Intake and Output 10/12/17 10/12/17 10/13/17 08:00 16:00 00:00 Intake Total 1341 ml Output Total 350 ml Balance 991 ml Result Diagram: 10/12/17 0300 10/12/17 0300 Other Results Laboratory Tests Test 10/12/17 03:00 White Blood Count 22.9 TH/MM3 Red Blood Count 2.48 MIL/MM3 Hemoglobin 7.1 GM/DL Hematocrit 21.6 % Mean Corpuscular Volume 87.3 FL Mean Corpuscular Hemoglobin 28.9 PG Mean Corpuscular Hemoglobin Concent 33.1 % Red Cell Distribution Width 16.9 % Platelet Count 148 TH/MM3 Mean Platelet Volume 7.0 FL Neutrophils (%) (Auto) 92.4 % Lymphocytes (%) (Auto) 2.8 % Monocytes (%) (Auto) 4.5 % Eosinophils (%) (Auto) 0.0 % Basophils (%) (Auto) 0.3 % Neutrophils # (Auto) 21.2 TH/MM3 Lymphocytes # (Auto) 0.7 TH/MM3 Monocytes # (Auto) 1.0 TH/MM3 Eosinophils # (Auto) 0.0 TH/MM3 Basophils # (Auto) 0.1 TH/MM3 CBC Comment AUTO DIFF Differential Total Cells Counted 100 Neutrophils % (Manual) 96 % Band Neutrophils % 1 % Lymphocytes % 2 % Neutrophils # (Manual) 22.4 TH/MM3 Myelocytes 1 % Nucleated Red Blood Cells 2 /100 WBC Differential Comment FINAL DIFF MANUAL Platelet Estimate LOW Platelet Morphology Comment NORMAL Blood Urea Nitrogen 59 MG/DL Creatinine 2.97 MG/DL Random Glucose 149 MG/DL Total Protein 4.9 GM/DL Calcium Level 5.5 MG/DL Sodium Level 139 MEQ/L Potassium Level 2.6 MEQ/L Chloride Level 103 MEQ/L Carbon Dioxide Level 22.5 MEQ/L Anion Gap 14 MEQ/L Estimat Glomerular Filtration Rate 21 ML/MIN Protein Corrected Calcium 6.4 MG/DL Imaging Last Impressions Chest X-Ray 10/11/17 0000 Signed Impressions: Service Date/Time: Wednesday, October 11, 2017 12:36 - CONCLUSION: 1. Endotracheal tube in appropriate position with tip measuring 3.6 cm in the anibal. 2. Stable bilateral pleural effusions with associated atelectasis and/or consolidation. Lazarus Saha MD Lower Extremity Ultrasound 10/07/17 0000 Signed Impressions: Service Date/Time: Saturday, October 07, 2017 19:52 - CONCLUSION: No DVT in either lower extremity. Manuel David MD Abdomen/Pelvis CT 10/07/17 0000 Signed Impressions: Service Date/Time: Saturday, October 07, 2017 18:37 - CONCLUSION: 1. 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 2. Right renal low density likely cyst. 3. Several nonobstructing punctate left sided renal calculi. 4. Constipation. 5. Left-sided abdominal wall hernia containing large bowel loops without signs of obstruction. Manuel David MD Objective Remarks GENERAL: Patient is 72 yo intubated and sedated HEAD: Normocephalic. Atraumatic. Glasses. EYES: Pupils equal round and reactive to light bilaterally. No scleral icterus. CHEST: No accessory muscle use. No respiratory distress. CARDIOVASCULAR: Regular rate and rhythm. ABDOMEN: Soft, nontender, =BS EXTREMITIES: Severe pitting edema bilateral lower extremities with some weeping. Right heel with fairly large chronic eschar. SKIN: Overall cool and pale. Bilateral buttocks and upper posterior thighs with erythema, extensive stage 1 and stage 2 pressures ulcers. Small areas approximately 3 x 4 cm at the inferior gluteal fold bilaterally with superficial necrotic tissue. No crepitus. No purulent drainage. NEUROLOGICAL: Sedated, intubated. A/P Assessment and Plan VDRF Septic shock AG Metabolic acidosis ARF Leukocytosis Anemia Pressure ulcers on the buttock Lower extremity edema Hx UTI Plan Neuro: On Fentanyl infusion for sedation . Monitor neuro status and sedation vacation. Pulm: Continue with vent support keep sats >92% Bronchodilators, ICU vent bundle CV:Wean off pressor monitor HR and BP keep MAP>65mmHg taper steroids- Decrease HC 50mg IV Q12 Lactic acid 1.5. Echo showed Ef 50-55% : Monitor renal function, I/O's, avoid nephrotoxins Cr: 2.97 today, s/p HD yesterday w removal 3.5L Patient to start IHD today Renal is following- Will give sriram gluconate 2gms x1, KCL 40meq IV for K 2.6 GI: Pepcid 10mg IV Q12 for GI prophylaxis Continue tube feeds- Nepro with goal rate 40 ml/hr ID: Continue with abx ( Vanco, Merrem , Flagyl) ID is following Recheck sputum and UA today 10/08 Sputum: Pseudomonas, Staph 10/08 Urine cx: Citrobacter, Pseudomonas, enterococcus Monitor for signs of infections ( Fever, WBC) WBC is trending down Surgery and Urology following Wound care is following CT abd/pelvis: No air within the soft tissues the genitals to suggest Michael's gangrene. Right renal low density likely cyst. 3. Several nonobstructing punctate left sided renal calculi . Left-sided abdominal wall hernia containing large bowel loops without signs of obstruction Heme: Monitor CBC, s/p Transfusion 1u PRBC 10/10 Will transfuse 1 u PRBC today for K 7.1 Endo: SSI for glycemic control GI prophylaxis- On Pepcid DVT prophylaxis- Heparin SQ Doppler US LE : No DVT DVT GI prophylaxis -Juventino's and SCDs -Subcu heparin -Pepcid Lines: Right IJ CVP placed 10/07 Left IJ vascath placed 10/08 Patient is critically ill with septic shock, ARF, leukocytosis, resp failure CCT 30 mins Rema Walker MD October 12, 2017 07:16
[2017-10-12] MEDS: CHLORHEXIDINE 0.12% (ORAL KIT) 15 ML CUP MT SCH ×2 (08:00→22:01)
--- NOTE | 2017-10-12 08:32 | HHI.IDPN ---
Subjective Subjective Remarks 72-year-old male presents for evaluation of leg swelling. When EMS arrived they noticed that he has multiple wounds in his buttock region. Patient was admitted here last August and treated for UTI. He has had problems with his knees and has had problem ambulating. It was felt to be due to arthritis. He was D/C to a SNF after that hospitalization, and apparently went home first week of September. He lives with his who has been doing his care. Patient reportedly has been mostly in a wheelchair, and has resulted in him getting his wounds. He has been having problem with swelling of his legs and prompted him to go to the hospital. There was no mention of any ever, chills or sweats. Deenies respiratory, or problem. On presentation, he has a very elevated WBC. 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 CT did not show any gas in subcutaneous tissue, and no intraabdominal process. He has renal failure. He ended up getting intubated, and has been on multiple pressors. Also has been acidotic and on bicarb drip. Infectious Disease consultation has been requested to assist in evaluation and treatment of his sepsis and shock. Notes reviewed Temps normal Getting ready to get HD Off all pressors Sputum C/S PSAE and MSSA UC with PSAE, Citrobacter and Enterococcus Wound C/S MSSA and Enterococcus making urine On the ent On fentanyl Awake, ?following some commands but not consistent, not tracking BC negative so far WBC remains elevated Antibiotics Flagyl Meropenem Current Medications Medications (Trade) Dose Ordered Sig/Flavia Route Start Time Stop Time Status Last Admin (Ferrous Sulfate) 325 mg DAILY PO 10/08/17 09:00 10/11/17 09:15 (Woodruff 5-325 Mg) 1 tab Q6H PRN PO 10/07/17 19:45 (Flomax) 0.4 mg DAILY PO 10/08/17 09:00 10/11/17 09:14 (NS Flush) 2 ml UNSCH PRN IV FLUSH 10/07/17 19:45 10/12/17 04:35 (NS Flush) 2 ml BID IV FLUSH 10/07/17 21:00 10/11/17 20:11 (Tylenol) 650 mg Q6H PRN PO 10/07/17 19:45 (Morphine Inj) 2 mg Q2H PRN IV PUSH 10/07/17 19:45 (Zofran Inj) 4 mg Q6H PRN IV PUSH 10/07/17 19:45 (Restoril) 15 mg HS PRN PO 10/07/17 19:45 (Heparin Inj) 5,000 units Q8HR SQ 10/07/17 19:45 10/12/17 04:33 ([facility] [place] [facility] [place] 1 Q361D XX 10/07/17 19:45 10/07/17 19:45 (Chlorhexidine 2% Cloth) 3 pack Taper DAILY@04 TOP 10/08/17 04:00 10/04/18 03:59 10/12/17 04:00 (Chlorhexidine 2% Cloth) 3 pack UNSCH PRN TOP 10/07/17 19:45 (Camelia-Colace) 1 tab BID PO 10/07/17 21:00 (Milk Of Magnesia Liq) 30 ml Q12H PRN PO 10/07/17 19:45 (Senokot) 17.2 mg Q12H PRN PO 10/07/17 19:45 (Dulcolax Supp) 10 mg DAILY PRN RECTAL 10/07/17 19:45 (Lactulose Liq) 30 ml DAILY PRN PO 10/07/17 19:45 Metronidazole 100 ml @ 100 mls/hr Q8H IV 10/07/17 20:00 10/12/17 04:33 Norepinephrine Bitartrate 250 ml @ 7.5 mls/hr TITRATE PRN IV 10/07/17 20:00 10/10/17 17:14 Vasopressin 40 units/Dextrose 100 ml @ 6 mls/hr [id number] IV 10/07/17 21:12 10/12/17 02:52 Dopamine HCl/ Dextrose 500 ml @ 12.263 mls/ hr TITRATE PRN IV 10/08/17 01:00 (Brethine Inj) 1 mg UNSCH PRN SQ 10/08/17 01:00 Phenylephrine HCl 40 mg/Dextrose 500 ml @ 30 mls/hr TITRATE PRN IV 10/08/17 10:00 10/09/17 06:00 (D50w (Vial) Inj) 50 ml UNSCH PRN IV PUSH 10/08/17 08:15 (Glucagon Inj) 1 mg UNSCH PRN OTHER 10/08/17 08:15 (NovoLIN R SUPPLEMENTAL SCALE) 1 Q4H SQ 10/08/17 08:15 10/09/17 07:52 Fentanyl Citrate 250 ml @ 5 mls/hr TITRATE PRN IV 10/08/17 08:45 10/12/17 02:52 (Duoneb Neb) 1 ampule Q6HR NEB NEB 10/08/17 10:00 10/12/17 08:11 (Duoneb Neb) 1 ampule Q2HR NEB PRN NEB 10/08/17 09:00 (Peridex 0.12% Liq) 15 ml BID@08,20 MT 10/08/17 20:00 10/11/17 20:09 Meropenem 250 mg/ Sodium Chloride 100 ml @ 200 mls/hr Q8H IV 10/08/17 15:00 10/11/17 23:48 (Santyl Oint) 1 applic DAILY EXTERNAL 10/08/17 15:00 10/11/17 09:17 (Vitamin D Liq) 5,000 units DAILY PO 10/09/17 10:00 10/11/17 09:18 (Phoslo) 667 mg TID PO 10/09/17 13:00 10/11/17 17:13 (Pepcid) 10 mg BID PO 10/09/17 21:00 10/11/17 20:51 Sodium Chloride 1,000 ml @ 0 mls/hr UNSCH PRN OTHER 10/09/17 17:00 (Heparin Inj) 8,000 units WITH DIALYSIS PRN IV PUSH 10/09/17 17:00 Protamine Sulfate 250 mg/Sodium Chloride 250 ml @ 5 mls/hr TITRATE PRN IV 10/09/17 19:15 Heparin Sodium/ Dextrose 250 ml @ 5 mls/hr TITRATE PRN IV 10/09/17 19:15 Sodium Chloride 1,000 ml @ 0 mls/hr Q0M PRN OTHER 10/11/17 11:01 10/11/17 14:10 (Heparin Inj) 8,000 units UNSCH PRN IV FLUSH 10/11/17 11:15 Sodium Chloride 1,000 ml @ 200 mls/hr Q5H PRN IV 10/11/17 11:01 Sodium Chloride 1,000 ml @ 0 mls/hr Q0M PRN OTHER 10/11/17 11:01 (Mannitol Inj) 12.5 gm UNSCH PRN IV 10/11/17 11:15 Albumin Human 100 ml @ 60 mls/hr UNSCH PRN IV 10/11/17 11:15 (NS Flush) 5 ml UNSCH PRN IV FLUSH 10/11/17 11:15 (Heparin Inj) UNSCH PRN .XX 10/11/17 11:15 10/11/17 14:10 (Gentamicin Inj) 20 mg UNSCH PRN OTHER 10/11/17 11:15 10/11/17 14:10 (Zofran Inj) 4 mg UNSCH PRN IV PUSH 10/11/17 11:15 (Tylenol) 650 mg UNSCH PRN PO 10/11/17 11:15 (Nitrostat Sl) 0.4 mg UNSCH PRN SL 10/11/17 11:15 (Catapres) 0.1 mg UNSCH PRN PO 10/11/17 11:15 (Epogen Inj) 10,000 units UNSCH PRN IV PUSH 10/11/17 11:15 (Gelfoam 12 Mm/7 Mm Top) 1 foam UNSCH PRN TOP 10/11/17 11:15 Potassium Chloride 30 meq/ Sodium Chloride 115 ml @ 38.333 mls/ hr Q3H IV-CENTRAL 10/12/17 06:00 10/12/17 11:59 (SoluCORTEF INJ) 50 mg Q12H IV PUSH 10/12/17 13:00 Calcium Gluconate 2 gm/Sodium Chloride 120 ml @ 120 mls/hr ONCE ONCE IV 10/12/17 09:00 10/12/17 09:59 Lines RIJ TLC Vascath Past Medical History Previous history of UTI Chronic arthritis Scoliosis status post surgery Chronic kidney disease Past Surgical History History of eye surgery Scoliosis surgery Surgery on the right first toe Allergies: Coded Allergies: cefepime (Unverified Allergy, Severe, RASH TO CEFEPIME, 10/07/17) ceftaroline fosamil (Unverified Allergy, Severe, RASH TO CEFEPIME, 10/07/17) diphenhydramine (Unverified Allergy, Severe, ALTERED MENTAL STATUS, 10/07/17 ) tigecycline (Unverified Allergy, Severe, Rash, 10/07/17) Objective . Vital Signs Date Time Temp Pulse Resp B/P (MAP) Pulse Ox O2 Delivery O2 Flow Rate FiO2 10/12/17 08:11 93 40 10/12/17 08:00 98.5 80 16 115/58 (77) 93 10/12/17 08:00 40 10/12/17 08:00 82 10/12/17 06:00 57 10/12/17 04:18 93 40 10/12/17 04:00 40 10/12/17 04:00 66 10/12/17 04:00 98.6 75 114/57 (76) 93 10/12/17 03:00 98.6 85 131/63 (85) 92 10/12/17 02:53 115/56 10/12/17 02:52 73 115/56 10/12/17 02:00 79 10/12/17 02:00 98.8 66 105/57 (73) 93 10/12/17 01:12 94 40 10/12/17 00:00 53 10/12/17 00:00 40 10/12/17 00:00 99.1 58 101/56 (71) 93 10/11/17 22:20 94 40 10/11/17 22:00 49 10/11/17 22:00 99.4 59 100/57 (71) 94 10/11/17 22:00 59 100/57 10/11/17 22:00 59 100/57 10/11/17 21:00 99.0 54 96/52 (67) 94 10/11/17 20:29 94 40 10/11/17 20:00 98.7 67 118/58 (78) 92 10/11/17 20:00 67 10/11/17 20:00 40 10/11/17 20:00 67 118/58 10/11/17 20:00 67 118/58 10/11/17 18:00 55 10/11/17 16:00 40 10/11/17 16:00 57 10/11/17 16:00 99.1 57 18 104/57 (73) 96 10/11/17 15:53 96 40 10/11/17 14:00 40 10/11/17 14:00 60 10/11/17 12:00 40 10/11/17 12:00 58 10/11/17 12:00 97.7 58 20 118/59 (78) 98 10/11/17 11:51 97 40 10/11/17 10:00 55 10/11/17 09:24 57 111/63 . Laboratory Tests Test 10/10/17 14:45 10/11/17 03:40 10/12/17 03:00 Hemoglobin 7.3 GM/DL 7.2 GM/DL 7.1 GM/DL Hematocrit 21.9 % 21.3 % 21.6 % White Blood Count 18.5 TH/MM3 22.9 TH/MM3 Red Blood Count 2.48 MIL/MM3 2.48 MIL/MM3 Mean Corpuscular Volume 85.9 FL 87.3 FL Mean Corpuscular Hemoglobin 29.0 PG 28.9 PG Mean Corpuscular Hemoglobin Concent 33.7 % 33.1 % Red Cell Distribution Width 17.2 % 16.9 % Platelet Count 156 TH/MM3 148 TH/MM3 Mean Platelet Volume 7.0 FL 7.0 FL Neutrophils (%) (Auto) 89.9 % 92.4 % Lymphocytes (%) (Auto) 3.9 % 2.8 % Monocytes (%) (Auto) 5.1 % 4.5 % Eosinophils (%) (Auto) 0.0 % 0.0 % Basophils (%) (Auto) 1.1 % 0.3 % Neutrophils # (Auto) 16.6 TH/MM3 21.2 TH/MM3 Lymphocytes # (Auto) 0.7 TH/MM3 0.7 TH/MM3 Monocytes # (Auto) 0.9 TH/MM3 1.0 TH/MM3 Eosinophils # (Auto) 0.0 TH/MM3 0.0 TH/MM3 Basophils # (Auto) 0.2 TH/MM3 0.1 TH/MM3 CBC Comment DIFF FINAL AUTO DIFF Differential Comment FINAL DIFF MANUAL Differential Total Cells Counted 100 Neutrophils % (Manual) 96 % Band Neutrophils % 1 % Lymphocytes % 2 % Neutrophils # (Manual) 22.4 TH/MM3 Myelocytes 1 % Nucleated Red Blood Cells 2 /100 WBC Platelet Estimate LOW Platelet Morphology Comment NORMAL Laboratory Tests Test 10/10/17 14:45 10/11/17 03:40 10/12/17 03:00 Blood Urea Nitrogen 69 MG/DL 76 MG/DL 59 MG/DL Creatinine 3.61 MG/DL 3.88 MG/DL 2.97 MG/DL Random Glucose 123 MG/DL 130 MG/DL 149 MG/DL Total Protein 5.0 GM/DL 4.9 GM/DL 4.9 GM/DL Calcium Level 5.2 MG/DL 5.2 MG/DL 5.5 MG/DL Sodium Level 132 MEQ/L 134 MEQ/L 139 MEQ/L Potassium Level 3.2 MEQ/L 3.0 MEQ/L 2.6 MEQ/L Chloride Level 97 MEQ/L 99 MEQ/L 103 MEQ/L Carbon Dioxide Level 20.7 MEQ/L 19.3 MEQ/L 22.5 MEQ/L Anion Gap 14 MEQ/L 16 MEQ/L 14 MEQ/L Estimat Glomerular Filtration Rate 17 ML/MIN 15 ML/MIN 21 ML/MIN Protein Corrected Calcium 6.0 MG/DL 6.1 MG/DL 6.4 MG/DL Imaging Chest X-Ray 10/11/17 0000 Signed Impressions: Service Date/Time: Wednesday, October 11, 2017 12:36 - CONCLUSION: 1. Endotracheal tube in appropriate position with tip measuring 3.6 cm in the anibal. 2. Stable bilateral pleural effusions with associated atelectasis and/or consolidation. Lazarus Saha MD Chest X-Ray 10/08/17 0000 Signed Impressions: Service Date/Time: October 14:57 - CONCLUSION: 1. Bilateral internal jugular catheter tips project at the origin of superior vena cava. No evidence of pneumothorax. 2. Persistent left lower lung consolidation. Joni Moss MD Lower Extremity Ultrasound 10/07/17 0000 Signed Impressions: Service Date/Time: Saturday, October 07, 2017 19:52 - CONCLUSION: No DVT in either lower extremity. Manuel David MD Abdomen/Pelvis CT 10/07/17 0000 Signed Impressions: Service Date/Time: Saturday, October 07, 2017 18:37 - CONCLUSION: 1. 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 2. Right renal low density likely cyst. 3. Several nonobstructing punctate left sided renal calculi. 4. Constipation. 5. Left-sided abdominal wall hernia containing large bowel loops without signs of obstruction. Manuel David MD Physical Exam GENERAL: On sedation, awake, not consistent with following commands, on the vent, not in distress SKIN: Cool and dry. No generalized rash, no ecchymoses and no evidence of embolic lesions. HEAD: Atraumatic. Normocephalic. No temporal wasting, or tenderness. EYES: [place] conjunctiva. No petechia or hemorrhage. Pupils equal, round and reactive to light. No scleral icterus. No injection or drainage. EARS, NOSE AND THROAT: Nose without bleeding or purulent nasal discharge. He is orally intubated NECK: Trachea midline. Supple and not tender, no meningeal signs CARDIOVASCULAR: Regular rate and rhythm. Tachycardic. No murmurs, rubs or gallops heard RESPIRATORY: Clear to auscultation. Breath sounds equal bilaterally. No rales , wheezing or rhonchi. Decreased breath sounds at the bases EXTREMITIES: No clubbing, cyanosis. Has mild pedal edema. Both LE has flexure contracture. : Dennis in place, urine looks clear. Has ulcer on penis and pubis. Has extensive superficial wounds in buttocks NEUROLOGICAL: Sedated. Eyes open, not tracking or following commands consistently PSYCHIATRIC: Unable to assess. LINE: No evidence of infection Assessment & Plan Remarks IMPRESSION Sepsis with shock present on admission, off pressors - has leukocytosis, elevated creatinine, acidosis - UA (+) - CT ok - has extensive wound in low back; no evidence of Michael's or nec fasciitis UTI, has dennis in place, C/S PSAE, Citrobacter, and Enterococcus Respiratory failure, possible PNA, C/S PSAE and MSSA Extensive wounds in buttocks, C/S MSSA and Enterococcus Renal failure, on HD Metabolic acidosis. better RECOMMENDATION Stop Meropenem Stop Flagyl IV Zosyn which will cover all pathogens isolated Monitor progress Follow CBC D/W Oma Ellison MD October 12, 2017 08:32
[2017-10-12] MEDS ORDERED: CALCIUM GLUCONATE INJ 2 GM in SODIUM CHLORIDE 0.9% INJ 100 ML IV ONE (09:00)
[2017-10-12] MEDS: CHOLECALCIFEROL (VIT D3) LIQ 400 UNITS/ML 50 ML BOTTLE PO SCH (09:00)
[2017-10-12] MEDS: HEPARIN SODIUM - IV 10,000 UNITS/10 ML VIAL PRN (10:41)
[2017-10-12] MEDS: GENTAMICIN SULFATE 20 MG/2 ML VIAL OTHER PRN (10:41)
--- NOTE | 2017-10-12 11:35 | HHI.NPPN ---
Subjective Renal Failure: Acute Interval History patient was seen and examined. On 4K, UF goal is 3 liters. He is non oliguric, urine output has improved. Remains on the ventilator. Review of Systems General General Remarks unable to obtain Objective Data Data 10/12/17 10/13/17 19:00 07:00 Intake Total 510 ml Output Total 3500 ml Balance -2990 ml IV Total 100 ml Packed Cells 400 ml Blood Product IV Normal Saline Flush 10 ml Hemodialysis 3500 ml Vital Signs Date Time Temp Pulse Resp B/P (MAP) Pulse Ox O2 Delivery O2 Flow Rate FiO2 10/12/17 11:20 96 40 10/12/17 10:47 73 109/56 10/12/17 10:00 61 10/12/17 09:52 98.6 63 18 106/58 97 10/12/17 08:55 98.6 86 104/58 (73) 96 10/12/17 08:54 98.5 84 18 121/61 97 10/12/17 08:11 93 40 10/12/17 08:00 98.5 80 16 115/58 (77) 93 10/12/17 08:00 40 10/12/17 08:00 82 10/12/17 06:00 57 10/12/17 04:18 93 40 10/12/17 04:00 40 10/12/17 04:00 66 10/12/17 04:00 98.6 75 114/57 (76) 93 10/12/17 03:00 98.6 85 131/63 (85) 92 10/12/17 02:53 115/56 10/12/17 02:52 73 115/56 10/12/17 02:00 79 10/12/17 02:00 98.8 66 105/57 (73) 93 10/12/17 01:12 94 40 10/12/17 00:00 53 10/12/17 00:00 40 10/12/17 00:00 99.1 58 101/56 (71) 93 10/11/17 22:20 94 40 10/11/17 22:00 49 10/11/17 22:00 99.4 59 100/57 (71) 94 10/11/17 22:00 59 100/57 10/11/17 22:00 59 100/57 10/11/17 21:00 99.0 54 96/52 (67) 94 10/11/17 20:29 94 40 10/11/17 20:00 98.7 67 118/58 (78) 92 10/11/17 20:00 67 10/11/17 20:00 40 18 20:00 67 118/58 10/11/17 20:00 67 118/58 10/11/17 18:00 55 10/11/17 16:00 40 10/11/17 16:00 57 10/11/17 16:00 99.1 57 18 104/57 (73) 96 10/11/17 15:53 96 40 10/11/17 14:00 40 10/11/17 14:00 60 10/11/17 12:00 40 10/11/17 12:00 58 10/11/17 12:00 97.7 58 20 118/59 (78) 98 10/11/17 11:51 97 40 -: 10/12/17 0300 10/12/17 0300 Tubes & Lines: Vas-Cath, Vargas Tubes & Lines Comment TLC Drip Comment vasopressin. neosynephrine, Levophed, fentanyl Physical Exam General Appearance: Well Developed, Well Nourished, Comfortable Pulmonary Resp Exam: Breath Sounds Equal, Crackles Cardiology CV Exam: Regular, Normal Sinus Rhythm Gastrointestinal/Abdomen GI Exam: Soft, Non-Tender Musculoskeletal MS Exam: Joints Intact, Atrophy, Unable to Ambulate Integumentary Skin Exam: Warm, Dry Extremeties Extremities Exam: Pedal Pulses Palpable, Moderate Edema Neurologic Neuro Exam: Unresponsive, Sedated Assessment/Plan Assessment Summary: LEAH/Acute Renal Failure, Acute Tubular Necrosis, Hypotension Problem List: (1) LEAH (acute kidney injury) ICD Codes: N17.9 - Acute kidney failure, unspecified Status: Resolved Plan: In 2016 his creatinine was around 1 LEAH due to ATN from sepsis. Was on CRRT, now on intermittent HD. Renal function may improve: his urine output has improved. Avoid nephrotoxic agents. Monitor urine output. Dialysis as needed. (2) Metabolic acidosis ICD Codes: E87.2 - Acidosis Status: Acute Plan: Improved. (3) Septic shock ICD Codes: A41.9 - Sepsis, unspecified organism; R65.21 - Severe sepsis with septic shock Status: Acute Plan: continue supportive measures, continue antibiotics. Now the patient is on Zosyn. (4) Decubitus skin ulcer ICD Codes: L89.90 - Pressure ulcer of unspecified site, unspecified stage Status: Acute Plan: Wound care and general surgery have been consulted No plans for I&D at this time. (5) Debility ICD Codes: R53.81 - Other malaise Status: Acute Plan: Bedbound, has pressure ulcers palliative has met with the , will follow (6) Hypocalcemia ICD Codes: E83.51 - Hypocalcemia Plan: Replace vitamin D. Monitor. Problem Qualifiers (1) Decubitus skin ulcer: Qualified Codes: L89.93 - Pressure ulcer of unspecified site, stage 3 Antonio Mancia MD October 12, 2017 11:35
[2017-10-12] MEDS: SODIUM CHLORIDE 0.9% FLUSH 10 ML FLUSH IV FLUSH SCH ×2 (11:57→22:01)
[2017-10-12] MEDS: FERROUS SULFATE 325 MG (65 MG ELEMENTAL IRON) TAB PO SCH (11:57)
[2017-10-12] MEDS: TAMSULOSIN HCL 0.4 MG CAP PO SCH (11:57)
[2017-10-12] MEDS: FAMOTIDINE 20 MG TAB PO SCH ×2 (11:58→22:02)
[2017-10-12] MEDS: CALCIUM ACETATE 667 MG CAP PO SCH ×3 (11:58→17:57)
[2017-10-12] MEDS: PIPERACIL-TAZO 2.25 GM PREMIX 50 ML IV SCH ×2 (11:58→17:50)
[2017-10-12] MEDS: DOCUSATE SODIUM 50 MG/SENNA 8.6 MG TAB PO SCH ×2 (11:58→22:02)
[2017-10-12] MEDS ORDERED: MIDAZOLAM HCL 2 MG/2 ML VIAL IV PUSH PRN (16:15)
[2017-10-12] MEDS: COLLAGENASE OINT 30 GM TUBE EXTERNAL SCH (17:25)
--- NOTE | 2017-10-12 18:34 | HHI.HCPN ---
Reason for visit a. To assist with evaluation and management of symptoms including: Edema, pain b. To assist medical decision maker(s) with: better understanding of current medical conditions; weighing benefits/burdens of medical treatment options; making medical treatment decisions. Subjective/Interval History Patient seen today to follow-up on symptoms of edema and pain. He has been weaned off of vasopressors and is producing urine at this point. His renal indices remain elevated and he continues to undergo hemodialysis, which he is tolerating. He still has significant fluid volume excess, however required fluid resuscitation due to hypotension previously. His urine output for the prior 24 hours was 1200 mL and was also intolerant of the removal of 3500 mL via hemodialysis. He does remain edematous with 2-3+ edema up into his thighs and massive scrotal edema. He was previously placed on CRRT, however that line clotted off. Hemodialysis will continue intermittently as needed. Nephrology is following. He has chronic pain at baseline and prior to admission complained of 10 out of 10 pain in both legs. His legs are contractured, bent at the knees, supported by pillows. He has a wound that encompasses his entire buttocks and extends into bilateral hips and scrotum. The skin is denuded but no pressure ulcer is seen. He has multiple invasive lines, tubes and wrist restraints. He remains on a fentanyl drip for both vent synchrony and comfort. He received 2 mg of morphine in the afternoon for grimace and restlessness as well as 2 mg of IV Versed for comfort during wound care. Microbiology has returned with culture and sensitivity showing pseudomonas aeruginosa and Staphylococcus aureus in the sputum and enterococcus faecalis, Citrobacter freundii and pseudomonas aeruginosa in the urine. Previous culture of buttocks wound returned positive for Staphylococcus aureus and group D enterococcus. Per infectious disease antibiotics were adjusted to keep patient only on Zosyn which all show sensitivity to. . Family/friend interactions Spoke with the family at length this afternoon from 14: 09-17: 50 (41 minutes) regarding patient's current status. Attending were his , Omayra, his daughter, Melissa, her daughter Usha, and Melissa's . After clinical update was provided we discussed possible scenarios for patient outcomes. Of certainty , as his legs are permanently contractured and he is unable to stand, he will require long-term facility placement. While tearful, the was understanding of this, as she knows she is unable to take care of him. We discussed ventilator weaning and patient's respiratory and hemodynamic instability that is preventing progress towards spontaneous breathing trials. Given the multiple infections found in culture, it is likely that he will progress to tracheostomy and PEG placement decision. This was reviewed with the family for further consideration however they are aware that this is not a decision to be made at this time. We also reviewed CODE STATUS and what the patient would want considering his quality of life. They wish to consider this information with the patient's other daughter, Sadie, who is enroute [facility] [place] [facility] Family requested further palliative care follow- up tomorrow to review again based on patient's clinical status tomorrow. Family to contact palliative care when they arrived at the hospital. . Advance Directives Living Will: Never completed Health Care Surrogate: Never completed Durable Power of Medical Billing Associate: Never completed Advance Directive Specifics Date completed: Never completed. Health Care Surrogate(s): Never completed. Documented care wishes: No documented care wishes available. Objective Vital Signs Date Time Temp Pulse Resp B/P (MAP) Pulse Ox O2 Delivery O2 Flow Rate FiO2 10/12/17 17:26 81 148/72 10/12/17 16:00 40 10/12/17 16:00 57 10/12/17 16:00 99.1 96 24 153/73 (99) 98 10/12/17 15:37 92 40 10/12/17 15:27 19 10/12/17 14:00 66 10/12/17 12:00 57 10/12/17 12:00 40 10/12/17 12:00 98.4 57 20 147/82 (103) 97 10/12/17 11:20 96 40 10/12/17 10:47 73 109/56 10/12/17 10:00 61 10/12/17 09:52 98.6 63 18 106/58 97 10/12/17 08:55 98.6 86 104/58 (73) 96 10/12/17 08:54 98.5 84 18 121/61 97 10/12/17 08:11 93 40 10/12/17 08:00 98.5 80 16 115/58 (77) 93 10/12/17 08:00 40 10/12/17 08:00 82 10/12/17 06:00 57 10/12/17 04:18 93 40 10/12/17 04:00 40 10/12/17 04:00 66 10/12/17 04:00 98.6 75 114/57 (76) 93 10/12/17 03:00 98.6 85 131/63 (85) 92 10/12/17 02:53 115/56 10/12/17 02:52 73 115/56 10/12/17 02:00 79 10/12/17 02:00 98.8 66 105/57 (73) 93 10/12/17 01:12 94 40 10/12/17 00:00 53 10/12/17 00:00 40 10/12/17 00:00 99.1 58 101/56 (71) 93 10/11/17 22:20 94 40 10/11/17 22:00 49 10/11/17 22:00 99.4 59 100/57 (71) 94 10/11/17 22:00 59 100/57 10/11/17 22:00 59 100/57 10/11/17 21:00 99.0 54 96/52 (67) 94 10/11/17 20:29 94 40 10/11/17 20:00 98.7 67 118/58 (78) 92 10/11/17 20:00 67 10/11/17 20:00 40 10/11/17 20:00 67 118/58 10/11/17 20:00 67 118/58 Intake & Output 10/12/17 10/12/17 07:00 19:00 Intake Total 1541 ml 930 ml Output Total 350 ml 3500 ml Balance 1191 ml -2570 ml IV Total 1037 ml 520 ml Tube Feeding 404 ml Packed Cells 400 ml Blood Product IV Normal Saline Flush 10 ml Other 100 ml Output Urine Total 350 ml Hemodialysis 3500 ml # Bowel Movements 0 Physical Exam CONSTITUTIONAL/GENERAL: This is an elderly male obese, intubated, sedated, in no acute distress. TUBES/LINES/DRAINS: Left IJ central line, ETT, Vargas catheter, OGT. SKIN: No jaundice, rashes, or lesions. Ecchymoses on upper extremities. Skin temperature cool, large decubitus on buttocks extending up to rectum and scrotum. HEAD: Atraumatic. Normocephalic. EYES: Pupils equal and round and reactive. Blinks to threat. Extraocular motions intact. No scleral icterus. No injection or drainage. Fundi not examined. ENT:Nose without bleeding or purulent drainage. NECK: Trachea midline. Supple, nontender. No palpable thyroid enlargement or nodularity. CARDIOVASCULAR: Regular rate and rhythm without murmurs, gallops, or rubs. No JVD. Peripheral pulses symmetric. RESPIRATORY/CHEST: Mechanically ventilated. Lungs clear, diminished, occasional rhonchi auscultated. GASTROINTESTINAL: Abdomen soft, nondistended. No hepato-splenomegaly, or palpable masses. Bowel sounds present. GENITOURINARY: Without palpable bladder distension. Vargas catheter in place with wound at the meatus. MUSCULOSKELETAL: 2+ pitting edema on bilateral lower extremities with scattered wounds on both lower legs. LYMPHATICS: No palpable cervical or supraclavicular adenopathy. NEUROLOGICAL: Intubated, lightly sedated, eyes open, blinks to noise and threat. PSYCHIATRIC: Sedated, occasionally grimacing, agitation. . Diagnostic Tests Laboratory Laboratory Tests Test 10/09/17 22:00 10/09/17 23:00 10/10/17 00:00 10/10/17 01:00 Activated Partial Thromboplast Time GREATER THAN 277.5 SEC 226.4 SEC (24.3-30.1) 114.3 SEC (24.3-30.1) 89.5 SEC (24.3-30.1) Test 10/10/17 02:00 10/10/17 03:00 10/10/17 04:00 10/10/17 08:00 Activated Partial Thromboplast Time 68.5 SEC (24.3-30.1) 54.1 SEC (24.3-30.1) 51.3 SEC (24.3-30.1) White Blood Count 22.3 TH/MM3 (4.0-11.0) Red Blood Count 2.48 MIL/MM3 (4.50-5.90) Hemoglobin 7.0 GM/DL (13.0-17.0) Hematocrit 21.0 % (39.0-51.0) Mean Corpuscular Volume 84.7 FL (80.0-100.0) Mean Corpuscular Hemoglobin 28.5 PG (27.0-34.0) Mean Corpuscular Hemoglobin Concent 33.6 % (32.0-36.0) Red Cell Distribution Width 17.2 % (11.6-17.2) Platelet Count 210 TH/MM3 (150-450) Mean Platelet Volume 7.0 FL (7.0-11.0) Neutrophils (%) (Auto) 91.7 % (16.0-70.0) Lymphocytes (%) (Auto) 4.0 % (9.0-44.0) Monocytes (%) (Auto) 4.2 % (0.0-8.0) Eosinophils (%) (Auto) 0.0 % (0.0-4.0) Basophils (%) (Auto) 0.1 % (0.0-2.0) Neutrophils # (Auto) 20.4 TH/MM3 (1.8-7.7) Lymphocytes # (Auto) 0.9 TH/MM3 (1.0-4.8) Monocytes # (Auto) 0.9 TH/MM3 (0-0.9) Eosinophils # (Auto) 0.0 TH/MM3 (0-0.4) Basophils # (Auto) 0.0 TH/MM3 (0-0.2) CBC Comment AUTO DIFF Differential Total Cells Counted 100 Neutrophils % (Manual) 70 % (16-70) Band Neutrophils % 26 % (0-6) Monocytes % 3 % (0-8) Neutrophils # (Manual) 21.6 TH/MM3 (1.8-7.7) Metamyelocytes 1 % (0-1) Nucleated Red Blood Cells 1 /100 WBC (0-0) Differential Comment FINAL DIFF MANUAL Platelet Estimate NORMAL (NORMAL) Platelet Morphology Comment NORMAL (NORMAL) Blood Urea Nitrogen 68 MG/DL (7-18) Creatinine 3.34 MG/DL (0.60-1.30) Random Glucose 123 MG/DL (74-106) Total Protein 5.0 GM/DL (6.4-8.2) Calcium Level 5.1 MG/DL (8.5-10.1) Sodium Level 134 MEQ/L (136-145) Potassium Level 3.1 MEQ/L (3.5-5.1) Chloride Level 97 MEQ/L (98-107) Carbon Dioxide Level 22.7 MEQ/L (21.0-32.0) Anion Gap 14 MEQ/L (5-15) Estimat Glomerular Filtration Rate 18 ML/MIN (>89) Protein Corrected Calcium 5.9 MG/DL (8.5-10.1) Blood Gas Puncture Site LT RADIAL Blood Gas Patient Temperature 98.6 Blood Gas HCO3 20 mmol/L (22-26) Blood Gas Base Excess -4.0 mmol/L (-2-2) Blood Gas Oxygen Saturation 94 % (90-100) Arterial Blood pH 7.38 (7.380-7.420) Arterial Blood Partial Pressure CO2 36 mmHg (38-42) Arterial Blood Partial Pressure O2 132 mmHg (61-120) Arterial Blood Oxygen Content 9.5 Vol % (12.0-20.0) Arterial Blood Carboxyhemoglobin 0.3 % (0-4) Arterial Blood Methemoglobin 2.7 % (0-2) Blood Gas Hemoglobin 6.9 G/DL (12.0-16.0) Oxygen Delivery Device VENTILATOR Blood Gas Ventilator Setting AC,18,600,PEEP5 Blood Gas Inspired Oxygen 40 % Test 10/10/17 14:45 10/11/17 03:40 10/12/17 03:00 10/12/17 08:40 Hemoglobin 7.3 GM/DL (13.0-17.0) 7.2 GM/DL (13.0-17.0) 7.1 GM/DL (13.0-17.0) Hematocrit 21.9 % (39.0-51.0) 21.3 % (39.0-51.0) 21.6 % (39.0-51.0) Blood Urea Nitrogen 69 MG/DL (7-18) 76 MG/DL (7-18) 59 MG/DL (7-18) Creatinine 3.61 MG/DL (0.60-1.30) 3.88 MG/DL (0.60-1.30) 2.97 MG/DL (0.60-1.30) Random Glucose 123 MG/DL (74-106) 130 MG/DL (74-106) 149 MG/DL (74-106) Total Protein 5.0 GM/DL (6.4-8.2) 4.9 GM/DL (6.4-8.2) 4.9 GM/DL (6.4-8.2) Calcium Level 5.2 MG/DL (8.5-10.1) 5.2 MG/DL (8.5-10.1) 5.5 MG/DL (8.5-10.1) Sodium Level 132 MEQ/L (136-145) 134 MEQ/L (136-145) 139 MEQ/L (136-145) Potassium Level 3.2 MEQ/L (3.5-5.1) 3.0 MEQ/L (3.5-5.1) 2.6 MEQ/L (3.5-5.1) Chloride Level 97 MEQ/L (98-107) 99 MEQ/L (98-107) 103 MEQ/L (98-107) Carbon Dioxide Level 20.7 MEQ/L (21.0-32.0) 19.3 MEQ/L (21.0-32.0) 22.5 MEQ/L (21.0-32.0) Anion Gap 14 MEQ/L (5-15) 16 MEQ/L (5-15) 14 MEQ/L (5-15) Estimat Glomerular Filtration Rate 17 ML/MIN (>89) 15 ML/MIN (>89) 21 ML/MIN (>89) Protein Corrected Calcium 6.0 MG/DL (8.5-10.1) 6.1 MG/DL (8.5-10.1) 6.4 MG/DL (8.5-10.1) White Blood Count 18.5 TH/MM3 (4.0-11.0) 22.9 TH/MM3 (4.0-11.0) Red Blood Count 2.48 MIL/MM3 (4.50-5.90) 2.48 MIL/MM3 (4.50-5.90) Mean Corpuscular Volume 85.9 FL (80.0-100.0) 87.3 FL (80.0-100.0) Mean Corpuscular Hemoglobin 29.0 PG (27.0-34.0) 28.9 PG (27.0-34.0) Mean Corpuscular Hemoglobin Concent 33.7 % (32.0-36.0) 33.1 % (32.0-36.0) Red Cell Distribution Width 17.2 % (11.6-17.2) 16.9 % (11.6-17.2) Platelet Count 156 TH/MM3 (150-450) 148 TH/MM3 (150-450) Mean Platelet Volume 7.0 FL (7.0-11.0) 7.0 FL (7.0-11.0) Neutrophils (%) (Auto) 89.9 % (16.0-70.0) 92.4 % (16.0-70.0) Lymphocytes (%) (Auto) 3.9 % (9.0-44.0) 2.8 % (9.0-44.0) Monocytes (%) (Auto) 5.1 % (0.0-8.0) 4.5 % (0.0-8.0) Eosinophils (%) (Auto) 0.0 % (0.0-4.0) 0.0 % (0.0-4.0) Basophils (%) (Auto) 1.1 % (0.0-2.0) 0.3 % (0.0-2.0) Neutrophils # (Auto) 16.6 TH/MM3 (1.8-7.7) 21.2 TH/MM3 (1.8-7.7) Lymphocytes # (Auto) 0.7 TH/MM3 (1.0-4.8) 0.7 TH/MM3 (1.0-4.8) Monocytes # (Auto) 0.9 TH/MM3 (0-0.9) 1.0 TH/MM3 (0-0.9) Eosinophils # (Auto) 0.0 TH/MM3 (0-0.4) 0.0 TH/MM3 (0-0.4) Basophils # (Auto) 0.2 TH/MM3 (0-0.2) 0.1 TH/MM3 (0-0.2) CBC Comment DIFF FINAL AUTO DIFF Differential Comment FINAL DIFF MANUAL Differential Total Cells Counted 100 Neutrophils % (Manual) 96 % (16-70) Band Neutrophils % 1 % (0-6) Lymphocytes % 2 % (9-44) Neutrophils # (Manual) 22.4 TH/MM3 (1.8-7.7) Myelocytes 1 % (0-0) Nucleated Red Blood Cells 2 /100 WBC (0-0) Platelet Estimate LOW (NORMAL) Platelet Morphology Comment NORMAL (NORMAL) Hepatitis A IgM Antibody NONREACTIVE (NONREACTIVE) Hepatitis B Surface Antigen NONREACTIVE (NONREACTIVE) Hepatitis B Core IgM Antibody NONREACTIVE (NONREACTIVE) Hepatitis C IgG Antibody NONREACTIVE (NONREACTIVE) Result Diagram: 10/12/17 0300 10/12/17 0300 Microbiology Microbiology Date/Time Source Procedure Growth Status 10/07/17 21:05 Blood Peripheral Aerobic Blood Culture - Final NO GROWTH IN 5 DAYS Complete 10/07/17 21:05 Blood Peripheral Anaerobic Blood Culture - Final NO GROWTH IN 5 DAYS Complete 10/08/17 10:20 Sputum Endotracheal Gram Stain - Final Complete 10/08/17 10:20 Sputum Culture - Final Pseudomonas Aeruginosa Staphylococcus Aureus Complete 10/08/17 08:35 Urine Catheterized Urine Urine Culture - Final Enterococcus Faecalis Citrobacter Freundii Pseudomonas Aeruginosa Complete 10/07/17 17:25 Wound Buttock Gram Stain - Final Complete 10/07/17 17:25 Wound Culture - Final Staphylococcus Aureus Group D Enterococcus Complete Imaging Last Impressions Chest X-Ray 10/11/17 0000 Signed Impressions: Service Date/Time: Wednesday, October 11, 2017 12:36 - CONCLUSION: 1. Endotracheal tube in appropriate position with tip measuring 3.6 cm in the anibal. 2. Stable bilateral pleural effusions with associated atelectasis and/or consolidation. Lazarus Saha MD Lower Extremity Ultrasound 10/07/17 0000 Signed Impressions: Service Date/Time: Saturday, October 07, 2017 19:52 - CONCLUSION: No DVT in either lower extremity. Manuel David MD Abdomen/Pelvis CT 10/07/17 0000 Signed Impressions: Service Date/Time: Saturday, October 07, 2017 18:37 - CONCLUSION: 1. 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 2. Right renal low density likely cyst. 3. Several nonobstructing punctate left sided renal calculi. 4. Constipation. 5. Left-sided abdominal wall hernia containing large bowel loops without signs of obstruction. Manuel David MD Procedures 10/08: Orotracheal intubation 10/08: Left IJ central line placement . 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 He and his of 49 years moved to [place] 20 years ago. They have 2 daughters one who lives in [place] and one in [place]. He enjoys watching sports particularly basketball and baseball. Spiritual: Sikhism chinedu Legal: At this time, his would be his legal healthcare proxy. Ethical issues impacting care: game manager reports that DCF is involved in their home care as there is some question whether the patient and are able to care for himself any longer. . Important Contacts : Omayra Joseph Daughter: Melissa Etienne cell , home Daughter: Sadie danielle . Prognosis His prognosis is poor. He is in septic shock on 3 vasopressors to maintain even minimal blood pressure. He is now in acute renal failure and hemodynamically compromised so unable to undergo hemodialysis. Vas-Cath has been placed in CVVH will be initiated today, however given his degree of sepsis , large buttocks decubitus, poor protein stores, anemia and poor performance status, he is at high risk for continued complications and decline. Code Status: Full Code Plan PLAN: Legal decision maker: At this time the patient is not capacitated to make his own decisions as he is intubated and sedated. Per [place] statutes his would be the legal healthcare proxy. Goals: Remain aggressive at this time. CODE STATUS: Full code SYMPTOMS: * Edema: He has 2-3+ edema on bilateral lower extremities. Labs show low protein stores and low albumin. He is tolerating hemodialysis and has now begun to increase his urine output. Further dialysis will be based on urine output and labs to determine whether he is filtering appropriately. His edema has been chronic, likely compromised by nutritional status. * Pain: He complained of 10 out of 10 pain in his legs on admission and is likely at risk from other sources of pain to include invasive lines, bedbound status, bilateral knee contractures, extensive decubitus across the rectum and buttocks extending up into the scrotum. He is currently receiving IV fentanyl for both sedation and pain with bolus dosing available for morphine and Versed. He has received 1 two mg dose of of both today. Nonverbal pain scale is being used to evaluate discomfort as patient is unable to make his needs known. Palliative care will continue to follow the patient during hospital course as condition evolves, to assist patient/decision-maker with understanding of their medical conditions, weighing benefits/burdens of treatment options, for clarification of goals of treatment. Additionally will assist with any symptoms of palliative concern. . Attestation To help prompt me to consider important information that might be impacting today's encounter and assessment, information from prior notes written by myself or my colleagues may have been "brought forward" into today's note. My signature on this note, however, is an attestation that I personally performed the exam, history, and/or decision-making noted today, and, unless otherwise indicated, the interactions with patient, family, and staff as well as the review of records all occurred today. I also attest that the listed assessment and stated plan reflect my best clinical judgment today based on the combination of historical information, prior notes, and today's exam/ interactions. When time spent is documented, it refers only to time spent today by the signer, or if indicated, combined time spent today by collaborating physician/nurse practitioner. . Magalis Llanes October 12, 2017 18:34
[2017-10-13] VITALS (53 sets, daily range): BP systolic 95–145; BP diastolic 52–78; PULSE 62–103; O2SAT 86–99
[2017-10-13] MEDS: INSULIN NovoLIN REGULAR SUPPLEMENTAL SCALE SQ SCH ×6 (00:15→20:15)
[2017-10-13] MEDS: PIPERACIL-TAZO 2.25 GM PREMIX 50 ML IV SCH ×3 (01:35→18:00)
[2017-10-13] MEDS: HYDROCORTISONE SOD SUCCINATE 100 MG VIAL IV PUSH SCH ×2 (01:35→12:40)
[2017-10-13] MEDS: fentaNYL DRIP 250 ML IV PRN (03:55)
[2017-10-13] MEDS: CHLORHEXIDINE GLUCONATE 2 % 1 PACK (2 CLOTHS) TOP SCH (04:00)
[2017-10-13] MEDS: HEPARIN SODIUM - SQ 10,000 UNITS/ML VIAL SQ SCH ×3 (05:45→20:44)
[2017-10-13 06:19] LABS: AUTOMATED NEUTROPHIL # 25.8 TH/MM3 (1.8-7.7); BASOPHIL % 0.1 % (0.0-2.0); EOSINOPHIL % 0.1 % (0.0-4.0); HEMATOCRIT 25.3 % (39.0-51.0); HEMOGLOBIN 8.6 GM/DL (13.0-17.0); LYMPH % 3.4 % (9.0-44.0); LYMPHOCYTE # 0.9 TH/MM3 (1.0-4.8); MEAN CELL VOLUME 85.9 FL (80.0-100.0); MEAN CORPUSCULAR HEMOGLOBIN 29.1 PG (27.0-34.0); MEAN CORPUSCULAR HGB CONC 33.8 % (32.0-36.0); MEAN PLATELET VOLUME 7.3 FL (7.0-11.0); MONO % 5.1 % (0.0-8.0); MONOCYTE # 1.4 TH/MM3 (0-0.9); NEUT % 91.3 % (16.0-70.0); PLATELET COUNT 149 TH/MM3 (150-450); RED BLOOD COUNT 2.95 MIL/MM3 (4.50-5.90); RED CELL DISTRIBUTION WIDTH 16.5 % (11.6-17.2); WHITE BLOOD COUNT 28.2 TH/MM3 (4.0-11.0)
[2017-10-13 06:36] LABS: BICARBONATE 25.7 MEQ/L (21.0-32.0); CALCIUM 7.1 MG/DL (8.5-10.1); CREATININE 2.88 MG/DL (0.60-1.30)
[2017-10-13 06:57] LABS: TOTAL PROTEIN 5.4 GM/DL (6.4-8.2)
[2017-10-13 07:15] LABS: BANDS 7 % (0-6); LYMPHOCYTES 4 % (9-44); METAMYELOCYTES 1 % (0-1); MONOCYTES 2 % (0-8); NEUTROPHIL # MANUAL DIFF 26.5 TH/MM3 (1.8-7.7); POLYS (SEG NEUTROPHILS) 86 % (16-70)
[2017-10-13] MEDS: FAMOTIDINE 20 MG TAB PO SCH (09:00)
[2017-10-13] MEDS: TAMSULOSIN HCL 0.4 MG CAP PO SCH (09:00)
[2017-10-13] MEDS: FERROUS SULFATE 325 MG (65 MG ELEMENTAL IRON) TAB PO SCH (09:00)
--- NOTE | 2017-10-13 09:16 | HHI.NPPN ---
Subjective Renal Failure: Acute Interval History Remains intubated and sedated. Non oliguric. Dialyzed yesterday. (Trisha Junior) Review of Systems General General Remarks unable to obtain (Trisha Junior) Objective Data Data Vital Signs Date Time Temp Pulse Resp B/P (MAP) Pulse Ox O2 Delivery O2 Flow Rate FiO2 10/13/17 08:33 96 60 10/13/17 06:00 90 10/13/17 04:58 96 50 10/13/17 04:00 50 10/13/17 04:00 76 10/13/17 04:00 99.1 76 124/63 (83) 96 10/13/17 02:00 96 10/13/17 00:53 94 50 10/13/17 00:00 71 10/13/17 00:00 97.9 71 95/52 (66) 99 10/13/17 00:00 50 10/12/17 22:00 85 10/12/17 20:25 99 50 10/12/17 20:00 66 10/12/17 20:00 94.3 66 123/66 (85) 98 10/12/17 20:00 40 10/12/17 18:00 87 10/12/17 17:26 81 148/72 10/12/17 16:00 40 10/12/17 16:00 57 10/12/17 16:00 99.1 96 24 153/73 (99) 98 10/12/17 15:37 92 40 10/12/17 15:27 19 10/12/17 14:00 66 10/12/17 12:00 57 10/12/17 12:00 40 10/12/17 12:00 98.4 57 20 147/82 (103) 97 10/12/17 11:20 96 40 10/12/17 10:47 73 109/56 10/12/17 10:00 61 10/12/17 09:52 98.6 63 18 106/58 97 (Trisha Junior) -: 10/13/17 0500 10/13/17 0500 Imaging Last 72 hours Impressions Chest X-Ray 10/11/17 0000 Signed Impressions: Service Date/Time: Wednesday, October 11, 2017 12:36 - CONCLUSION: 1. Endotracheal tube in appropriate position with tip measuring 3.6 cm in the anibal. 2. Stable bilateral pleural effusions with associated atelectasis and/or consolidation. Lazarus Saha MD Tubes & Lines: Vas-Cath, Vargas Tubes & Lines Comment TLC Drip Comment fentanyl (Trisha Junior) Physical Exam General Appearance: Well Developed, Well Nourished, Comfortable Appearance Remarks intubated, unresponsive (Trisha Junior) Throat Throat Exam: Oral Mucosa [place] & Moist (Trisha Junior TOY CONSULTANT) Pulmonary Resp Exam: Breath Sounds Equal, Crackles Resp Remarks vented (Trisha Junior) Cardiology CV Exam: Regular, Normal Sinus Rhythm (Trisha Junior) Gastrointestinal/Abdomen GI Exam: Soft, Non-Tender (Trisha Junior) Musculoskeletal MS Exam: Joints Intact, Atrophy, Unable to Ambulate MS Remarks contractures of knees (Trisha Junior) Integumentary Skin Exam: Warm, Dry Skin Remarks excoriated and sloughing skin on posterior thighs, buttocks. urethral meatus with ulcer on right side, sloughing noted. feet excoriated with dressing in place, some drainage. (Trisha Junior) Extremeties Extremities Exam: Pedal Pulses Palpable, Moderate Edema (Trisha Junior) Neurologic Neuro Exam: Unresponsive, Sedated (Trisha Junior) Assessment/Plan Assessment Summary: LEAH/Acute Renal Failure, Acute Tubular Necrosis, Hypotension Problem List: (1) LEAH (acute kidney injury) ICD Codes: N17.9 - Acute kidney failure, unspecified Status: Resolved Plan: In 2016 his creatinine was around 1 LEAH due to ATN from sepsis. Was on CRRT, now on intermittent HD. Had dialysis Thursday and Thursday Creatinine has improved He is non oliguric Potassium replacement ordered Minimize IVF Avoid nephrotoxic agents. Monitor urine output. Dialysis as needed MWF. (2) Metabolic acidosis ICD Codes: E87.2 - Acidosis Status: Acute Plan: Improved. (3) Septic shock ICD Codes: A41.9 - Sepsis, unspecified organism; R65.21 - Severe sepsis with septic shock Status: Acute Plan: continue supportive measures, continue antibiotics. Now the patient is on Zosyn. (4) Decubitus skin ulcer ICD Codes: L89.90 - Pressure ulcer of unspecified site, unspecified stage Status: Acute Plan: Wound care and general surgery have been consulted No plans for I&D at this time. (5) Debility ICD Codes: R53.81 - Other malaise Status: Acute Plan: Bedbound, has pressure ulcers palliative has met with the , will follow (6) Hypocalcemia ICD Codes: E83.51 - Hypocalcemia Plan: Improving, continue to replace vitamin D. Monitor. (Trisha Junior) Plan patient was seen and examined. Agree with above assessment and plan. Monitor urine output. (Antonio Mancia MD) Problem Qualifiers (1) Decubitus skin ulcer: Qualified Codes: L89.93 - Pressure ulcer of unspecified site, stage 3 Trisha Junior October 13, 2017 09:16 Antonio Mancia MD October 13, 2017 09:35
--- NOTE | 2017-10-13 09:33 | HHI.IDPN ---
Subjective Subjective Remarks 72-year-old male presents for evaluation of leg swelling. When EMS arrived they noticed that he has multiple wounds in his buttock region. Patient was admitted here last August and treated for UTI. He has had problems with his knees and has had problem ambulating. It was felt to be due to arthritis. He was D/C to a SNF after that hospitalization, and apparently went home first week of September. He lives with his who has been doing his care. Patient reportedly has been mostly in a wheelchair, and has resulted in him getting his wounds. He has been having problem with swelling of his legs and prompted him to go to the hospital. There was no mention of any ever, chills or sweats. Deenies respiratory, or problem. On presentation, he has a very elevated WBC. 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 CT did not show any gas in subcutaneous tissue, and no intraabdominal process. He has renal failure. He ended up getting intubated, and has been on multiple pressors. Also has been acidotic and on bicarb drip. Infectious Disease consultation has been requested to assist in evaluation and treatment of his sepsis and shock. Notes reviewed D/W RN Hypothermic again since last night - on warming blanket, temps normal currently BP ok, not on pressors On fentanyl, eyes open upward gaze, not focusing, not following Palliative medicine following On the vent Had HD yesterday Making urine WBC higher again, up to 28K Sputum C/S PSAE and MSSA UC with PSAE, Citrobacter and Enterococcus Wound C/S MSSA and Enterococcus Antibiotics Zosyn Current Medications Medications (Trade) Dose Ordered Sig/Flavia Route Start Time Stop Time Status Last Admin (Ferrous Sulfate) 325 mg DAILY PO 10/08/17 09:00 10/12/17 11:57 ([place] 5-325 Mg) 1 tab Q6H PRN PO 10/07/17 19:45 (Flomax) 0.4 mg DAILY PO 10/08/17 09:00 10/12/17 11:57 (NS Flush) 2 ml UNSCH PRN IV FLUSH 10/07/17 19:45 10/12/17 04:35 (NS Flush) 2 ml BID IV FLUSH 10/07/17 21:00 10/12/17 22:01 (Tylenol) 650 mg Q6H PRN PO 10/07/17 19:45 (Morphine Inj) 2 mg Q2H PRN IV PUSH 10/07/17 19:45 10/12/17 15:08 (Zofran Inj) 4 mg Q6H PRN IV PUSH 10/07/17 19:45 (Restoril) 15 mg HS PRN PO 10/07/17 19:45 (Heparin Inj) 5,000 units Q8HR SQ 10/07/17 19:45 10/13/17 05:45 ([facility]) 1 Q361D XX 10/07/17 19:45 10/07/17 19:45 (Chlorhexidine 2% Cloth) Taper DAILY@04 TOP 10/08/17 04:00 10/04/18 03:59 10/12/17 04:00 (Chlorhexidine 2% Cloth) 3 pack UNSCH PRN TOP 10/07/17 19:45 (Camelia-Colace) 1 tab BID PO 10/07/17 21:00 10/12/17 22:02 (Milk Of Magnesia Liq) 30 ml Q12H PRN PO 10/07/17 19:45 (Senokot) 17.2 mg Q12H PRN PO 10/07/17 19:45 (Dulcolax Supp) 10 mg DAILY PRN RECTAL 10/07/17 19:45 (Lactulose Liq) 30 ml DAILY PRN PO 10/07/17 19:45 Norepinephrine Bitartrate 250 ml @ 7.5 mls/hr TITRATE PRN IV 10/07/17 20:00 10/10/17 17:14 Vasopressin 40 units/Dextrose 100 ml @ 6 mls/hr [id number] IV 10/07/17 21:12 10/12/17 02:52 Dopamine HCl/ Dextrose 500 ml @ 12.263 mls/ hr TITRATE PRN IV 10/08/17 01:00 (Brethine Inj) 1 mg UNSCH PRN SQ 10/08/17 01:00 Phenylephrine HCl 40 mg/Dextrose 500 ml @ 30 mls/hr TITRATE PRN IV 10/08/17 10:00 10/09/17 06:00 (D50w (Vial) Inj) 50 ml UNSCH PRN IV PUSH 10/08/17 08:15 (Glucagon Inj) 1 mg UNSCH PRN OTHER 10/08/17 08:15 (NovoLIN R SUPPLEMENTAL SCALE) 1 Q4H SQ 10/08/17 08:15 10/12/17 13:03 Fentanyl Citrate 250 ml @ 5 mls/hr TITRATE PRN IV 10/08/17 08:45 10/13/17 03:55 (Duoneb Neb) 1 ampule Q2HR NEB PRN NEB 10/08/17 09:00 10/12/17 20:24 (Peridex 0.12% Liq) 15 ml BID@08,20 MT 10/08/17 20:00 10/12/17 22:01 (Santyl Oint) 1 applic DAILY EXTERNAL 10/08/17 15:00 10/12/17 17:25 (Vitamin D Liq) 5,000 units DAILY PO 10/09/17 10:00 10/11/17 09:18 (Phoslo) 667 mg TID PO 10/09/17 13:00 10/12/17 17:57 (Pepcid) 10 mg BID PO 10/09/17 21:00 10/12/17 22:02 Sodium Chloride 1,000 ml @ 0 mls/hr UNSCH PRN OTHER 10/09/17 17:00 (Heparin Inj) 8,000 units WITH DIALYSIS PRN IV PUSH 10/09/17 17:00 Protamine Sulfate 250 mg/Sodium Chloride 250 ml @ 5 mls/hr TITRATE PRN IV 10/09/17 19:15 Heparin Sodium/ Dextrose 250 ml @ 5 mls/hr TITRATE PRN IV 10/09/17 19:15 Sodium Chloride 1,000 ml @ 0 mls/hr Q0M PRN OTHER 10/11/17 11:01 10/11/17 14:10 (Heparin Inj) 8,000 units UNSCH PRN IV FLUSH 10/11/17 11:15 Sodium Chloride 1,000 ml @ 200 mls/hr Q5H PRN IV 10/11/17 11:01 Sodium Chloride 1,000 ml @ 0 mls/hr Q0M PRN OTHER 10/11/17 11:01 (Mannitol Inj) 12.5 gm UNSCH PRN IV 10/11/17 11:15 Albumin Human 100 ml @ 60 mls/hr UNSCH PRN IV 10/11/17 11:15 10/12/17 09:53 (NS Flush) 5 ml UNSCH PRN IV FLUSH 10/11/17 11:15 (Heparin Inj) UNSCH PRN .XX 10/11/17 11:15 10/12/17 10:41 (Gentamicin Inj) 20 mg UNSCH PRN OTHER 10/11/17 11:15 10/12/17 10:41 (Zofran Inj) 4 mg UNSCH PRN IV PUSH 10/11/17 11:15 (Tylenol) 650 mg UNSCH PRN PO 10/11/17 11:15 (Nitrostat Sl) 0.4 mg UNSCH PRN SL 10/11/17 11:15 (Catapres) 0.1 mg UNSCH PRN PO 10/11/17 11:15 (Epogen Inj) 10,000 units UNSCH PRN IV PUSH 10/11/17 11:15 10/12/17 10:40 (Gelfoam 12 Mm/7 Mm Top) 1 foam UNSCH PRN TOP 10/11/17 11:15 (SoluCORTEF INJ) 50 mg Q12H IV PUSH 10/12/17 13:00 10/13/17 01:35 Piperacillin Sod/ Tazobactam Sod 50 ml @ 100 mls/hr Q8H IV 10/12/17 10:00 10/13/17 01:35 (Versed Inj) 2 mg Q1H PRN IV PUSH 10/12/17 16:15 10/12/17 17:06 Potassium Chloride 100 ml @ 50 mls/hr Q2H IV 10/13/17 10:00 10/13/17 13:59 Lines RIJ TLC Vascath Past Medical History Previous history of UTI Chronic arthritis Scoliosis status post surgery Chronic kidney disease Past Surgical History History of eye surgery Scoliosis surgery Surgery on the right first toe Allergies: Coded Allergies: cefepime (Unverified Allergy, Severe, RASH TO CEFEPIME, 10/07/17) ceftaroline fosamil (Unverified Allergy, Severe, RASH TO CEFEPIME, 10/07/17) diphenhydramine (Unverified Allergy, Severe, ALTERED MENTAL STATUS, 10/07/17 ) tigecycline (Unverified Allergy, Severe, Rash, 10/07/17) Objective . Vital Signs Date Time Temp Pulse Resp B/P (MAP) Pulse Ox O2 Delivery O2 Flow Rate FiO2 10/13/17 08:33 96 60 10/13/17 06:00 90 10/13/17 04:58 96 50 10/13/17 04:00 50 10/13/17 04:00 76 10/13/17 04:00 99.1 76 124/63 (83) 96 10/13/17 02:00 96 10/13/17 00:53 94 50 10/13/17 00:00 71 10/13/17 00:00 97.9 71 95/52 (66) 99 10/13/17 00:00 50 10/12/17 22:00 85 10/12/17 20:25 99 50 10/12/17 20:00 66 10/12/17 20:00 94.3 66 123/66 (85) 98 10/12/17 20:00 40 10/12/17 18:00 87 10/12/17 17:26 81 148/72 10/12/17 16:00 40 10/12/17 16:00 57 10/12/17 16:00 99.1 96 24 153/73 (99) 98 10/12/17 15:37 92 40 10/12/17 15:27 19 10/12/17 14:00 66 10/12/17 12:00 57 10/12/17 12:00 40 10/12/17 12:00 98.4 57 20 147/82 (103) 97 10/12/17 11:20 96 40 10/12/17 10:47 73 109/56 10/12/17 10:00 61 10/12/17 09:52 98.6 63 18 106/58 97 . Laboratory Tests Test 10/12/17 03:00 10/13/17 05:00 White Blood Count 22.9 TH/MM3 28.2 TH/MM3 Red Blood Count 2.48 MIL/MM3 2.95 MIL/MM3 Hemoglobin 7.1 GM/DL 8.6 GM/DL Hematocrit 21.6 % 25.3 % Mean Corpuscular Volume 87.3 FL 85.9 FL Mean Corpuscular Hemoglobin 28.9 PG 29.1 PG Mean Corpuscular Hemoglobin Concent 33.1 % 33.8 % Red Cell Distribution Width 16.9 % 16.5 % Platelet Count 148 TH/MM3 149 TH/MM3 Mean Platelet Volume 7.0 FL 7.3 FL Neutrophils (%) (Auto) 92.4 % 91.3 % Lymphocytes (%) (Auto) 2.8 % 3.4 % Monocytes (%) (Auto) 4.5 % 5.1 % Eosinophils (%) (Auto) 0.0 % 0.1 % Basophils (%) (Auto) 0.3 % 0.1 % Neutrophils # (Auto) 21.2 TH/MM3 25.8 TH/MM3 Lymphocytes # (Auto) 0.7 TH/MM3 0.9 TH/MM3 Monocytes # (Auto) 1.0 TH/MM3 1.4 TH/MM3 Eosinophils # (Auto) 0.0 TH/MM3 0.0 TH/MM3 Basophils # (Auto) 0.1 TH/MM3 0.0 TH/MM3 CBC Comment AUTO DIFF AUTO DIFF Differential Total Cells Counted 100 100 Neutrophils % (Manual) 96 % 86 % Band Neutrophils % 1 % 7 % Lymphocytes % 2 % 4 % Neutrophils # (Manual) 22.4 TH/MM3 26.5 TH/MM3 Myelocytes 1 % Nucleated Red Blood Cells 2 /100 WBC Differential Comment FINAL DIFF MANUAL FINAL DIFF MANUAL Platelet Estimate LOW NORMAL Platelet Morphology Comment NORMAL NORMAL Monocytes % 2 % Metamyelocytes 1 % Laboratory Tests Test 10/12/17 03:00 10/13/17 05:00 Blood Urea Nitrogen 59 MG/DL 54 MG/DL Creatinine 2.97 MG/DL 2.88 MG/DL Random Glucose 149 MG/DL 114 MG/DL Total Protein 4.9 GM/DL 5.4 GM/DL Calcium Level 5.5 MG/DL 7.1 MG/DL Sodium Level 139 MEQ/L 142 MEQ/L Potassium Level 2.6 MEQ/L 2.7 MEQ/L Chloride Level 103 MEQ/L 103 MEQ/L Carbon Dioxide Level 22.5 MEQ/L 25.7 MEQ/L Anion Gap 14 MEQ/L 13 MEQ/L Estimat Glomerular Filtration Rate 21 ML/MIN 22 ML/MIN Protein Corrected Calcium 6.4 MG/DL 8.0 MG/DL Imaging Chest X-Ray 10/11/17 0000 Signed Impressions: Service Date/Time: Wednesday, October 11, 2017 12:36 - CONCLUSION: 1. Endotracheal tube in appropriate position with tip measuring 3.6 cm in the anibal. 2. Stable bilateral pleural effusions with associated atelectasis and/or consolidation. Lazarus Saha MD Chest X-Ray 10/08/17 0000 Signed Impressions: Service Date/Time: October 14:57 - CONCLUSION: 1. Bilateral internal jugular catheter tips project at the origin of superior vena cava. No evidence of pneumothorax. 2. Persistent left lower lung consolidation. Joni Moss MD Lower Extremity Ultrasound 10/07/17 0000 Signed Impressions: Service Date/Time: Saturday, October 07, 2017 19:52 - CONCLUSION: No DVT in either lower extremity. Manuel David MD Abdomen/Pelvis CT 10/07/17 0000 Signed Impressions: Service Date/Time: Saturday, October 07, 2017 18:37 - CONCLUSION: 1. 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 2. Right renal low density likely cyst. 3. Several nonobstructing punctate left sided renal calculi. 4. Constipation. 5. Left-sided abdominal wall hernia containing large bowel loops without signs of obstruction. Manuel David MD Physical Exam GENERAL: On sedation, awake, on the vent, not in distress. Keeps upward gaze , not focusing, not following SKIN: Cool and dry. No generalized rash HEAD: Atraumatic. Normocephalic. No temporal wasting, or tenderness. EYES: Flushing conjunctiva. No petechia or hemorrhage. Pupils equal, round and reactive to light. No scleral icterus. EARS, NOSE AND THROAT: Nose without bleeding or purulent nasal discharge. He is orally intubated NECK: Trachea midline. Supple and not tender, no meningeal signs CARDIOVASCULAR: Regular rate and rhythm. Tachycardic. No murmurs, rubs or gallops heard RESPIRATORY: Coarse BS bilaterally. Decreased breath sounds at the bases EXTREMITIES: No clubbing, cyanosis. Has mild pedal edema. Both LE has flexure contracture. : Dennis in place, urine looks clear. Has ulcer on penis and pubis. Has extensive superficial wounds in buttocks NEUROLOGICAL: Sedated. Eyes open, upward gaze, not tracking or following commands PSYCHIATRIC: Unable to assess. LINE: No evidence of infection Assessment & Plan Remarks IMPRESSION Sepsis with shock present on admission, off pressors - has leukocytosis, elevated creatinine, acidosis - UA (+) - CT ok - has extensive wound in low back; no evidence of Michael's or nec fasciitis Leukocytosis worse again Hypothermia UTI, has dennis in place, C/S PSAE, Citrobacter, and Enterococcus Respiratory failure, possible PNA, C/S PSAE and MSSA Extensive wounds in buttocks, C/S MSSA and Enterococcus Renal failure, on HD, not oliguric Metabolic acidosis. better, off bicarb drip RECOMMENDATION Continue IV Zosyn which will cover all pathogens isolated 2 BC today UA and C/S Add Diflucan Monitor progress Follow CBC Palliative medicine following D/W Oma Ellison MD October 13, 2017 09:33
[2017-10-13] MEDS: CHLORHEXIDINE 0.12% (ORAL KIT) 15 ML CUP MT SCH ×2 (10:27→20:43)
[2017-10-13] MEDS: CALCIUM ACETATE 667 MG CAP PO SCH ×3 (10:27→18:00)
[2017-10-13] MEDS: DOCUSATE SODIUM 50 MG/SENNA 8.6 MG TAB PO SCH ×2 (10:27→20:44)
[2017-10-13] MEDS: POTASSIUM CHLOR 20 MEQ PREMIX 100 ML IV SCH ×2 (10:27→12:05)
[2017-10-13] MEDS: CHOLECALCIFEROL (VIT D3) LIQ 400 UNITS/ML 50 ML BOTTLE PO SCH (10:27)
[2017-10-13] MEDS: COLLAGENASE OINT 30 GM TUBE EXTERNAL SCH (10:28)
[2017-10-13] MEDS: SODIUM CHLORIDE 0.9% FLUSH 10 ML FLUSH IV FLUSH SCH ×2 (10:28→20:44)
[2017-10-13] MEDS: VASOPRESSIN INJ 40 UNITS in DEXTROSE 5% IN WATER 100ML INJ 98 ML IV SCH ×2 (10:32)
[2017-10-13] MEDS: FLUCONAZOLE 200 MG PREMIX BAG 100 ML IV SCH (11:00)
[2017-10-13 12:23] LABS: ALBUMIN 1.9 GM/DL (3.4-5.0); DIRECT BILIRUBIN ADULT 0.1 MG/DL (0.0-0.2)
[2017-10-13 12:25] LABS: INDIRECT BILIRUBIN 0.3 MG/DL (0.0-0.8); TOTAL BILIRUBIN ADULT 0.4 MG/DL (0.2-1.0); TOTAL PROTEIN 5.4 GM/DL (6.4-8.2)
--- NOTE | 2017-10-13 12:50 | HHI.CCPN ---
Subjective Remarks/Hospital Course 72-year-old male presents for evaluation of leg swelling. When EMS arrived they noticed that he had a infection to his buttocks when the put him on the stretcher. Per ambulance and per patient he has been for the most part sleeping and sitting on a wheelchair since been discharged from a correction. He was discharged on September 11. It is unclear as to why they discharged him. He has not moved from the wheelchair since. He has a Vargas catheter in place. 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 Patient denies any urinary or bowel movement issues but he also has a Vargas that per patient has not been changed since been discharged from the correction. Patient states that the pain is on his legs and is the main reason he called the ambulance. He denies any fevers chills or sweats. No chest pain or shortness of breath. He has multiple allergies to different medications. He denies any other medical issues at this time. 10/08 Patient is on Levophed 26 mics, Vasopressin 0.04, lactic acid 1.5 s/p 4L crystalloids on arrival. Cr: 4.36 from 5.19. 10/09 Patient was intubated yesterday and sedated with Fentnayl infusion. On Multiple pressors ( Levo 12 mics, Neosyn 90 mics and Vasopressin 0.04). 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 Afebrile. 10/10 Patient remains intubated and sedated with Fentanyl drip. CVVHD started yesterday however it clotted off overnight. Cr: 3.34 this morning from 4.03 with bicarb 22. off Bicarb drip. Off Neosyn, Levophed down 3 mics and on Vasopressin 0.04. 10/11 No events overnight. Sedated with Fentanyl drip ( 150 mics) and intubated. afebrile. On Levophed 2 mics and Vasopressin 0.04. For IHD today. s/p transfusion 1u PRBC yesterday. 10/12 Patient remains intubated and sedated off Levophed remains on Vasopressin 0.04 mics. s/p HD yesterday w removal 3.5L 10/13: Remains sedated, intubated, on mechanical ventilation. Objective Vital Signs Date Time Temp Pulse Resp B/P (MAP) Pulse Ox O2 Delivery O2 Flow Rate FiO2 10/13/17 12:02 97 50 10/13/17 11:45 98.8 79 102/57 (72) 10/12/17 16:00 24 Intake and Output 10/13/17 10/13/17 10/14/17 08:00 16:00 00:00 Intake Total 898 ml Output Total 725 ml Balance 173 ml Result Diagram: 10/13/17 0500 10/13/17 0500 Imaging Last Impressions Chest X-Ray 10/11/17 0000 Signed Impressions: Service Date/Time: Wednesday, October 11, 2017 12:36 - CONCLUSION: 1. Endotracheal tube in appropriate position with tip measuring 3.6 cm in the anibal. 2. Stable bilateral pleural effusions with associated atelectasis and/or consolidation. Lazarus Saha MD Lower Extremity Ultrasound 10/07/17 0000 Signed Impressions: Service Date/Time: Saturday, October 07, 2017 19:52 - CONCLUSION: No DVT in either lower extremity. Manuel David MD Abdomen/Pelvis CT 10/07/17 0000 Signed Impressions: Service Date/Time: Saturday, October 07, 2017 18:37 - CONCLUSION: 1. 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 2. Right renal low density likely cyst. 3. Several nonobstructing punctate left sided renal calculi. 4. Constipation. 5. Left-sided abdominal wall hernia containing large bowel loops without signs of obstruction. Manuel David MD Objective Remarks GENERAL: Patient is 72 yo intubated and sedated HEAD: Normocephalic. Atraumatic. Glasses. EYES: Pupils equal round and reactive to light bilaterally. No scleral icterus. CHEST: No accessory muscle use. No respiratory distress. CARDIOVASCULAR: Regular rate and rhythm. ABDOMEN: Soft, nontender, =BS EXTREMITIES: Severe pitting edema bilateral lower extremities with some weeping. Right heel with fairly large chronic eschar. SKIN: Overall cool and pale. Bilateral buttocks and upper posterior thighs with erythema, extensive stage 1 and stage 2 pressures ulcers. Small areas approximately 3 x 4 cm at the inferior gluteal fold bilaterally with superficial necrotic tissue. No crepitus. No purulent drainage. NEUROLOGICAL: Sedated, intubated. A/P Assessment and Plan VDRF Septic shock AG Metabolic acidosis ARF Leukocytosis Anemia Pressure ulcers on the buttock Lower extremity edema Hx UTI Plan Neuro: On Fentanyl infusion for sedation . Monitor neuro status and sedation vacation. Pulm: Continue with vent support keep sats >92% Bronchodilators, ICU vent bundle CV:Wean off pressor monitor HR and BP keep MAP>65mmHg taper steroids- Decrease HC 50mg IV Q12 Lactic acid 1.5. Echo showed Ef 50-55% : Monitor renal function, I/O's, avoid nephrotoxins Hemodialysis per Renal. Renal is following GI: Pepcid 10mg IV Q12 for GI prophylaxis Continue tube feeds- Nepro with goal rate 40 ml/hr ID: Continue with abx ( Vanco, Merrem , Flagyl) ID is following Follow-up sputum cultures and UA / Sputum: Pseudomonas, Staph / Urine cx: Citrobacter, Pseudomonas, enterococcus Monitor for signs of infections ( Fever, WBC) WBC is trending down Surgery and Urology following Wound care is following CT abd/pelvis: No air within the soft tissues the genitals to suggest Michael's gangrene. Right renal low density likely cyst. 3. Several nonobstructing punctate left sided renal calculi . Left-sided abdominal wall hernia containing large bowel loops without signs of obstruction Heme: Monitor CBC, s/p Transfusion 1u PRBC 5/5, 1u PRBC /7 Endo: SSI for glycemic control GI prophylaxis- On Pepcid DVT prophylaxis- Heparin SQ Doppler US LE : No DVT DVT GI prophylaxis -Juventino's and SCDs -Subcu heparin -Pepcid Lines: Right IJ CVP placed 5/2 Left IJ vascath placed 5/ Patient is critically ill with septic shock, ARF, leukocytosis, resp failure Palliative care following. CCT 30 mins Jose Call MD October 13, 2017 12:50
--- NOTE | 2017-10-13 16:37 | HHI.HCPN ---
Reason for visit a. To assist with evaluation and management of symptoms including: Edema, pain b. To assist medical decision maker(s) with: better understanding of current medical conditions; weighing benefits/burdens of medical treatment options; making medical treatment decisions. Subjective/Interval History his edema is improving as his urine patient seen today to follow-up on symptoms of edema and pain. His urine output is increasing and his edema is resolving with that change. He is tentatively scheduled for dialysis on Thursday when Thursday pending evaluation of his status at that time by renal. He remains with 2+ pitting, dependent edema , 2-3+ upper extremity edema and pulmonary edema. Patient has chronic pain at home and told his if he could just pain under control he will be okay with his lack of mobility. He remains on a fentanyl drip for pain and sedation at 250 mcg/h. He grimaces with movement of his limbs and turning. Wound care is particularly painful as his wound is extensive and covers buttocks, rectum and into the scrotum. He appears comfortable at rest but does grimace intermittently with no evident stimulus. . Family/friend interactions Spoke with family at length from 14:03 to 15:45 regarding and goals of care voluntary advanced care planning. We discussed options for optimal outcomes, to include which can be used, places the patient in a jail. With the unlikely possibility of medical extubation and no complications, the patient would still require placement in a jail due to his severe leg contractures and dependent status. The states that the patient was very unhappy in the previous jail and calls her frequently saying "I have to get out of here". It is the family's wishes that the patient be comfortable and pass naturally, however the is struggling with this decision and after much discussion with both of her daughters, Melissa and Sadie, as well as Melissa's Wilner, Mrs. Joseph decided that she did not want to continue aggressive life support with the best possible outcome being lives in a jail. She states that he would not want that type of quality of life and that she felt the best thing to do would be to stop the life support at this time and allow him to pass naturally. Her daughters agreed with this decision as well as her son-in-law. Consents were signed. This was discussed with Dr. Call and Dr. Baldwin who both agree that the patient's quality of life will be severely compromised with even the optimal outcome and that that is an unlikely outcome given his multiple infections, respiratory compromise, renal compromise and skin wounds. The family has requested to withdraw tomorrow once other family members have been contacted. They will contact me with the expected time. No withdrawal orders have been entered at this time pending family's determination of time. . Advance Directives Living Will: Never completed Health Care Surrogate: Never completed Durable Power of Lens Molding Equipment Operator: Never completed Advance Directive Specifics Date completed: Never completed. Health Care Surrogate(s): Never completed. Documented care wishes: No documented care wishes available. Objective Vital Signs Date Time Temp Pulse Resp B/P (MAP) Pulse Ox O2 Delivery O2 Flow Rate FiO2 10/13/17 14:30 97.0 67 112/58 (76) 10/13/17 14:15 97.2 76 120/62 (81) 10/13/17 14:00 97.2 72 125/68 (87) 10/13/17 13:45 97.3 70 114/63 (80) 10/13/17 13:30 97.5 75 119/66 (83) 10/13/17 13:15 97.7 82 112/72 (85) 10/13/17 13:00 97.7 81 106/61 (76) 10/13/17 12:45 77 10/13/17 12:45 97.9 77 129/69 (89) 88 10/13/17 12:30 98.2 62 101/57 (72) 99 10/13/17 12:30 62 10/13/17 12:15 98.4 74 104/57 (73) 98 10/13/17 12:15 74 10/13/17 12:02 97 50 10/13/17 12:00 98.6 68 95/52 (66) 97 10/13/17 12:00 68 10/13/17 11:45 79 10/13/17 11:45 98.8 79 102/57 (72) 96 10/13/17 11:30 86 10/13/17 11:30 99.0 86 106/56 (73) 96 10/13/17 11:15 103 10/13/17 11:15 103 127/68 (87) 10/13/17 11:00 87 10/13/17 11:00 99.1 87 121/58 (79) 96 10/13/17 10:45 99.3 89 133/67 (89) 95 10/13/17 10:45 89 10/13/17 10:32 87 10/13/17 10:30 89 10/13/17 10:30 99.3 89 141/69 (93) 86 10/13/17 10:15 99.3 86 145/70 (95) 96 10/13/17 10:15 86 10/13/17 10:00 80 10/13/17 10:00 99.1 80 143/66 (91) 96 10/13/17 09:45 99.0 84 120/60 (80) 96 10/13/17 09:45 84 10/13/17 09:30 99.0 82 126/61 (82) 96 10/13/17 09:30 82 10/13/17 09:15 80 10/13/17 09:15 98.8 80 116/59 (78) 96 10/13/17 09:00 88 10/13/17 09:00 98.6 88 130/65 (86) 96 10/13/17 08:45 98.6 89 134/63 (86) 97 10/13/17 08:45 89 10/13/17 08:33 96 60 10/13/17 08:30 80 10/13/17 08:30 98.4 80 112/59 (76) 96 10/13/17 08:15 98.2 82 121/65 (83) 96 10/13/17 08:15 82 10/13/17 08:00 98.2 72 106/53 (70) 95 10/13/17 08:00 72 10/13/17 08:00 50 10/13/17 06:00 90 10/13/17 04:58 96 50 10/13/17 04:00 50 10/13/17 04:00 76 10/13/17 04:00 99.1 76 124/63 (83) 96 10/13/17 02:00 96 10/13/17 00:53 94 50 10/13/17 00:00 71 10/13/17 00:00 97.9 71 95/52 (66) 99 10/13/17 00:00 50 10/12/17 22:00 85 10/12/17 20:25 99 50 10/12/17 20:00 66 10/12/17 20:00 94.3 66 123/66 (85) 98 10/12/17 20:00 40 10/12/17 18:00 87 10/12/17 17:26 81 148/72 Intake & Output 10/13/17 10/13/17 07:00 19:00 Intake Total 898 ml 350 ml Output Total 725 ml Balance 173 ml 350 ml IV Total 453 ml 350 ml Tube Feeding 445 ml Output Urine Total 725 ml # Bowel Movements 0 Physical Exam CONSTITUTIONAL/GENERAL: This is an elderly male obese, intubated, sedated, in no acute distress. TUBES/LINES/DRAINS: Left IJ central line, ETT, Vargas catheter, OGT. SKIN: No jaundice, rashes, or lesions. Ecchymoses on upper extremities. Skin temperature cool, large decubitus on buttocks extending up to rectum and scrotum. HEAD: Atraumatic. Normocephalic. EYES: Pupils equal and round and reactive. Blinks to threat. Positive scleral edema. No scleral icterus. No injection or drainage. Fundi not examined. ENT:Nose without bleeding or purulent drainage. NECK: Trachea midline. Supple, nontender. No palpable thyroid enlargement or nodularity. CARDIOVASCULAR: Regular rate and rhythm without murmurs, gallops, or rubs. No JVD. Peripheral pulses symmetric. RESPIRATORY/CHEST: Mechanically ventilated. Lungs sounds coarse, diminished at the bases with faint bibasilar crackles, rare rhonchi., Draining GASTROINTESTINAL: Abdomen soft, nondistended. No hepato-splenomegaly, or palpable masses. Bowel sounds present. GENITOURINARY: Without palpable bladder distension. Vargas catheter in place with wound at the meatus clear yellow urine. MUSCULOSKELETAL: 2+ pitting edema on bilateral lower extremities with scattered wounds on both lower legs. 2-3+ pitting edema on hands and upper extremities. LYMPHATICS: No palpable cervical or supraclavicular adenopathy. NEUROLOGICAL: Intubated, lightly sedated, eyes open, blinks to noise and threat. PSYCHIATRIC: Sedated, occasionally grimacing, occasional agitation. . Diagnostic Tests Laboratory Laboratory Tests Test 10/11/17 03:40 5/7/18 03:00 10/12/17 08:40 10/13/17 05:00 White Blood Count 18.5 TH/MM3 (4.0-11.0) 22.9 TH/MM3 (4.0-11.0) 28.2 TH/MM3 (4.0-11.0) Red Blood Count 2.48 MIL/MM3 (4.50-5.90) 2.48 MIL/MM3 (4.50-5.90) 2.95 MIL/MM3 (4.50-5.90) Hemoglobin 7.2 GM/DL (13.0-17.0) 7.1 GM/DL (13.0-17.0) 8.6 GM/DL (13.0-17.0) Hematocrit 21.3 % (39.0-51.0) 21.6 % (39.0-51.0) 25.3 % (39.0-51.0) Mean Corpuscular Volume 85.9 FL (80.0-100.0) 87.3 FL (80.0-100.0) 85.9 FL (80.0-100.0) Mean Corpuscular Hemoglobin 29.0 PG (27.0-34.0) 28.9 PG (27.0-34.0) 29.1 PG (27.0-34.0) Mean Corpuscular Hemoglobin Concent 33.7 % (32.0-36.0) 33.1 % (32.0-36.0) 33.8 % (32.0-36.0) Red Cell Distribution Width 17.2 % (11.6-17.2) 16.9 % (11.6-17.2) 16.5 % (11.6-17.2) Platelet Count 156 TH/MM3 (150-450) 148 TH/MM3 (150-450) 149 TH/MM3 (150-450) Mean Platelet Volume 7.0 FL (7.0-11.0) 7.0 FL (7.0-11.0) 7.3 FL (7.0-11.0) Neutrophils (%) (Auto) 89.9 % (16.0-70.0) 92.4 % (16.0-70.0) 91.3 % (16.0-70.0) Lymphocytes (%) (Auto) 3.9 % (9.0-44.0) 2.8 % (9.0-44.0) 3.4 % (9.0-44.0) Monocytes (%) (Auto) 5.1 % (0.0-8.0) 4.5 % (0.0-8.0) 5.1 % (0.0-8.0) Eosinophils (%) (Auto) 0.0 % (0.0-4.0) 0.0 % (0.0-4.0) 0.1 % (0.0-4.0) Basophils (%) (Auto) 1.1 % (0.0-2.0) 0.3 % (0.0-2.0) 0.1 % (0.0-2.0) Neutrophils # (Auto) 16.6 TH/MM3 (1.8-7.7) 21.2 TH/MM3 (1.8-7.7) 25.8 TH/MM3 (1.8-7.7) Lymphocytes # (Auto) 0.7 TH/MM3 (1.0-4.8) 0.7 TH/MM3 (1.0-4.8) 0.9 TH/MM3 (1.0-4.8) Monocytes # (Auto) 0.9 TH/MM3 (0-0.9) 1.0 TH/MM3 (0-0.9) 1.4 TH/MM3 (0-0.9) Eosinophils # (Auto) 0.0 TH/MM3 (0-0.4) 0.0 TH/MM3 (0-0.4) 0.0 TH/MM3 (0-0.4) Basophils # (Auto) 0.2 TH/MM3 (0-0.2) 0.1 TH/MM3 (0-0.2) 0.0 TH/MM3 (0-0.2) CBC Comment DIFF FINAL AUTO DIFF AUTO DIFF Differential Comment FINAL DIFF MANUAL FINAL DIFF MANUAL Blood Urea Nitrogen 76 MG/DL (7-18) 59 MG/DL (7-18) 54 MG/DL (7-18) Creatinine 3.88 MG/DL (0.60-1.30) 2.97 MG/DL (0.60-1.30) 2.88 MG/DL (0.60-1.30) Random Glucose 130 MG/DL (74-106) 149 MG/DL (74-106) 114 MG/DL (74-106) Total Protein 4.9 GM/DL (6.4-8.2) 4.9 GM/DL (6.4-8.2) 5.4 GM/DL (6.4-8.2) Calcium Level 5.2 MG/DL (8.5-10.1) 5.5 MG/DL (8.5-10.1) 7.1 MG/DL (8.5-10.1) Sodium Level 134 MEQ/L (136-145) 139 MEQ/L (136-145) 142 MEQ/L (136-145) Potassium Level 3.0 MEQ/L (3.5-5.1) 2.6 MEQ/L (3.5-5.1) 2.7 MEQ/L (3.5-5.1) Chloride Level 99 MEQ/L (98-107) 103 MEQ/L (98-107) 103 MEQ/L (98-107) Carbon Dioxide Level 19.3 MEQ/L (21.0-32.0) 22.5 MEQ/L (21.0-32.0) 25.7 MEQ/L (21.0-32.0) Anion Gap 16 MEQ/L (5-15) 14 MEQ/L (5-15) 13 MEQ/L (5-15) Estimat Glomerular Filtration Rate 15 ML/MIN (>89) 21 ML/MIN (>89) 22 ML/MIN (>89) Protein Corrected Calcium 6.1 MG/DL (8.5-10.1) 6.4 MG/DL (8.5-10.1) 8.0 MG/DL (8.5-10.1) Differential Total Cells Counted 100 100 Neutrophils % (Manual) 96 % (16-70) 86 % (16-70) Band Neutrophils % 1 % (0-6) 7 % (0-6) Lymphocytes % 2 % (9-44) 4 % (9-44) Neutrophils # (Manual) 22.4 TH/MM3 (1.8-7.7) 26.5 TH/MM3 (1.8-7.7) Myelocytes 1 % (0-0) Nucleated Red Blood Cells 2 /100 WBC (0-0) Platelet Estimate LOW (NORMAL) NORMAL (NORMAL) Platelet Morphology Comment NORMAL (NORMAL) NORMAL (NORMAL) Hepatitis A IgM Antibody NONREACTIVE (NONREACTIVE) Hepatitis B Surface Antigen NONREACTIVE (NONREACTIVE) Hepatitis B Core IgM Antibody NONREACTIVE (NONREACTIVE) Hepatitis C IgG Antibody NONREACTIVE (NONREACTIVE) Monocytes % 2 % (0-8) Metamyelocytes 1 % (0-1) Total Bilirubin 0.4 MG/DL (0.2-1.0) Direct Bilirubin 0.1 MG/DL (0.0-0.2) Indirect Bilirubin 0.3 MG/DL (0.0-0.8) Aspartate Amino Transf (AST/SGOT) 13 U/L (15-37) Alanine Aminotransferase (ALT/SGPT) 14 U/L (12-78) Alkaline Phosphatase 94 U/L (45-117) Albumin 1.9 GM/DL (3.4-5.0) Result Diagram: 10/13/17 0500 10/13/17 0500 Microbiology Microbiology Date/Time Source Procedure Growth Status 10/13/17 12:45 Blood Peripheral Aerobic Blood Culture Pending Received 10/13/17 12:45 Blood Peripheral Anaerobic Blood Culture Pending Received 10/13/17 12:40 Blood Line Aerobic Blood Culture Pending Received 10/13/17 12:40 Blood Line Anaerobic Blood Culture Pending Received Imaging Last Impressions Chest X-Ray 10/11/17 0000 Signed Impressions: Service Date/Time: Wednesday, October 11, 2017 12:36 - CONCLUSION: 1. Endotracheal tube in appropriate position with tip measuring 3.6 cm in the anibal. 2. Stable bilateral pleural effusions with associated atelectasis and/or consolidation. Lazarus Saha MD Lower Extremity Ultrasound 10/07/17 0000 Signed Impressions: Service Date/Time: Saturday, October 07, 2017 19:52 - CONCLUSION: No DVT in either lower extremity. Manuel David MD Abdomen/Pelvis CT 10/07/17 0000 Signed Impressions: Service Date/Time: Saturday, October 07, 2017 18:37 - CONCLUSION: 1. 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 2. Right renal low density likely cyst. 3. Several nonobstructing punctate left sided renal calculi. 4. Constipation. 5. Left-sided abdominal wall hernia containing large bowel loops without signs of obstruction. Manuel David MD Procedures 10/08: Orotracheal intubation 10/08: Left IJ central line/Vas-Cath placement . 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 He and his of 49 years moved to [place] 20 years ago. They have 2 daughters one who lives in [place] and one in [place]. He enjoys watching sports particularly basketball and baseball. Spiritual: Synagogue chinedu Legal: At this time, his would be his legal healthcare proxy. Ethical issues impacting care: airport operations duty manager reports that DCF is involved in their home care as there is some question whether the patient and are able to care for himself any longer. . Important Contacts : Omayra Joseph Daughter: Melissa Etienne cell , home Daughter: Sadie danielle . Prognosis His prognosis is poor. He is in septic shock on 3 vasopressors to maintain even minimal blood pressure. He is now in acute renal failure and hemodynamically compromised so unable to undergo hemodialysis. Vas-Cath has been placed in CVVH will be initiated today, however given his degree of sepsis , large buttocks decubitus, poor protein stores, anemia and poor performance status, he is at high risk for continued complications and decline. Code Status: No Code Plan Have transition to comfort. PLAN: Legal decision maker: At this time the patient is not capacitated to make his own decisions as he is intubated and sedated. Per [place] statutes his would be the legal healthcare proxy. Goals: Goals have transitioned to comfort DO NOT RESUSCITATE. CODE STATUS: Full code SYMPTOMS: * Edema: He has 2-3+ edema on bilateral upper and lower extremities. Labs show low protein stores and low albumin. He was previously getting hemodialysis via left IJ Vas-Cath, however his urine output has begun to increase, improving some of the edema. Dialysis is tentatively scheduled but on standby. Family at this time had signed consents for withdrawal of ventilator support, and plans to withdraw support tomorrow once family has been able to gather. * Pain: He complained of 10 out of 10 pain in his legs on admission and is likely at risk from other sources of pain to include invasive lines, bedbound status, bilateral knee contractures, extensive decubitus across the rectum and buttocks extending up into the scrotum. He is currently receiving IV fentanyl for both sedation and pain with bolus dosing available for morphine. She has not received any additional doses of morphine today. Nonverbal pain scale is being used to evaluate discomfort as patient is unable to make his needs known. Vent withdrawal orders have not yet been entered pending family's determination of the time they plan to proceed. Consents are signed and on the chart. Palliative care will continue to follow the patient during hospital course as condition evolves, to assist patient/decision-maker with understanding of their medical conditions, weighing benefits/burdens of treatment options, for clarification of goals of treatment. Additionally will assist with any symptoms of palliative concern. . Attestation To help prompt me to consider important information that might be impacting today's encounter and assessment, information from prior notes written by myself or my colleagues may have been "brought forward" into today's note. My signature on this note, however, is an attestation that I personally performed the exam, history, and/or decision-making noted today, and, unless otherwise indicated, the interactions with patient, family, and staff as well as the review of records all occurred today. I also attest that the listed assessment and stated plan reflect my best clinical judgment today based on the combination of historical information, prior notes, and today's exam/ interactions. When time spent is documented, it refers only to time spent today by the signer, or if indicated, combined time spent today by collaborating physician/nurse practitioner. . Magalis Llanes October 13, 2017 4:37 pm
[2017-10-13] MEDS: FAMOTIDINE 20 MG TAB NG SCH (20:44)
[2017-10-13] MEDS: NYSTATIN 100,000 U/GM PWD 15 GM BTL TOPICAL SCH (20:46)
[2017-10-14] VITALS (48 sets, daily range): BP systolic 51–144; BP diastolic 25–79; PULSE 61–163; O2SAT 0–98
[2017-10-14] MEDS: INSULIN NovoLIN REGULAR SUPPLEMENTAL SCALE SQ SCH ×4 (00:15→12:15)
[2017-10-14] MEDS: HYDROCORTISONE SOD SUCCINATE 100 MG VIAL IV PUSH SCH (00:25)
[2017-10-14] MEDS: SODIUM CHLORIDE 0.9% FLUSH 10 ML FLUSH IV FLUSH PRN (00:25)
[2017-10-14] MEDS: PIPERACIL-TAZO 2.25 GM PREMIX 50 ML IV SCH ×2 (01:48→10:00)
[2017-10-14] MEDS: VASOPRESSIN INJ 40 UNITS in DEXTROSE 5% IN WATER 100ML INJ 98 ML IV SCH ×2 (01:48)
[2017-10-14] MEDS: fentaNYL DRIP 250 ML IV PRN ×2 (01:48→11:47)
[2017-10-14] MEDS: CHLORHEXIDINE GLUCONATE 2 % 1 PACK (2 CLOTHS) TOP SCH (06:07)
[2017-10-14] MEDS: HEPARIN SODIUM - SQ 10,000 UNITS/ML VIAL SQ SCH (06:08)
[2017-10-14 06:30] LABS: BASOPHIL % 0.1 % (0.0-2.0); HEMATOCRIT 27.4 % (39.0-51.0); HEMOGLOBIN 9.2 GM/DL (13.0-17.0); LYMPH % 2.6 % (9.0-44.0); LYMPHOCYTE # 0.7 TH/MM3 (1.0-4.8); MEAN CELL VOLUME 86.7 FL (80.0-100.0); MEAN CORPUSCULAR HGB CONC 33.4 % (32.0-36.0); MEAN PLATELET VOLUME 7.6 FL (7.0-11.0); MONO % 3.3 % (0.0-8.0); MONOCYTE # 0.9 TH/MM3 (0-0.9); PLATELET COUNT 129 TH/MM3 (150-450); RED BLOOD COUNT 3.16 MIL/MM3 (4.50-5.90); RED CELL DISTRIBUTION WIDTH 16.5 % (11.6-17.2); WHITE BLOOD COUNT 27.7 TH/MM3 (4.0-11.0)
[2017-10-14 07:03] LABS: ALBUMIN 1.7 GM/DL (3.4-5.0); BICARBONATE 27.2 MEQ/L (21.0-32.0); PHOSPHORUS 3.7 MG/DL (2.5-4.9)
[2017-10-14] MEDS: SODIUM CHLORIDE 0.9% FLUSH 10 ML FLUSH IV FLUSH SCH (09:00)
[2017-10-14] MEDS: DOCUSATE SODIUM 50 MG/SENNA 8.6 MG TAB PO SCH (09:19)
[2017-10-14] MEDS: FLUCONAZOLE 200 MG PREMIX BAG 100 ML IV SCH (09:19)
[2017-10-14] MEDS: FAMOTIDINE 20 MG TAB NG SCH (09:19)
[2017-10-14] MEDS: CHOLECALCIFEROL (VIT D3) LIQ 400 UNITS/ML 50 ML BOTTLE PO SCH (09:20)
[2017-10-14] MEDS: CALCIUM ACETATE 667 MG CAP PO SCH (09:20)
[2017-10-14] MEDS: NYSTATIN 100,000 U/GM PWD 15 GM BTL TOPICAL SCH (09:20)
[2017-10-14] MEDS: COLLAGENASE OINT 30 GM TUBE EXTERNAL SCH (09:20)
[2017-10-14] MEDS: CHLORHEXIDINE 0.12% (ORAL KIT) 15 ML CUP MT SCH (09:23)
[2017-10-14] MEDS ORDERED: FUROSEMIDE 40 MG/4 ML VIAL IV PUSH ONE (09:30)
--- NOTE | 2017-10-14 10:14 | HHI.CCPN ---
Subjective Remarks/Hospital Course 72-year-old male presents for evaluation of leg swelling. When EMS arrived they noticed that he had a infection to his buttocks when the put him on the stretcher. Per ambulance and per patient he has been for the most part sleeping and sitting on a wheelchair since been discharged from a detention. He was discharged on September 11. It is unclear as to why they discharged him. He has not moved from the wheelchair since. He has a Vargas catheter in place. 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 Patient denies any urinary or bowel movement issues but he also has a Vargas that per patient has not been changed since been discharged from the detention. Patient states that the pain is on his legs and is the main reason he called the ambulance. He denies any fevers chills or sweats. No chest pain or shortness of breath. He has multiple allergies to different medications. He denies any other medical issues at this time. 10/08 Patient is on Levophed 26 mics, Vasopressin 0.04, lactic acid 1.5 s/p 4L crystalloids on arrival. Cr: 4.36 from 5.19. 10/09 Patient was intubated yesterday and sedated with Fentnayl infusion. On Multiple pressors ( Levo 12 mics, Neosyn 90 mics and Vasopressin 0.04). On Bicarb drip, Cr: 4.0 with UOP: 150 ml for assembler 1st shift. Afebrile. 10/10 Patient remains intubated and sedated with Fentanyl drip. CVVHD started yesterday however it clotted off overnight. Cr: 3.34 this morning from 4.03 with bicarb 22. off Bicarb drip. Off Neosyn, Levophed down 3 mics and on Vasopressin 0.04. 10/11 No events overnight. Sedated with Fentanyl drip ( 150 mics) and intubated. afebrile. On Levophed 2 mics and Vasopressin 0.04. For IHD today. s/p transfusion 1u PRBC yesterday. 10/12 Patient remains intubated and sedated off Levophed remains on Vasopressin 0.04 mics. s/p HD yesterday w removal 3.5L 10/13: Remains sedated, intubated, on mechanical ventilation. 10/13: Remains critical, remains intubated sedated. WBC count remains elevated at 27,000 profound sepsis. Family tentatively planning on withdrawal of life support today and transition to comfort measures Objective Vital Signs Date Time Temp Pulse Resp B/P (MAP) Pulse Ox O2 Delivery O2 Flow Rate FiO2 10/14/17 08:13 96 40 10/14/17 06:00 75 10/14/17 04:00 96.4 125/60 (81) 10/12/17 16:00 24 Intake and Output 10/14/17 10/14/17 10/15/17 08:00 16:00 00:00 Intake Total 865 ml Output Total 750 ml Balance 115 ml Result Diagram: 10/14/17 0545 10/14/17 0545 Imaging Last Impressions Chest X-Ray 10/11/17 0000 Signed Impressions: Service Date/Time: Wednesday, October 11, 2017 12:36 - CONCLUSION: 1. Endotracheal tube in appropriate position with tip measuring 3.6 cm in the anibal. 2. Stable bilateral pleural effusions with associated atelectasis and/or consolidation. Lazarus Saha MD Lower Extremity Ultrasound 10/07/17 0000 Signed Impressions: Service Date/Time: Saturday, October 07, 2017 19:52 - CONCLUSION: No DVT in either lower extremity. Manuel David MD Abdomen/Pelvis CT 10/07/17 0000 Signed Impressions: Service Date/Time: Saturday, October 07, 2017 18:37 - CONCLUSION: 1. 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 2. Right renal low density likely cyst. 3. Several nonobstructing punctate left sided renal calculi. 4. Constipation. 5. Left-sided abdominal wall hernia containing large bowel loops without signs of obstruction. Manuel David MD Objective Remarks GENERAL: Patient is 72 yo intubated and sedated HEAD: Normocephalic. Atraumatic. EYES: Pupils equal round and reactive to light bilaterally. No scleral icterus. CHEST: No accessory muscle use. No respiratory distress. CARDIOVASCULAR: Regular rate and rhythm. ABDOMEN: Soft, nontender EXTREMITIES: Severe pitting edema bilateral lower extremities with some weeping. Right heel with fairly large chronic eschar. SKIN: Overall cool and pale. Bilateral buttocks and upper posterior thighs with erythema, extensive stage 1 and stage 2 pressures ulcers. Small areas approximately 3 x 4 cm at the inferior gluteal fold bilaterally with superficial necrotic tissue. No crepitus. No purulent drainage. NEUROLOGICAL: Sedated, intubated. Not following commands, no spontaneous movements noted A/P Assessment and Plan Septic shock Acute respiratory failure Healthcare associated pneumonia AG Metabolic acidosis Acute kidney failure Leukocytosis Anemia Pressure ulcers on the buttock Lower extremity edema Hx UTI Plan Neuro: On Fentanyl infusion for sedation. Monitor neuro status and sedation vacation. No sedation vacation in anticipation of when withdrawal Pulm: Continue with vent support keep sats >92% Bronchodilators, ICU vent bundle CV: Wean off pressor monitor HR and BP keep MAP>65mmHg tapering steroids- HC 50mg IV Q12 Lactic acid 1.5. Echo showed Ef 50-55% : Monitor renal function, I/O's, avoid nephrotoxins Hemodialysis per Renal. Renal is following GI: Pepcid 10mg IV Q12 for GI prophylaxis Continue tube feeds- Nepro with goal rate 40 ml/hr ID: Continue with abx ( Vanco, Merrem , Flagyl) ID is following Follow-up sputum cultures and UA 10/08 Sputum: Pseudomonas, Staph 10/08 Urine cx: Citrobacter, Pseudomonas, enterococcus Monitor for signs of infections ( Fever, WBC) WBC is trending down Surgery and Urology following Wound care is following CT abd/pelvis: No air within the soft tissues the genitals to suggest Michael's gangrene. Right renal low density likely cyst. 3. Several nonobstructing punctate left sided renal calculi . Left-sided abdominal wall hernia containing large bowel loops without signs of obstruction Heme: Monitor CBC, s/p Transfusion 1u PRBC 5/5, 1u PRBC 5/7 Endo: SSI for glycemic control GI prophylaxis- On Pepcid DVT prophylaxis- Heparin SQ Doppler US LE : No DVT DVT GI prophylaxis -Juventino's and SCDs -Subcu heparin -Pepcid Lines: Right IJ CVP placed 5 Left IJ vascath placed 5/ Patient is critically ill with septic shock, ARF, leukocytosis, resp failure Palliative care following. CCT 30 mins Yoav Qiu MD October 14, 2017 10:14
--- NOTE | 2017-10-14 11:47 | HHI.NPPN ---
Subjective Renal Failure: Acute Interval History Remains intubated. Renal function is stable. Family most likely will agree to withdrawal from life support today. (Trisha Junior) Review of Systems General General Remarks unable to obtain (Trisha Junior) Objective Data Data Vital Signs Date Time Temp Pulse Resp B/P (MAP) Pulse Ox O2 Delivery O2 Flow Rate FiO2 10/14/17 08:13 96 40 10/14/17 06:00 75 10/14/17 04:08 98 40 10/14/17 04:00 65 10/14/17 04:00 96.4 65 125/60 (81) 10/14/17 04:00 40 10/14/17 03:00 96.6 74 144/74 (97) 10/14/17 03:00 74 10/14/17 02:00 96.6 82 141/79 (99) 96 10/14/17 02:00 82 10/14/17 01:48 75 10/14/17 01:00 96.4 79 133/71 (91) 96 10/14/17 01:00 79 10/14/17 00:10 98 40 10/14/17 00:00 78 10/14/17 00:00 40 10/14/17 00:00 96.6 78 136/72 (93) 97 10/13/17 23:00 84 10/13/17 23:00 96.8 84 130/65 (86) 97 10/13/17 22:00 97.0 82 141/75 (97) 97 10/13/17 22:00 82 10/13/17 21:50 98 40 10/13/17 21:00 78 10/13/17 21:00 97.0 78 131/61 (84) 98 10/13/17 20:00 40 10/13/17 20:00 97.2 79 113/59 (77) 96 10/13/17 20:00 79 10/13/17 18:00 69 10/13/17 18:00 69 10/13/17 17:30 97.5 74 128/71 (90) 10/13/17 17:15 97.5 73 129/71 (90) 94 10/13/17 17:00 97.3 89 139/78 (98) 10/13/17 17:00 97 50 10/13/17 17:00 89 10/13/17 16:45 75 10/13/17 16:45 97.3 75 141/73 (95) 10/13/17 16:30 97.3 79 143/70 (94) 10/13/17 16:30 79 10/13/17 16:15 97.2 74 126/73 (90) 10/13/17 16:15 74 10/13/17 16:00 78 10/13/17 16:00 97.2 78 126/73 (90) 10/13/17 16:00 50 10/13/17 15:45 76 10/13/17 15:30 79 10/13/17 15:15 73 10/13/17 15:00 70 10/13/17 14:45 70 10/13/17 14:30 97.0 67 112/58 (76) 10/13/17 14:30 67 10/13/17 14:15 76 10/13/17 14:15 97.2 76 120/62 (81) 10/13/17 14:00 72 10/13/17 14:00 97.2 72 125/68 (87) 10/13/17 13:45 97.3 70 114/63 (80) 10/13/17 13:30 97.5 75 119/66 (83) 10/13/17 13:15 97.7 82 112/72 (85) 10/13/17 13:00 97.7 81 106/61 (76) 10/13/17 12:45 77 10/13/17 12:45 97.9 77 129/69 (89) 88 10/13/17 12:30 98.2 62 101/57 (72) 99 10/13/17 12:30 62 10/13/17 12:15 98.4 74 104/57 (73) 98 10/13/17 12:15 74 10/13/17 12:02 97 50 10/13/17 12:00 98.6 68 95/52 (66) 97 10/13/17 12:00 60 10/13/17 12:00 68 10/13/17 11:45 79 10/13/17 11:45 98.8 79 102/57 (72) 96 (Trisha Junior) -: 10/14/17 0545 10/14/17 0545 Microbiology 10/13/17 Aerobic Blood Culture - Preliminary, Resulted NO GROWTH IN 1 DAY 10/13/17 Anaerobic Blood Culture - Preliminary, Resulted NO GROWTH IN 1 DAY 10/13/17 Aerobic Blood Culture - Preliminary, Resulted NO GROWTH IN 1 DAY 10/13/17 Anaerobic Blood Culture - Preliminary, Resulted NO GROWTH IN 1 DAY Tubes & Lines: Vas-Cath, Vargas Tubes & Lines Comment TLC Drip Comment fentanyl (Trisha Junior) Physical Exam General Appearance: Well Developed, Well Nourished, Comfortable Appearance Remarks intubated, unresponsive (Trisha Junior) Throat Throat Exam: Oral Mucosa [place] & Moist (Trisha Junior) Pulmonary Resp Exam: Breath Sounds Equal, Crackles Resp Remarks vented (Trisha Junior) Cardiology CV Exam: Regular, Normal Sinus Rhythm CV Remarks hear rate 150-170 (Trisha Junior) Gastrointestinal/Abdomen GI Exam: Soft, Non-Tender (Trisha Junior) Musculoskeletal MS Exam: Joints Intact, Atrophy, Unable to Ambulate MS Remarks contractures of knees (Trisha Junior) Integumentary Skin Exam: Warm, Dry Skin Remarks excoriated and sloughing skin on posterior thighs, buttocks. urethral meatus with ulcer on right side, sloughing noted. feet excoriated with dressing in place, some drainage. (Trisha Junior) Extremeties Extremities Exam: Pedal Pulses Palpable, Moderate Edema (Trisha Junior) Neurologic Neuro Exam: Unresponsive, Sedated (Trisha Junior) Assessment/Plan Assessment Summary: LEAH/Acute Renal Failure, Acute Tubular Necrosis, Hypotension Problem List: (1) LEAH (acute kidney injury) ICD Codes: N17.9 - Acute kidney failure, unspecified Status: Resolved Plan: In 2015 his creatinine was around 1 LEAH due to ATN from sepsis. Was on CRRT, now on intermittent HD. Had dialysis Thursday and Thursday Creatinine is stable He is non oliguric Family is reportedly deciding to stop aggressive treatment, convert to comfort measures Given lasix. No dialysis. (2) Metabolic acidosis ICD Codes: E87.2 - Acidosis Status: Acute Plan: Improved. (3) Septic shock ICD Codes: A41.9 - Sepsis, unspecified organism; R65.21 - Severe sepsis with septic shock Status: Acute Plan: Overwhelming sepsis on Zosyn. Supportive care for now (4) Decubitus skin ulcer ICD Codes: L89.90 - Pressure ulcer of unspecified site, unspecified stage Status: Acute Plan: Wound care and general surgery have been consulted No plans for I&D at this time. (5) Debility ICD Codes: R53.81 - Other malaise Status: Acute Plan: Bedbound, has pressure ulcers palliative has met with the , transition to comfort measures. (6) Hypocalcemia ICD Codes: E83.51 - Hypocalcemia Plan: Improving, continue to replace vitamin D. Monitor. Plan We will sign off. Please call us if changes. (Trisha Junior) Plan Agree with above note. Family considering withdrawal of life support. (Antonio Mancia MD) Problem Qualifiers (1) Decubitus skin ulcer: Qualified Codes: L89.93 - Pressure ulcer of unspecified site, stage 3 Trisha Junior October 14, 2017 11:47 Antonio Mancia MD October 14, 2017 20:59
[2017-10-14] MEDS ORDERED: fentaNYL DRIP 250 ML IV PRN (13:00)
[2017-10-14] MEDS ORDERED: LORazepam 2 MG/ML VIAL IV PUSH ONE ×2 (13:00→13:15)
[2017-10-14] MEDS ORDERED: HYDROmorphone HCL PF 0.5 MG/0.5 ML SYRINGE IV PUSH ONE ×2 (13:00→13:15)
[2017-10-14] MEDS ORDERED: HYOSCYAMINE 0.5 MG/ML AMP IV PUSH ONE (13:00)
[2017-10-14] MEDS ORDERED: FUROSEMIDE 20 MG/2 ML VIAL IV PUSH PRN (13:30)
[2017-10-14] MEDS ORDERED: ACETAMINOPHEN 650 MG SUPP RECTAL PRN (13:30)
[2017-10-14] MEDS ORDERED: LORazepam 2 MG/ML VIAL IV PUSH PRN (13:30)
[2017-10-14] MEDS ORDERED: HYOSCYAMINE 0.5 MG/ML AMP IV PUSH PRN (13:30)
[2017-10-14] MEDS ORDERED: HYDROmorphone HCL PF 0.5 MG/0.5 ML SYRINGE IV PUSH PRN ×2 (13:30)
[2017-10-14] MEDS ORDERED: RASS Change Order XX ONE (13:45)
--- NOTE | 2017-10-14 15:22 | HHI.HCPN ---
Reason for visit a. To assist with evaluation and management of symptoms including: Dyspnea, pain b. To assist medical decision maker(s) with: better understanding of current medical conditions; weighing benefits/burdens of medical treatment options; making medical treatment decisions. Subjective/Interval History Patient is seen today to follow-up on dyspnea and pain. The family has chosen to convert to comfort measures today and plans for compassionate vent withdrawal. At this time he remains mechanically ventilated , unstable for spontaneous breathing trials, on 40% FiO2. He is breathing over the vent occasionally by 1-2 breaths. He is on a fentanyl drip for vent synchrony and pain management. He remains edematous. His urinary output has increased in 24 hour total was 1750 mL. His renal indices, however, continued to worsen. His respiratory rate is eupneic, becomes tachypneic with moving. Pending ventilator withdrawal later today. Pain has been managed by fentanyl drip. Morphine is available for breakthrough pain however none has been given. His pain had previously been reported in bilateral lower extremities, scrotum and buttocks. He rated his pain as 10 out of 10 on admission. He is unable to describe the pain as he is intubated and sedated. . Family/friend interactions was requested to come in and see the patient today for sacrament of the sick and that has been completed. The family meeting yesterday, it was determined that due to the patient's leg contractures, he would not be able to return home as he would be unable to stand. He would have to live in a intermediate, which is contrary to the patient's wishes and family agreed that his quality of life would not be acceptable to him. Family has arrived at bedside and is visiting with the patient prior to proceeding with withdrawal. Engaged in life review, gave anticipatory guidance, provided supportive listening. Questions have been answered to the family's satisfaction. . Advance Directives Living Will: Never completed Health Care Surrogate: Never completed Durable Power of Imaging System Administrator: Never completed Advance Directive Specifics Date completed: Never completed. Health Care Surrogate(s): Never completed. Documented care wishes: No documented care wishes available. Objective Vital Signs Date Time Temp Pulse Resp B/P (MAP) Pulse Ox O2 Delivery O2 Flow Rate FiO2 10/14/17 11:43 98 40 10/14/17 08:13 96 40 10/14/17 06:00 75 10/14/17 04:08 98 40 10/14/17 04:00 65 10/14/17 04:00 96.4 65 125/60 (81) 10/14/17 04:00 40 10/14/17 03:00 96.6 74 144/74 (97) 10/14/17 03:00 74 10/14/17 02:00 96.6 82 141/79 (99) 96 10/14/17 02:00 82 10/14/17 01:48 75 10/14/17 01:00 96.4 79 133/71 (91) 96 10/14/17 01:00 79 10/14/17 00:10 98 40 10/14/17 00:00 78 10/14/17 00:00 40 10/14/17 00:00 96.6 78 136/72 (93) 97 10/13/17 23:00 84 10/13/17 23:00 96.8 84 130/65 (86) 97 10/13/17 22:00 97.0 82 141/75 (97) 97 10/13/17 22:00 82 10/13/17 21:50 98 40 10/13/17 21:00 78 10/13/17 21:00 97.0 78 131/61 (84) 98 10/13/17 20:00 40 10/13/17 20:00 97.2 79 113/59 (77) 96 10/13/17 20:00 79 10/13/17 18:00 69 10/13/17 18:00 69 10/13/17 17:30 97.5 74 128/71 (90) 10/13/17 17:15 97.5 73 129/71 (90) 94 10/13/17 17:00 97.3 89 139/78 (98) 10/13/17 17:00 97 50 10/13/17 17:00 89 10/13/17 16:45 75 10/13/17 16:45 97.3 75 141/73 (95) 10/13/17 16:30 97.3 79 143/70 (94) 10/13/17 16:30 79 10/13/17 16:15 97.2 74 126/73 (90) 10/13/17 16:15 74 10/13/17 16:00 78 10/13/17 16:00 97.2 78 126/73 (90) 10/13/17 16:00 50 10/13/17 15:45 76 10/13/17 15:30 79 10/13/17 15:15 73 10/13/17 15:00 70 Intake & Output 10/14/17 10/14/17 07:00 19:00 Intake Total 865 ml 330 ml Output Total 750 ml Balance 115 ml 330 ml IV Total 300 ml 330 ml Tube Feeding 445 ml Other 120 ml Output Urine Total 750 ml # Bowel Movements 1 Physical Exam Irregular rhythm, tachycardic rate, S1, S2 CONSTITUTIONAL/GENERAL: This is an elderly male obese, intubated, sedated, in no acute distress. TUBES/LINES/DRAINS: Left IJ central line, ETT, Vargas catheter, OGT. SKIN: No jaundice, rashes, or lesions. Ecchymoses on upper extremities. Skin temperature cool, large decubitus on buttocks extending up to rectum and scrotum. HEAD: Atraumatic. Normocephalic. EYES: Pupils equal and round and reactive. Blinks to threat. Positive scleral edema. No scleral icterus. No injection or drainage. Fundi not examined. ENT:Nose without bleeding or purulent drainage. NECK: Trachea midline. Supple, nontender. No palpable thyroid enlargement or nodularity. CARDIOVASCULAR: S1-S2, irregular rhythm, tachycardic rate, atrial fibrillation with RVR on monitor. RESPIRATORY/CHEST: Mechanically ventilated. Lungs sounds coarse, diminished at the bases with faint bibasilar crackle no rhonchi. GASTROINTESTINAL: Abdomen soft, nondistended. No hepato-splenomegaly, or palpable masses. Bowel sounds present. GENITOURINARY: Without palpable bladder distension. Vargas catheter in place with wound at the meatus draining clear yellow urine. MUSCULOSKELETAL: 2+ pitting edema on bilateral lower extremities with scattered wounds on both lower legs. 2-3+ pitting edema on hands and upper extremities. LYMPHATICS: No palpable cervical or supraclavicular adenopathy. NEUROLOGICAL: Intubated, lightly sedated, eyes open, blinks to noise and threat. PSYCHIATRIC: Sedated, occasionally grimacing, occasional agitation. . Diagnostic Tests Laboratory Laboratory Tests Test 10/12/17 03:00 5/7/18 08:40 10/13/17 05:00 10/14/17 05:45 White Blood Count 22.9 TH/MM3 (4.0-11.0) 28.2 TH/MM3 (4.0-11.0) 27.7 TH/MM3 (4.0-11.0) Red Blood Count 2.48 MIL/MM3 (4.50-5.90) 2.95 MIL/MM3 (4.50-5.90) 3.16 MIL/MM3 (4.50-5.90) Hemoglobin 7.1 GM/DL (13.0-17.0) 8.6 GM/DL (13.0-17.0) 9.2 GM/DL (13.0-17.0) Hematocrit 21.6 % (39.0-51.0) 25.3 % (39.0-51.0) 27.4 % (39.0-51.0) Mean Corpuscular Volume 87.3 FL (80.0-100.0) 85.9 FL (80.0-100.0) 86.7 FL (80.0-100.0) Mean Corpuscular Hemoglobin 28.9 PG (27.0-34.0) 29.1 PG (27.0-34.0) 29.0 PG (27.0-34.0) Mean Corpuscular Hemoglobin Concent 33.1 % (32.0-36.0) 33.8 % (32.0-36.0) 33.4 % (32.0-36.0) Red Cell Distribution Width 16.9 % (11.6-17.2) 16.5 % (11.6-17.2) 16.5 % (11.6-17.2) Platelet Count 148 TH/MM3 (150-450) 149 TH/MM3 (150-450) 129 TH/MM3 (150-450) Mean Platelet Volume 7.0 FL (7.0-11.0) 7.3 FL (7.0-11.0) 7.6 FL (7.0-11.0) Neutrophils (%) (Auto) 92.4 % (16.0-70.0) 91.3 % (16.0-70.0) 94.0 % (16.0-70.0) Lymphocytes (%) (Auto) 2.8 % (9.0-44.0) 3.4 % (9.0-44.0) 2.6 % (9.0-44.0) Monocytes (%) (Auto) 4.5 % (0.0-8.0) 5.1 % (0.0-8.0) 3.3 % (0.0-8.0) Eosinophils (%) (Auto) 0.0 % (0.0-4.0) 0.1 % (0.0-4.0) 0.0 % (0.0-4.0) Basophils (%) (Auto) 0.3 % (0.0-2.0) 0.1 % (0.0-2.0) 0.1 % (0.0-2.0) Neutrophils # (Auto) 21.2 TH/MM3 (1.8-7.7) 25.8 TH/MM3 (1.8-7.7) 26.0 TH/MM3 (1.8-7.7) Lymphocytes # (Auto) 0.7 TH/MM3 (1.0-4.8) 0.9 TH/MM3 (1.0-4.8) 0.7 TH/MM3 (1.0-4.8) Monocytes # (Auto) 1.0 TH/MM3 (0-0.9) 1.4 TH/MM3 (0-0.9) 0.9 TH/MM3 (0-0.9) Eosinophils # (Auto) 0.0 TH/MM3 (0-0.4) 0.0 TH/MM3 (0-0.4) 0.0 TH/MM3 (0-0.4) Basophils # (Auto) 0.1 TH/MM3 (0-0.2) 0.0 TH/MM3 (0-0.2) 0.0 TH/MM3 (0-0.2) CBC Comment AUTO DIFF AUTO DIFF AUTO DIFF Differential Total Cells Counted 100 100 Neutrophils % (Manual) 96 % (16-70) 86 % (16-70) Band Neutrophils % 1 % (0-6) 7 % (0-6) Lymphocytes % 2 % (9-44) 4 % (9-44) Neutrophils # (Manual) 22.4 TH/MM3 (1.8-7.7) 26.5 TH/MM3 (1.8-7.7) Myelocytes 1 % (0-0) Nucleated Red Blood Cells 2 /100 WBC (0-0) Differential Comment FINAL DIFF MANUAL FINAL DIFF MANUAL AUTO DIFF CONFIRMED Platelet Estimate LOW (NORMAL) NORMAL (NORMAL) LOW (NORMAL) Platelet Morphology Comment NORMAL (NORMAL) NORMAL (NORMAL) NORMAL (NORMAL) Blood Urea Nitrogen 59 MG/DL (7-18) 54 MG/DL (7-18) 63 MG/DL (7-18) Creatinine 2.97 MG/DL (0.60-1.30) 2.88 MG/DL (0.60-1.30) 3.00 MG/DL (0.60-1.30) Random Glucose 149 MG/DL (74-106) 114 MG/DL (74-106) 114 MG/DL (74-106) Total Protein 4.9 GM/DL (6.4-8.2) 5.4 GM/DL (6.4-8.2) Calcium Level 5.5 MG/DL (8.5-10.1) 7.1 MG/DL (8.5-10.1) 7.0 MG/DL (8.5-10.1) Sodium Level 139 MEQ/L (136-145) 142 MEQ/L (136-145) 146 MEQ/L (136-145) Potassium Level 2.6 MEQ/L (3.5-5.1) 2.7 MEQ/L (3.5-5.1) 3.0 MEQ/L (3.5-5.1) Chloride Level 103 MEQ/L (98-107) 103 MEQ/L (98-107) 107 MEQ/L (98-107) Carbon Dioxide Level 22.5 MEQ/L (21.0-32.0) 25.7 MEQ/L (21.0-32.0) 27.2 MEQ/L (21.0-32.0) Anion Gap 14 MEQ/L (5-15) 13 MEQ/L (5-15) 12 MEQ/L (5-15) Estimat Glomerular Filtration Rate 21 ML/MIN (>89) 22 ML/MIN (>89) 21 ML/MIN (>89) Protein Corrected Calcium 6.4 MG/DL (8.5-10.1) 8.0 MG/DL (8.5-10.1) Hepatitis A IgM Antibody NONREACTIVE (NONREACTIVE) Hepatitis B Surface Antigen NONREACTIVE (NONREACTIVE) Hepatitis B Core IgM Antibody NONREACTIVE (NONREACTIVE) Hepatitis C IgG Antibody NONREACTIVE (NONREACTIVE) Monocytes % 2 % (0-8) Metamyelocytes 1 % (0-1) Total Bilirubin 0.4 MG/DL (0.2-1.0) Direct Bilirubin 0.1 MG/DL (0.0-0.2) Indirect Bilirubin 0.3 MG/DL (0.0-0.8) Aspartate Amino Transf (AST/SGOT) 13 U/L (15-37) Alanine Aminotransferase (ALT/SGPT) 14 U/L (12-78) Alkaline Phosphatase 94 U/L (45-117) Albumin 1.9 GM/DL (3.4-5.0) 1.7 GM/DL (3.4-5.0) Phosphorus Level 3.7 MG/DL (2.5-4.9) Result Diagram: 10/14/17 0545 10/14/17 0545 Microbiology Microbiology Date/Time Source Procedure Growth Status 10/13/17 12:45 Blood Peripheral Aerobic Blood Culture - Preliminary NO GROWTH IN 1 DAY Resulted 10/13/17 12:45 Blood Peripheral Anaerobic Blood Culture - Preliminary NO GROWTH IN 1 DAY Resulted 10/13/17 12:40 Blood Line Aerobic Blood Culture - Preliminary NO GROWTH IN 1 DAY Resulted 10/13/17 12:40 Blood Line Anaerobic Blood Culture - Preliminary NO GROWTH IN 1 DAY Resulted Imaging Last Impressions Chest X-Ray 10/11/17 0000 Signed Impressions: Service Date/Time: Wednesday, October 11, 2017 12:36 - CONCLUSION: 1. Endotracheal tube in appropriate position with tip measuring 3.6 cm in the anibal. 2. Stable bilateral pleural effusions with associated atelectasis and/or consolidation. Lazarus Saha MD Lower Extremity Ultrasound 10/07/17 0000 Signed Impressions: Service Date/Time: Saturday, October 07, 2017 19:52 - CONCLUSION: No DVT in either lower extremity. Manuel David MD Abdomen/Pelvis CT 10/07/17 0000 Signed Impressions: Service Date/Time: Saturday, October 07, 2017 18:37 - CONCLUSION: 1. 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 2. Right renal low density likely cyst. 3. Several nonobstructing punctate left sided renal calculi. 4. Constipation. 5. Left-sided abdominal wall hernia containing large bowel loops without signs of obstruction. Manuel David MD Procedures 10/08: Orotracheal intubation 10/08: Left IJ central line/Vas-Cath placement . 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 He and his of 49 years moved to [place] 20 years ago. They have 2 daughters one who lives in [place] and one in [place]. He enjoys watching sports particularly basketball and baseball. Spiritual: [employer] Legal: At this time, his would be his legal healthcare proxy. Ethical issues impacting care: substation manager reports that DCF is involved in their home care as there is some question whether the patient and are able to care for himself any longer. . Important Contacts : Omayra Joseph Daughter: Melissa Etienne cell , home Daughter: Sadie danielle . Prognosis His prognosis is poor. He is in septic shock on 3 vasopressors to maintain even minimal blood pressure. He is now in acute renal failure and hemodynamically compromised so unable to undergo hemodialysis. Vas-Cath has been placed in CVVH will be initiated today, however given his degree of sepsis , large buttocks decubitus, poor protein stores, anemia and poor performance status, he is at high risk for continued complications and decline. Code Status: No Code Plan Have transition to comfort. PLAN: Legal decision maker: At this time the patient is not capacitated to make his own decisions as he is intubated and sedated. Per [place] statutes his would be the legal healthcare proxy. Goals: Goals have transitioned to comfort CODE STATUS: DO NOT RESUSCITATE. SYMPTOMS: * Dyspnea: He remains on mechanical ventilator at this time, pending family visit. Plan for withdrawal of ventilator support today. Consents have been signed and orders entered. He remains on 40% FiO2, but had been too unstable previously to undergo spontaneous breathing trials. Vent withdrawal pending today. * Pain: He complained of 10 out of 10 pain in his legs on admission and is likely at risk from other sources of pain to include invasive lines, bedbound status, bilateral knee contractures, extensive decubitus across the rectum and buttocks extending up into the scrotum. He is currently receiving IV fentanyl for both sedation and pain with bolus dosing available for morphine. He has not received any additional doses of morphine today. Nonverbal pain scale is being used to evaluate discomfort as patient is unable to make his needs known. Vent withdrawal orders have not yet been entered pending family's determination of the time they plan to proceed. Consents are signed and on the chart. Palliative care will continue to follow the patient during hospital course as condition evolves, to assist patient/decision-maker with understanding of their medical conditions, weighing benefits/burdens of treatment options, for clarification of goals of treatment. Additionally will assist with any symptoms of palliative concern. . Attestation To help prompt me to consider important information that might be impacting today's encounter and assessment, information from prior notes written by myself or my colleagues may have been "brought forward" into today's note. My signature on this note, however, is an attestation that I personally performed the exam, history, and/or decision-making noted today, and, unless otherwise indicated, the interactions with patient, family, and staff as well as the review of records all occurred today. I also attest that the listed assessment and stated plan reflect my best clinical judgment today based on the combination of historical information, prior notes, and today's exam/ interactions. When time spent is documented, it refers only to time spent today by the signer, or if indicated, combined time spent today by collaborating physician/nurse practitioner. . Magalis Llanes October 14, 2017 3:22 pm
[2017-10-14] MEDS: LORazepam 2 MG/ML VIAL IV PUSH PRN ×2 (16:56→21:32)
[2017-10-14] MEDS: HYDROmorphone HCL PF 0.5 MG/0.5 ML SYRINGE IV PUSH SCH ×4 (16:56→23:12)
--- NOTE | 2017-10-14 17:00 | PQ ---
Physician Query Response Document PATIENT: YASIR CONSTANTINO : 1945 ADMIT DATE: 10/07/2017 7:00 PM DISCH DATE: RESPONDING PROVIDER #: [email or web address] QUERY TEXT: CDS Clarification UTI/Sepsis, POA, related to indwelling urethral catheter requiring treatment with indwelling catheter change, IV antibiotics and IVF boluses Other explanation of clinical findings. Unable to determine (no explanation for clinical findings). The patient's Clinical Indicators include: The medical record reflects the following clinical findings, treatment, and risk factors. * Clinical Indicators: UA with large Leukocyte Esterase / UC + Citrobacter, Pseudomonas, Enterococcus * Risk Factors: Arrived with Vargas catheter in place since September 11 * Treatment: Vancomycin IV, Flagyl IV, Meropenem, IVF boluses, Urology consulted for assessment and c hange to indwelling urinary catheter Please clarify and document your clinical opinion in the progress notes and discharge summary includi ng the definitive and/or presumptive diagnosis (suspected or probable), related to the above clinical findings. Please include clinical findings supporting your diagnosis. Thank you, Vicki Marin CDS: Vicki Marin Patient Unit: [facility] Contact Number: [phone] Room: 513 Query created by: Vicki Marin on 10/14/2017 2:51 PM RESPONSE TEXT: Patient had UTI/sepsis related to indwelling catheter which was present on admission. Patient present ed with indwelling catheter Electronically signed by: Yoav Qiu MD 10/14/2017 4:56 PM
[2017-10-15] VITALS: BP 80/45; PULSE 62
[2017-10-15 00:15] VITALS: BP 74/43; PULSE 62
[2017-10-15] MEDS: LORazepam 2 MG/ML VIAL IV PUSH PRN ×2 (00:20→03:15)
[2017-10-15 00:30] VITALS: BP 64/36; PULSE 57
[2017-10-15 01:00] VITALS: PULSE 57
[2017-10-15] MEDS: HYDROmorphone HCL PF 0.5 MG/0.5 ML SYRINGE IV PUSH SCH ×2 (02:05→05:39)
--- NOTE | 2017-10-15 06:38 | DEATH SUM ---
Summary Demographics Date Pronounced : October 15, 2017 Time Of : 06:02 Preliminary Cause of : Cardiac arrest Yoav Qiu MD October 15, 2017 06:38
--- NOTE | 2017-10-15 06:40 | HHI.DS ---
Summary Note Date of : October 15, 2017 Time Of : 06:02 Admission Date October 07, 2017 at 19:00 Admitting Diagnosis acute septic shock, new infected decubitous ulcer on buttox Diagnosis at Time of : (1) Septic shock ICD Code: A41.9 - Sepsis, unspecified organism; R65.21 - Severe sepsis with septic shock Diagnosis: Principal (2) Acute respiratory failure ICD Code: J96.00 - Acute respiratory failure, unspecified whether with hypoxia or hypercapnia Diagnosis: Principal (3) Acute kidney failure ICD Code: N17.9 - Acute kidney failure, unspecified Diagnosis: Principal (4) Metabolic acidosis ICD Code: E87.2 - Acidosis Diagnosis: Principal (5) UTI (urinary tract infection) ICD Code: N39.0 - Urinary tract infection, site not specified Diagnosis: Principal (6) Pneumonia Diagnosis: Principal (7) Edema ICD Code: R60.9 - Edema, unspecified Diagnosis: Principal (8) Hypocalcemia ICD Code: E83.51 - Hypocalcemia Diagnosis: Principal Procedures Central line 10/08/17 Brief History 72-year-old male presents for evaluation of leg swelling. When EMS arrived they noticed that he had a infection to his buttocks when the put him on the stretcher. Per ambulance and per patient he has been for the most part sleeping and sitting on a wheelchair since been discharged from a detention. He was discharged on September 11. It is unclear as to why they discharged him. He has not moved from the wheelchair since. He has a Vargas catheter in place. 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 Patient denies any urinary or bowel movement issues but he also has a Vargas that per patient has not been changed since been discharged from the detention. Patient states that the pain is on his legs and is the main reason he called the ambulance. He denies any fevers chills or sweats. No chest pain or shortness of breath. He has multiple allergies to different medications. He denies any other medical issues at this time. CBC/BMP: 10/14/17 0545 10/14/17 0545 Significant Findings Laboratory Tests Test 10/12/17 08:40 10/13/17 05:00 10/14/17 05:45 White Blood Count 28.2 TH/MM3 (4.0-11.0) 27.7 TH/MM3 (4.0-11.0) Red Blood Count 2.95 MIL/MM3 (4.50-5.90) 3.16 MIL/MM3 (4.50-5.90) Hemoglobin 8.6 GM/DL (13.0-17.0) 9.2 GM/DL (13.0-17.0) Hematocrit 25.3 % (39.0-51.0) 27.4 % (39.0-51.0) Platelet Count 149 TH/MM3 (150-450) 129 TH/MM3 (150-450) Neutrophils (%) (Auto) 91.3 % (16.0-70.0) 94.0 % (16.0-70.0) Lymphocytes (%) (Auto) 3.4 % (9.0-44.0) 2.6 % (9.0-44.0) Neutrophils # (Auto) 25.8 TH/MM3 (1.8-7.7) 26.0 TH/MM3 (1.8-7.7) Lymphocytes # (Auto) 0.9 TH/MM3 (1.0-4.8) 0.7 TH/MM3 (1.0-4.8) Monocytes # (Auto) 1.4 TH/MM3 (0-0.9) Neutrophils % (Manual) 86 % (16-70) Band Neutrophils % 7 % (0-6) Lymphocytes % 4 % (9-44) Neutrophils # (Manual) 26.5 TH/MM3 (1.8-7.7) Blood Urea Nitrogen 54 MG/DL (7-18) 63 MG/DL (7-18) Creatinine 2.88 MG/DL (0.60-1.30) 3.00 MG/DL (0.60-1.30) Random Glucose 114 MG/DL (74-106) 114 MG/DL (74-106) Total Protein 5.4 GM/DL (6.4-8.2) Calcium Level 7.1 MG/DL (8.5-10.1) 7.0 MG/DL (8.5-10.1) Potassium Level 2.7 MEQ/L (3.5-5.1) 3.0 MEQ/L (3.5-5.1) Estimat Glomerular Filtration Rate 22 ML/MIN (>89) 21 ML/MIN (>89) Protein Corrected Calcium 8.0 MG/DL (8.5-10.1) Aspartate Amino Transf (AST/SGOT) 13 U/L (15-37) Albumin 1.9 GM/DL (3.4-5.0) 1.7 GM/DL (3.4-5.0) Platelet Estimate LOW (NORMAL) Sodium Level 146 MEQ/L (136-145) Imaging Last Impressions Chest X-Ray 10/11/17 0000 Signed Impressions: Service Date/Time: Wednesday, October 11, 2017 12:36 - CONCLUSION: 1. Endotracheal tube in appropriate position with tip measuring 3.6 cm in the anibal. 2. Stable bilateral pleural effusions with associated atelectasis and/or consolidation. Lazarus Saha MD Lower Extremity Ultrasound 10/07/17 0000 Signed Impressions: Service Date/Time: Saturday, October 07, 2017 19:52 - CONCLUSION: No DVT in either lower extremity. Manuel David MD Abdomen/Pelvis CT 10/07/17 0000 Signed Impressions: Service Date/Time: Saturday, October 07, 2017 18:37 - CONCLUSION: 1. 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 2. Right renal low density likely cyst. 3. Several nonobstructing punctate left sided renal calculi. 4. Constipation. 5. Left-sided abdominal wall hernia containing large bowel loops without signs of obstruction. Manuel David MD Hospital Course 72-year-old male presents for evaluation of leg swelling. When EMS arrived they noticed that he had a infection to his buttocks when the put him on the stretcher. Per ambulance and per patient he has been for the most part sleeping and sitting on a wheelchair since been discharged from a detention. He was discharged on September 11. It is unclear as to why they discharged him. He has not moved from the wheelchair since. He has a Vargas catheter in place. 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 Patient denies any urinary or bowel movement issues but he also has a Vargas that per patient has not been changed since been discharged from the detention. Patient states that the pain is on his legs and is the main reason he called the ambulance. He denies any fevers chills or sweats. No chest pain or shortness of breath. He has multiple allergies to different medications. He denies any other medical issues at this time. 10/08 Patient is on Levophed 26 mics, Vasopressin 0.04, lactic acid 1.5 s/p 4L crystalloids on arrival. Cr: 4.36 from 5.19. 10/09 Patient was intubated yesterday and sedated with Fentnayl infusion. On Multiple pressors ( Levo 12 mics, Neosyn 90 mics and Vasopressin 0.04). 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 Afebrile. 10/10 Patient remains intubated and sedated with Fentanyl drip. CVVHD started yesterday however it clotted off overnight. Cr: 3.34 this morning from 4.03 with bicarb 22. off Bicarb drip. Off Neosyn, Levophed down 3 mics and on Vasopressin 0.04. 10/11 No events overnight. Sedated with Fentanyl drip ( 150 mics) and intubated. afebrile. On Levophed 2 mics and Vasopressin 0.04. For IHD today. s/p transfusion 1u PRBC yesterday. 10/12 Patient remains intubated and sedated off Levophed remains on Vasopressin 0.04 mics. s/p HD yesterday w removal 3.5L 10/13: Remains sedated, intubated, on mechanical ventilation. 10/14: Remains critical, remains intubated sedated. WBC count remains elevated at 27,000 profound sepsis. Family tentatively planning on withdrawal of life support today and transition to comfort measures. After family members arrived at the bedside, active life support was withdrawn, after implementing comfort medications. Patient at 6:02 AM on 10/15/2017 Yoav Qiu MD October 15, 2017 06:40
--- NOTE | 2017-10-16 12:14 | PQ ---
Physician Query Response Document PATIENT: YASIR CONSTANTINO : 1945 ADMIT DATE: 10/07/2017 7:00 PM DISCH DATE: 10/15/2017 6:02 AM RESPONDING PROVIDER #: [email or web address] QUERY TEXT: Present On Admission It is unclear whether a diagnosis was present on admission. Your help is needed. Please clarify the POA status Such as: -HEALTH CARE ASSOCIATED PNEUMONIA -- Present on admission -- Not present on admission --Pneumonia not Health Care Associated/Present On Admission The patient's Clinical Indicators include: Dr. Qiu, you have documented Health Care Associated Pneumonia 0n 5-9-18. Dr. Moss October 08, "persistant left lower consolidation". Sputum collected October 08 positive for Pseudomonas/Staph Aureus. Please review the question below and anser to the best of your ability THANK YOU Query created by: Salvatore Schmidt on 10/16/2017 7:27 AM RESPONSE TEXT: Healthcare associated pneumonia present on admission Electronically signed by: Yoav Qiu MD 10/16/2017 12:10 PM
== END 2017-10-15 06:02 | disposition expired | DRG 698 ==
LOC: NEPE 16:48 → NEDA 19:00 → HIME 21:50
PROVIDERS: ADMIT Internal Medicine Critical Care Medicine; ATTEND Internal Medicine Critical Care Medicine
PROC: 02HV33Z Insertion of Infusion Device into Superior Vena Cava, Percutaneous Approach (ICD-10-PCS; principal; 2017-10-07)
PROC: 0T9B70Z Drainage of Bladder with Drainage Device, Via Natural or Artificial Opening (ICD-10-PCS; 2017-10-07)
PROC: 0TPBX0Z Removal of Drainage Device from Bladder, External Approach (ICD-10-PCS; 2017-10-07)
PROC: 5A1955Z Respiratory Ventilation, Greater than 96 Consecutive Hours (ICD-10-PCS; 2017-10-08)
PROC: 05HN33Z Insertion of Infusion Device into Left Internal Jugular Vein, Percutaneous Approach (ICD-10-PCS; 2017-10-08)
PROC: 0BH17EZ Insertion of Endotracheal Airway into Trachea, Via Natural or Artificial Opening (ICD-10-PCS; 2017-10-08)
PROC: 5A1D70Z Performance of Urinary Filtration, Intermittent, Less than 6 Hours Per Day (ICD-10-PCS; 2017-10-09)
PROC: 30233N1 Transfusion of Nonautologous Red Blood Cells into Peripheral Vein, Percutaneous Approach (ICD-10-PCS; 2017-10-10)
DX: T83.511A Infection and inflammatory reaction due to indwelling urethral catheter, initial encounter (principal); N17.0 Acute kidney failure with tubular necrosis; R65.21 Severe sepsis with septic shock; J96.00 Acute respiratory failure, unspecified whether with hypoxia or hypercapnia; E43 Unspecified severe protein-calorie malnutrition; A41.9 Sepsis, unspecified organism; G93.40 Encephalopathy, unspecified; L89.153 Pressure ulcer of sacral region, stage 3; L89.613 Pressure ulcer of right heel, stage 3; J18.9 Pneumonia, unspecified organism; E87.2 Acidosis; L03.317 Cellulitis of buttock; L89.319 Pressure ulcer of right buttock, unspecified stage; L89.899 Pressure ulcer of other site, unspecified stage; D64.9 Anemia, unspecified; M19.90 Unspecified osteoarthritis, unspecified site; F17.290 Nicotine dependence, other tobacco product, uncomplicated; I12.9 Hypertensive chronic kidney disease with stage 1 through stage 4 chronic kidney disease, or unspecified chronic kidney disease; N18.9 Chronic kidney disease, unspecified; Z99.3 Dependence on wheelchair; M24.561 Contracture, right knee; M24.562 Contracture, left knee; N36.8 Other specified disorders of urethra; N40.0 Benign prostatic hyperplasia without lower urinary tract symptoms; Q54.8 Other hypospadias; K43.9 Ventral hernia without obstruction or gangrene; N20.0 Calculus of kidney; S91.302A Unspecified open wound, left foot, initial encounter; S81.802A Unspecified open wound, left lower leg, initial encounter; S81.801A Unspecified open wound, right lower leg, initial encounter; L08.9 Local infection of the skin and subcutaneous tissue, unspecified; E55.9 Vitamin D deficiency, unspecified; L89.329 Pressure ulcer of left buttock, unspecified stage; Z83.3 Family history of diabetes mellitus; Z82.0 Family history of epilepsy and other diseases of the nervous system; Z82.49 Family history of ischemic heart disease and other diseases of the circulatory system; Z78.1 Physical restraint status; Z74.01 Bed confinement status; Z66 Do not resuscitate; Z51.5 Encounter for palliative care; Z87.440 Personal history of urinary (tract) infections; Y73.1 Therapeutic (nonsurgical) and rehabilitative gastroenterology and urology devices associated with adverse incidents; K59.00 Constipation, unspecified; M10.9 Gout, unspecified; N39.0 Urinary tract infection, site not specified; L27.1 Localized skin eruption due to drugs and medicaments taken internally; T36.1X5A Adverse effect of cephalosporins and other beta-lactam antibiotics, initial encounter; Y95 Nosocomial condition; Y92.239 Unspecified place in hospital as the place of occurrence of the external cause; N49.2 Inflammatory disorders of scrotum; I46.9 Cardiac arrest, cause unspecified; G89.29 Other chronic pain
CPT/HCPCS: 31500; 36430; 36556; 36600; 71045; 74176; 80048; 80053; 80069; 80074; 80076; 80202; 81001; 82306; 82550; 82552; 82570; 82805; 82948; 83605; 83735; 83880; 84100; 84155; 84300; 84443; 84484; 85007; 85014; 85018; 85025; 85027; 85610; 85652; 85730; 86140; 86403; 86850; 86900; 86901; 86920; 86922; 87040; 87070; 87077; 87086; 87186; 87205; 87641; 90935; 93005; 93306; 93970; 94002; 94003; 94640; 94664; 96365; 96374; 96375; J0610; J1170; J1450; J1580; J1644; J1720; J1940; J1980; J2060; J2185; J2250; J2270; J2370; J2543; J3010; J3370; J3480; J7030; J7040; J7050; J7060; J7070; J7512; P9016; P9045; P9047; Q4081